=== PATIENT | female | born 1950 | race Caucasian/White ===

== ENCOUNTER 2020-09-09 15:41 | Inpatient (IN) | payer OTHER ==
[2020-09-09] VITALS (21 sets, daily range): BP systolic 79–130; BP diastolic 39–78
[~2020-09-09] VITALS: Ht 160 cm; Wt 49.9 kg
[2020-09-09 16:14] LABS: APPEARANCE,URINE TURBID; BILIRUBIN, URINE 2+ (NEGATIVE); COLOR,URINE BROWN; GLUCOSE, URINE (UA) NEGATIVE (NEGATIVE); KETONES,URINE 2+ (NEGATIVE); LEUKOCYTE ESTERASE ,URINE 3+ (NEGATIVE); NITRITE,URINE NEGATIVE (NEGATIVE); PH,URINE 7 (4.5-8.0); PROTEIN,URINE 4+ (NEGATIVE); UROBILINOGEN,URINE NORMAL MG/DL (0.0-1.0)
[2020-09-09 16:26] LABS: HEMATOCRIT 26.6 % (37.0-47.0); HEMOGLOBIN 8.4 G/DL (12.0-16.0); MEAN CORPUSCULAR VOLUME 85 FL (80-99); PLATELET COUNT 453 K/UL (150-450); RED BLOOD COUNT 3.12 M/UL (4.20-5.40); RED CELL DISTRIBUTION WIDTH 19.8 % (11.6-14.8)
[2020-09-09] MEDS ORDERED: Vancomycin 1 GM in NS 275 ML IVPB ONE (16:30)
[2020-09-09] MEDS ORDERED: Omnipaque-300 100ml vial INJ PRN (16:30)
[2020-09-09] MEDS ORDERED: Cefepime HCl 1 GM in D5W 55 ML IVPB ONE (16:30)
[2020-09-09 16:31] LABS: WHITE BLOOD COUNT 24.1 K/UL (4.8-10.8)
[2020-09-09 16:35] LABS: ANION GAP 19 mmol/L (5-15); BLOOD UREA NITROGEN 31 mg/dL (7-18); CALCIUM 8.1 MG/DL (8.5-10.1); CARBON DIOXIDE 11 MMOL/L (21-32); CHLORIDE 101 MMOL/L (98-107); INR 1.3 (0.9-1.1); POTASSIUM 4.9 MMOL/L (3.5-5.1); SODIUM 131 MMOL/L (136-145)
--- NOTE | 2020-09-09 16:36 | Emergency Room Report ---
History of Present Illness General Chief Complaint: Generalized Weakness Source: Patient, Medical Record, EMS Present Illness HPI Paramedics were called for patient with gluteal pain. In addition she was found to be hypotensive. Paramedics have very little other history. Patient c omplains of abdominal pain. He rates the pain 6/10 and constant. Aching and pressure. She denies dysuria. She has been moving her bowels without difficulty and denies diarrhea. She complains of generalized weakness. He denies nausea and vomiting. There is no productive cough. He has swelling in extremities but denies any calf pain. 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 She has obstructive jaundice in the past and stent has been placed twice. She has a Port-A-Cath and also PICC line. She been receiving chemotherapy. Apparently at the onset of the admission last time she had a temperature of 102. No fevers, chills, sore throat, chest pain, palpitations, shortness of breath, rashes, depression, anxiety, visual changes, dizziness, headache. Allergies: Coded Allergies: No Known Allergies (Unverified , 09/09/20) COVID-19 Screening Contact w/high risk pt: No Experienced COVID-19 symptoms?: No Patient History Past Medical History: see triage record Past Surgical History: other - liver stents, IVC filter, ureteral stents Social History: Denies: smoking, alcohol use Social History Narrative born [facility] Reviewed Nursing Documentation: PMH: Agreed; PSxH: Agreed Review of Systems All Other Systems: negative except mentioned in HPI Physical Exam Vital Signs Date Time Temp Pulse Resp B/P (MAP) Pulse Ox O2 Delivery O2 Flow Rate FiO2 09/09/20 15:35 99.0 105 18 80/40 (53) 97 Room Air Sp02 EP Interpretation: reviewed, normal General Appearance: GCS 15, mild distress, thin, Chronically Ill Head: normocephalic, atraumatic Eyes: bilateral eye PERRL, bilateral eye scleral icterus ENT: dry mucus membranes Neck: full range of motion, supple Respiratory: lungs clear, normal breath sounds, other - Port-A-Cath right chest Cardiovascular #1: tachycardia, other - PICC line right upper arm, edema - Anasarca and 3+ pitting bilateral legs Cardiovascular #2: 2+ radial (R) Gastrointestinal: no rebound, distended, guarding, tenderness Rectal: hemorrhoids Genitourinary: no CVA tenderness Musculoskeletal: back normal - Upper, moves extm spontaneously, tender - Sacral and gluteal area Neurologic: DTRs symmetric, oriented x3, sensory intact, cerebellar normal, motor weakness - Generalized, speech normal, other - No asterixis Psychiatric: mood/affect normal Skin: Decubitus/Ulcer - Stage II sacral, warm/dry, jaundice, pallor Procedures Critical Care Time Critical Care Time Total Critical Care Time: 115 min bedside evaluation and treatment excludes procedures (EKG). Reason for critical care: Septic shock, liver failure, hematuria and UTI, sepsis resuscitation, treatment of coagulopathy, consultation with admitting physician and surgeon, repeat evaluations, review of prior records, renal failure Possible complications: hypotension, hypertension, SC, shock, arrhythmias, metabolic acidosis, end organ damage, respiratory failure. Interventions: Sepsis resuscitation, repeat evaluations, antibiotics, vitamin K, consultations with surgeon and admitting physician, review of prior records Course: Patient presented with lower back pain and hypotension. Obvious liver failure. Sepsis resuscitation begun. Initially responsive to fluids. Persistent hypotension. Replete fluid boluses. Unresponsive to fluid boluses and pressors begun. Blood pressure improved with this. Abdominal pain led to CT of the abdomen revealing spigelian hernia. Surgical consultation. Patient examined by private physician in the emergency department and discussion of level of care. Coagulopathy treated with vitamin K. Urinary tract infection treated with triple antibiotics. Consultations: nursing staff, EMS, consulting surgeon, admitting physician Performed by: Dr. Mackay Tolerated well condition = critical Medical Decision Making Diagnostic Impression: Primary Impression: Severe sepsis Additional Impressions: Liver failure Qualified Codes: K72.90 - Hepatic failure, unspecified without coma Hematuria Qualified Codes: R31.0 - Gross hematuria UTI (urinary tract infection) Qualified Codes: N39.0 - Urinary tract infection, site not specified; R31.9 - Hematuria, unspecified Renal failure Qualified Codes: N19 - Unspecified kidney failure Spigelian hernia Elevated lipase Coagulopathy Septic shock Metastasis from rectal cancer ER Course Patient presents with lower back pain and hypotension. This evidence of liver failure. Differential includes sepsis, biliary obstruction, metastatic disease, acute bleeding, acute myocardial infarction, electrolyte imbalance amongst others. Evaluation with EKG, chest x-ray, CT of the abdomen and labs. Sepsis resuscitation begun. Patient placed on a playground monitor. Review of records from prior hospitalization. Extremely complex patient with comorbidities and in critical condition. EKG no injury. Chest x-ray metastatic disease. Vitamin K ordered in face of hematuria. Still hypotensive after 500 NS. Re-bolus ordered. Triple antibiotics ordered. 1620 If hypotensive after bolus, will start pressors. Sepsis reevaluation. Called with critical WBC. Dr. Abarca here and discussed in detail. 1635 CT abdomen ordered. Renal failure - non-contrast discussed with security installation sales technician. Dr. Abarca spoke with patient regarding code status. No compressions or intubation. Still aggressive care (ICU). 165 CT abdomen with spigelian hernia possible causing obstruction. Contact Dr. Haas. BP still low. Starting Levophed. 175 BP stable on Levophed 1830 Condition is improved but patient is critical. Laboratory Tests Test 09/09/20 15:50 White Blood Count 24.1 K/UL (4.8-10.8) *H Red Blood Count 3.12 M/UL (4.20-5.40) L Hemoglobin 8.4 G/DL (12.0-16.0) L Hematocrit 26.6 % (37.0-47.0) L Mean Corpuscular Volume 85 FL (80-99) Mean Corpuscular Hemoglobin 26.9 PG (27.0-31.0) L Mean Corpuscular Hemoglobin Concent 31.5 G/DL (32.0-36.0) L Red Cell Distribution Width 19.8 % (11.6-14.8) H Platelet Count 453 K/UL (150-450) H Mean Platelet Volume 7.2 FL (6.5-10.1) Neutrophils (%) (Auto) % (45.0-75.0) Lymphocytes (%) (Auto) % (20.0-45.0) Monocytes (%) (Auto) % (1.0-10.0) Eosinophils (%) (Auto) % (0.0-3.0) Basophils (%) (Auto) % (0.0-2.0) Differential Total Cells Counted 100 Neutrophils % (Manual) 92 % (45-75) H Lymphocytes % (Manual) 3 % (20-45) L Monocytes % (Manual) 5 % (1-10) Eosinophils % (Manual) 0 % (0-3) Basophils % (Manual) 0 % (0-2) Band Neutrophils 0 % (0-8) Platelet Estimate Increased H Platelet Morphology Normal Hypochromasia 1+ Anisocytosis 1+ Target Cells Occasional Stomatocytes Occasional Prothrombin Time 14.5 SEC (9.30-11.50) H Prothrombin Time INR 1.3 (0.9-1.1) H Activated Partial Thromboplast Time 44 SEC (23-33) H D-Dimer 3.14 mg/L FEU (0.00-0.49) H Urine Color Brown Urine Appearance Turbid Urine pH 7 (4.5-8.0) Urine Specific [place] 1.010 (1.005-1.035) Urine Protein 4+ (NEGATIVE) H Urine Glucose (UA) Negative (NEGATIVE) Urine Ketones 2+ (NEGATIVE) H Urine Blood 5+ (NEGATIVE) H Urine Nitrite Negative (NEGATIVE) Urine Bilirubin 2+ (NEGATIVE) H Urine Ictotest Positive (NEGATIVE) Urine Urobilinogen Normal MG/DL (0.0-1.0) Urine Leukocyte Esterase 3+ (NEGATIVE) H Urine RBC Tntc /HPF (0 - 2) H Urine WBC Tntc /HPF (0 - 2) H Urine Squamous Epithelial Cells Occasional /LPF Urine Bacteria Many /HPF (NONE) H Urine Yeast Moderate /HPF (NONE) H Sodium Level 131 MMOL/L (136-145) L Potassium Level 4.9 MMOL/L (3.5-5.1) Chloride Level 101 MMOL/L (98-107) Carbon Dioxide Level 11 MMOL/L (21-32) L Anion Gap 19 mmol/L (5-15) H Blood Urea Nitrogen 31 mg/dL (7-18) H Creatinine 3.0 MG/DL (0.55-1.30) H Estimated Glomerular Filtration Rate 15.5 mL/min (>60) Glucose Level 77 MG/DL (74-106) Lactic Acid Level 0.40 mmol/L (0.4-2.0) Calcium Level 8.1 MG/DL (8.5-10.1) L Magnesium Level 1.8 MG/DL (1.8-2.4) Ferritin 666 NG/ML (8-388) H Total Bilirubin 16.3 MG/DL (0.2-1.0) H Direct Bilirubin 13.6 MG/DL (0.0-0.3) H Aspartate Amino Transferase (AST) 88 U/L (15-37) H Alanine Aminotransferase (ALT) 14 U/L (12-78) Alkaline Phosphatase > 2000 U/L (46-116) H Ammonia 74 umol/L (11-32) H Lactate Dehydrogenase 258 U/L (81-234) H Total Creatine Kinase 72 U/L (26-308) Troponin I 0.000 ng/mL (0.000-0.056) C-Reactive Protein, Quantitative 11.1 mg/dL (0.00-0.90) H Pro-B-Type Natriuretic Peptide 692 pg/mL (0-125) H Total Protein 6.1 G/DL (6.4-8.2) L Albumin 1.5 G/DL (3.4-5.0) L Globulin 4.6 g/dL Albumin/Globulin Ratio 0.3 (1.0-2.7) L Lipase 1453 U/L (73-393) H EKG Diagnostic Results Rhythm: NSR ST Segments: no acute changes Rhythm Strip Diag. Results EP Interpretation: yes Rhythm: NSR, no PVC's, no ectopy Chest X-Ray Diagnostic Results Chest X-Ray Diagnostic Results : Chest X-Ray Ordered: Yes # of Views/Limited/Complete: 1 View Indication: Other EP Interpretation: Yes Interpretation: no pneumothorax, other - metastatic disease vs infiltrates, bilateral effusions Last Vital Signs Date Time Temp Pulse Resp B/P (MAP) Pulse Ox O2 Delivery O2 Flow Rate FiO2 09/09/20 23:00 104/52 09/09/20 22:40 98.9 09/09/20 21:12 91 09/09/20 20:20 16 100 Room Air Status: improved Disposition: ADMITTED INPATIENT Condition: Critical Surya Mackay MD Sep 09, 2020 16:36
[2020-09-09 16:38] LABS: AMMONIA 74 umol/L (11-32)
[2020-09-09 16:51] LABS: ALANINE AMINOTRANSFERASE 14 U/L (12-78); ALBUMIN 1.5 G/DL (3.4-5.0); ALBUMIN/GLOBULIN RATIO 0.3 (1.0-2.7); ALKALINE PHOSPHATASE > 2000 U/L (46-116); ASPARTATE AMINO TRANSFERASE 88 U/L (15-37); BILIRUBIN,TOTAL 16.3 MG/DL (0.2-1.0); CREATINE KINASE 72 U/L (26-308); FERRITIN 666 NG/ML (8-388); LACTATE DEHYDROGENASE 258 U/L (81-234)
[2020-09-09] MEDS ORDERED: BISACODYL5 MG ORAL (16:58)
[2020-09-09] MEDS ORDERED: DOCUSATE SODIU100 MG ORAL (16:58)
[2020-09-09] MEDS ORDERED: REGLAN5 MG ORAL (17:00)
[2020-09-09] MEDS ORDERED: ZOFRAN ODT8 MG ORAL (17:00)
[2020-09-09] MEDS ORDERED: MORPHINE IR15 MG ORAL (17:00)
[2020-09-09] MEDS ORDERED: OMEPRAZOLE20 M3 ORAL (17:00)
[2020-09-09] MEDS ORDERED: OXYCODONE HCL5 M2 ORAL (17:00)
[2020-09-09] MEDS ORDERED: LOSARTAN POTASS50 MG ORAL (17:00)
[2020-09-09 17:02] LABS: BILIRUBIN,DIRECT 13.6 MG/DL (0.0-0.3)
--- NOTE | 2020-09-09 17:23 | Diagnostic Imaging Report ---
EXAM: CT Abdomen and Pelvis Without Intravenous Contrast CLINICAL HISTORY: ABD PAIN TECHNIQUE: Axial computed tomography images of the abdomen and pelvis without intravenous contrast. CTDI is 4.5 mGy and DLP is 233.8 mGy-cm. One or more of the following dose reduction techniques were used: automated exposure control, adjustment of the mA and/or kV according to patient size, use of iterative reconstruction technique. COMPARISON: No relevant prior studies available. FINDINGS: Lung bases: Multiple nodules in the lungs suspicious for metastatic disease. Pleural space: Small bilateral pleural effusions and subjacent atelectasis. ABDOMEN: Liver: Unremarkable. Gallbladder and bile ducts: Metal stent within the common bile duct with severe intrahepatic biliary dilatation. The gallbladder is distended. Pancreas: Poorly visualized pancreatic parenchyma given the lack of contrast. Spleen: Unremarkable. Adrenals: Unremarkable. Kidneys and ureters: Bilateral nephroureteral stents in place. Moderate bilateral hydronephrosis. Hyperdense 1.9 cm structure in the left renal upper pole is contrast density potentially representing retained contrast in a calyceal cyst. Stomach and bowel: Right-sided spigelian hernia containing a loop of small bowel. The small bowel is dilated both within the hernia sac and upstream with fluid levels likely representing obstruction. Postsurgical changes within the rectum and right lower quadrant small bowel. No small bowel pneumatosis. PELVIS: Appendix: No findings to suggest acute appendicitis. Bladder: Tovar catheter within the bladder. No stones. Reproductive: Unremarkable as visualized. ABDOMEN and PELVIS: Intraperitoneal space: Unremarkable. No free air. No significant fluid collection. Bones/joints: No acute fracture. Soft tissues: Marked anasarca. Vasculature: IVC filter in place. Lymph nodes: Bulky calcified retroperitoneal and epigastric lymph nodes suspicious for metastatic disease. IMPRESSION: 1. Right-sided spigelian hernia containing a loop of small bowel. The small bowel is dilated both within the hernia sac and upstream with fluid levels likely representing obstruction. 2. Metal stent within the common bile duct with severe intrahepatic biliary dilatation. 3. Bilateral nephroureteral stents in place. Moderate bilateral hydronephrosis. 4. Multiple pulmonary nodules and intra-abdominal adenopathy suspicious for metastatic disease. 5. Fluid overload as evidenced by marked anasarca and small bilateral pleural effusions.
--- NOTE | 2020-09-09 17:31 | Diagnostic Imaging Report ---
Indication: Shortness of breath Technique: One view of the chest Comparison: none Findings: There are bilateral streaky and patchy opacities. There are also bilateral masslike opacities. There are bilateral pleural effusions. The heart size is normal. There is a right arm PICC as well as a right chest port. There is a metal biliary stent noted in the upper abdomen. Impression: Bilateral masslike opacities. Suspected neoplastic etiology given presence of a chest port catheter. Bilateral streaky opacities, may reflect pneumonia versus pulmonary edema. Atypical pneumonia also possibility. Bilateral pleural effusions
--- NOTE | 2020-09-09 18:54 | Consultation ---
History of Present Illness General Reason for Hospitalization: Generalized Weakness Present Illness HPI this is a very unfortunate 70 year old female with multiple medical comorb idities and history of metastatic rectal / hepatopancreaticobiliary mets cancer with liver failure and extensive disease who presented with worsening declining condition from care facility noted to have CT with spigelian hernia causing sbo. surgery called to evaluate and assist with care. patient seen in ICU, chart reviewed, patient examined. she is awake but not responsive and cannot participate in exam. she looks very ill and jaundice. hx of biliary stent for biliary obstruction metallic. chart reviewed, case discussed with pcp. Allergies: Coded Allergies: No Known Allergies (Unverified , 09/09/20) COVID-19 Screening Contact w/high risk pt: No Experienced COVID-19 symptoms?: No Medication History Scheduled Bisacodyl* (Dulcolax*), 5 MG ORAL DAILY, (Reported) Docusate Sodium* (Docusate Sodium*), 200 MG ORAL TWICE A DAY, (Reported) Losartan Potassium* (Losartan Potassium*), 50 MG ORAL DAILY, (Reported) Metoclopramide Hcl* (Reglan*), 5 MG ORAL EVERY 6 HOURS, (Reported) Omeprazole (Omeprazole), 20 MG ORAL DAILY, (Reported) Scheduled PRN Morphine HCl (Morphine Sulfate ER), 15 MG ORAL BID PRN for For Pain, (Reported) Ondansetron Odt* (Zofran Odt*), 8 MG ORAL Q6H PRN for Nausea & Vomiting, (Reported) Oxycodone Hcl* (Oxycodone Hcl*), 5 MG ORAL Q4H PRN for For Pain, (Reported) Patient History Limited by: medical condition History Provided By: Medical Record, PMD Healthcare decision maker Resuscitation status Advanced Directive on File Past Medical/Surgical History Past Medical/Surgical History: (1) Liver failure (2) Hematuria (3) Renal failure (4) Severe sepsis (5) Spigelian hernia (6) UTI (urinary tract infection) Physical Exam Last 24 Hour Vital Signs Date Time Temp Pulse Resp B/P (MAP) Pulse Ox O2 Delivery O2 Flow Rate FiO2 09/09/20 18:46 98.9 84 11 105/51 100 Room Air 09/09/20 18:33 71/44 09/09/20 18:19 98.9 84 11 100/56 100 Room Air 09/09/20 18:05 63/42 09/09/20 18:05 63/42 09/09/20 17:46 99.0 96 18 96/63 100 Room Air 09/09/20 15:55 99 18 Room Air 09/09/20 15:55 99.0 99 18 80/40 97 Room Air 09/09/20 15:35 99.0 105 18 80/40 (53) 97 Room Air Laboratory Tests Test 09/09/20 15:50 White Blood Count 24.1 K/UL (4.8-10.8) *H Red Blood Count 3.12 M/UL (4.20-5.40) L Hemoglobin 8.4 G/DL (12.0-16.0) L Hematocrit 26.6 % (37.0-47.0) L Mean Corpuscular Volume 85 FL (80-99) Mean Corpuscular Hemoglobin 26.9 PG (27.0-31.0) L Mean Corpuscular Hemoglobin Concent 31.5 G/DL (32.0-36.0) L Red Cell Distribution Width 19.8 % (11.6-14.8) H Platelet Count 453 K/UL (150-450) H Mean Platelet Volume 7.2 FL (6.5-10.1) Neutrophils (%) (Auto) % (45.0-75.0) Lymphocytes (%) (Auto) % (20.0-45.0) Monocytes (%) (Auto) % (1.0-10.0) Eosinophils (%) (Auto) % (0.0-3.0) Basophils (%) (Auto) % (0.0-2.0) Differential Total Cells Counted 100 Neutrophils % (Manual) 92 % (45-75) H Lymphocytes % (Manual) 3 % (20-45) L Monocytes % (Manual) 5 % (1-10) Eosinophils % (Manual) 0 % (0-3) Basophils % (Manual) 0 % (0-2) Band Neutrophils 0 % (0-8) Platelet Estimate Increased H Platelet Morphology Normal Hypochromasia 1+ Anisocytosis 1+ Target Cells Occasional Stomatocytes Occasional Prothrombin Time 14.5 SEC (9.30-11.50) H Prothromb Time International Ratio 1.3 (0.9-1.1) H Activated Partial Thromboplast Time 44 SEC (23-33) H D-Dimer 3.14 mg/L FEU (0.00-0.49) H Urine Color Brown Urine Appearance Turbid Urine pH 7 (4.5-8.0) Urine Specific [employer] 1.010 (1.005-1.035) Urine Protein 4+ (NEGATIVE) H Urine Glucose (UA) Negative (NEGATIVE) Urine Ketones 2+ (NEGATIVE) H Urine Blood 5+ (NEGATIVE) H Urine Nitrite Negative (NEGATIVE) Urine Bilirubin 2+ (NEGATIVE) H Urine Ictotest Positive (NEGATIVE) Urine Urobilinogen Normal MG/DL (0.0-1.0) Urine Leukocyte Esterase 3+ (NEGATIVE) H Urine RBC Tntc /HPF (0 - 2) H Urine WBC Tntc /HPF (0 - 2) H Urine Squamous Epithelial Cells Occasional /LPF Urine Bacteria Many /HPF (NONE) H Urine Yeast Moderate /HPF (NONE) H Sodium Level 131 MMOL/L (136-145) L Potassium Level 4.9 MMOL/L (3.5-5.1) Chloride Level 101 MMOL/L (98-107) Carbon Dioxide Level 11 MMOL/L (21-32) L Anion Gap 19 mmol/L (5-15) H Blood Urea Nitrogen 31 mg/dL (7-18) H Creatinine 3.0 MG/DL (0.55-1.30) H Estimat Glomerular Filtration Rate 15.5 mL/min (>60) Glucose Level 77 MG/DL (74-106) Lactic Acid Level 0.40 mmol/L (0.4-2.0) Calcium Level 8.1 MG/DL (8.5-10.1) L Magnesium Level 1.8 MG/DL (1.8-2.4) Ferritin 666 NG/ML (8-388) H Total Bilirubin 16.3 MG/DL (0.2-1.0) H Direct Bilirubin 13.6 MG/DL (0.0-0.3) H Aspartate Amino Transf (AST/SGOT) 88 U/L (15-37) H Alanine Aminotransferase (ALT/SGPT) 14 U/L (12-78) Alkaline Phosphatase > 2000 U/L (46-116) H Ammonia 74 umol/L (11-32) H Lactate Dehydrogenase 258 U/L (81-234) H Total Creatine Kinase 72 U/L (26-308) Troponin I 0.000 ng/mL (0.000-0.056) C-Reactive Protein, Quantitative 11.1 mg/dL (0.00-0.90) H Pro-B-Type Natriuretic Peptide 692 pg/mL (0-125) H Total Protein 6.1 G/DL (6.4-8.2) L Albumin 1.5 G/DL (3.4-5.0) L Globulin 4.6 g/dL Albumin/Globulin Ratio 0.3 (1.0-2.7) L Lipase 1453 U/L (73-393) H Microbiology Date/Time Source Procedure Growth Status 09/09/20 00:00 Rectum Ordered Height (Feet): 5 Height (Inches): 3.00 Weight (Pounds): 90 Medications Current Medications Medications (Trade) Dose Ordered Sig/Laisha Route PRN Reason Start Time Stop Time Status Last Admin Dose Admin Iohexol (OMNIPAQUE-300 100ml) 100 ml NOW PRN INJ Radiology Procedure 09/09/20 16:30 09/11/20 16:29 Norepinephrine Bitartrate 4 mg/ Dextrose 250 ml @ 0 mls/hr Q24H IV 09/09/20 18:00 09/12/20 17:59 09/09/20 18:05 Assessment/Plan Problem List: (1) Hematuria ICD Codes: R31.9 - Hematuria, unspecified SNOMED: 34626472 Qualifiers: Qualified Codes: R31.0 - Gross hematuria (2) Renal failure ICD Codes: N19 - Unspecified kidney failure SNOMED: 07612407 Qualifiers: Qualified Codes: N19 - Unspecified kidney failure (3) Severe sepsis Assessment & Plan: causing sbo seemingly reduced at bedside unfortunately patient is not a surgical candidate prognosis is poor and survival is low aggressive intervention would be medically futile and surgery would strongly not be recommended in her condition recommend hospice and end of life comfort care thank you will follow with exam and recs ICD Codes: A41.9 - Sepsis, unspecified organism; R65.20 - Severe sepsis without septic shock SNOMED: 16623379 (4) Spigelian hernia Assessment & Plan: ABDOMEN: Liver: Unremarkable. Gallbladder and bile ducts: Metal stent within the common bile duct with severe intrahepatic biliary dilatation. The gallbladder is distended. Pancreas: Poorly visualized pancreatic parenchyma given the lack of contrast. Spleen: Unremarkable. Adrenals: Unremarkable. Kidneys and ureters: Bilateral nephroureteral stents in place. Moderate bilateral hydronephrosis. Hyperdense 1.9 cm structure in the left renal upper pole is contrast density potentially representing retained contrast in a calyceal cyst. Stomach and bowel: Right-sided spigelian hernia containing a loop of small bowel. The small bowel is dilated both within the hernia sac and upstream with fluid levels likely representing obstruction. Postsurgical changes within the rectum and right lower quadrant small bowel. No small bowel pneumatosis. PELVIS: Appendix: No findings to suggest acute appendicitis. Bladder: Tovar catheter within the bladder. No stones. Reproductive: Unremarkable as visualized. ABDOMEN and PELVIS: Intraperitoneal space: Unremarkable. No free air. No significant fluid collection. Bones/joints: No acute fracture. Soft tissues: Marked anasarca. Vasculature: IVC filter in place. Lymph nodes: Bulky calcified retroperitoneal and epigastric lymph nodes suspicious for metastatic disease. IMPRESSION: 1. Right-sided spigelian hernia containing a loop of small bowel. The small bowel is dilated both within the hernia sac and upstream with fluid levels likely representing obstruction. 2. Metal stent within the common bile duct with severe intrahepatic biliary dilatation. 3. Bilateral nephroureteral stents in place. Moderate bilateral hydronephrosis. 4. Multiple pulmonary nodules and intra-abdominal adenopathy suspicious for metastatic disease. 5. Fluid overload as evidenced by marked anasarca and small bilateral pleural effusions. ICD Codes: K43.9 - Ventral hernia without obstruction or gangrene SNOMED: 491793458 (5) UTI (urinary tract infection) ICD Codes: N39.0 - Urinary tract infection, site not specified SNOMED: 26811657 Qualifiers: Qualified Codes: N39.0 - Urinary tract infection, site not specified; R31.9 - Hematuria, unspecified (6) Liver failure ICD Codes: K72.90 - Hepatic failure, unspecified without coma SNOMED: 81202233 Qualifiers: Qualified Codes: K72.90 - Hepatic failure, unspecified without coma Nicholas Haas Sep 09, 2020 18:54
[2020-09-09] MEDS ORDERED: D5 1/2NS 1,000 ML IV SCH (19:15)
--- NOTE | 2020-09-09 19:50 | History and Physical ---
History of Present Illness General Date patient seen: Sep 09, 2020 Time patient seen: 17:00 Reason for Hospitalization: Generalized Weakness Present Illness HPI 70 y/o F with h/o rectal cancer dx in 2014, s/p resection, colostomy and takedown colostomy in 2017. Completed Chemo and radiation therapy and had recurrent disease in 06/04 and 07/05 when she was admitted to [facility] for possible cholangiocarcinoma vs metastatic disease near pancreatic duct confluence, marked intra hepatic dilatation, multiple RP lymph nodes, several pulmonary nodules, IVC thrombosis and thormbus extending in to the common iliac veins bilaterally, as well as R anterios abdominal wall ventral hernia containing loops of bowl. She underwent EUS/ERCP with moderate proximal CBD stricture and biopsy noted moderately differentiated adenocarcinoma likely from colon. She had IVCF placement. Last admission to [place] [facility] 07/20/20 for abdominal pain and obstructive jaundice, Exchange of biliary stent to 10 mm x 10 cm metal ending in L intra hepatic system by Dr. Marty Scott. She had palliative consult and pain management with oxycodone and MS Contin was in place and GOC with GOFAR score of 5 noted a probability of survival of 9% if she had CPR for in hospital cardiac arrest. TODAY, she was referred to the ER with hypotension from [facility]. She was found to have jaundice, renal failure, abdominal pain, hematuria, CT abdomen with spigilian hernia and admission to the ICU is requested. I discussed in detail GOC with the patient at the bedside and she desires to be DNR DNI after multiple questions were responded to my best capacity. Allergies: Coded Allergies: No Known Allergies (Unverified , 09/09/20) COVID-19 Screening Contact w/high risk pt: No Experienced COVID-19 symptoms?: No Medication History Scheduled Bisacodyl* (Dulcolax*), 5 MG ORAL DAILY, (Reported) Docusate Sodium* (Docusate Sodium*), 200 MG ORAL TWICE A DAY, (Reported) Losartan Potassium* (Losartan Potassium*), 50 MG ORAL DAILY, (Reported) Metoclopramide Hcl* (Reglan*), 5 MG ORAL EVERY 6 HOURS, (Reported) Omeprazole (Omeprazole), 20 MG ORAL DAILY, (Reported) Scheduled PRN Morphine HCl (Morphine Sulfate ER), 15 MG ORAL BID PRN for For Pain, (Reported) Ondansetron Odt* (Zofran Odt*), 8 MG ORAL Q6H PRN for Nausea & Vomiting, (Reported) Oxycodone Hcl* (Oxycodone Hcl*), 5 MG ORAL Q4H PRN for For Pain, (Reported) Patient History Healthcare decision maker Resuscitation status Advanced Directive on File Review of Systems All Other Systems: negative except mentioned in HPI Physical Exam General Appearance: moderate distress Lines, tubes and drains: peripheral, PICC, other - R chest port HEENT: normocephalic, atraumatic Cardiovascular/Chest: normal rate Genitourinary/Rectal: yates, other - hematuria Extremities: non-tender Skin Exam: jaundice 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 grossly normal Last 24 Hour Vital Signs Date Time Temp Pulse Resp B/P (MAP) Pulse Ox O2 Delivery O2 Flow Rate FiO2 09/09/20 18:46 98.9 84 11 105/51 100 Room Air 09/09/20 18:33 71/44 09/09/20 18:19 98.9 84 11 100/56 100 Room Air 09/09/20 18:05 63/42 09/09/20 18:05 63/42 09/09/20 17:46 99.0 96 18 96/63 100 Room Air 09/09/20 15:55 99 18 Room Air 09/09/20 15:55 99.0 99 18 80/40 97 Room Air 09/09/20 15:35 99.0 105 18 80/40 (53) 97 Room Air Laboratory Tests Test 09/09/20 15:50 White Blood Count 24.1 K/UL (4.8-10.8) *H Red Blood Count 3.12 M/UL (4.20-5.40) L Hemoglobin 8.4 G/DL (12.0-16.0) L Hematocrit 26.6 % (37.0-47.0) L Mean Corpuscular Volume 85 FL (80-99) Mean Corpuscular Hemoglobin 26.9 PG (27.0-31.0) L Mean Corpuscular Hemoglobin Concent 31.5 G/DL (32.0-36.0) L Red Cell Distribution Width 19.8 % (11.6-14.8) H Platelet Count 453 K/UL (150-450) H Mean Platelet Volume 7.2 FL (6.5-10.1) Neutrophils (%) (Auto) % (45.0-75.0) Lymphocytes (%) (Auto) % (20.0-45.0) Monocytes (%) (Auto) % (1.0-10.0) Eosinophils (%) (Auto) % (0.0-3.0) Basophils (%) (Auto) % (0.0-2.0) Differential Total Cells Counted 100 Neutrophils % (Manual) 92 % (45-75) H Lymphocytes % (Manual) 3 % (20-45) L Monocytes % (Manual) 5 % (1-10) Eosinophils % (Manual) 0 % (0-3) Basophils % (Manual) 0 % (0-2) Band Neutrophils 0 % (0-8) Platelet Estimate Increased H Platelet Morphology Normal Hypochromasia 1+ Anisocytosis 1+ Target Cells Occasional Stomatocytes Occasional Prothrombin Time 14.5 SEC (9.30-11.50) H Prothromb Time International Ratio 1.3 (0.9-1.1) H Activated Partial Thromboplast Time 44 SEC (23-33) H D-Dimer 3.14 mg/L FEU (0.00-0.49) H Urine Color Brown Urine Appearance Turbid Urine pH 7 (4.5-8.0) Urine Specific Balsam 1.010 (1.005-1.035) Urine Protein 4+ (NEGATIVE) H Urine Glucose (UA) Negative (NEGATIVE) Urine Ketones 2+ (NEGATIVE) H Urine Blood 5+ (NEGATIVE) H Urine Nitrite Negative (NEGATIVE) Urine Bilirubin 2+ (NEGATIVE) H Urine Ictotest Positive (NEGATIVE) Urine Urobilinogen Normal MG/DL (0.0-1.0) Urine Leukocyte Esterase 3+ (NEGATIVE) H Urine RBC Tntc /HPF (0 - 2) H Urine WBC Tntc /HPF (0 - 2) H Urine Squamous Epithelial Cells Occasional /LPF Urine Bacteria Many /HPF (NONE) H Urine Yeast Moderate /HPF (NONE) H Sodium Level 131 MMOL/L (136-145) L Potassium Level 4.9 MMOL/L (3.5-5.1) Chloride Level 101 MMOL/L (98-107) Carbon Dioxide Level 11 MMOL/L (21-32) L Anion Gap 19 mmol/L (5-15) H Blood Urea Nitrogen 31 mg/dL (7-18) H Creatinine 3.0 MG/DL (0.55-1.30) H Estimat Glomerular Filtration Rate 15.5 mL/min (>60) Glucose Level 77 MG/DL (74-106) Lactic Acid Level 0.40 mmol/L (0.4-2.0) Calcium Level 8.1 MG/DL (8.5-10.1) L Magnesium Level 1.8 MG/DL (1.8-2.4) Ferritin 666 NG/ML (8-388) H Total Bilirubin 16.3 MG/DL (0.2-1.0) H Direct Bilirubin 13.6 MG/DL (0.0-0.3) H Aspartate Amino Transf (AST/SGOT) 88 U/L (15-37) H Alanine Aminotransferase (ALT/SGPT) 14 U/L (12-78) Alkaline Phosphatase > 2000 U/L (46-116) H Ammonia 74 umol/L (11-32) H Lactate Dehydrogenase 258 U/L (81-234) H Total Creatine Kinase 72 U/L (26-308) Troponin I 0.000 ng/mL (0.000-0.056) C-Reactive Protein, Quantitative 11.1 mg/dL (0.00-0.90) H Pro-B-Type Natriuretic Peptide 692 pg/mL (0-125) H Total Protein 6.1 G/DL (6.4-8.2) L Albumin 1.5 G/DL (3.4-5.0) L Globulin 4.6 g/dL Albumin/Globulin Ratio 0.3 (1.0-2.7) L Lipase 1453 U/L (73-393) H Microbiology Date/Time Source Procedure Growth Status 09/09/20 00:00 Rectum Ordered Height (Feet): 5 Height (Inches): 3.00 Weight (Pounds): 90 Medications Current Medications Medications (Trade) Dose Ordered Sig/Laisha Route PRN Reason Start Time Stop Time Status Last Admin Dose Admin Iohexol (OMNIPAQUE-300 100ml) 100 ml NOW PRN INJ Radiology Procedure 09/09/20 16:30 09/11/20 16:29 Norepinephrine Bitartrate 4 mg/ Dextrose 250 ml @ 0 mls/hr Q24H IV 09/09/20 18:00 09/12/20 17:59 09/09/20 18:05 Objective Narrative Procedure: CT Abdomen Pelvis WO Contrast EXAM: CT Abdomen and Pelvis Without Intravenous Contrast CLINICAL HISTORY: ABD PAIN TECHNIQUE: Axial computed tomography images of the abdomen and pelvis without intravenous contrast. CTDI is 4.5 mGy and DLP is 233.8 mGy-cm. One or more of the following dose reduction techniques were used: automated exposure control, adjustment of the mA and/or kV according to patient size, use of iterative reconstruction technique. COMPARISON: No relevant prior studies available. FINDINGS: Lung bases: Multiple nodules in the lungs suspicious for metastatic disease. Pleural space: Small bilateral pleural effusions and subjacent atelectasis. ABDOMEN: Liver: Unremarkable. Gallbladder and bile ducts: Metal stent within the common bile duct with severe intrahepatic biliary dilatation. The gallbladder is distended. Pancreas: Poorly visualized pancreatic parenchyma given the lack of contrast. Spleen: Unremarkable. Adrenals: Unremarkable. Kidneys and ureters: Bilateral nephroureteral stents in place. Moderate bilateral hydronephrosis. Hyperdense 1.9 cm structure in the left renal upper pole is contrast density potentially representing retained contrast in a calyceal cyst. Stomach and bowel: Right-sided spigelian hernia containing a loop of small bowel. The small bowel is dilated both within the hernia sac and upstream with fluid levels likely representing obstruction. Postsurgical changes within the rectum and right lower quadrant small bowel. No small bowel pneumatosis. PELVIS: Appendix: No findings to suggest acute appendicitis. Bladder: Yates catheter within the bladder. No stones. Reproductive: Unremarkable as visualized. ABDOMEN and PELVIS: Intraperitoneal space: Unremarkable. No free air. No significant fluid collection. Bones/joints: No acute fracture. Soft tissues: Marked anasarca. Vasculature: IVC filter in place. Lymph nodes: Bulky calcified retroperitoneal and epigastric lymph nodes suspicious for metastatic disease. IMPRESSION: 1. Right-sided spigelian hernia containing a loop of small bowel. The small bowel is dilated both within the hernia sac and upstream with fluid levels likely representing obstruction. 2. Metal stent within the common bile duct with severe intrahepatic biliary dilatation. 3. Bilateral nephroureteral stents in place. Moderate bilateral hydronephrosis. 4. Multiple pulmonary nodules and intra-abdominal adenopathy suspicious for metastatic disease. 5. Fluid overload as evidenced by marked anasarca and small bilateral pleural effusions. Assessment/Plan Status: unchanged Assessment/Plan: 70 y/o F with metastatic rectal cancer, recent history of obstructive jaundice - IR CBD exchange now admitted with: # Hypotension Underlying etiology include bacteremia, PICC related infection, PORT related, UTI Broad sp antibiotic started and will be continued. ICU for IVF and possible need of vasopressors. Central line in place PICC # Acute renal failure with metabolic acidosis Cr: 3 and CO2 11 Renal consultation requested with Dr. Tolentino - defer IVF management # Metastatic rectal cancer Primary oncologist Dr. Dana Herrera in [place]. Will try to obtain contact information and further discuss GOC Per prior dc summary, there is no more plan for medical treatment and GOC will need to be addressed. Patient is a candidate for hospice and will discuss with her and her brother Elfego [phone] # Abnormal CT abdomen and Pelvis 1. Right-sided spigelian hernia containing a loop of small bowel. The small bowel is dilated both within the hernia sac and upstream with fluid levels likely representing obstruction. 2. Metal stent within the common bile duct with severe intrahepatic biliary dilatation. Dr. Nuñez from GI will be consulted for input. 3. Bilateral nephroureteral stents in place. Moderate bilateral hydronephrosis. 4. Multiple pulmonary nodules and intra-abdominal adenopathy suspicious for metastatic disease. Surgery consultation requested. Patient is not a surgical candidate due to comorbidities. # Hematuria Dr. Dewitt from urology consulted. Monitor CBC, and Yates output # Chronic pain syndrome Opiate therapy # Diet NPO due to SBO # IV D5 1/2 ordered. Await nephrology input - consider bicarbonate. # DNR DNI discussed with the patient. # DVT ppx with SCD only # GI ppx wit PPI Jon Abarca MD Sep 09, 2020 19:50
[2020-09-09] MEDS ORDERED: LORazepam Inj 2mg/ml 1ml IV PRN (20:00)
[2020-09-09] MEDS ORDERED: Pantoprazole Inj IV SCH (21:30)
[2020-09-09] MEDS: Docusate 100mg cap ORAL SCH (21:43)
[2020-09-09] MEDS: Sodium Bicarbonate 50 ML in D5 1/2NS 1,000 ML IV SCH (22:08)
[2020-09-09] MEDS: HYDROmorphone 1mg/ml Carpuject IVP PRN (22:10)
[2020-09-09] MEDS ORDERED: Dyna-Hex 2% Top Sol 2oz TOPIC SCH (23:00)
[2020-09-10] VITALS (67 sets, daily range): BP systolic 85–163; BP diastolic 38–104
[2020-09-10 04:59] LABS: HEMATOCRIT 22.2 % (37.0-47.0); MEAN CORPUSCULAR VOLUME 90 FL (80-99); PLATELET COUNT 415 K/UL (150-450); RED BLOOD COUNT 2.47 M/UL (4.20-5.40)
[2020-09-10 05:09] LABS: INR 1.1 (0.9-1.1)
[2020-09-10 05:17] LABS: AMMONIA 53 umol/L (11-32)
[2020-09-10 05:20] LABS: WHITE BLOOD COUNT 23.6 K/UL (4.8-10.8)
[2020-09-10 05:21] LABS: HEMOGLOBIN 6.8 G/DL (12.0-16.0)
[2020-09-10 05:41] LABS: ALANINE AMINOTRANSFERASE < 6 U/L (12-78); ALBUMIN/GLOBULIN RATIO 0.6 (1.0-2.7); ALKALINE PHOSPHATASE 1825 U/L (46-116); AMYLASE 443 U/L (25-115); ANION GAP 13 mmol/L (5-15); ASPARTATE AMINO TRANSFERASE 68 U/L (15-37); BLOOD UREA NITROGEN 32 mg/dL (7-18); CALCIUM 7.3 MG/DL (8.5-10.1); CARBON DIOXIDE 15 MMOL/L (21-32); CHLORIDE 102 MMOL/L (98-107); CHOLESTEROL 176 MG/DL (< 200); FERRITIN 532 NG/ML (8-388); HDL CHOLESTEROL 7 MG/DL (40-60); POTASSIUM 4.3 MMOL/L (3.5-5.1); SODIUM 130 MMOL/L (136-145); TRIGLYCERIDES 72 MG/DL (30-150)
[2020-09-10 05:46] LABS: % IRON SATURATION 32 % (15-50); IRON 30 ug/dL (50-175); TOTAL IRON BINDING CAPACITY 93 ug/dL (250-450)
[2020-09-10 05:50] LABS: ALANINE AMINOTRANSFERASE < 6 U/L (12-78); ALKALINE PHOSPHATASE 1800 U/L (46-116); ASPARTATE AMINO TRANSFERASE 69 U/L (15-37); BILIRUBIN,DIRECT 12.7 MG/DL (0.0-0.3)
[2020-09-10 05:53] LABS: GAMMA GLUTAMYL TRANSPEPTIDASE 993 U/L (5-85); PHOSPHORUS 4.5 MG/DL (2.5-4.9)
--- NOTE | 2020-09-10 07:27 | Consultation ---
History of Present Illness General Chief Complaint: Generalized Weakness Present Illness Allergies: Coded Allergies: No Known Allergies (Unverified , 09/09/20) Medication History Scheduled Bisacodyl* (Dulcolax*), 5 MG ORAL DAILY, (Reported) Docusate Sodium* (Docusate Sodium*), 200 MG ORAL TWICE A DAY, (Reported) Losartan Potassium* (Losartan Potassium*), 50 MG ORAL DAILY, (Reported) Metoclopramide Hcl* (Reglan*), 5 MG ORAL EVERY 6 HOURS, (Reported) Omeprazole (Omeprazole), 20 MG ORAL DAILY, (Reported) Scheduled PRN Morphine HCl (Morphine Sulfate ER), 15 MG ORAL BID PRN for For Pain, (Reported) Ondansetron Odt* (Zofran Odt*), 8 MG ORAL Q6H PRN for Nausea & Vomiting, (Rep orted) Oxycodone Hcl* (Oxycodone Hcl*), 5 MG ORAL Q4H PRN for For Pain, (Reported) Patient History Healthcare decision maker Resuscitation status Advanced Directive on File Physical Exam Last 24 Hour Vital Signs Date Time Temp Pulse Resp B/P (MAP) Pulse Ox O2 Delivery O2 Flow Rate FiO2 09/10/20 05:01 100/50 09/10/20 03:00 110/50 09/10/20 02:00 115/65 09/10/20 01:00 120/54 09/10/20 00:45 91 12 107/47 (67) 100 09/10/20 00:30 91 10 115/50 (71) 100 09/10/20 00:15 100 12 104/58 (73) 100 09/10/20 00:00 97.0 101 13 130/53 (78) 100 09/10/20 00:00 104/54 09/09/20 23:45 94 12 113/47 (69) 95 09/09/20 23:30 95 11 113/50 (71) 95 09/09/20 23:15 99 13 104/52 (69) 95 09/09/20 23:00 96 13 115/66 (82) 95 09/09/20 23:00 104/52 09/09/20 22:45 94 12 117/64 (81) 95 09/09/20 22:40 98.9 09/09/20 22:30 97 14 104/66 (79) 95 09/09/20 22:15 100 17 86/55 (65) 95 09/09/20 22:09 101/64 09/09/20 22:00 98 18 101/64 (76) 85 09/09/20 21:45 93 15 97/39 (58) 95 09/09/20 21:30 89 12 82/47 (59) 95 09/09/20 21:15 91 16 102/67 (79) 95 09/09/20 21:12 91 09/09/20 21:00 88 13 79/45 (56) 90 09/09/20 20:51 97 20 90/47 (61) 45 09/09/20 20:48 97.5 101 24 85/45 (58) 09/09/20 20:46 Room Air 2.0 09/09/20 20:45 105 30 09/09/20 20:20 98.7 84 16 116/78 100 Room Air 09/09/20 20:15 98.7 82 16 116/78 100 Room Air 09/09/20 19:45 98.9 77 16 128/70 100 Room Air 09/09/20 19:04 98.9 80 16 130/72 100 Room Air 09/09/20 18:46 98.9 84 11 105/51 100 Room Air 09/09/20 18:33 71/44 09/09/20 18:19 98.9 84 11 100/56 100 Room Air 09/09/20 18:05 63/42 09/09/20 18:05 63/42 09/09/20 17:46 99.0 96 18 96/63 100 Room Air 09/09/20 15:55 99 18 Room Air 09/09/20 15:55 99.0 99 18 80/40 97 Room Air 09/09/20 15:35 99.0 105 18 80/40 (53) 97 Room Air Intake and Output 09/09/20 09/10/20 19:00 07:00 Intake Total 2042.5 ml 856.0 ml Output Total 25 ml 250 ml Balance 2017.5 ml 606.0 ml Intake IV Total 2042.5 ml 856.0 ml Output Urine Total 25 ml 250 ml Laboratory Tests Test 09/09/20 15:50 09/10/20 04:10 White Blood Count 24.1 K/UL (4.8-10.8) *H 23.6 K/UL (4.8-10.8) *H Red Blood Count 3.12 M/UL (4.20-5.40) L 2.47 M/UL (4.20-5.40) L Hemoglobin 8.4 G/DL (12.0-16.0) L 6.8 G/DL (12.0-16.0) *L Hematocrit 26.6 % (37.0-47.0) L 22.2 % (37.0-47.0) L Mean Corpuscular Volume 85 FL (80-99) 90 FL (80-99) Mean Corpuscular Hemoglobin 26.9 PG (27.0-31.0) L 27.4 PG (27.0-31.0) Mean Corpuscular Hemoglobin Concent 31.5 G/DL (32.0-36.0) L 30.6 G/DL (32.0-36.0) L Red Cell Distribution Width 19.8 % (11.6-14.8) H 20.0 % (11.6-14.8) H Platelet Count 453 K/UL (150-450) H 415 K/UL (150-450) Mean Platelet Volume 7.2 FL (6.5-10.1) 7.0 FL (6.5-10.1) Neutrophils (%) (Auto) % (45.0-75.0) % (45.0-75.0) Lymphocytes (%) (Auto) % (20.0-45.0) % (20.0-45.0) Monocytes (%) (Auto) % (1.0-10.0) % (1.0-10.0) Eosinophils (%) (Auto) % (0.0-3.0) % (0.0-3.0) Basophils (%) (Auto) % (0.0-2.0) % (0.0-2.0) Differential Total Cells Counted 100 Neutrophils % (Manual) 92 % (45-75) H Pending Lymphocytes % (Manual) 3 % (20-45) L Pending Monocytes % (Manual) 5 % (1-10) Eosinophils % (Manual) 0 % (0-3) Basophils % (Manual) 0 % (0-2) Band Neutrophils 0 % (0-8) Platelet Estimate Increased H Pending Platelet Morphology Normal Pending Hypochromasia 1+ Anisocytosis 1+ Target Cells Occasional Stomatocytes Occasional Prothrombin Time 14.5 SEC (9.30-11.50) H 11.6 SEC (9.30-11.50) H Prothromb Time International Ratio 1.3 (0.9-1.1) H 1.1 (0.9-1.1) Activated Partial Thromboplast Time 44 SEC (23-33) H 47 SEC (23-33) H D-Dimer 3.14 mg/L FEU (0.00-0.49) H Urine Color Brown Urine Appearance Turbid Urine pH 7 (4.5-8.0) Urine Specific [place] 1.010 (1.005-1.035) Urine Protein 4+ (NEGATIVE) H Urine Glucose (UA) Negative (NEGATIVE) Urine Ketones 2+ (NEGATIVE) H Urine Blood 5+ (NEGATIVE) H Urine Nitrite Negative (NEGATIVE) Urine Bilirubin 2+ (NEGATIVE) H Urine Ictotest Positive (NEGATIVE) Urine Urobilinogen Normal MG/DL (0.0-1.0) Urine Leukocyte Esterase 3+ (NEGATIVE) H Urine RBC Tntc /HPF (0 - 2) H Urine WBC Tntc /HPF (0 - 2) H Urine Squamous Epithelial Cells Occasional /LPF Urine Bacteria Many /HPF (NONE) H Urine Yeast Moderate /HPF (NONE) H Sodium Level 131 MMOL/L (136-145) L 130 MMOL/L (136-145) L Potassium Level 4.9 MMOL/L (3.5-5.1) 4.3 MMOL/L (3.5-5.1) Chloride Level 101 MMOL/L (98-107) 102 MMOL/L (98-107) Carbon Dioxide Level 11 MMOL/L (21-32) L 15 MMOL/L (21-32) L Anion Gap 19 mmol/L (5-15) H 13 mmol/L (5-15) Blood Urea Nitrogen 31 mg/dL (7-18) H 32 mg/dL (7-18) H Creatinine 3.0 MG/DL (0.55-1.30) H 3.0 MG/DL (0.55-1.30) H Estimat Glomerular Filtration Rate 15.5 mL/min (>60) 15.5 mL/min (>60) Glucose Level 77 MG/DL (74-106) 175 MG/DL (74-106) H Lactic Acid Level 0.40 mmol/L (0.4-2.0) 0.30 mmol/L (0.4-2.0) L Calcium Level 8.1 MG/DL (8.5-10.1) L 7.3 MG/DL (8.5-10.1) L Magnesium Level 1.8 MG/DL (1.8-2.4) 1.9 MG/DL (1.8-2.4) Ferritin 666 NG/ML (8-388) H 532 NG/ML (8-388) H Total Bilirubin 16.3 MG/DL (0.2-1.0) H 15.0 MG/DL (0.2-1.0) H Direct Bilirubin 13.6 MG/DL (0.0-0.3) H 12.7 MG/DL (0.0-0.3) H Aspartate Amino Transf (AST/SGOT) 88 U/L (15-37) H 69 U/L (15-37) H Alanine Aminotransferase (ALT/SGPT) 14 U/L (12-78) < 6 U/L (12-78) L Alkaline Phosphatase > 2000 U/L (46-116) H 1800 U/L (46-116) H Ammonia 74 umol/L (11-32) H 53 umol/L (11-32) H Lactate Dehydrogenase 258 U/L (81-234) H Total Creatine Kinase 72 U/L (26-308) Troponin I 0.000 ng/mL (0.000-0.056) C-Reactive Protein, Quantitative 11.1 mg/dL (0.00-0.90) H 8.8 mg/dL (0.00-0.90) H Pro-B-Type Natriuretic Peptide 692 pg/mL (0-125) H 593 pg/mL (0-125) H Total Protein 6.1 G/DL (6.4-8.2) L 5.3 G/DL (6.4-8.2) L Albumin 1.5 G/DL (3.4-5.0) L 2.0 G/DL (3.4-5.0) L Globulin 4.6 g/dL 3.3 g/dL Albumin/Globulin Ratio 0.3 (1.0-2.7) L 0.6 (1.0-2.7) L Lipase 1453 U/L (73-393) H > 2000 U/L (73-393) H Erythrocyte Sedimentation Rate 112 MM/HR (0-30) H Hemoglobin A1c Pending Uric Acid 4.8 MG/DL (2.6-7.2) Phosphorus Level 4.5 MG/DL (2.5-4.9) Iron Level 30 ug/dL (50-175) L Total Iron Binding Capacity 93 ug/dL (250-450) L Percent Iron Saturation 32 % (15-50) Unsaturated Iron Binding 63 ug/dL (112-346) L Gamma Glutamyl Transpeptidase 993 U/L (5-85) H Triglycerides Level 72 MG/DL (30-150) Cholesterol Level 176 MG/DL (< 200) LDL Cholesterol 157 mg/dL (<100) H HDL Cholesterol 7 MG/DL (40-60) L Cholesterol/HDL Ratio 25.1 (3.3-4.4) H Amylase Level 443 U/L (25-115) H Vitamin B12 Level > 2000 PG/ML (193-986) H Folate 5.5 NG/ML (8.6-58.9) L Thyroid Stimulating Hormone (TSH) 0.567 uiU/mL (0.358-3.740) Random Vancomycin Level 4.3 ug/mL Microbiology Date/Time Source Procedure Growth Status 09/09/20 15:50 Urine,Clean Catch Urine Culture - Preliminary NO GROWTH Resulted Height (Feet): 5 Height (Inches): 3.00 Weight (Pounds): 110 Medications Current Medications Medications (Trade) Dose Ordered Sig/Laisha Route PRN Reason Start Time Stop Time Status Last Admin Dose Admin Acetaminophen (Tylenol) 650 mg Q4H PRN ORAL Fever 09/09/20 19:58 10/09/20 19:57 Albumin Human 100 ml @ 100 mls/hr Q6H IV 09/10/20 04:00 09/10/20 22:59 09/10/20 04:57 Bisacodyl (Dulcolax) 10 mg DAILYPRN PRN RECTAL Constipation 09/09/20 19:15 12/08/20 19:14 Cefepime HCl 1 gm/ Dextrose 55 ml @ 110 mls/hr Q24H IVPB 09/10/20 18:00 09/17/20 17:59 Chlorhexidine Gluconate (Samia-Hex 2%) 1 applic DAILY@2000 TOPIC 09/10/20 20:00 12/09/20 19:59 Dextrose (Dextrose 50%) 25 ml Q30M PRN IV Hypoglycemia 09/09/20 19:59 12/08/20 19:58 Dextrose (Dextrose 50%) 50 ml Q30M PRN IV Hypoglycemia 09/09/20 19:59 12/08/20 19:58 Docusate Sodium (Colace) 100 mg EVERY 12 HOURS ORAL 09/09/20 21:00 10/09/20 20:59 09/09/20 21:43 Hydromorphone HCl (Dilaudid) 0.5 mg Q2H PRN IVP Mild Pain (1-3) 09/09/20 19:15 09/16/20 19:14 Hydromorphone HCl (Dilaudid) 1 mg Q2H PRN IVP Moderate Pain (Pain Scale 4-6) 09/09/20 20:07 09/16/20 20:06 09/09/20 22:10 Hydromorphone HCl (Dilaudid) 2 mg Q4H PRN IVP Severe Pain (Pain Scale 7-10) 09/09/20 19:15 09/16/20 19:14 Iohexol (OMNIPAQUE-300 100ml) 100 ml NOW PRN INJ Radiology Procedure 09/09/20 16:30 09/11/20 16:29 Lorazepam (Ativan 2mg/ml 1ml) 0.5 mg Q4H PRN IV For Anxiety 09/09/20 20:00 09/16/20 19:59 Metronidazole 100 ml @ 100 mls/hr Q8H IVPB 09/10/20 00:00 09/17/20 00:00 09/09/20 23:33 Norepinephrine Bitartrate 8 mg/ Dextrose 508 ml @ 0 mls/hr Q24H IV 09/09/20 21:15 09/12/20 21:14 09/10/20 05:01 Ondansetron HCl (Zofran ODT) 4 mg Q6H PRN ORAL Nausea & Vomiting 09/09/20 19:59 10/09/20 19:58 Ondansetron HCl (Zofran) 4 mg Q6H PRN IVP Nausea & Vomiting 09/09/20 20:00 10/09/20 19:59 Pantoprazole (Protonix) 40 mg DAILY IV 09/10/20 09:00 10/10/20 08:59 Sodium Bicarbonate 50 ml/ Dextrose/Sodium Chloride 1,050 ml @ 75 mls/hr Q14H IV 09/09/20 21:30 10/09/20 21:29 09/09/20 22:08 Vancomycin HCl (Vanco pharmacy to dose) 1 ea DAILY PRN MISC Per rx protocol 09/09/20 19:15 10/09/20 19:14 Vancomycin HCl 1 gm/Dextrose 275 ml @ 183.708 mls/hr ONCE ONCE IVPB 09/10/20 09:00 09/10/20 10:29 Assessment/Plan Assessment/Plan: Oncology Consultation RELyndsay MD: Danielle Abarca RFC: Rectal ca and anemia, liver failure, coagulopathy DOS 09/10/2020 HPI 70 y/o F with h/o rectal cancer dx in 2014, s/p resection, colostomy and takedown colostomy in 2016. Completed Chemo and radiation therapy and had recurrent disease in 06/04 and 07/05 when she was admitted to [facility] for possible cholangiocarcinoma vs metastatic disease near pancreatic duct confluence, marked intra hepatic dilatation, multiple RP lymph nodes, several pulmonary nodules, IVC thrombosis and thormbus extending in to the common iliac veins bilaterally, as well as R anterios abdominal wall ventral hernia containing loops of bowl. She underwent EUS/ERCP with moderate proximal CBD stricture and biopsy noted moderately differentiated adenocarcinoma likely from colon. She had IVCF placement. Last admission to [place] [facility] 07/20/20 for abdominal pain and obstructive jaundice, Exchange of biliary stent to 10 mm x 10 cm metal ending in L intrahepatic system by Dr. Marty Scott. She had palliative consult and pain management with oxycodone and MS Contin was in place and GO with GOFAR score of 5 noted a probability of survival of 9% if she had CPR for in hospital cardiac arrest. TODAY, she was referred to the ER with hypotension from [facility]. She was found to have jaundice, renal failure, abdominal pain, hematuria, CT abdomen with spigilian hernia and admission to the ICU is requested. DNR/DNI now per fam discussion, is on nc Allergies: No Known Allergies (Unverified , 09/09/20) COVID-19 Screening Contact w/high risk pt: No Experienced COVID-19 symptoms?: No Medication History Scheduled Bisacodyl* (Dulcolax*), 5 MG ORAL DAILY, (Reported) Docusate Sodium* (Docusate Sodium*), 200 MG ORAL TWICE A DAY, (Reported) Losartan Potassium* (Losartan Potassium*), 50 MG ORAL DAILY, (Reported) Metoclopramide Hcl* (Reglan*), 5 MG ORAL EVERY 6 HOURS, (Reported) Omeprazole (Omeprazole), 20 MG ORAL DAILY, (Reported) Scheduled PRN Morphine HCl (Morphine Sulfate ER), 15 MG ORAL BID PRN for For Pain, (Reported) Ondansetron Odt* (Zofran Odt*), 8 MG ORAL Q6H PRN for Nausea & Vomiting, (Reported) Oxycodone Hcl* (Oxycodone Hcl*), 5 MG ORAL Q4H PRN for For Pain, (Reported) Patient History Healthcare decision maker Resuscitation status Advanced Directive on File Review of Systems All Other Systems: negative except mentioned in HPI Physical Exam General Appearance: moderate distress Lines, tubes and drains: peripheral, PICC, other - R chest port HEENT: normocephalic, atraumatic Cardiovascular/Chest: normal rate Genitourinary/Rectal: yates, other - hematuria Extremities: non-tender Skin Exam: jaundice 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 CTDI is 4.5 mGy and DLP is 233.8 mGy-cm. One or more of the following dose reduction techniques were used: automated exposure control, adjustment of the mA and/or kV according to patient size, use of iterative reconstruction technique. COMPARISON: No relevant prior studies available. FINDINGS: Lung bases: Multiple nodules in the lungs suspicious for metastatic disease. Pleural space: Small bilateral pleural effusions and subjacent atelectasis. ABDOMEN: Liver: Unremarkable. Gallbladder and bile ducts: Metal stent within the common bile duct with severe intrahepatic biliary dilatation. The gallbladder is distended. Pancreas: Poorly visualized pancreatic parenchyma given the lack of contrast. Spleen: Unremarkable. Adrenals: Unremarkable. Kidneys and ureters: Bilateral nephroureteral stents in place. Moderate bilateral hydronephrosis. Hyperdense 1.9 cm structure in the left renal upper pole is contrast density potentially representing retained contrast in a calyceal cyst. Stomach and bowel: Right-sided spigelian hernia containing a loop of small bowel. The small bowel is dilated both within the hernia sac and upstream with fluid levels likely representing obstruction. Postsurgical changes within the rectum and right lower quadrant small bowel. No small bowel pneumatosis. PELVIS: Appendix: No findings to suggest acute appendicitis. Bladder: Yates catheter within the bladder. No stones. Reproductive: Unremarkable as visualized. ABDOMEN and PELVIS: Intraperitoneal space: Unremarkable. No free air. No significant fluid collection. Bones/joints: No acute fracture. Soft tissues: Marked anasarca. Vasculature: IVC filter in place. Lymph nodes: Bulky calcified retroperitoneal and epigastric lymph nodes suspicious for metastatic disease. IMPRESSION: 1. Right-sided spigelian hernia containing a loop of small bowel. The small bowel is dilated both within the hernia sac and upstream with fluid levels likely representing obstruction. 2. Metal stent within the common bile duct with severe intrahepatic biliary dilatation. 3. Bilateral nephroureteral stents in place. Moderate bilateral hydronephrosis. 4. Multiple pulmonary nodules and intra-abdominal adenopathy suspicious for metastatic disease. 5. Fluid overload as evidenced by marked anasarca and small bilateral pleural effusions. Assessment/Recs # Metastatic rectal cancer, Primary oncologist Dr. Dana Herrera in [place]. Will try to obtain contact information and further discuss GOC --> Per prior dc summary, there is no more plan for medical treatment and GOC will need to be addressed. --> Patient is a candidate for hospice and will discuss with her and her brother Elfego --> CT with Multiple pulmonary nodules and intra-abdominal adenopathy suspicious for metastatic disease. 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 --> with central line, abx as per id as needed # Acute renal failure with metabolic acidosis --> ivfs, as per renal # Right-sided spigelian hernia containing a loop of small bowel. The small bowel is dilated both within the hernia sac and upstream with fluid levels likely representing obstruction Metal stent within the common bile duct --> as per gi # Hematuria --> yates, per uro # DVT ppx with SCD only Appreciate consultation and dw RN Yury Cutler MD Sep 10, 2020 07:27
[2020-09-10] MEDS ORDERED: Phytonadione 10 mg/mL 1ml amp SUBQ SCH (07:30)
--- NOTE | 2020-09-10 08:02 | Diagnostic Imaging Report ---
EXAM: XR Abdomen, 2 Views CLINICAL HISTORY: F/U TECHNIQUE: Frontal view of the abdomen/pelvis with upright view of the abdomen. COMPARISON: CT abdomen pelvis from one day prior. FINDINGS: Intraperitoneal space: No free air. Gastrointestinal tract: See below. Bones/joints: Unremarkable. Soft tissues: There is a right anterior abdominal wall hernia containing a moderately dilated loop of small bowel. There is unchanged moderate gaseous distention of proximal loops of small bowel consistent with small bowel obstruction. Tubes, lines and devices: There are bilateral nephroureteral stents as well as a biliary stent in place. There is an IVC filter in place. IMPRESSION: There is a right anterior abdominal wall hernia containing a moderately dilated loop of small bowel. There is unchanged moderate gaseous distention of proximal loops of small bowel consistent with small bowel obstruction.
--- NOTE | 2020-09-10 08:14 | Consultation ---
DATE OF CONSULTATION: 09/10/2020 GASTROENTEROLOGY CONSULTATION CONSULTING PHYSICIAN: Naseem Nuñez MD. REFERRING PHYSICIAN: Jon Abarca MD. CHIEF COMPLAINT: Jaundice, sepsis. HISTORY OF PRESENT ILLNESS: This 70-year-old [place] female with past medical history of rectal cancer in 2014, status post resection. Then, she had later a colostomy takedown in 2016. She had completed chemo and radiation therapy. Unfortunately, she had recurrent disease. She was admitted to [facility] with sepsis and cholangitis. At that point, the patient had an EUS and ERCP. The patient had a metallic stent placement in the distal common bile duct. This was back in June 2020, but now she is admitted again with another cholangitis. PAST MEDICAL HISTORY: History of rectal cancer with mets. ALLERGIES: No known drug allergies. MEDICATIONS: Please see medication reconciliation list. SOCIAL HISTORY: There is no history of tobacco, alcohol, or drug abuse. FAMILY HISTORY: Noncontributory. PAST SURGICAL HISTORY: Partial colectomy, colostomy and colostomy takedown. PHYSICAL EXAMINATION: VITAL SIGNS: The patient on low pressors and low dose of Levophed. Temperature is 97, pulse 91, respirations 12, blood pressure 100/50. HEENT: Normocephalic. Sclerae are icterus. NECK: Supple. No evidence of obvious lymphadenopathy. CARDIOVASCULAR: Tachy, regular rate. Plus S1 and S2. There is a Port-A-Cath placement for chemotherapy on the right chest wall. LUNGS: Decreased breath sounds bilaterally and diffusely on supine exam. ABDOMEN: Mildly distended and tympanic to percussion. Bowel sounds are hypoactive. There is diffuse tenderness to palpation. EXTREMITIES: Bilateral +3 lower extremity edema. LABORATORY DATA: Sodium 130, potassium 4.3, BUN 32, creatinine 3. Glucose is 175. Total bilirubin is 15, direct 2.7, AST of 69, ALT of , alkaline phosphatase of 1800. Lipase more than 2000, amylase 443. CT of the abdomen and pelvis was done, showed evidence of dilated CBD, stent in the common bile duct, and possible small bowel obstruction. ASSESSMENT AND PLAN: This is a 70-year-old female with main diagnosis of metastatic rectal cancer with biliary obstruction, status metallic stent placement recently, now with recurrent symptoms, now is also complicated with acute renal failure. The patient has evidence of pancreatitis, evidence of possible small bowel obstruction, hypotensive on Levophed. Overall, the patient will have a very poor prognosis even if we do another ERCP and doing a stent exchange and have her to take over this acute situation. She still has a metastatic rectal cancer post treatment. So, discussion with the family needs to be done to see what do they want for this patient. If they want everything done, then the plan will be to do a repeat ERCP when the patient is a little bit more stable in terms of small bowel obstruction, pancreatitis and to go and do another ERCP and do the stent exchange. Meanwhile, continue on IV antibiotics and keep the patient NPO. Repeat labs for tomorrow. I tried to call the family, there is no phone number on the chart. Try to see if the nurses can find the family number so we can talk to the family about her. I want to thank Dr. Abarca for this kind referral. Naseem Nuñez M.D. DR: BRYON JOB#: [id number] CC:
[2020-09-10] MEDS: Pantoprazole Inj IV SCH (08:17)
[2020-09-10] MEDS ORDERED: Vancomycin 1gm/D5W 275ml IVPB ONE ×2 (09:00)
[2020-09-10] MEDS: Docusate 100mg cap ORAL SCH ×2 (09:00→21:21)
--- NOTE | 2020-09-10 09:51 | Diagnostic Imaging Report ---
EXAM: US Abdomen Complete CLINICAL HISTORY: ABD PAIN TECHNIQUE: Real-time ultrasound of the abdomen with image documentation. COMPARISON: No relevant prior studies available. FINDINGS: The liver measures 12.9 cm. Coarse hepatic echotexture with surface nodularity, suspicious for cirrhosis. Mild intrahepatic biliary ductal dilation within the left hepatic lobe. Mild abdominal ascites. Small bilateral pleural effusions. Gallbladder sludge with cholelithiasis. No gallbladder wall thickening, which measures 3 mm. Stent in the common bile duct. Bilateral hydronephrosis with bilateral renal stents. The right renal pelvis demonstrate degrees. The right kidney measures 11.1 cm and left kidney measures 10.8 cm. Normal spleen, that measures 8.8 cm. Poor visualization of the aorta due to overlying bowel gas. IMPRESSION: Coarse hepatic echotexture with surface nodularity, suspicious for cirrhosis. Mild intrahepatic biliary ductal dilation within the left hepatic lobe. Mild abdominal ascites and bilateral pleural effusions. Bilateral hydronephrosis with nephroureteral stents. Debris within the right renal pelvis. Correlate for urinary tract infection versus pyelonephritis. Cholelithiasis with gallbladder sludge. No gallbladder wall thickening. Stent in the common bile duct, which is dilated measuring 1.7 cm.
--- NOTE | 2020-09-10 10:31 | Consultation ---
Consult Note Consult Note I am asked to evaluate the patient at her request of Dr. Abarca for renal failure and abnormal electrolytes Patient seen in ICU. Discussed with RN. Chief Complaint: Generalized Weakness Paramedics were called for patient with gluteal pain. In addition she was found to be hypotensive. Paramedics have very little other history. Patient complains of abdominal pain. He rates the pain 6/10 and constant. Aching and pressure. She denies dysuria. She has been moving her bowels without difficulty and denies diarrhea. She complains of generalized weakness. He denies nausea and vomiting. There is no productive cough. He has swelling in extremities but denies any calf pain. 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 She has obstructive jaundice in the past and stent has been placed twice. She has a Port-A-Cath and also PICC line. She been receiving chemotherapy. Apparently at the onset of the admission last time she had a temperature of 102. No fevers, chills, sore throat, chest pain, palpitations, shortness of breath, rashes, depression, anxiety, visual changes, dizziness, headache. Allergies: No Known Allergies (Unverified , 09/09/20) Past Medical History: see triage record Past Surgical History: other - liver stents, IVC filter, ureteral stents Social History: Denies: smoking, alcohol use Social History Narrative born [facility] Reviewed Nursing Documentation: PMH: Agreed; PSxH: Agreed Vital Signs Date Time Temp Pulse Resp B/P (MAP) Pulse Ox O2 Delivery O2 Flow Rate FiO2 09/09/20 15:35 99.0 105 18 80/40 (53) 97 Room Air PHYSICAL EXAMINATION: VITAL SIGNS: Temperature 97.6 blood pressure 120/57, respiratory rate 18. HEENT: No icterus scleral. Head normocephalic. NECK: No JVD. CHEST: Bilateral expansion. ABDOMEN: Soft. EXTREMITIES: No cyanosis. NEUROLOGIC: The patient lethargic obtunded. LABORATORY AND DIAGNOSTIC DATA: White blood cells 23, hemoglobin 9.7 and platelets 285. UA shows many yeast too numerous to count white blood cells. BUN 30, creatinine 3, AST 47, ALT 6, alkaline phos 1308, total bilirubin 16.6. Urine culture is growing Sydnee albicans. Blood culture is pending. Abdominal ultrasound shows cirrhosis, mild abdominal ascites, bilateral hydronephrosis, nephroureteral stents. X-ray of abdomen showed abdominal wall hernia. CT of the abdomen, right-sided hernia, metal stent within common bile duct and severe intrahepatic biliary dictation, bilateral nephroureteral stent and moderate bilateral hydronephrosis. Multiple pulmonary nodules suggestive of metastasis. Chest x-ray, bilateral masslike opacities. . Assessment/Plan Acute renal failure Possible underlying renal failure Shock status on Levophed Jaundice Small bowel obstruction Bilateral hydronephrosis metastatic rectal cancer with biliary obstruction Metastatic disease, multiple pulmonary nodules Severe hypoalbuminemia and anasarca DNR/DNI Plan: Hydrate Transfuse Poor prognosis Per consultants Support hospice and comfort care Discussed with Luis Tran MD Sep 10, 2020 10:31
--- NOTE | 2020-09-10 10:55 | General Progress Note ---
Subjective Date patient seen: Sep 10, 2020 Time patient seen: 09:00 Allergies: Coded Allergies: No Known Allergies (Unverified , 09/09/20) All Systems: reviewed and negative except above Subjective Patient is lethargic and wakes up to voice command. Denies pain. Objective Last 24 Hour Vital Signs Date Time Temp Pulse Resp B/P (MAP) Pulse Ox O2 Delivery O2 Flow Rate FiO2 09/10/20 09:00 112/58 09/10/20 08:30 93 11 117/56 (76) 100 09/10/20 08:00 116/57 09/10/20 08:00 Nasal Cannula 2.0 09/10/20 08:00 97.7 92 12 116/57 (76) 100 09/10/20 07:54 91 09/10/20 07:30 102 15 118/61 (80) 100 09/10/20 07:00 89 13 105/53 (70) 100 09/10/20 07:00 114/60 09/10/20 06:30 89 12 107/50 (69) 100 09/10/20 06:00 103/54 09/10/20 06:00 91 12 123/54 (77) 100 09/10/20 05:45 88 10 113/57 (75) 100 09/10/20 05:30 89 11 117/51 (73) 100 09/10/20 05:09 95 14 142/69 (93) 100 09/10/20 05:01 100/50 09/10/20 05:00 142/69 09/10/20 04:00 87 09/10/20 04:00 Nasal Cannula 2.0 09/10/20 04:00 94/53 09/10/20 04:00 97.5 82 14 94/53 (67) 100 09/10/20 03:58 81 13 107/50 (69) 100 09/10/20 03:45 85 11 85/46 (59) 100 09/10/20 03:30 89 8 113/50 (71) 100 09/10/20 03:15 87 12 110/50 (70) 100 09/10/20 03:00 110/50 09/10/20 03:00 86 10 116/42 (66) 100 09/10/20 02:45 94 13 113/54 (73) 100 09/10/20 02:30 105 22 125/78 (94) 100 09/10/20 02:15 95 14 115/65 (82) 100 09/10/20 02:00 115/65 09/10/20 02:00 90 12 108/51 (70) 100 09/10/20 01:45 91 12 109/38 (61) 09/10/20 01:30 103 17 131/58 (82) 100 09/10/20 01:15 92 11 120/54 (76) 100 09/10/20 01:00 91 11 112/59 (76) 100 09/10/20 01:00 120/54 09/10/20 00:45 91 12 107/47 (67) 100 09/10/20 00:30 91 10 115/50 (71) 100 09/10/20 00:15 100 12 104/58 (73) 100 09/10/20 00:00 97.0 101 13 130/53 (78) 100 09/10/20 00:00 Nasal Cannula 2.0 09/10/20 00:00 104/54 09/10/20 00:00 105 09/09/20 23:45 94 12 113/47 (69) 95 09/09/20 23:30 95 11 113/50 (71) 95 09/09/20 23:15 99 13 104/52 (69) 95 09/09/20 23:00 96 13 115/66 (82) 95 09/09/20 23:00 104/52 09/09/20 22:45 94 12 117/64 (81) 95 09/09/20 22:40 98.9 09/09/20 22:30 97 14 104/66 (79) 95 09/09/20 22:15 100 17 86/55 (65) 95 09/09/20 22:09 101/64 09/09/20 22:00 98 18 101/64 (76) 85 09/09/20 21:45 93 15 97/39 (58) 95 09/09/20 21:30 89 12 82/47 (59) 95 09/09/20 21:15 91 16 102/67 (79) 95 09/09/20 21:12 91 09/09/20 21:00 88 13 79/45 (56) 90 09/09/20 20:51 97 20 90/47 (61) 45 09/09/20 20:48 97.5 101 24 85/45 (58) 09/09/20 20:46 Room Air 2.0 09/09/20 20:45 105 30 09/09/20 20:20 98.7 84 16 116/78 100 Room Air 09/09/20 20:15 98.7 82 16 116/78 100 Room Air 09/09/20 19:45 98.9 77 16 128/70 100 Room Air 09/09/20 19:04 98.9 80 16 130/72 100 Room Air 09/09/20 18:46 98.9 84 11 105/51 100 Room Air 09/09/20 18:33 71/44 09/09/20 18:19 98.9 84 11 100/56 100 Room Air 09/09/20 18:05 63/42 09/09/20 18:05 63/42 09/09/20 17:46 99.0 96 18 96/63 100 Room Air 09/09/20 15:55 99 18 Room Air 09/09/20 15:55 99.0 99 18 80/40 97 Room Air 09/09/20 15:35 99.0 105 18 80/40 (53) 97 Room Air Intake and Output 09/09/20 09/10/20 19:00 07:00 Intake Total 2042.5 ml 1560.8 ml Output Total 25 ml 285 ml Balance 2017.5 ml 1275.8 ml Intake IV Total 2042.5 ml 1560.8 ml Output Urine Total 25 ml 285 ml Laboratory Tests 09/09/20 15:50: White Blood Count 24.1*H, Red Blood Count 3.12L, Hemoglobin 8.4L, Hematocrit 26.6L, Mean Corpuscular Volume 85, Mean Corpuscular Hemoglobin 26.9L, Mean Corpuscular Hemoglobin Concent 31.5L, Red Cell Distribution Width 19.8H, Platelet Count 453H, Mean Platelet Volume 7.2, Neutrophils (%) (Auto) , Lymphocytes (%) (Auto) , Monocytes (%) (Auto) , Eosinophils (%) (Auto) , Basophils (%) (Auto) , Differential Total Cells Counted 100, Neutrophils % (Manual) 92H, Lymphocytes % (Manual) 3L, Monocytes % (Manual) 5, Eosinophils % (Manual) 0, Basophils % (Manual) 0, Band Neutrophils 0, Platelet Estimate IncreasedH, Platelet Morphology Normal, Hypochromasia 1+, Anisocytosis 1+, Target Cells Occasional, Stomatocytes Occasional, Prothrombin Time 14.5H, Prothromb Time International Ratio 1.3H, Activated Partial Thromboplast Time 44H , D-Dimer 3.14H, Urine Color Brown, Urine Appearance Turbid, Urine pH 7, Urine Specific [place] 1.010, Urine Protein 4+H, Urine Glucose (UA) Negative, Urine Ketones 2+H, Urine Blood 5+H, Urine Nitrite Negative, Urine Bilirubin 2+H, Urine Ictotest Positive, Urine Urobilinogen Normal, Urine Leukocyte Esterase 3+H, Urine RBC TntcH, Urine WBC TntcH, Urine Squamous Epithelial Cells Occasional, Urine Bacteria ManyH, Urine Yeast ModerateH, Sodium Level 131L, Potassium Level 4.9, Chloride Level 101, Carbon Dioxide Level 11L, Anion Gap 19H, Blood Urea Nitrogen 31H, Creatinine 3.0H, Estimat Glomerular Filtration Rate 15.5, Glucose Level 77, Lactic Acid Level 0.40, Calcium Level 8.1L, Magnesium Level 1.8, Ferritin 666H, Total Bilirubin 16.3H, Direct Bilirubin 13.6H, Aspartate Amino Transf (AST/SGOT) 88H, Alanine Aminotransferase (ALT/SGPT) 14, Alkaline Phosphatase > 2000H, Ammonia 74H, Lactate Dehydrogenase 258H, Total Creatine Kinase 72, Troponin I 0.000, C-Reactive Protein, Quantitative 11.1H, Pro-B-Type Natriuretic Peptide 692H, Total Protein 6.1L, Albumin 1.5L, Globulin 4.6, Albumin/Globulin Ratio 0.3L, Lipase 1453H 09/10/20 04:10: White Blood Count 23.6*H, Red Blood Count 2.47L, Hemoglobin 6.8*L, Hematocrit 22.2L, Mean Corpuscular Volume 90, Mean Corpuscular Hemoglobin 27.4, Mean Corpuscular Hemoglobin Concent 30.6L, Red Cell Distribution Width 20.0H, Platelet Count 415, Mean Platelet Volume 7.0, Neutrophils (%) (Auto) , Lymphocytes (%) (Auto) , Monocytes (%) (Auto) , Eosinophils (%) (Auto) , Basophils (%) (Auto) , Differential Total Cells Counted 100, Neutrophils % (Manual) 91H, Lymphocytes % (Manual) 4L, Monocytes % (Manual) 5, Eosinophils % (Manual) 0, Basophils % (Manual) 0, Band Neutrophils 0, Platelet Estimate Adequate, Platelet Morphology Normal, Hypochromasia 2+, Anisocytosis 2+, Prothrombin Time 11.6H, Prothromb Time International Ratio 1.1, Activated Partial Thromboplast Time 47H, Sodium Level 130L, Potassium Level 4.3, Chloride Level 102, Carbon Dioxide Level 15L, Anion Gap 13, Blood Urea Nitrogen 32H, Creatinine 3.0H, Estimat Glomerular Filtration Rate 15.5, Glucose Level 175H, Lactic Acid Level 0.30L, Calcium Level 7.3L, Magnesium Level 1.9, Ferritin 532H, Total Bilirubin 15.0H, Direct Bilirubin 12.7H, Aspartate Amino Transf (AST/SGOT) 69H, Alanine Aminotransferase (ALT/SGPT) < 6L, Alkaline Phosphatase 1800H, Ammonia 53H, C-Reactive Protein, Quantitative 8.8H, Pro-B-Type Natriuretic Peptide 593H, Total Protein 5.3L, Albumin 2.0L, Globulin 3.3, Albumin/Globulin Ratio 0.6L, Lipase > 2000H, Erythrocyte Sedimentation Rate 112H, Hemoglobin A1c 4.1L, Uric Acid 4.8, Phosphorus Level 4.5, Iron Level 30L, Total Iron Binding Capacity 93L, Percent Iron Saturation 32, Unsaturated Iron Binding 63L, Gamma Glutamyl Transpeptidase 993H, Triglycerides Level 72, Cholesterol Level 176, LDL Cholesterol 157H, HDL Cholesterol 7L, Cholesterol/HDL Ratio 25.1H, Amylase Level 443H, Carcinoembryonic Antigen [Pending], Vitamin B12 Level > 2000H, Folate 5.5L , Thyroid Stimulating Hormone (TSH) 0.567, Random Vancomycin Level 4.3 09/10/20 08:01: Arterial Blood pH 7.325L, Arterial Blood Partial Pressure CO2 28.7L, Arterial Blood Partial Pressure O2 100.5H, Arterial Blood HCO3 14.6*L, Arterial Blood Oxygen Saturation 97.9, Arterial Blood Base Excess -10.4*L, Alvaro Test Positive Height (Feet): 5 Height (Inches): 3.00 Weight (Pounds): 110 General Appearance: moderate distress EENT: scleral icterus Neck: normal alignment Cardiovascular: normal rate Respiratory/Chest: decreased breath sounds Abdomen: decreased bowel sounds, hernia Extremities: swelling Edema: mild edema 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 ID market research consultant [employer] ( previously saw the patient at [place] [facility] this month ) updated and will be rounding on the case tomorrow. ICU for IVF and vasopressors ( levophed in place ) will use vasopressin as next agent if needed due to tachycardia. Central line in place PICC # Acute renal failure with metabolic acidosis Renal consultation requested with Dr. Tolentino - defer IVF management and appreciate support. # Metastatic rectal cancer Primary oncologist Dr. Dana Herrera in [place]. Will try to obtain contact information and further discuss GOC Dr. Cutler consulted today and appreciate input. Per prior dc summary, there is no more plan for medical treatment and GOC will need to be addressed. Patient is a candidate for hospice and will discuss with her and her brother Elfego [phone] # Abnormal CT abdomen and Pelvis 1. Right-sided spigelian hernia containing a loop of small bowel. The small bowel is dilated both within the hernia sac and upstream with fluid levels likely representing obstruction. 2. Metal stent within the common bile duct with severe intrahepatic biliary dilatation. Dr. Nuñez from GI consulted. Dr. Haas from Surgery consulted and non surgical approach recommended. 3. Bilateral nephroureteral stents in place. Moderate bilateral hydronephrosis. 4. Multiple pulmonary nodules and intra-abdominal adenopathy suspicious for metastatic disease. # Hematuria Dr. Dewitt from urology consulted. Monitor CBC, and Tovar output # Chronic pain syndrome Opiate therapy # Diet NPO due to SBO # IVF per nephrology # DNR DNI discussed with the patient. # DVT ppx with SCD only # GI ppx wit PPI Guarded prognosis and high mortality risk this admission. Jon Abarca MD Sep 10, 2020 10:55
[2020-09-10] MEDS: Sodium Bicarbonate 50 ML in D5 1/2NS 1,000 ML IV SCH (12:15)
[2020-09-10] MEDS: Cefepime HCl 1 GM in D5W 55 ML IVPB SCH (17:21)
[2020-09-10] MEDS: Dyna-Hex 2% Top Sol 2oz TOPIC SCH (19:52)
[2020-09-10] MEDS: Hydromorphone 0.5mg/0.5ml inj IVP PRN (19:53)
--- NOTE | 2020-09-10 22:16 | Surgery Progress Note ---
Surgery Progress Note Subjective Symptoms: worse Additional Comments labs noted exam stable ill appearing dnr dni Objective Last 24 Hour Vital Signs Date Time Temp Pulse Resp B/P (MAP) Pulse Ox O2 Delivery O2 Flow Rate FiO2 09/10/20 20:23 97.5 09/10/20 19:30 127 25 141/77 (98) 99 09/10/20 19:15 121 27 130/76 (94) 98 09/10/20 19:00 145/76 09/10/20 19:00 126 27 145/76 (99) 98 09/10/20 18:45 128 31 141/73 (95) 98 09/10/20 18:33 132/104 09/10/20 18:30 125 28 132/104 (113) 99 09/10/20 18:30 132/84 09/10/20 18:15 125 28 137/67 (90) 98 09/10/20 18:00 130/77 09/10/20 18:00 109 22 130/77 (94) 100 09/10/20 17:45 105 19 139/68 (91) 98 09/10/20 17:30 102 17 131/69 (89) 100 09/10/20 17:15 102 17 142/69 (93) 100 09/10/20 17:00 102 18 133/74 (93) 100 09/10/20 17:00 133/74 09/10/20 16:45 100 16 139/72 (94) 100 09/10/20 16:30 100 16 128/72 (90) 100 09/10/20 16:15 102 18 127/73 (91) 100 09/10/20 16:00 97.5 99 16 137/71 (93) 100 09/10/20 16:00 137/71 09/10/20 16:00 Nasal Cannula 2.0 09/10/20 15:28 107 09/10/20 15:00 128/70 09/10/20 15:00 95 13 128/70 (89) 100 09/10/20 14:00 95 12 115/64 (81) 100 09/10/20 14:00 115/64 09/10/20 13:00 117 27 133/61 (85) 99 09/10/20 13:00 133/61 09/10/20 12:00 93 11 112/62 (79) 100 09/10/20 12:00 112/62 09/10/20 12:00 Nasal Cannula 2.0 09/10/20 11:56 91 09/10/20 11:29 109/60 09/10/20 11:00 112/60 09/10/20 11:00 96 12 112/60 (77) 100 09/10/20 10:30 97 12 114/56 (75) 100 09/10/20 10:00 120/67 09/10/20 10:00 99 19 120/67 (84) 100 09/10/20 09:30 97 11 113/58 (76) 100 09/10/20 09:00 95 11 120/59 (79) 100 09/10/20 09:00 112/58 09/10/20 08:30 93 11 117/56 (76) 100 09/10/20 08:00 116/57 09/10/20 08:00 Nasal Cannula 2.0 09/10/20 08:00 97.7 92 12 116/57 (76) 100 09/10/20 07:54 91 09/10/20 07:30 102 15 118/61 (80) 100 09/10/20 07:00 89 13 105/53 (70) 100 09/10/20 07:00 114/60 09/10/20 06:30 89 12 107/50 (69) 100 09/10/20 06:00 103/54 09/10/20 06:00 91 12 123/54 (77) 100 09/10/20 05:45 88 10 113/57 (75) 100 09/10/20 05:30 89 11 117/51 (73) 100 09/10/20 05:09 95 14 142/69 (93) 100 09/10/20 05:01 100/50 09/10/20 05:00 142/69 09/10/20 04:00 87 09/10/20 04:00 Nasal Cannula 2.0 09/10/20 04:00 94/53 09/10/20 04:00 97.5 82 14 94/53 (67) 100 09/10/20 03:58 81 13 107/50 (69) 100 09/10/20 03:45 85 11 85/46 (59) 100 09/10/20 03:30 89 8 113/50 (71) 100 09/10/20 03:15 87 12 110/50 (70) 100 09/10/20 03:00 110/50 09/10/20 03:00 86 10 116/42 (66) 100 09/10/20 02:45 94 13 113/54 (73) 100 09/10/20 02:30 105 22 125/78 (94) 100 09/10/20 02:15 95 14 115/65 (82) 100 09/10/20 02:00 115/65 09/10/20 02:00 90 12 108/51 (70) 100 09/10/20 01:45 91 12 109/38 (61) 09/10/20 01:30 103 17 131/58 (82) 100 09/10/20 01:15 92 11 120/54 (76) 100 09/10/20 01:00 91 11 112/59 (76) 100 09/10/20 01:00 120/54 09/10/20 00:45 91 12 107/47 (67) 100 09/10/20 00:30 91 10 115/50 (71) 100 09/10/20 00:15 100 12 104/58 (73) 100 09/10/20 00:00 97.0 101 13 130/53 (78) 100 09/10/20 00:00 Nasal Cannula 2.0 09/10/20 00:00 104/54 09/10/20 00:00 105 09/09/20 23:45 94 12 113/47 (69) 95 09/09/20 23:30 95 11 113/50 (71) 95 09/09/20 23:15 99 13 104/52 (69) 95 09/09/20 23:00 96 13 115/66 (82) 95 09/09/20 23:00 104/52 09/09/20 22:45 94 12 117/64 (81) 95 09/09/20 22:40 98.9 09/09/20 22:30 97 14 104/66 (79) 95 I&O Intake and Output 09/09/20 09/10/20 19:00 07:00 Intake Total 2042.5 ml 1560.8 ml Output Total 25 ml 285 ml Balance 2017.5 ml 1275.8 ml Intake IV Total 2042.5 ml 1560.8 ml Output Urine Total 25 ml 285 ml Cardiovascular: RSR Respiratory: decreased breath sounds Abdomen: distended - edema , non-tender, other, decreased bowel sounds Extremities: no cyanosis, other Laboratory Tests Test 09/10/20 04:10 09/10/20 08:01 White Blood Count 23.6 K/UL (4.8-10.8) *H Red Blood Count 2.47 M/UL (4.20-5.40) L Hemoglobin 6.8 G/DL (12.0-16.0) *L Hematocrit 22.2 % (37.0-47.0) L Mean Corpuscular Volume 90 FL (80-99) Mean Corpuscular Hemoglobin 27.4 PG (27.0-31.0) Mean Corpuscular Hemoglobin Concent 30.6 G/DL (32.0-36.0) L Red Cell Distribution Width 20.0 % (11.6-14.8) H Platelet Count 415 K/UL (150-450) Mean Platelet Volume 7.0 FL (6.5-10.1) Neutrophils (%) (Auto) % (45.0-75.0) Lymphocytes (%) (Auto) % (20.0-45.0) Monocytes (%) (Auto) % (1.0-10.0) Eosinophils (%) (Auto) % (0.0-3.0) Basophils (%) (Auto) % (0.0-2.0) Differential Total Cells Counted 100 Neutrophils % (Manual) 91 % (45-75) H Lymphocytes % (Manual) 4 % (20-45) L Monocytes % (Manual) 5 % (1-10) Eosinophils % (Manual) 0 % (0-3) Basophils % (Manual) 0 % (0-2) Band Neutrophils 0 % (0-8) Platelet Estimate Adequate Platelet Morphology Normal Hypochromasia 2+ Anisocytosis 2+ Erythrocyte Sedimentation Rate 112 MM/HR (0-30) H Prothrombin Time 11.6 SEC (9.30-11.50) H Prothromb Time International Ratio 1.1 (0.9-1.1) Activated Partial Thromboplast Time 47 SEC (23-33) H Sodium Level 130 MMOL/L (136-145) L Potassium Level 4.3 MMOL/L (3.5-5.1) Chloride Level 102 MMOL/L (98-107) Carbon Dioxide Level 15 MMOL/L (21-32) L Anion Gap 13 mmol/L (5-15) Blood Urea Nitrogen 32 mg/dL (7-18) H Creatinine 3.0 MG/DL (0.55-1.30) H Estimat Glomerular Filtration Rate 15.5 mL/min (>60) Glucose Level 175 MG/DL (74-106) H Hemoglobin A1c 4.1 % (4.3-6.0) L Lactic Acid Level 0.30 mmol/L (0.4-2.0) L Uric Acid 4.8 MG/DL (2.6-7.2) Calcium Level 7.3 MG/DL (8.5-10.1) L Phosphorus Level 4.5 MG/DL (2.5-4.9) Magnesium Level 1.9 MG/DL (1.8-2.4) Iron Level 30 ug/dL (50-175) L Total Iron Binding Capacity 93 ug/dL (250-450) L Percent Iron Saturation 32 % (15-50) Unsaturated Iron Binding 63 ug/dL (112-346) L Ferritin 532 NG/ML (8-388) H Total Bilirubin 15.0 MG/DL (0.2-1.0) H Direct Bilirubin 12.7 MG/DL (0.0-0.3) H Gamma Glutamyl Transpeptidase 993 U/L (5-85) H Aspartate Amino Transf (AST/SGOT) 69 U/L (15-37) H Alanine Aminotransferase (ALT/SGPT) < 6 U/L (12-78) L Alkaline Phosphatase 1800 U/L (46-116) H Ammonia 53 umol/L (11-32) H C-Reactive Protein, Quantitative 8.8 mg/dL (0.00-0.90) H Pro-B-Type Natriuretic Peptide 593 pg/mL (0-125) H Total Protein 5.3 G/DL (6.4-8.2) L Albumin 2.0 G/DL (3.4-5.0) L Globulin 3.3 g/dL Albumin/Globulin Ratio 0.6 (1.0-2.7) L Triglycerides Level 72 MG/DL (30-150) Cholesterol Level 176 MG/DL (< 200) LDL Cholesterol 157 mg/dL (<100) H HDL Cholesterol 7 MG/DL (40-60) L Cholesterol/HDL Ratio 25.1 (3.3-4.4) H Amylase Level 443 U/L (25-115) H Lipase > 2000 U/L (73-393) H Carcinoembryonic Antigen Pending Vitamin B12 Level > 2000 PG/ML (193-986) H Folate 5.5 NG/ML (8.6-58.9) L Thyroid Stimulating Hormone (TSH) 0.567 uiU/mL (0.358-3.740) Random Vancomycin Level 4.3 ug/mL Arterial Blood pH 7.325 (7.350-7.450) Arterial Blood Partial Pressure CO2 28.7 mmHg (35.0-45.0) L Arterial Blood Partial Pressure O2 100.5 mmHg (75.0-100.0) H Arterial Blood HCO3 14.6 mmol/L (22.0-26.0) *L Arterial Blood Oxygen Saturation 97.9 % (95-100) Arterial Blood Base Excess -10.4 (-2-2) *L Alvaro Test Positive Plan Problems: (1) Hematuria (2) Renal failure (3) Severe sepsis Assessment & Plan: causing sbo seemingly reduced at bedside unfortunately patient is not a surgical candidate prognosis is poor and survival is low aggressive intervention would be medically futile and surgery would strongly not be recommended in her condition recommend hospice and end of life comfort care thank you will follow with exam and recs (4) Spigelian hernia Assessment & Plan: ABDOMEN: Liver: Unremarkable. Gallbladder and bile ducts: Metal stent within the common bile duct with severe intrahepatic biliary dilatation. The gallbladder is distended. Pancreas: Poorly visualized pancreatic parenchyma given the lack of contrast. Spleen: Unremarkable. Adrenals: Unremarkable. Kidneys and ureters: Bilateral nephroureteral stents in place. Moderate bilateral hydronephrosis. Hyperdense 1.9 cm structure in the left renal upper pole is contrast density potentially representing retained contrast in a calyceal cyst. Stomach and bowel: Right-sided spigelian hernia containing a loop of small bowel. The small bowel is dilated both within the hernia sac and upstream with fluid levels likely representing obstruction. Postsurgical changes within the rectum and right lower quadrant small bowel. No small bowel pneumatosis. PELVIS: Appendix: No findings to suggest acute appendicitis. Bladder: Tovar catheter within the bladder. No stones. Reproductive: Unremarkable as visualized. ABDOMEN and PELVIS: Intraperitoneal space: Unremarkable. No free air. No significant fluid collection. Bones/joints: No acute fracture. Soft tissues: Marked anasarca. Vasculature: IVC filter in place. Lymph nodes: Bulky calcified retroperitoneal and epigastric lymph nodes suspicious for metastatic disease. IMPRESSION: 1. Right-sided spigelian hernia containing a loop of small bowel. The small bowel is dilated both within the hernia sac and upstream with fluid levels likely representing obstruction. 2. Metal stent within the common bile duct with severe intrahepatic biliary dilatation. 3. Bilateral nephroureteral stents in place. Moderate bilateral hydronephrosis. 4. Multiple pulmonary nodules and intra-abdominal adenopathy suspicious for metastatic disease. 5. Fluid overload as evidenced by marked anasarca and small bilateral pleural effusions. (5) UTI (urinary tract infection) (6) Liver failure Nicholas Haas Sep 10, 2020 22:15
[2020-09-11] VITALS (50 sets, daily range): BP systolic 93–160; BP diastolic 51–94
[2020-09-11] MEDS: Sodium Bicarbonate 50 ML in D5 1/2NS 1,000 ML IV SCH (01:02)
[2020-09-11 05:11] LABS: HEMATOCRIT 27.7 % (37.0-47.0); HEMOGLOBIN 9.7 G/DL (12.0-16.0); MEAN CORPUSCULAR VOLUME 81 FL (80-99); PLATELET COUNT 285 K/UL (150-450); RED BLOOD COUNT 3.42 M/UL (4.20-5.40); RED CELL DISTRIBUTION WIDTH 18.7 % (11.6-14.8)
[2020-09-11 05:15] LABS: INR 1.2 (0.9-1.1)
[2020-09-11 05:32] LABS: AMYLASE 175 U/L (25-115)
[2020-09-11 05:36] LABS: WHITE BLOOD COUNT 23.7 K/UL (4.8-10.8)
[2020-09-11 05:37] LABS: PHOSPHORUS 4.1 MG/DL (2.5-4.9)
[2020-09-11 05:45] LABS: ALANINE AMINOTRANSFERASE < 6 U/L (12-78); ALBUMIN 3.3 G/DL (3.4-5.0); ALBUMIN/GLOBULIN RATIO 1.2 (1.0-2.7); ALKALINE PHOSPHATASE 1308 U/L (46-116); ANION GAP 15 mmol/L (5-15); ASPARTATE AMINO TRANSFERASE 47 U/L (15-37); BILIRUBIN,TOTAL 16.6 MG/DL (0.2-1.0); BLOOD UREA NITROGEN 30 mg/dL (7-18); CALCIUM 7.2 MG/DL (8.5-10.1); CARBON DIOXIDE 15 MMOL/L (21-32); CHLORIDE 98 MMOL/L (98-107); POTASSIUM 3.7 MMOL/L (3.5-5.1); SODIUM 128 MMOL/L (136-145)
[2020-09-11 05:51] LABS: BILIRUBIN,DIRECT 13.2 MG/DL (0.0-0.3)
--- NOTE | 2020-09-11 07:35 | Hematology/Onc Progress Note ---
Assessment/Plan Assessment/Plan Assessment/Recs # Metastatic rectal cancer, Primary oncologist Dr. Dana Herrera in [place]. Will try to obtain contact information and further discuss GOC --> Per prior dc summary, there is no more plan for medical treatment and GOC will need to be addressed. --> Patient is a candidate for hospice and will discuss with her and her brother Elfego --> CT with Multiple pulmonary nodules and intra-abdominal adenopathy suspicious for metastatic disease. 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 The small bowel is dilated both within the hernia sac and upstream with fluid levels likely representing obstruction Metal stent within the common bile duct --> as per gi # Hematuria --> yates, per uro # DVT ppx with SCD only Appreciate consultation and maría RN Subjective Constitutional: Denies: no symptoms, chills, fever, malaise, weakness, other HEENT: Denies: no symptoms, eye pain, blurred vision, tearing, double vision, ear pain, ear discharge, nose pain, nose congestion, throat pain, throat swelling, mouth pain, mouth swelling, other Cardiovascular: Denies: no symptoms, chest pain, edema, irregular heart rate, lightheadedness, palpitations, syncope, other Gastrointestinal/Abdominal: Denies: no symptoms, abdomen distended, abdominal pain, black stools, tarry stools, blood in stool, constipated, diarrhea, difficulty swallowing, nausea, poor appetite, poor fluid intake, rectal bleeding, vomiting, other Genitourinary: Denies: no symptoms, burning, discharge, frequency, flank pain, hematuria, incontinence, pain, urgency, other Neurologic/Psychiatric: Denies: no symptoms, anxiety, depressed, emotional problems, headache, numbness, paresthesia, pre-existing deficit, seizure, ting ling, tremors, weakness, other Endocrine: Denies: no symptoms, excessive sweating, flushing, intolerance to cold, intolerance to heat, increased hunger, increased thirst, increased urine, unexplained weight gain, unexplained weight loss, other Hematologic/Lymphatic: Denies: no symptoms, anemia, easy bleeding, easy bruising, adenopathy, other Allergies: Coded Allergies: No Known Allergies (Unverified , 09/09/20) Subjective 09/11 labs reviewed, meds noted, no bleeding, dw rn, no major changes, wbc 24 Objective Objective Current Medications Medications (Trade) Dose Ordered Sig/Laisha Route PRN Reason Start Time Stop Time Status Last Admin Dose Admin Acetaminophen (Tylenol) 650 mg Q4H PRN ORAL Fever 09/09/20 19:58 10/09/20 19:57 Bisacodyl (Dulcolax) 10 mg DAILYPRN PRN RECTAL Constipation 09/09/20 19:15 12/08/20 19:14 Cefepime HCl 1 gm/ Dextrose 55 ml @ 110 mls/hr Q24H IVPB 09/10/20 18:00 09/17/20 17:59 09/10/20 17:21 Chlorhexidine Gluconate (Samia-Hex 2%) 1 applic DAILY@2000 TOPIC 09/10/20 20:00 12/09/20 19:59 09/10/20 19:52 Dextrose (Dextrose 50%) 25 ml Q30M PRN IV Hypoglycemia 09/09/20 19:59 12/08/20 19:58 Dextrose (Dextrose 50%) 50 ml Q30M PRN IV Hypoglycemia 09/09/20 19:59 12/08/20 19:58 Docusate Sodium (Colace) 100 mg EVERY 12 HOURS ORAL 09/09/20 21:00 10/09/20 20:59 09/10/20 21:21 Hydromorphone HCl (Dilaudid) 0.5 mg Q2H PRN IVP Mild Pain (1-3) 09/09/20 19:15 09/16/20 19:14 09/10/20 19:53 Hydromorphone HCl (Dilaudid) 1 mg Q2H PRN IVP Moderate Pain (Pain Scale 4-6) 09/09/20 20:07 09/16/20 20:06 09/09/20 22:10 Hydromorphone HCl (Dilaudid) 2 mg Q4H PRN IVP Severe Pain (Pain Scale 7-10) 09/09/20 19:15 09/16/20 19:14 09/10/20 22:40 Iohexol (OMNIPAQUE-300 100ml) 100 ml NOW PRN INJ Radiology Procedure 09/09/20 16:30 09/11/20 16:29 Lorazepam (Ativan 2mg/ml 1ml) 0.5 mg Q4H PRN IV For Anxiety 09/09/20 20:00 09/16/20 19:59 09/11/20 01:46 Metronidazole 100 ml @ 100 mls/hr Q8H IVPB 09/10/20 00:00 09/17/20 00:00 09/11/20 00:58 Norepinephrine Bitartrate 8 mg/ Dextrose 508 ml @ 0 mls/hr Q24H IV 09/09/20 21:15 09/12/20 21:14 09/10/20 18:33 Ondansetron HCl (Zofran ODT) 4 mg Q6H PRN ORAL Nausea & Vomiting 09/09/20 19:59 10/09/20 19:58 Ondansetron HCl (Zofran) 4 mg Q6H PRN IVP Nausea & Vomiting 09/09/20 20:00 10/09/20 19:59 Pantoprazole (Protonix) 40 mg DAILY IV 09/10/20 09:00 10/10/20 08:59 09/10/20 08:17 Sodium Bicarbonate 50 ml/ Dextrose/Sodium Chloride 1,050 ml @ 75 mls/hr Q14H IV 09/09/20 21:30 10/09/20 21:29 09/11/20 01:02 Vancomycin HCl (Vanco pharmacy to dose) 1 ea DAILY PRN MISC Per rx protocol 09/09/20 19:15 10/09/20 19:14 Vancomycin HCl 500 mg/Dextrose 110 ml @ 110 mls/hr ONCE ONCE IVPB 09/11/20 08:00 09/11/20 08:59 Last 24 Hour Vital Signs Date Time Temp Pulse Resp B/P (MAP) Pulse Ox O2 Delivery O2 Flow Rate FiO2 09/11/20 06:00 86 10 118/73 (88) 100 09/11/20 06:00 118/73 09/11/20 05:00 85 9 113/66 (82) 100 09/11/20 05:00 113/66 09/11/20 04:45 87 9 115/68 (84) 100 09/11/20 04:30 88 9 113/64 (80) 100 09/11/20 04:15 88 9 114/69 (84) 100 09/11/20 04:00 Nasal Cannula 2.0 09/11/20 04:00 87 09/11/20 04:00 97.7 90 9 113/69 (84) 100 09/11/20 04:00 113/69 09/11/20 03:45 92 9 108/62 (77) 100 09/11/20 03:30 91 9 105/67 (80) 100 09/11/20 03:15 92 9 102/71 (81) 100 09/11/20 03:00 103/64 09/11/20 03:00 94 9 103/64 (77) 100 09/11/20 02:45 96 9 101/64 (76) 100 09/11/20 02:30 99 9 100/71 (81) 100 09/11/20 02:30 84/55 09/11/20 02:18 105 9 93/71 (78) 100 09/11/20 02:16 112 10 99/58 100 09/11/20 02:15 77/54 09/11/20 02:00 99/58 09/11/20 02:00 112 10 99/56 (70) 09/11/20 01:46 114 10 108/67 100 09/11/20 01:45 124 16 147/86 (106) 99 09/11/20 01:30 118 13 131/63 (85) 99 09/11/20 01:15 122 14 124/86 (99) 99 09/11/20 01:00 108/67 09/11/20 01:00 114 10 108/67 (81) 100 09/11/20 00:45 115 10 113/69 (84) 100 09/11/20 00:30 116 11 126/75 (92) 100 09/11/20 00:15 121 14 160/94 (116) 100 09/11/20 00:00 Nasal Cannula 2.0 09/11/20 00:00 117 09/11/20 00:00 133/56 09/11/20 00:00 97.6 117 11 133/56 (81) 100 09/10/20 23:45 118 12 128/87 (101) 100 09/10/20 23:30 121 17 143/75 (97) 100 09/10/20 23:15 118 13 132/62 (85) 100 09/10/20 23:10 97.5 09/10/20 23:00 120 20 158/90 (112) 98 09/10/20 23:00 132/62 09/10/20 22:45 128 24 120/72 (88) 99 09/10/20 22:30 129 25 148/89 (108) 97 09/10/20 22:15 126 24 158/90 (112) 99 09/10/20 22:00 152/82 09/10/20 22:00 117 18 152/82 (105) 99 09/10/20 21:45 120 22 132/75 (94) 98 09/10/20 21:30 128 27 145/104 (118) 99 09/10/20 21:15 118 22 153/75 (101) 100 09/10/20 21:00 124 24 159/77 (104) 100 09/10/20 21:00 159/77 09/10/20 20:45 124 22 132/94 (107) 100 09/10/20 20:30 112 16 132/76 (94) 09/10/20 20:23 97.5 09/10/20 20:15 114 19 150/83 (105) 100 09/10/20 20:00 112 09/10/20 20:00 Nasal Cannula 2.0 09/10/20 20:00 163/88 09/10/20 20:00 97.7 123 27 163/88 (113) 100 09/10/20 19:30 127 25 141/77 (98) 99 09/10/20 19:15 121 27 130/76 (94) 98 09/10/20 19:00 145/76 09/10/20 19:00 126 27 145/76 (99) 98 09/10/20 18:45 128 31 141/73 (95) 98 09/10/20 18:33 132/104 09/10/20 18:30 125 28 132/104 (113) 99 09/10/20 18:30 132/84 09/10/20 18:15 125 28 137/67 (90) 98 09/10/20 18:00 130/77 09/10/20 18:00 109 22 130/77 (94) 100 09/10/20 17:45 105 19 139/68 (91) 98 09/10/20 17:30 102 17 131/69 (89) 100 09/10/20 17:15 102 17 142/69 (93) 100 09/10/20 17:00 102 18 133/74 (93) 100 09/10/20 17:00 133/74 09/10/20 16:45 100 16 139/72 (94) 100 09/10/20 16:30 100 16 128/72 (90) 100 09/10/20 16:15 102 18 127/73 (91) 100 09/10/20 16:00 97.5 99 16 137/71 (93) 100 09/10/20 16:00 137/71 09/10/20 16:00 Nasal Cannula 2.0 09/10/20 15:28 107 09/10/20 15:00 128/70 09/10/20 15:00 95 13 128/70 (89) 100 09/10/20 14:00 95 12 115/64 (81) 100 09/10/20 14:00 115/64 09/10/20 13:00 117 27 133/61 (85) 99 09/10/20 13:00 133/61 09/10/20 12:00 93 11 112/62 (79) 100 09/10/20 12:00 112/62 09/10/20 12:00 Nasal Cannula 2.0 09/10/20 11:56 91 09/10/20 11:29 109/60 09/10/20 11:00 112/60 09/10/20 11:00 96 12 112/60 (77) 100 09/10/20 10:30 97 12 114/56 (75) 100 09/10/20 10:00 120/67 11/26/20 10:00 99 19 120/67 (84) 100 09/10/20 09:30 97 11 113/58 (76) 100 09/10/20 09:00 95 11 120/59 (79) 100 09/10/20 09:00 112/58 09/10/20 08:30 93 11 117/56 (76) 100 09/10/20 08:00 116/57 09/10/20 08:00 Nasal Cannula 2.0 09/10/20 08:00 97.7 92 12 116/57 (76) 100 09/10/20 07:54 91 09/10/20 07:30 102 15 118/61 (80) 100 09/10/20 07:00 89 13 105/53 (70) 100 09/10/20 07:00 114/60 09/10/20 06:30 89 12 107/50 (69) 100 09/10/20 06:00 103/54 09/10/20 06:00 91 12 123/54 (77) 100 09/10/20 05:45 88 10 113/57 (75) 100 09/10/20 05:30 89 11 117/51 (73) 100 09/10/20 05:09 95 14 142/69 (93) 100 09/10/20 05:01 100/50 09/10/20 05:00 142/69 09/10/20 04:00 87 09/10/20 04:00 Nasal Cannula 2.0 09/10/20 04:00 94/53 09/10/20 04:00 97.5 82 14 94/53 (67) 100 09/10/20 03:58 81 13 107/50 (69) 100 09/10/20 03:45 85 11 85/46 (59) 100 09/10/20 03:30 89 8 113/50 (71) 100 09/10/20 03:15 87 12 110/50 (70) 100 09/10/20 03:00 110/50 09/10/20 03:00 86 10 116/42 (66) 100 09/10/20 02:45 94 13 113/54 (73) 100 09/10/20 02:30 105 22 125/78 (94) 100 09/10/20 02:15 95 14 115/65 (82) 100 09/10/20 02:00 115/65 09/10/20 02:00 90 12 108/51 (70) 100 09/10/20 01:45 91 12 109/38 (61) 09/10/20 01:30 103 17 131/58 (82) 100 09/10/20 01:15 92 11 120/54 (76) 100 09/10/20 01:00 91 11 112/59 (76) 100 09/10/20 01:00 120/54 09/10/20 00:45 91 12 107/47 (67) 100 09/10/20 00:30 91 10 115/50 (71) 100 09/10/20 00:15 100 12 104/58 (73) 100 09/10/20 00:00 97.0 101 13 130/53 (78) 100 09/10/20 00:00 Nasal Cannula 2.0 09/10/20 00:00 104/54 09/10/20 00:00 105 09/09/20 23:45 94 12 113/47 (69) 95 09/09/20 23:30 95 11 113/50 (71) 95 09/09/20 23:15 99 13 104/52 (69) 95 09/09/20 23:00 96 13 115/66 (82) 95 09/09/20 23:00 104/52 09/09/20 22:45 94 12 117/64 (81) 95 09/09/20 22:40 98.9 09/09/20 22:30 97 14 104/66 (79) 95 09/09/20 22:15 100 17 86/55 (65) 95 09/09/20 22:09 101/64 09/09/20 22:00 98 18 101/64 (76) 85 09/09/20 21:45 93 15 97/39 (58) 95 09/09/20 21:30 89 12 82/47 (59) 95 09/09/20 21:15 91 16 102/67 (79) 95 09/09/20 21:12 91 09/09/20 21:00 88 13 79/45 (56) 90 09/09/20 20:51 97 20 90/47 (61) 45 09/09/20 20:48 97.5 101 24 85/45 (58) 09/09/20 20:46 Room Air 2.0 11/25/20 20:45 105 30 09/09/20 20:20 98.7 84 16 116/78 100 Room Air 09/09/20 20:15 98.7 82 16 116/78 100 Room Air 09/09/20 19:45 98.9 77 16 128/70 100 Room Air 09/09/20 19:04 98.9 80 16 130/72 100 Room Air 09/09/20 18:46 98.9 84 11 105/51 100 Room Air 09/09/20 18:33 71/44 09/09/20 18:19 98.9 84 11 100/56 100 Room Air 09/09/20 18:05 63/42 09/09/20 18:05 63/42 09/09/20 17:46 99.0 96 18 96/63 100 Room Air 09/09/20 15:55 99 18 Room Air 09/09/20 15:55 99.0 99 18 80/40 97 Room Air 09/09/20 15:35 99.0 105 18 80/40 (53) 97 Room Air Intake and Output 09/10/20 09/11/20 19:00 07:00 Intake Total 2594.243 ml 1754.32 ml Output Total 215 ml 330 ml Balance 2379.243 ml 1424.32 ml Intake IV Total 1994.243 ml 1254.32 ml Blood Product 600 ml 500 ml Output Urine Total 215 ml 330 ml Labs Test 09/09/20 15:50 09/10/20 04:10 09/10/20 08:01 09/11/20 03:15 White Blood Count 24.1 K/UL (4.8-10.8) 23.6 K/UL (4.8-10.8) 23.7 K/UL (4.8-10.8) Red Blood Count 3.12 M/UL (4.20-5.40) 2.47 M/UL (4.20-5.40) 3.42 M/UL (4.20-5.40) Hemoglobin 8.4 G/DL (12.0-16.0) 6.8 G/DL (12.0-16.0) 9.7 G/DL (12.0-16.0) Hematocrit 26.6 % (37.0-47.0) 22.2 % (37.0-47.0) 27.7 % (37.0-47.0) Mean Corpuscular Volume 85 FL (80-99) 90 FL (80-99) 81 FL (80-99) Mean Corpuscular Hemoglobin 26.9 PG (27.0-31.0) 27.4 PG (27.0-31.0) 28.5 PG (27.0-31.0) Mean Corpuscular Hemoglobin Concent 31.5 G/DL (32.0-36.0) 30.6 G/DL (32.0-36.0) 35.2 G/DL (32.0-36.0) Red Cell Distribution Width 19.8 % (11.6-14.8) 20.0 % (11.6-14.8) 18.7 % (11.6-14.8) Platelet Count 453 K/UL (150-450) 415 K/UL (150-450) 285 K/UL (150-450) Mean Platelet Volume 7.2 FL (6.5-10.1) 7.0 FL (6.5-10.1) 8.1 FL (6.5-10.1) Neutrophils (%) (Auto) % (45.0-75.0) % (45.0-75.0) % (45.0-75.0) Lymphocytes (%) (Auto) % (20.0-45.0) % (20.0-45.0) % (20.0-45.0) Monocytes (%) (Auto) % (1.0-10.0) % (1.0-10.0) % (1.0-10.0) Eosinophils (%) (Auto) % (0.0-3.0) % (0.0-3.0) % (0.0-3.0) Basophils (%) (Auto) % (0.0-2.0) % (0.0-2.0) % (0.0-2.0) Differential Total Cells Counted 100 100 Neutrophils % (Manual) 92 % (45-75) 91 % (45-75) Lymphocytes % (Manual) 3 % (20-45) 4 % (20-45) Monocytes % (Manual) 5 % (1-10) 5 % (1-10) Eosinophils % (Manual) 0 % (0-3) 0 % (0-3) Basophils % (Manual) 0 % (0-2) 0 % (0-2) Band Neutrophils 0 % (0-8) 0 % (0-8) Platelet Estimate Increased Adequate Platelet Morphology Normal Normal Hypochromasia 1+ 2+ Anisocytosis 1+ 2+ Target Cells Occasional Stomatocytes Occasional Prothrombin Time 14.5 SEC (9.30-11.50) 11.6 SEC (9.30-11.50) 12.6 SEC (9.30-11.50) Prothromb Time International Ratio 1.3 (0.9-1.1) 1.1 (0.9-1.1) 1.2 (0.9-1.1) Activated Partial Thromboplast Time 44 SEC (23-33) 47 SEC (23-33) D-Dimer 3.14 mg/L FEU (0.00-0.49) Urine Color Brown Urine Appearance Turbid Urine pH 7 (4.5-8.0) Urine Specific [place] 1.010 (1.005-1.035) Urine Protein 4+ (NEGATIVE) Urine Glucose (UA) Negative (NEGATIVE) Urine Ketones 2+ (NEGATIVE) Urine Blood 5+ (NEGATIVE) Urine Nitrite Negative (NEGATIVE) Urine Bilirubin 2+ (NEGATIVE) Urine Ictotest Positive (NEGATIVE) Urine Urobilinogen Normal MG/DL (0.0-1.0) Urine Leukocyte Esterase 3+ (NEGATIVE) Urine RBC Tntc /HPF (0 - 2) Urine WBC Tntc /HPF (0 - 2) Urine Squamous Epithelial Cells Occasional /LPF Urine Bacteria Many /HPF (NONE) Urine Yeast Moderate /HPF (NONE) Sodium Level 131 MMOL/L (136-145) 130 MMOL/L (136-145) 128 MMOL/L (136-145) Potassium Level 4.9 MMOL/L (3.5-5.1) 4.3 MMOL/L (3.5-5.1) 3.7 MMOL/L (3.5-5.1) Chloride Level 101 MMOL/L (98-107) 102 MMOL/L (98-107) 98 MMOL/L (98-107) Carbon Dioxide Level 11 MMOL/L (21-32) 15 MMOL/L (21-32) 15 MMOL/L (21-32) Anion Gap 19 mmol/L (5-15) 13 mmol/L (5-15) 15 mmol/L (5-15) Blood Urea Nitrogen 31 mg/dL (7-18) 32 mg/dL (7-18) 30 mg/dL (7-18) Creatinine 3.0 MG/DL (0.55-1.30) 3.0 MG/DL (0.55-1.30) 3.0 MG/DL (0.55-1.30) Estimat Glomerular Filtration Rate 15.5 mL/min (>60) 15.5 mL/min (>60) 15.5 mL/min (>60) Glucose Level 77 MG/DL (74-106) 175 MG/DL (74-106) 132 MG/DL (74-106) Lactic Acid Level 0.40 mmol/L (0.4-2.0) 0.30 mmol/L (0.4-2.0) Calcium Level 8.1 MG/DL (8.5-10.1) 7.3 MG/DL (8.5-10.1) 7.2 MG/DL (8.5-10.1) Magnesium Level 1.8 MG/DL (1.8-2.4) 1.9 MG/DL (1.8-2.4) 1.7 MG/DL (1.8-2.4) Ferritin 666 NG/ML (8-388) 532 NG/ML (8-388) Total Bilirubin 16.3 MG/DL (0.2-1.0) 15.0 MG/DL (0.2-1.0) 16.6 MG/DL (0.2-1.0) Direct Bilirubin 13.6 MG/DL (0.0-0.3) 12.7 MG/DL (0.0-0.3) 13.2 MG/DL (0.0-0.3) Aspartate Amino Transf (AST/SGOT) 88 U/L (15-37) 69 U/L (15-37) 47 U/L (15-37) Alanine Aminotransferase (ALT/SGPT) 14 U/L (12-78) < 6 U/L (12-78) < 6 U/L (12-78) Alkaline Phosphatase > 2000 U/L (46-116) 1800 U/L (46-116) 1308 U/L (46-116) Ammonia 74 umol/L (11-32) 53 umol/L (11-32) Lactate Dehydrogenase 258 U/L (81-234) Total Creatine Kinase 72 U/L (26-308) Troponin I 0.000 ng/mL (0.000-0.056) C-Reactive Protein, Quantitative 11.1 mg/dL (0.00-0.90) 8.8 mg/dL (0.00-0.90) Pro-B-Type Natriuretic Peptide 692 pg/mL (0-125) 593 pg/mL (0-125) Total Protein 6.1 G/DL (6.4-8.2) 5.3 G/DL (6.4-8.2) 6.1 G/DL (6.4-8.2) Albumin 1.5 G/DL (3.4-5.0) 2.0 G/DL (3.4-5.0) 3.3 G/DL (3.4-5.0) Globulin 4.6 g/dL 3.3 g/dL 2.8 g/dL Albumin/Globulin Ratio 0.3 (1.0-2.7) 0.6 (1.0-2.7) 1.2 (1.0-2.7) Lipase 1453 U/L (73-393) > 2000 U/L (73-393) 920 U/L (73-393) Erythrocyte Sedimentation Rate 112 MM/HR (0-30) Hemoglobin A1c 4.1 % (4.3-6.0) Uric Acid 4.8 MG/DL (2.6-7.2) 4.8 MG/DL (2.6-7.2) Phosphorus Level 4.5 MG/DL (2.5-4.9) 4.1 MG/DL (2.5-4.9) Iron Level 30 ug/dL (50-175) Total Iron Binding Capacity 93 ug/dL (250-450) Percent Iron Saturation 32 % (15-50) Unsaturated Iron Binding 63 ug/dL (112-346) Gamma Glutamyl Transpeptidase 993 U/L (5-85) Triglycerides Level 72 MG/DL (30-150) Cholesterol Level 176 MG/DL (< 200) LDL Cholesterol 157 mg/dL (<100) HDL Cholesterol 7 MG/DL (40-60) Cholesterol/HDL Ratio 25.1 (3.3-4.4) Amylase Level 443 U/L (25-115) 175 U/L (25-115) Vitamin B12 Level > 2000 PG/ML (193-986) Folate 5.5 NG/ML (8.6-58.9) Thyroid Stimulating Hormone (TSH) 0.567 uiU/mL (0.358-3.740) Random Vancomycin Level 4.3 ug/mL 16.1 ug/mL Arterial Blood pH 7.325 (7.350-7.450) Arterial Blood Partial Pressure CO2 28.7 mmHg (35.0-45.0) Arterial Blood Partial Pressure O2 100.5 mmHg (75.0-100.0) Arterial Blood HCO3 14.6 mmol/L (22.0-26.0) Arterial Blood Oxygen Saturation 97.9 % (95-100) Arterial Blood Base Excess -10.4 (-2-2) Alvaro Test Positive Height (Feet): 5 Height (Inches): 3.00 Weight (Pounds): 110 Objective General Appearance: moderate distress Lines, tubes and drains: peripheral, PICC, other - R chest port HEENT: normocephalic, atraumatic Cardiovascular/Chest: normal rate Genitourinary/Rectal: yates, other - hematuria Extremities: non-tender Skin Exam: jaundice Neurologic: sack sewer machine II-XII grossly normal Yury Cutler MD Sep 11, 2020 07:35
[2020-09-11] MEDS ORDERED: Vancomycin 500mg/D5W 110ml IVPB ONE ×2 (08:00)
[2020-09-11] MEDS: Docusate 100mg cap ORAL SCH ×2 (08:25→21:00)
[2020-09-11] MEDS: Pantoprazole Inj IV SCH (08:25)
--- NOTE | 2020-09-11 09:47 | General Progress Note ---
Subjective ROS Limited/Unobtainable: No Allergies: Coded Allergies: No Known Allergies (Unverified , 09/09/20) Objective Last 24 Hour Vital Signs Date Time Temp Pulse Resp B/P (MAP) Pulse Ox O2 Delivery O2 Flow Rate FiO2 09/11/20 09:00 122/62 09/11/20 08:30 78 11 123/71 (88) 100 09/11/20 08:00 Nasal Cannula 2.0 09/11/20 08:00 97.6 78 11 121/60 (80) 100 09/11/20 08:00 178/93 09/11/20 07:00 117/63 09/11/20 07:00 86 13 117/63 (81) 100 09/11/20 06:00 86 10 118/73 (88) 100 09/11/20 06:00 118/73 09/11/20 05:00 85 9 113/66 (82) 100 09/11/20 05:00 113/66 09/11/20 04:45 87 9 115/68 (84) 100 09/11/20 04:30 88 9 113/64 (80) 100 09/11/20 04:15 88 9 114/69 (84) 100 09/11/20 04:00 Nasal Cannula 2.0 09/11/20 04:00 87 09/11/20 04:00 97.7 90 9 113/69 (84) 100 09/11/20 04:00 113/69 09/11/20 03:45 92 9 108/62 (77) 100 09/11/20 03:30 91 9 105/67 (80) 100 09/11/20 03:15 92 9 102/71 (81) 100 09/11/20 03:00 103/64 09/11/20 03:00 94 9 103/64 (77) 100 09/11/20 02:45 96 9 101/64 (76) 100 09/11/20 02:30 99 9 100/71 (81) 100 09/11/20 02:30 84/55 09/11/20 02:18 105 9 93/71 (78) 100 09/11/20 02:16 112 10 99/58 100 09/11/20 02:15 77/54 09/11/20 02:00 99/58 09/11/20 02:00 112 10 99/56 (70) 09/11/20 01:46 114 10 108/67 100 09/11/20 01:45 124 16 147/86 (106) 99 09/11/20 01:30 118 13 131/63 (85) 99 09/11/20 01:15 122 14 124/86 (99) 99 09/11/20 01:00 108/67 09/11/20 01:00 114 10 108/67 (81) 100 09/11/20 00:45 115 10 113/69 (84) 100 09/11/20 00:30 116 11 126/75 (92) 100 09/11/20 00:15 121 14 160/94 (116) 100 09/11/20 00:00 Nasal Cannula 2.0 09/11/20 00:00 117 09/11/20 00:00 133/56 09/11/20 00:00 97.6 117 11 133/56 (81) 100 09/10/20 23:45 118 12 128/87 (101) 100 09/10/20 23:30 121 17 143/75 (97) 100 09/10/20 23:15 118 13 132/62 (85) 100 09/10/20 23:10 97.5 09/10/20 23:00 120 20 158/90 (112) 98 09/10/20 23:00 132/62 09/10/20 22:45 128 24 120/72 (88) 99 09/10/20 22:30 129 25 148/89 (108) 97 09/10/20 22:15 126 24 158/90 (112) 99 09/10/20 22:00 152/82 09/10/20 22:00 117 18 152/82 (105) 99 09/10/20 21:45 120 22 132/75 (94) 98 09/10/20 21:30 128 27 145/104 (118) 99 09/10/20 21:15 118 22 153/75 (101) 100 09/10/20 21:00 124 24 159/77 (104) 100 09/10/20 21:00 159/77 09/10/20 20:45 124 22 132/94 (107) 100 09/10/20 20:30 112 16 132/76 (94) 09/10/20 20:23 97.5 09/10/20 20:15 114 19 150/83 (105) 100 09/10/20 20:00 112 09/10/20 20:00 Nasal Cannula 2.0 09/10/20 20:00 163/88 09/10/20 20:00 97.7 123 27 163/88 (113) 100 09/10/20 19:30 127 25 141/77 (98) 99 09/10/20 19:15 121 27 130/76 (94) 98 09/10/20 19:00 145/76 09/10/20 19:00 126 27 145/76 (99) 98 09/10/20 18:45 128 31 141/73 (95) 98 09/10/20 18:33 132/104 09/10/20 18:30 125 28 132/104 (113) 99 09/10/20 18:30 132/84 09/10/20 18:15 125 28 137/67 (90) 98 09/10/20 18:00 130/77 09/10/20 18:00 109 22 130/77 (94) 100 09/10/20 17:45 105 19 139/68 (91) 98 09/10/20 17:30 102 17 131/69 (89) 100 09/10/20 17:15 102 17 142/69 (93) 100 09/10/20 17:00 102 18 133/74 (93) 100 09/10/20 17:00 133/74 09/10/20 16:45 100 16 139/72 (94) 100 09/10/20 16:30 100 16 128/72 (90) 100 09/10/20 16:15 102 18 127/73 (91) 100 09/10/20 16:00 97.5 99 16 137/71 (93) 100 09/10/20 16:00 137/71 09/10/20 16:00 Nasal Cannula 2.0 09/10/20 15:28 107 09/10/20 15:00 128/70 09/10/20 15:00 95 13 128/70 (89) 100 09/10/20 14:00 95 12 115/64 (81) 100 09/10/20 14:00 115/64 09/10/20 13:00 117 27 133/61 (85) 99 09/10/20 13:00 133/61 09/10/20 12:00 93 11 112/62 (79) 100 09/10/20 12:00 112/62 09/10/20 12:00 Nasal Cannula 2.0 09/10/20 11:56 91 09/10/20 11:29 109/60 09/10/20 11:00 112/60 09/10/20 11:00 96 12 112/60 (77) 100 09/10/20 10:30 97 12 114/56 (75) 100 09/10/20 10:00 120/67 09/10/20 10:00 99 19 120/67 (84) 100 Intake and Output 09/10/20 09/11/20 19:00 07:00 Intake Total 2594.243 ml 1859.80 ml Output Total 215 ml 380 ml Balance 2379.243 ml 1479.80 ml Intake IV Total 1994.243 ml 1359.80 ml Blood Product 600 ml 500 ml Output Urine Total 215 ml 380 ml Laboratory Tests 09/11/20 03:15: White Blood Count 23.7*H, Red Blood Count 3.42L, Hemoglobin 9.7#L, Hematocrit 27.7L, Mean Corpuscular Volume 81#, Mean Corpuscular Hemoglobin 28.5, Mean Corpuscular Hemoglobin Concent 35.2, Red Cell Distribution Width 18.7H, Platelet Count 285, Mean Platelet Volume 8.1, Neutrophils (%) (Auto) , Lymphocytes (%) (Auto) , Monocytes (%) (Auto) , Eosinophils (%) (Auto) , Basophils (%) (Auto) , Neutrophils % (Manual) [Pending], Lymphocytes % (Manual) [Pending], Platelet Estimate [Pending], Platelet Morphology [Pending], Prothrombin Time 12.6H, Prothromb Time International Ratio 1.2H, Sodium Level 128L, Potassium Level 3.7, Chloride Level 98, Carbon Dioxide Level 15L, Anion Gap 15, Blood Urea Nitrogen 30H, Creatinine 3.0H, Estimat Glomerular Filtration Rate 15.5, Glucose Level 132H, Uric Acid 4.8, Calcium Level 7.2L, Phosphorus Level 4.1, Magnesium Level 1.7L, Total Bilirubin 16.6H, Direct Bilirubin 13.2H, Aspartate Amino Transf (AST/SGOT) 47H, Alanine Aminotransferase (ALT/SGPT) < 6L, Alkaline Phosphatase 1308H, Total Protein 6.1L, Albumin 3.3L, Globulin 2.8, Albumin/Globulin Ratio 1.2, Amylase Level 175H, Lipase 920H, Random Vancomycin Level 16.1 Height (Feet): 5 Height (Inches): 3.00 Weight (Pounds): 110 General Appearance: no apparent distress EENT: normal ENT inspection Neck: supple Cardiovascular: normal rate Respiratory/Chest: decreased breath sounds Abdomen: hypoactive bowel sounds Extremities: non-tender Assessment/Plan Status: unchanged Assessment/Plan: metastatic rectal CA juandice biliary obstruction with metalic stent sepsis anemia s/p blood transfusion ? cirrhosis DNR/DNI npo ivf on pressor hepatitis panel repeat labs abx per ID may need ERCP on Monday if stable Naseem Nuñez MD Sep 11, 2020 09:47
--- NOTE | 2020-09-11 10:54 | General Progress Note ---
Subjective Date patient seen: Sep 11, 2020 Time patient seen: 10:00 ROS Limited/Unobtainable: No Allergies: Coded Allergies: No Known Allergies (Unverified , 09/09/20) Subjective Patient is lethargic and just received pain medication. jaundiced and frail. Objective Last 24 Hour Vital Signs Date Time Temp Pulse Resp B/P (MAP) Pulse Ox O2 Delivery O2 Flow Rate FiO2 09/11/20 09:00 122/62 09/11/20 08:30 78 11 123/71 (88) 100 09/11/20 08:00 Nasal Cannula 2.0 09/11/20 08:00 97.6 78 11 121/60 (80) 100 09/11/20 08:00 178/93 09/11/20 07:00 117/63 09/11/20 07:00 86 13 117/63 (81) 100 09/11/20 06:00 86 10 118/73 (88) 100 09/11/20 06:00 118/73 09/11/20 05:00 85 9 113/66 (82) 100 09/11/20 05:00 113/66 09/11/20 04:45 87 9 115/68 (84) 100 09/11/20 04:30 88 9 113/64 (80) 100 09/11/20 04:15 88 9 114/69 (84) 100 09/11/20 04:00 Nasal Cannula 2.0 09/11/20 04:00 87 09/11/20 04:00 97.7 90 9 113/69 (84) 100 09/11/20 04:00 113/69 09/11/20 03:45 92 9 108/62 (77) 100 09/11/20 03:30 91 9 105/67 (80) 100 09/11/20 03:15 92 9 102/71 (81) 100 09/11/20 03:00 103/64 09/11/20 03:00 94 9 103/64 (77) 100 09/11/20 02:45 96 9 101/64 (76) 100 09/11/20 02:30 99 9 100/71 (81) 100 09/11/20 02:30 84/55 09/11/20 02:18 105 9 93/71 (78) 100 09/11/20 02:16 112 10 99/58 100 09/11/20 02:15 77/54 09/11/20 02:00 99/58 09/11/20 02:00 112 10 99/56 (70) 09/11/20 01:46 114 10 108/67 100 09/11/20 01:45 124 16 147/86 (106) 99 09/11/20 01:30 118 13 131/63 (85) 99 09/11/20 01:15 122 14 124/86 (99) 99 09/11/20 01:00 108/67 09/11/20 01:00 114 10 108/67 (81) 100 09/11/20 00:45 115 10 113/69 (84) 100 09/11/20 00:30 116 11 126/75 (92) 100 09/11/20 00:15 121 14 160/94 (116) 100 09/11/20 00:00 Nasal Cannula 2.0 09/11/20 00:00 117 09/11/20 00:00 133/56 09/11/20 00:00 97.6 117 11 133/56 (81) 100 09/10/20 23:45 118 12 128/87 (101) 100 09/10/20 23:30 121 17 143/75 (97) 100 09/10/20 23:15 118 13 132/62 (85) 100 09/10/20 23:10 97.5 09/10/20 23:00 120 20 158/90 (112) 98 09/10/20 23:00 132/62 09/10/20 22:45 128 24 120/72 (88) 99 09/10/20 22:30 129 25 148/89 (108) 97 09/10/20 22:15 126 24 158/90 (112) 99 09/10/20 22:00 152/82 09/10/20 22:00 117 18 152/82 (105) 99 09/10/20 21:45 120 22 132/75 (94) 98 09/10/20 21:30 128 27 145/104 (118) 99 09/10/20 21:15 118 22 153/75 (101) 100 09/10/20 21:00 124 24 159/77 (104) 100 09/10/20 21:00 159/77 09/10/20 20:45 124 22 132/94 (107) 100 09/10/20 20:30 112 16 132/76 (94) 09/10/20 20:23 97.5 09/10/20 20:15 114 19 150/83 (105) 100 09/10/20 20:00 112 09/10/20 20:00 Nasal Cannula 2.0 09/10/20 20:00 163/88 09/10/20 20:00 97.7 123 27 163/88 (113) 100 09/10/20 19:30 127 25 141/77 (98) 99 09/10/20 19:15 121 27 130/76 (94) 98 09/10/20 19:00 145/76 09/10/20 19:00 126 27 145/76 (99) 98 09/10/20 18:45 128 31 141/73 (95) 98 09/10/20 18:33 132/104 09/10/20 18:30 125 28 132/104 (113) 99 09/10/20 18:30 132/84 09/10/20 18:15 125 28 137/67 (90) 98 09/10/20 18:00 130/77 09/10/20 18:00 109 22 130/77 (94) 100 09/10/20 17:45 105 19 139/68 (91) 98 09/10/20 17:30 102 17 131/69 (89) 100 09/10/20 17:15 102 17 142/69 (93) 100 09/10/20 17:00 102 18 133/74 (93) 100 09/10/20 17:00 133/74 09/10/20 16:45 100 16 139/72 (94) 100 09/10/20 16:30 100 16 128/72 (90) 100 09/10/20 16:15 102 18 127/73 (91) 100 09/10/20 16:00 97.5 99 16 137/71 (93) 100 09/10/20 16:00 137/71 09/10/20 16:00 Nasal Cannula 2.0 09/10/20 15:28 107 09/10/20 15:00 128/70 09/10/20 15:00 95 13 128/70 (89) 100 09/10/20 14:00 95 12 115/64 (81) 100 09/10/20 14:00 115/64 09/10/20 13:00 117 27 133/61 (85) 99 09/10/20 13:00 133/61 09/10/20 12:00 93 11 112/62 (79) 100 09/10/20 12:00 112/62 09/10/20 12:00 Nasal Cannula 2.0 09/10/20 11:56 91 09/10/20 11:29 109/60 09/10/20 11:00 112/60 09/10/20 11:00 96 12 11260 (77) 100 Intake and Output 09/10/20 09/11/20 19:00 07:00 Intake Total 2594.243 ml 1859.80 ml Output Total 215 ml 380 ml Balance 2379.243 ml 1479.80 ml Intake IV Total 1994.243 ml 1359.80 ml Blood Product 600 ml 500 ml Output Urine Total 215 ml 380 ml Laboratory Tests 09/11/20 03:15: White Blood Count 23.7*H, Red Blood Count 3.42L, Hemoglobin 9.7#L, Hematocrit 27.7L, Mean Corpuscular Volume 81#, Mean Corpuscular Hemoglobin 28.5, Mean Corpuscular Hemoglobin Concent 35.2, Red Cell Distribution Width 18.7H, Platelet Count 285, Mean Platelet Volume 8.1, Neutrophils (%) (Auto) , Lymphocytes (%) (Auto) , Monocytes (%) (Auto) , Eosinophils (%) (Auto) , Basophils (%) (Auto) , Differential Total Cells Counted 100, Neutrophils % (Manual) 91H, Lymphocytes % (Manual) 4L, Monocytes % (Manual) 4, Eosinophils % (Manual) 0, Basophils % (Manual) 0, Band Neutrophils 1, Platelet Estimate Adequate, Platelet Morphology Normal, Hypochromasia 1+, Anisocytosis 1+, Prothrombin Time 12.6H, Prothromb Time International Ratio 1.2H, Sodium Level 128L, Potassium Level 3.7, Chloride Level 98, Carbon Dioxide Level 15L, Anion Gap 15, Blood Urea Nitrogen 30H, Creatinine 3.0H, Estimat Glomerular Filtration Rate 15.5, Glucose Level 132H, Uric Acid 4.8, Calcium Level 7.2L, Phosphorus Level 4.1, Magnesium Level 1.7L, Total Bilirubin 16.6H, Direct Bilirubin 13.2H, Aspartate Amino Transf (AST/SGOT) 47H, Alanine Aminotransferase (ALT/SGPT) < 6L, Alkaline Phosphatase 1308H, Total Protein 6.1L, Albumin 3.3L, Globulin 2.8, Albumin/Globulin Ratio 1.2, Amylase Level 175H, Lipase 920H, Random Vancomycin Level 16.1 Height (Feet): 5 Height (Inches): 3.00 Weight (Pounds): 110 General Appearance: WD/WN EENT: PERRL/EOMI Neck: non-tender Cardiovascular: normal rate Respiratory/Chest: lungs clear Abdomen: non tender Pelvis: normal external exam 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 colonized vs acute. Broad sp antibiotic started and will be continued. Monitor WBC - 23.7 K today ID medical consultant [employer] ( previously saw the patient at [facility] this month ) updated and will be rounding today. Discussed with Dr. Huizar. ICU for IVF and vasopressors ( levophed in place ) will use vasopressin as next agent if needed due to tachycardia. Central line in place PICC # Anemia of chronic disease vs acute blood loss anemia s/p 2 PRBC and 2 FFP 09/10 Hb from 6.8 to 9.7 # Acute renal failure with metabolic acidosis Renal consultation requested with Dr. Tolentino - defer IVF management and appreciate support. Creatinine 3 # Metastatic rectal cancer Primary oncologist Dr. Dana Herrera in [place]. Will try to obtain contact information and further discuss GOC Dr. Cutler consulted and appreciate input. High mortality and poor prognosis noted. Per prior dc summary, there is no more plan for medical treatment and GOC will need to be addressed. Patient is a candidate for hospice and will discuss with her and her brother Elfego [phone] # Abnormal CT abdomen and Pelvis 1. Right-sided spigelian hernia containing a loop of small bowel. The small bowel is dilated both within the hernia sac and upstream with fluid levels likely representing obstruction. 2. Metal stent within the common bile duct with severe intrahepatic biliary dilatation. Dr. Nuñez from GI consulted and case discussed today. Patient is not stable for possible MRCP - ? biliary stent migration since prior procedure. Dr. Haas from Surgery consulted and non surgical approach recommended. 3. Bilateral nephroureteral stents in place. Moderate bilateral hydronephrosis. 4. Multiple pulmonary nodules and intra-abdominal adenopathy suspicious for metastatic disease. # Hematuria Dr. Dewitt from urology consulted and case discussed over the phone. no acute intervention planned Monitor CBC, and Tovar output # Chronic pain syndrome Opiate therapy # Diet NPO due to SBO # IVF per nephrology # DNR DNI discussed with the patient and family updated in agreement as well. # DVT ppx with SCD only # GI ppx wit PPI Guarded prognosis and high mortality risk this admission Called Family [phone] with no answer or voicemail response at 11 am Jon Abarca MD Sep 11, 2020 10:54
--- NOTE | 2020-09-11 11:20 | Nephrology Progress Note ---
Assessment/Plan Problem List: (1) ERIC (acute kidney injury) (2) Metastasis from rectal cancer (3) Elevated lipase (4) Severe sepsis (5) UTI (urinary tract infection) (6) Septic shock Assessment Acute renal failure Possible underlying renal failure Shock status on Levophed Jaundice Small bowel obstruction Bilateral hydronephrosis metastatic rectal cancer with biliary obstruction Metastatic disease, multiple pulmonary nodules Severe hypoalbuminemia and anasarca DNR/DNI Plan September 11: Labs reviewed. Abnormal electrolytes addressed. Discussed with EVITA Finley. Overall condition poor. Favor comfort care. Per orders. Hemoglobin higher posttransfusion. Plan: Hydrate Transfuse Poor prognosis Per consultants Support hospice and comfort care Discussed with Dr. Abarca Subjective ROS Limited/Unobtainable: Yes Objective Objective Last 24 Hour Vital Signs Date Time Temp Pulse Resp B/P (MAP) Pulse Ox O2 Delivery O2 Flow Rate FiO2 09/11/20 09:00 122/62 09/11/20 08:30 78 11 123/71 (88) 100 09/11/20 08:00 Nasal Cannula 2.0 09/11/20 08:00 97.6 78 11 121/60 (80) 100 09/11/20 08:00 178/93 09/11/20 07:00 117/63 09/11/20 07:00 86 13 117/63 (81) 100 09/11/20 06:00 86 10 118/73 (88) 100 09/11/20 06:00 118/73 09/11/20 05:00 85 9 113/66 (82) 100 09/11/20 05:00 113/66 09/11/20 04:45 87 9 115/68 (84) 100 09/11/20 04:30 88 9 113/64 (80) 100 09/11/20 04:15 88 9 114/69 (84) 100 09/11/20 04:00 Nasal Cannula 2.0 09/11/20 04:00 87 09/11/20 04:00 97.7 90 9 113/69 (84) 100 09/11/20 04:00 113/69 09/11/20 03:45 92 9 108/62 (77) 100 09/11/20 03:30 91 9 105/67 (80) 100 09/11/20 03:15 92 9 102/71 (81) 100 11/27/20 03:00 103/64 09/11/20 03:00 94 9 103/64 (77) 100 09/11/20 02:45 96 9 101/64 (76) 100 09/11/20 02:30 99 9 100/71 (81) 100 09/11/20 02:30 84/55 09/11/20 02:18 105 9 93/71 (78) 100 09/11/20 02:16 112 10 99/58 100 09/11/20 02:15 77/54 09/11/20 02:00 99/58 09/11/20 02:00 112 10 99/56 (70) 09/11/20 01:46 114 10 108/67 100 09/11/20 01:45 124 16 147/86 (106) 99 09/11/20 01:30 118 13 131/63 (85) 99 09/11/20 01:15 122 14 124/86 (99) 99 09/11/20 01:00 108/67 09/11/20 01:00 114 10 108/67 (81) 100 09/11/20 00:45 115 10 113/69 (84) 100 09/11/20 00:30 116 11 126/75 (92) 100 09/11/20 00:15 121 14 160/94 (116) 100 09/11/20 00:00 Nasal Cannula 2.0 09/11/20 00:00 117 09/11/20 00:00 133/56 09/11/20 00:00 97.6 117 11 133/56 (81) 100 09/10/20 23:45 118 12 128/87 (101) 100 09/10/20 23:30 121 17 143/75 (97) 100 09/10/20 23:15 118 13 132/62 (85) 100 09/10/20 23:10 97.5 09/10/20 23:00 120 20 158/90 (112) 98 09/10/20 23:00 132/62 09/10/20 22:45 128 24 120/72 (88) 99 09/10/20 22:30 129 25 148/89 (108) 97 09/10/20 22:15 126 24 158/90 (112) 99 09/10/20 22:00 152/82 09/10/20 22:00 117 18 152/82 (105) 99 09/10/20 21:45 120 22 132/75 (94) 98 09/10/20 21:30 128 27 145/104 (118) 99 09/10/20 21:15 118 22 153/75 (101) 100 09/10/20 21:00 124 24 159/77 (104) 100 09/10/20 21:00 159/77 09/10/20 20:45 124 22 132/94 (107) 100 09/10/20 20:30 112 16 132/76 (94) 09/10/20 20:23 97.5 09/10/20 20:15 114 19 150/83 (105) 100 09/10/20 20:00 112 09/10/20 20:00 Nasal Cannula 2.0 09/10/20 20:00 163/88 09/10/20 20:00 97.7 123 27 163/88 (113) 100 09/10/20 19:30 127 25 141/77 (98) 99 09/10/20 19:15 121 27 130/76 (94) 98 09/10/20 19:00 145/76 09/10/20 19:00 126 27 145/76 (99) 98 09/10/20 18:45 128 31 141/73 (95) 98 09/10/20 18:33 132/104 09/10/20 18:30 125 28 132/104 (113) 99 09/10/20 18:30 132/84 09/10/20 18:15 125 28 137/67 (90) 98 09/10/20 18:00 130/77 09/10/20 18:00 109 22 130/77 (94) 100 09/10/20 17:45 105 19 139/68 (91) 98 09/10/20 17:30 102 17 131/69 (89) 100 09/10/20 17:15 102 17 142/69 (93) 100 09/10/20 17:00 102 18 133/74 (93) 100 09/10/20 17:00 133/74 09/10/20 16:45 100 16 139/72 (94) 100 09/10/20 16:30 100 16 128/72 (90) 100 09/10/20 16:15 102 18 127/73 (91) 100 09/10/20 16:00 97.5 99 16 137/71 (93) 100 09/10/20 16:00 137/71 09/10/20 16:00 Nasal Cannula 2.0 09/10/20 15:28 107 09/10/20 15:00 128/70 09/10/20 15:00 95 13 128/70 (89) 100 09/10/20 14:00 95 12 115/64 (81) 100 09/10/20 14:00 115/64 09/10/20 13:00 117 27 133/61 (85) 99 09/10/20 13:00 133/61 09/10/20 12:00 93 11 112/62 (79) 100 09/10/20 12:00 112/62 09/10/20 12:00 Nasal Cannula 2.0 09/10/20 11:56 91 09/10/20 11:29 109/60 Intake and Output 09/10/20 09/11/20 19:00 07:00 Intake Total 2594.243 ml 1859.80 ml Output Total 215 ml 380 ml Balance 2379.243 ml 1479.80 ml Intake IV Total 1994.243 ml 1359.80 ml Blood Product 600 ml 500 ml Output Urine Total 215 ml 380 ml Laboratory Tests 09/11/20 03:15: White Blood Count 23.7*H, Red Blood Count 3.42L, Hemoglobin 9.7#L, Hematocrit 27.7L, Mean Corpuscular Volume 81#, Mean Corpuscular Hemoglobin 28.5, Mean Corpuscular Hemoglobin Concent 35.2, Red Cell Distribution Width 18.7H, Platelet Count 285, Mean Platelet Volume 8.1, Neutrophils (%) (Auto) , Lymphocytes (%) (Auto) , Monocytes (%) (Auto) , Eosinophils (%) (Auto) , Basophils (%) (Auto) , Differential Total Cells Counted 100, Neutrophils % (Manual) 91H, Lymphocytes % (Manual) 4L, Monocytes % (Manual) 4, Eosinophils % (Manual) 0, Basophils % (Manual) 0, Band Neutrophils 1, Platelet Estimate Adequate, Platelet Morphology Normal, Hypochromasia 1+, Anisocytosis 1+, Prothrombin Time 12.6H, Prothromb Time International Ratio 1.2H, Sodium Level 128L, Potassium Level 3.7, Chloride Level 98, Carbon Dioxide Level 15L, Anion Gap 15, Blood Urea Nitrogen 30H, Creatinine 3.0H, Estimat Glomerular Filtration Rate 15.5, Glucose Level 132H, Uric Acid 4.8, Calcium Level 7.2L, Phosphorus Level 4.1, Magnesium Level 1.7L, Total Bilirubin 16.6H, Direct Bilirubin 13.2H, Aspartate Amino Transf (AST/SGOT) 47H, Alanine Aminotransferase (ALT/SGPT) < 6L, Alkaline Phosphatase 1308H, Total Protein 6.1L, Albumin 3.3L, Globulin 2.8, Albumin/Globulin Ratio 1.2, Amylase Level 175H, Lipase 920H, Random Vancomycin Level 16.1 Height (Feet): 5 Height (Inches): 3.00 Weight (Pounds): 110 General Appearance: no apparent distress, lethargic EENT: other - On cannula Cardiovascular: normal rate Respiratory/Chest: decreased breath sounds Abdomen: distended Luis Turner MD Sep 11, 2020 11:20
[2020-09-11] MEDS: D5NS 1,000 ML IV SCH (11:30)
[2020-09-11] MEDS: Sodium Citrate 30ml ORAL SCH ×2 (12:00→17:37)
--- NOTE | 2020-09-11 13:10 | Surgery Progress Note ---
Surgery Progress Note Subjective Symptoms: worse, other Objective Last 24 Hour Vital Signs Date Time Temp Pulse Resp B/P (MAP) Pulse Ox O2 Delivery O2 Flow Rate FiO2 09/11/20 12:00 83 09/11/20 12:00 Nasal Cannula 2.0 09/11/20 12:00 97.6 82 12 116/63 (80) 100 09/11/20 12:00 133/58 09/11/20 11:30 84 12 122/76 (91) 100 09/11/20 11:00 140/68 09/11/20 11:00 77 10 140/68 (92) 100 09/11/20 10:30 79 11 134/69 (90) 100 09/11/20 10:00 116/67 09/11/20 10:00 77 12 116/67 (83) 100 09/11/20 09:30 78 11 126/62 (83) 100 09/11/20 09:00 79 13 115/65 (82) 100 09/11/20 09:00 122/62 09/11/20 08:30 78 11 123/71 (88) 100 09/11/20 08:00 Nasal Cannula 2.0 09/11/20 08:00 82 09/11/20 08:00 97.6 78 11 121/60 (80) 100 09/11/20 08:00 178/93 09/11/20 07:00 117/63 09/11/20 07:00 86 13 117/63 (81) 100 09/11/20 06:00 86 10 118/73 (88) 100 09/11/20 06:00 118/73 09/11/20 05:00 85 9 113/66 (82) 100 09/11/20 05:00 113/66 09/11/20 04:45 87 9 115/68 (84) 100 09/11/20 04:30 88 9 113/64 (80) 100 09/11/20 04:15 88 9 114/69 (84) 100 09/11/20 04:00 Nasal Cannula 2.0 09/11/20 04:00 87 09/11/20 04:00 97.7 90 9 113/69 (84) 100 09/11/20 04:00 113/69 09/11/20 03:45 92 9 108/62 (77) 100 09/11/20 03:30 91 9 105/67 (80) 100 09/11/20 03:15 92 9 102/71 (81) 100 09/11/20 03:00 103/64 09/11/20 03:00 94 9 103/64 (77) 100 09/11/20 02:45 96 9 101/64 (76) 100 09/11/20 02:30 99 9 100/71 (81) 100 09/11/20 02:30 84/55 09/11/20 02:18 105 9 93/71 (78) 100 09/11/20 02:16 112 10 99/58 100 09/11/20 02:15 77/54 09/11/20 02:00 99/58 09/11/20 02:00 112 10 99/56 (70) 09/11/20 01:46 114 10 108/67 100 09/11/20 01:45 124 16 147/86 (106) 99 09/11/20 01:30 118 13 131/63 (85) 99 09/11/20 01:15 122 14 124/86 (99) 99 09/11/20 01:00 108/67 09/11/20 01:00 114 10 108/67 (81) 100 09/11/20 00:45 115 10 113/69 (84) 100 09/11/20 00:30 116 11 126/75 (92) 100 09/11/20 00:15 121 14 160/94 (116) 100 09/11/20 00:00 Nasal Cannula 2.0 09/11/20 00:00 117 09/11/20 00:00 133/56 09/11/20 00:00 97.6 117 11 133/56 (81) 100 09/10/20 23:45 118 12 128/87 (101) 100 09/10/20 23:30 121 17 143/75 (97) 100 09/10/20 23:15 118 13 132/62 (85) 100 09/10/20 23:10 97.5 09/10/20 23:00 120 20 158/90 (112) 98 09/10/20 23:00 132/62 09/10/20 22:45 128 24 120/72 (88) 99 09/10/20 22:30 129 25 148/89 (108) 97 09/10/20 22:15 126 24 158/90 (112) 99 09/10/20 22:00 152/82 09/10/20 22:00 117 18 152/82 (105) 99 09/10/20 21:45 120 22 132/75 (94) 98 09/10/20 21:30 128 27 145/104 (118) 99 09/10/20 21:15 118 22 153/75 (101) 100 09/10/20 21:00 124 24 159/77 (104) 100 09/10/20 21:00 159/77 09/10/20 20:45 124 22 132/94 (107) 100 09/10/20 20:30 112 16 132/76 (94) 09/10/20 20:23 97.5 09/10/20 20:15 114 19 150/83 (105) 100 09/10/20 20:00 112 09/10/20 20:00 Nasal Cannula 2.0 09/10/20 20:00 163/88 09/10/20 20:00 97.7 123 27 163/88 (113) 100 09/10/20 19:30 127 25 141/77 (98) 99 09/10/20 19:15 121 27 130/76 (94) 98 09/10/20 19:00 145/76 09/10/20 19:00 126 27 145/76 (99) 98 09/10/20 18:45 128 31 141/73 (95) 98 09/10/20 18:33 132/104 09/10/20 18:30 125 28 132/104 (113) 99 09/10/20 18:30 132/84 09/10/20 18:15 125 28 137/67 (90) 98 09/10/20 18:00 130/77 09/10/20 18:00 109 22 130/77 (94) 100 09/10/20 17:45 105 19 139/68 (91) 98 09/10/20 17:30 102 17 131/69 (89) 100 09/10/20 17:15 102 17 142/69 (93) 100 09/10/20 17:00 102 18 133/74 (93) 100 09/10/20 17:00 133/74 09/10/20 16:45 100 16 139/72 (94) 100 09/10/20 16:30 100 16 128/72 (90) 100 11/26/20 16:15 102 18 127/73 (91) 100 09/10/20 16:00 97.5 99 16 137/71 (93) 100 09/10/20 16:00 137/71 09/10/20 16:00 Nasal Cannula 2.0 09/10/20 15:28 107 09/10/20 15:00 128/70 09/10/20 15:00 95 13 128/70 (89) 100 09/10/20 14:00 95 12 115/64 (81) 100 09/10/20 14:00 115/64 I&O Intake and Output 09/10/20 09/11/20 19:00 07:00 Intake Total 2594.243 ml 1859.80 ml Output Total 215 ml 380 ml Balance 2379.243 ml 1479.80 ml Intake IV Total 1994.243 ml 1359.80 ml Blood Product 600 ml 500 ml Output Urine Total 215 ml 380 ml Cardiovascular: RSR Respiratory: decreased breath sounds Abdomen: soft, distended, other, decreased bowel sounds Extremities: edema, no tenderness, no cyanosis Laboratory Tests Test 09/11/20 03:15 White Blood Count 23.7 K/UL (4.8-10.8) *H Red Blood Count 3.42 M/UL (4.20-5.40) L Hemoglobin 9.7 G/DL (12.0-16.0) #L Hematocrit 27.7 % (37.0-47.0) L Mean Corpuscular Volume 81 FL (80-99) # Mean Corpuscular Hemoglobin 28.5 PG (27.0-31.0) Mean Corpuscular Hemoglobin Concent 35.2 G/DL (32.0-36.0) Red Cell Distribution Width 18.7 % (11.6-14.8) H Platelet Count 285 K/UL (150-450) Mean Platelet Volume 8.1 FL (6.5-10.1) Neutrophils (%) (Auto) % (45.0-75.0) Lymphocytes (%) (Auto) % (20.0-45.0) Monocytes (%) (Auto) % (1.0-10.0) Eosinophils (%) (Auto) % (0.0-3.0) Basophils (%) (Auto) % (0.0-2.0) Differential Total Cells Counted 100 Neutrophils % (Manual) 91 % (45-75) H Lymphocytes % (Manual) 4 % (20-45) L Monocytes % (Manual) 4 % (1-10) Eosinophils % (Manual) 0 % (0-3) Basophils % (Manual) 0 % (0-2) Band Neutrophils 1 % (0-8) Platelet Estimate Adequate Platelet Morphology Normal Hypochromasia 1+ Anisocytosis 1+ Prothrombin Time 12.6 SEC (9.30-11.50) H Prothromb Time International Ratio 1.2 (0.9-1.1) H Sodium Level 128 MMOL/L (136-145) L Potassium Level 3.7 MMOL/L (3.5-5.1) Chloride Level 98 MMOL/L (98-107) Carbon Dioxide Level 15 MMOL/L (21-32) L Anion Gap 15 mmol/L (5-15) Blood Urea Nitrogen 30 mg/dL (7-18) H Creatinine 3.0 MG/DL (0.55-1.30) H Estimat Glomerular Filtration Rate 15.5 mL/min (>60) Glucose Level 132 MG/DL (74-106) H Uric Acid 4.8 MG/DL (2.6-7.2) Calcium Level 7.2 MG/DL (8.5-10.1) L Phosphorus Level 4.1 MG/DL (2.5-4.9) Magnesium Level 1.7 MG/DL (1.8-2.4) L Total Bilirubin 16.6 MG/DL (0.2-1.0) H Direct Bilirubin 13.2 MG/DL (0.0-0.3) H Aspartate Amino Transf (AST/SGOT) 47 U/L (15-37) H Alanine Aminotransferase (ALT/SGPT) < 6 U/L (12-78) L Alkaline Phosphatase 1308 U/L (46-116) H Total Protein 6.1 G/DL (6.4-8.2) L Albumin 3.3 G/DL (3.4-5.0) L Globulin 2.8 g/dL Albumin/Globulin Ratio 1.2 (1.0-2.7) Amylase Level 175 U/L (25-115) H Lipase 920 U/L (73-393) H Random Vancomycin Level 16.1 ug/mL Plan Problems: (1) Hematuria (2) Renal failure (3) Severe sepsis Assessment & Plan: causing sbo seemingly reduced at bedside unfortunately patient is not a surgical candidate prognosis is poor and survival is low aggressive intervention would be medically futile and surgery would strongly not be recommended in her condition recommend hospice and end of life comfort care thank you will follow with exam and recs (4) Spigelian hernia Assessment & Plan: ABDOMEN: Liver: Unremarkable. Gallbladder and bile ducts: Metal stent within the common bile duct with severe intrahepatic biliary dilatation. The gallbladder is distended. Pancreas: Poorly visualized pancreatic parenchyma given the lack of contrast. Spleen: Unremarkable. Adrenals: Unremarkable. Kidneys and ureters: Bilateral nephroureteral stents in place. Moderate bilateral hydronephrosis. Hyperdense 1.9 cm structure in the left renal upper pole is contrast density potentially representing retained contrast in a calyceal cyst. Stomach and bowel: Right-sided spigelian hernia containing a loop of small bowel. The small bowel is dilated both within the hernia sac and upstream with fluid levels likely representing obstruction. Postsurgical changes within the rectum and right lower quadrant small bowel. No small bowel pneumatosis. PELVIS: Appendix: No findings to suggest acute appendicitis. Bladder: Tovar catheter within the bladder. No stones. Reproductive: Unremarkable as visualized. ABDOMEN and PELVIS: Intraperitoneal space: Unremarkable. No free air. No significant fluid collection. Bones/joints: No acute fracture. Soft tissues: Marked anasarca. Vasculature: IVC filter in place. Lymph nodes: Bulky calcified retroperitoneal and epigastric lymph nodes suspicious for metastatic disease. IMPRESSION: 1. Right-sided spigelian hernia containing a loop of small bowel. The small bowel is dilated both within the hernia sac and upstream with fluid levels likely representing obstruction. 2. Metal stent within the common bile duct with severe intrahepatic biliary dilatation. 3. Bilateral nephroureteral stents in place. Moderate bilateral hydronephrosis. 4. Multiple pulmonary nodules and intra-abdominal adenopathy suspicious for metastatic disease. 5. Fluid overload as evidenced by marked anasarca and small bilateral pleural effusions. (5) UTI (urinary tract infection) (6) Liver failure Nicholas Haas Sep 11, 2020 13:10
--- NOTE | 2020-09-11 13:52 | Infectious Diseases Prog Note ---
Subjective Allergies: Coded Allergies: No Known Allergies (Unverified , 09/09/20) # [id number] Objective Last 24 Hour Vital Signs Date Time Temp Pulse Resp B/P (MAP) Pulse Ox O2 Delivery O2 Flow Rate FiO2 09/11/20 13:00 84 10 120/57 (78) 100 09/11/20 13:00 120/57 09/11/20 12:30 80 13 135/85 (102) 100 09/11/20 12:00 83 09/11/20 12:00 Nasal Cannula 2.0 09/11/20 12:00 97.6 82 12 116/63 (80) 100 09/11/20 12:00 133/58 09/11/20 11:30 84 12 122/76 (91) 100 09/11/20 11:00 140/68 09/11/20 11:00 77 10 140/68 (92) 100 09/11/20 10:30 79 11 134/69 (90) 100 09/11/20 10:00 116/67 09/11/20 10:00 77 12 116/67 (83) 100 09/11/20 09:30 78 11 126/62 (83) 100 09/11/20 09:00 79 13 115/65 (82) 100 09/11/20 09:00 122/62 09/11/20 08:30 78 11 123/71 (88) 100 09/11/20 08:00 Nasal Cannula 2.0 09/11/20 08:00 82 09/11/20 08:00 97.6 78 11 121/60 (80) 100 09/11/20 08:00 178/93 09/11/20 07:00 117/63 09/11/20 07:00 86 13 117/63 (81) 100 09/11/20 06:00 86 10 118/73 (88) 100 09/11/20 06:00 118/73 09/11/20 05:00 85 9 113/66 (82) 100 09/11/20 05:00 113/66 09/11/20 04:45 87 9 115/68 (84) 100 09/11/20 04:30 88 9 113/64 (80) 100 09/11/20 04:15 88 9 114/69 (84) 100 09/11/20 04:00 Nasal Cannula 2.0 09/11/20 04:00 87 09/11/20 04:00 97.7 90 9 113/69 (84) 100 09/11/20 04:00 113/69 09/11/20 03:45 92 9 108/62 (77) 100 09/11/20 03:30 91 9 105/67 (80) 100 09/11/20 03:15 92 9 102/71 (81) 100 09/11/20 03:00 103/64 09/11/20 03:00 94 9 103/64 (77) 100 09/11/20 02:45 96 9 101/64 (76) 100 09/11/20 02:30 99 9 100/71 (81) 100 09/11/20 02:30 84/55 09/11/20 02:18 105 9 93/71 (78) 100 09/11/20 02:16 112 10 99/58 100 09/11/20 02:15 77/54 09/11/20 02:00 99/58 09/11/20 02:00 112 10 99/56 (70) 09/11/20 01:46 114 10 108/67 100 09/11/20 01:45 124 16 147/86 (106) 99 09/11/20 01:30 118 13 131/63 (85) 99 09/11/20 01:15 122 14 124/86 (99) 99 09/11/20 01:00 108/67 09/11/20 01:00 114 10 108/67 (81) 100 09/11/20 00:45 115 10 113/69 (84) 100 09/11/20 00:30 116 11 126/75 (92) 100 09/11/20 00:15 121 14 160/94 (116) 100 09/11/20 00:00 Nasal Cannula 2.0 09/11/20 00:00 117 09/11/20 00:00 133/56 09/11/20 00:00 97.6 117 11 133/56 (81) 100 09/10/20 23:45 118 12 128/87 (101) 100 09/10/20 23:30 121 17 143/75 (97) 100 09/10/20 23:15 118 13 132/62 (85) 100 09/10/20 23:10 97.5 09/10/20 23:00 120 20 158/90 (112) 98 09/10/20 23:00 132/62 09/10/20 22:45 128 24 120/72 (88) 99 09/10/20 22:30 129 25 148/89 (108) 97 09/10/20 22:15 126 24 158/90 (112) 99 09/10/20 22:00 152/82 09/10/20 22:00 117 18 152/82 (105) 99 09/10/20 21:45 120 22 132/75 (94) 98 09/10/20 21:30 128 27 145/104 (118) 99 09/10/20 21:15 118 22 153/75 (101) 100 09/10/20 21:00 124 24 159/77 (104) 100 09/10/20 21:00 159/77 09/10/20 20:45 124 22 132/94 (107) 100 09/10/20 20:30 112 16 132/76 (94) 09/10/20 20:23 97.5 09/10/20 20:15 114 19 150/83 (105) 100 09/10/20 20:00 112 09/10/20 20:00 Nasal Cannula 2.0 09/10/20 20:00 163/88 09/10/20 20:00 97.7 123 27 163/88 (113) 100 09/10/20 19:30 127 25 141/77 (98) 99 09/10/20 19:15 121 27 130/76 (94) 98 09/10/20 19:00 145/76 09/10/20 19:00 126 27 145/76 (99) 98 09/10/20 18:45 128 31 141/73 (95) 98 09/10/20 18:33 132/104 09/10/20 18:30 125 28 132/104 (113) 99 09/10/20 18:30 132/84 09/10/20 18:15 125 28 137/67 (90) 98 09/10/20 18:00 130/77 09/10/20 18:00 109 22 130/77 (94) 100 09/10/20 17:45 105 19 139/68 (91) 98 09/10/20 17:30 102 17 131/69 (89) 100 09/10/20 17:15 102 17 142/69 (93) 100 09/10/20 17:00 102 18 133/74 (93) 100 09/10/20 17:00 133/74 09/10/20 16:45 100 16 139/72 (94) 100 09/10/20 16:30 100 16 128/72 (90) 100 09/10/20 16:15 102 18 127/73 (91) 100 09/10/20 16:00 97.5 99 16 137/71 (93) 100 09/10/20 16:00 137/71 09/10/20 16:00 Nasal Cannula 2.0 09/10/20 15:28 107 09/10/20 15:00 128/70 09/10/20 15:00 95 13 128/70 (89) 100 09/10/20 14:00 95 12 115/64 (81) 100 09/10/20 14:00 115/64 Height (Feet): 5 Height (Inches): 3.00 Weight (Pounds): 110 Microbiology Date/Time Source Procedure Growth Status 09/09/20 15:50 Rectum - Final NO CARBAPENEM-RESISTANT ENTEROBACTERI... Complete 09/09/20 15:50 Urine,Clean Catch Urine Culture - Final Sydnee Albicans Complete 09/09/20 15:50 Nasal Nares MRSA Culture - Final NO METHICILLIN RESISTANT STAPH AUREUS... Complete 09/09/20 15:50 Blood Blood Culture - Preliminary NO GROWTH AFTER 24 HOURS Resulted 09/09/20 15:35 Blood Blood Culture - Preliminary NO GROWTH AFTER 24 HOURS Resulted 09/09/20 00:00 Rectum VRE Culture - Final Enterococcus Faecium - Vre Complete Laboratory Tests Test 09/11/20 03:15 White Blood Count 23.7 K/UL (4.8-10.8) *H Red Blood Count 3.42 M/UL (4.20-5.40) L Hemoglobin 9.7 G/DL (12.0-16.0) #L Hematocrit 27.7 % (37.0-47.0) L Mean Corpuscular Volume 81 FL (80-99) # Mean Corpuscular Hemoglobin 28.5 PG (27.0-31.0) Mean Corpuscular Hemoglobin Concent 35.2 G/DL (32.0-36.0) Red Cell Distribution Width 18.7 % (11.6-14.8) H Platelet Count 285 K/UL (150-450) Mean Platelet Volume 8.1 FL (6.5-10.1) Neutrophils (%) (Auto) % (45.0-75.0) Lymphocytes (%) (Auto) % (20.0-45.0) Monocytes (%) (Auto) % (1.0-10.0) Eosinophils (%) (Auto) % (0.0-3.0) Basophils (%) (Auto) % (0.0-2.0) Differential Total Cells Counted 100 Neutrophils % (Manual) 91 % (45-75) H Lymphocytes % (Manual) 4 % (20-45) L Monocytes % (Manual) 4 % (1-10) Eosinophils % (Manual) 0 % (0-3) Basophils % (Manual) 0 % (0-2) Band Neutrophils 1 % (0-8) Platelet Estimate Adequate Platelet Morphology Normal Hypochromasia 1+ Anisocytosis 1+ Prothrombin Time 12.6 SEC (9.30-11.50) H Prothromb Time International Ratio 1.2 (0.9-1.1) H Sodium Level 128 MMOL/L (136-145) L Potassium Level 3.7 MMOL/L (3.5-5.1) Chloride Level 98 MMOL/L (98-107) Carbon Dioxide Level 15 MMOL/L (21-32) L Anion Gap 15 mmol/L (5-15) Blood Urea Nitrogen 30 mg/dL (7-18) H Creatinine 3.0 MG/DL (0.55-1.30) H Estimat Glomerular Filtration Rate 15.5 mL/min (>60) Glucose Level 132 MG/DL (74-106) H Uric Acid 4.8 MG/DL (2.6-7.2) Calcium Level 7.2 MG/DL (8.5-10.1) L Phosphorus Level 4.1 MG/DL (2.5-4.9) Magnesium Level 1.7 MG/DL (1.8-2.4) L Total Bilirubin 16.6 MG/DL (0.2-1.0) H Direct Bilirubin 13.2 MG/DL (0.0-0.3) H Aspartate Amino Transf (AST/SGOT) 47 U/L (15-37) H Alanine Aminotransferase (ALT/SGPT) < 6 U/L (12-78) L Alkaline Phosphatase 1308 U/L (46-116) H Total Protein 6.1 G/DL (6.4-8.2) L Albumin 3.3 G/DL (3.4-5.0) L Globulin 2.8 g/dL Albumin/Globulin Ratio 1.2 (1.0-2.7) Amylase Level 175 U/L (25-115) H Lipase 920 U/L (73-393) H Random Vancomycin Level 16.1 ug/mL Current Medications Medications (Trade) Dose Ordered Sig/Laisha Route PRN Reason Start Time Stop Time Status Last Admin Dose Admin Acetaminophen (Tylenol) 650 mg Q4H PRN ORAL Fever 09/09/20 19:58 10/09/20 19:57 Bisacodyl (Dulcolax) 10 mg DAILYPRN PRN RECTAL Constipation 09/09/20 19:15 12/08/20 19:14 Cefepime HCl 1 gm/ Dextrose 55 ml @ 110 mls/hr Q24H IVPB 09/10/20 18:00 09/17/20 17:59 09/10/20 17:21 Chlorhexidine Gluconate (Samia-Hex 2%) 1 applic DAILY@2000 TOPIC 09/10/20 20:00 12/09/20 19:59 09/10/20 19:52 Dextrose (Dextrose 50%) 25 ml Q30M PRN IV Hypoglycemia 09/09/20 19:59 12/08/20 19:58 Dextrose (Dextrose 50%) 50 ml Q30M PRN IV Hypoglycemia 09/09/20 19:59 12/08/20 19:58 Dextrose/Sodium Chloride 1,000 ml @ 50 mls/hr Q20H IV 09/11/20 11:15 10/11/20 11:14 09/11/20 11:30 Docusate Sodium (Colace) 100 mg EVERY 12 HOURS ORAL 09/09/20 21:00 10/09/20 20:59 09/10/20 21:21 Hydromorphone HCl (Dilaudid) 0.5 mg Q2H PRN IVP Mild Pain (1-3) 09/09/20 19:15 09/16/20 19:14 09/10/20 19:53 Hydromorphone HCl (Dilaudid) 1 mg Q2H PRN IVP Moderate Pain (Pain Scale 4-6) 09/09/20 20:07 09/16/20 20:06 09/09/20 22:10 Hydromorphone HCl (Dilaudid) 2 mg Q4H PRN IVP Severe Pain (Pain Scale 7-10) 09/09/20 19:15 09/16/20 19:14 09/10/20 22:40 Iohexol (OMNIPAQUE-300 100ml) 100 ml NOW PRN INJ Radiology Procedure 09/09/20 16:30 09/11/20 16:29 Lorazepam (Ativan 2mg/ml 1ml) 0.5 mg Q4H PRN IV For Anxiety 09/09/20 20:00 09/16/20 19:59 09/11/20 01:46 Metronidazole 100 ml @ 100 mls/hr Q8H IVPB 09/10/20 00:00 09/17/20 00:00 09/11/20 08:25 Norepinephrine Bitartrate 8 mg/ Dextrose 508 ml @ 0 mls/hr Q24H IV 09/09/20 21:15 09/12/20 21:14 09/11/20 09:00 Ondansetron HCl (Zofran ODT) 4 mg Q6H PRN ORAL Nausea & Vomiting 09/09/20 19:59 10/09/20 19:58 Ondansetron HCl (Zofran) 4 mg Q6H PRN IVP Nausea & Vomiting 09/09/20 20:00 10/09/20 19:59 Pantoprazole (Protonix) 40 mg DAILY IV 09/10/20 09:00 10/10/20 08:59 09/11/20 08:25 Sodium Citrate (Bicitra) 30 ml EVERY 6 HOURS ORAL 09/11/20 12:00 10/11/20 11:59 Vancomycin HCl ([facility] pharmacy to dose) 1 ea DAILY PRN MISC Per rx protocol 09/09/20 19:15 10/09/20 19:14 Robby Huizar MD Sep 11, 2020 13:51
[2020-09-11] MEDS: Cefepime HCl 1 GM in D5W 55 ML IVPB SCH (17:37)
--- NOTE | 2020-09-11 17:54 | Cardiology Report ---
APPROVED REPORT EKG Measurement Heart [id number] FL [id number] <Conclusion> Sinus tachycardia Otherwise normal ECG
--- NOTE | 2020-09-11 19:44 | Consultation ---
DATE OF CONSULTATION: 09/11/2020 REFERRING PHYSICIAN: Jon Abarca M.D. REASON FOR CONSULTATION: Evaluation of the patient for sepsis, possible cholangitis, and DVTs management. HISTORY OF PRESENT ILLNESS: The patient is an unfortunate 70-year-old female with multiple medical problems as listed below including history of colon cancer with METS to the liver, history of cholangitis and sepsis recently. The patient was admitted through the emergency room due to hypotension and was found to have leukocytosis, jaundice and the patient was admitted to the ICU. The patient has a on broad-spectrum antibiotics. Infectious Disease consultation has been requested for further evaluation patient and antibiotic management. PAST MEDICAL HISTORY: Significant for 1. Colon cancer, status post colostomy in 2014 and takedown of colostomy in 2016. 2. History of chemo and radiation. 3. History of recurrent colon cancer in May 2020. 4. 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 5. History of IVC filter placement. 6. History of right anterior abdominal wall hernia sepsis post ERCP and middle stent placement. 7. History of obstructive jaundice to the above. 8. History of cardiac arrest. ALLERGIES: No known drug allergies. SOCIAL HISTORY: Lives in the group home. FAMILY HISTORY: Noncontributory. REVIEW OF SYSTEMS: Unobtainable. The patient is very lethargic. Information gathered through the chart. ALLERGIES: Vancomycin, cefepime and Flagyl. PHYSICAL EXAMINATION: VITAL SIGNS: Temperature 97.6 blood pressure 120/57, respiratory rate 18. HEENT: No icterus scleral. Head normocephalic. NECK: No JVD. CHEST: Bilateral expansion. ABDOMEN: Soft. EXTREMITIES: No cyanosis. NEUROLOGIC: The patient lethargic obtunded. LABORATORY AND DIAGNOSTIC DATA: White blood cells 23, hemoglobin 9.7 and platelets 285. UA shows many yeast too numerous to count white blood cells. BUN 30, creatinine 3, AST 47, ALT 6, alkaline phos 1308, total bilirubin 16.6. Urine culture is growing Sydnee albicans. Blood culture is pending. Abdominal ultrasound shows cirrhosis, mild abdominal ascites, bilateral hydronephrosis, nephroureteral stents. X-ray of abdomen showed abdominal wall hernia. CT of the abdomen, right-sided hernia, metal stent within common bile duct and severe intrahepatic biliary dictation, bilateral nephroureteral stent and moderate bilateral hydronephrosis. Multiple pulmonary nodules suggestive of metastasis. Chest x-ray, bilateral masslike opacities. ASSESSMENT: The patient is a 70-year-old female with: 1. Sepsis/septic shock. 2. Leukocytosis (due to the sepsis, medications also contributing). 3. Probable aspiration pneumonia. 4. Probable cholangitis. 5. Probable fungal UTI in the setting of obstruction and positive urine culture for Sydnee. PLAN: 1. We will continue the patient on cefepime, Flagyl and vancomycin, and add Diflucan. 2. We will monitor CBC. 3. Monitor BMP. 4. Monitor cultures, blood and urine. 5. The patient may benefit from comfort care. 6. Monitor chest x-ray. 7. Continue ICU care. 8. Based on the patient's clinical course and laboratories, we will do further recommendations. Thank you, Dr. Abarca, for allowing me to participate in the care of this patient. I will follow the patient with you during this hospitalization. Robby Huizar M.D. DR: Shyla JOB#: [id number] CC:
[2020-09-11] MEDS: Dyna-Hex 2% Top Sol 2oz TOPIC SCH (19:55)
[2020-09-12] VITALS (18 sets, daily range): BP systolic 90–165; BP diastolic 49–107
[2020-09-12] MEDS: Sodium Citrate 30ml ORAL SCH ×3 (05:36→08:26)
[2020-09-12 07:52] LABS: HEMOGLOBIN 10.6 G/DL (12.0-16.0); MEAN CORPUSCULAR VOLUME 78 FL (80-99); PLATELET COUNT 261 K/UL (150-450); RED BLOOD COUNT 3.86 M/UL (4.20-5.40); RED CELL DISTRIBUTION WIDTH 19.2 % (11.6-14.8)
[2020-09-12 07:55] LABS: WHITE BLOOD COUNT 24.8 K/UL (4.8-10.8)
[2020-09-12 08:09] LABS: PHOSPHORUS 3.1 MG/DL (2.5-4.9)
[2020-09-12] MEDS: Docusate 100mg cap ORAL SCH ×2 (08:11→21:48)
[2020-09-12 08:15] LABS: ALBUMIN 2.3 G/DL (3.4-5.0); ALBUMIN/GLOBULIN RATIO 0.7 (1.0-2.7); BILIRUBIN,TOTAL 18.5 MG/DL (0.2-1.0); CALCIUM 7.4 MG/DL (8.5-10.1); POTASSIUM 3.7 MMOL/L (3.5-5.1)
[2020-09-12 08:21] LABS: BILIRUBIN,DIRECT 14.7 MG/DL (0.0-0.3)
[2020-09-12] MEDS: Pantoprazole Inj IV SCH (08:25)
[2020-09-12] MEDS: D5NS 1,000 ML IV SCH (08:32)
--- NOTE | 2020-09-12 09:27 | Infectious Diseases Prog Note ---
Assessment/Plan LABORATORY AND DIAGNOSTIC DATA: CT of the abdomen, right-sided hernia, metal stent within common bile duct and severe intrahepatic biliary dictation, bilateral nephroureteral stent and moderate bilateral hydronephrosis. Multiple pulmonary nodules suggestive of metastasis. Chest x-ray, bilateral masslike opacities. ASSESSMENT: The patient is a 70-year-old female with: 1. Sepsis/septic shock. 2. Leukocytosis (due to the sepsis, medications also contributing). 3. Probable aspiration pneumonia. 4. Probable cholangitis. 5. Probable fungal UTI in the setting of obstruction and positive urine culture for Sydnee. PLAN: 1. Continue the patient on cefepime #3, Flagyl #3 and vancomycin #3 and Diflucan #2 2. We will monitor CBC. 3. Monitor BMP. 4. Monitor cultures, blood and urine. 5. The patient may benefit from comfort care. 6. Monitor chest x-ray. 7. Continue ICU care. Thank you, Dr. Abarca, for allowing me to participate in the care of this patient. I will follow the patient with you during this hospitalization. Subjective Allergies: Coded Allergies: No Known Allergies (Unverified , 09/09/20) Afebrile Persistent leukocytosis Stable on 2L NC Objective Last 24 Hour Vital Signs Date Time Temp Pulse Resp B/P (MAP) Pulse Ox O2 Delivery O2 Flow Rate FiO2 09/12/20 09:03 99 Nasal Cannula 2.0 28 09/12/20 07:00 105/62 09/12/20 07:00 111 15 105/62 (76) 100 09/12/20 06:00 111 18 119/70 (86) 100 09/12/20 06:00 119/70 09/12/20 05:00 123/87 09/12/20 05:00 117 23 123/87 (99) 100 09/12/20 04:00 Nasal Cannula 2.0 09/12/20 04:00 97.7 108 12 90/55 (67) 99 09/12/20 04:00 109 09/12/20 03:00 112 13 93/49 (64) 100 09/12/20 03:00 93/49 09/12/20 02:00 100/54 09/12/20 02:00 109 12 100/54 (69) 100 09/12/20 01:00 113 13 103/68 (80) 99 09/12/20 01:00 103/68 09/12/20 00:00 98.4 120 17 103/70 (81) 100 09/12/20 00:00 Nasal Cannula 2.0 09/12/20 00:00 116 09/12/20 00:00 103/70 09/11/20 23:00 114 13 98/57 (71) 100 09/11/20 23:00 98/57 09/11/20 22:00 119 13 99/51 (67) 100 09/11/20 22:00 99/51 09/11/20 21:00 104/77 09/11/20 21:00 120 13 104/77 (86) 100 09/11/20 20:00 120 09/11/20 20:00 Nasal Cannula 2.0 09/11/20 20:00 111/64 09/11/20 20:00 98.1 122 14 111/64 (80) 100 09/11/20 19:46 100 Nasal Cannula 2.0 28 09/11/20 19:00 123 15 110/63 (79) 100 09/11/20 19:00 99/70 09/11/20 18:30 122 14 107/55 (72) 99 09/11/20 18:00 136/77 09/11/20 18:00 119 14 98/55 (69) 99 09/11/20 17:30 120 15 98/74 (82) 99 09/11/20 17:00 121 14 117/71 (86) 99 09/11/20 17:00 117/71 09/11/20 16:00 98.4 124 18 147/76 (99) 99 09/11/20 16:00 147/76 09/11/20 16:00 Nasal Cannula 2.0 09/11/20 16:00 124 09/11/20 15:45 108 15 120/66 (84) 100 09/11/20 15:45 120/66 09/11/20 15:30 157/72 09/11/20 15:30 109 20 157/72 (100) 100 09/11/20 15:00 114/58 09/11/20 15:00 93 12 104/59 (74) 100 09/11/20 14:30 90 12 115/66 (82) 100 09/11/20 14:00 86 12 103/61 (75) 100 09/11/20 14:00 113/66 09/11/20 13:30 82 12 113/67 (82) 100 09/11/20 13:00 84 10 120/57 (78) 100 09/11/20 13:00 120/57 09/11/20 12:30 80 13 135/85 (102) 100 09/11/20 12:00 83 09/11/20 12:00 Nasal Cannula 2.0 09/11/20 12:00 97.6 82 12 116/63 (80) 100 09/11/20 12:00 133/58 09/11/20 11:30 84 12 122/76 (91) 100 09/11/20 11:00 140/68 09/11/20 11:00 77 10 140/68 (92) 100 09/11/20 10:30 79 11 134/69 (90) 100 09/11/20 10:00 116/67 09/11/20 10:00 77 12 116/67 (83) 100 09/11/20 09:30 78 11 126/62 (83) 100 Height (Feet): 5 Height (Inches): 3.00 Weight (Pounds): 110 GEN: Lethargic HEENT: NCAT, MMM, Anicteric CHEST: Bilateral expansion. RRR ABDOMEN: Soft. ND Microbiology Date/Time Source Procedure Growth Status 09/09/20 15:50 Rectum - Final NO CARBAPENEM-RESISTANT ENTEROBACTERI... Complete 09/09/20 15:50 Urine,Clean Catch Urine Culture - Final Sydnee Albicans Complete 09/09/20 15:50 Nasal Nares MRSA Culture - Final NO METHICILLIN RESISTANT STAPH AUREUS... Complete 09/09/20 15:50 Blood Blood Culture - Preliminary NO GROWTH AFTER 24 HOURS Resulted 09/09/20 15:35 Blood Blood Culture - Preliminary NO GROWTH AFTER 24 HOURS Resulted Laboratory Tests Test 09/12/20 06:20 White Blood Count 24.8 K/UL (4.8-10.8) *H Red Blood Count 3.86 M/UL (4.20-5.40) L Hemoglobin 10.6 G/DL (12.0-16.0) L Hematocrit 30.0 % (37.0-47.0) L Mean Corpuscular Volume 78 FL (80-99) L Mean Corpuscular Hemoglobin 27.3 PG (27.0-31.0) Mean Corpuscular Hemoglobin Concent 35.2 G/DL (32.0-36.0) Red Cell Distribution Width 19.2 % (11.6-14.8) H Platelet Count 261 K/UL (150-450) Mean Platelet Volume 8.4 FL (6.5-10.1) Neutrophils (%) (Auto) % (45.0-75.0) Lymphocytes (%) (Auto) % (20.0-45.0) Monocytes (%) (Auto) % (1.0-10.0) Eosinophils (%) (Auto) % (0.0-3.0) Basophils (%) (Auto) % (0.0-2.0) Neutrophils % (Manual) Pending Lymphocytes % (Manual) Pending Platelet Estimate Pending Platelet Morphology Pending Sodium Level 129 MMOL/L (136-145) L Potassium Level 3.7 MMOL/L (3.5-5.1) Chloride Level 101 MMOL/L (98-107) Carbon Dioxide Level 14 MMOL/L (21-32) L Anion Gap 14 mmol/L (5-15) Blood Urea Nitrogen 33 mg/dL (7-18) H Creatinine 3.0 MG/DL (0.55-1.30) H Estimat Glomerular Filtration Rate 15.5 mL/min (>60) Glucose Level 114 MG/DL (74-106) H Uric Acid 5.0 MG/DL (2.6-7.2) Calcium Level 7.4 MG/DL (8.5-10.1) L Phosphorus Level 3.1 MG/DL (2.5-4.9) Magnesium Level 1.6 MG/DL (1.8-2.4) L Total Bilirubin 18.5 MG/DL (0.2-1.0) H Direct Bilirubin 14.7 MG/DL (0.0-0.3) H Aspartate Amino Transf (AST/SGOT) 33 U/L (15-37) Alanine Aminotransferase (ALT/SGPT) 6 U/L (12-78) L Alkaline Phosphatase 1365 U/L (46-116) H Ammonia 92 umol/L (11-32) H Total Protein 5.4 G/DL (6.4-8.2) L Albumin 2.3 G/DL (3.4-5.0) L Globulin 3.1 g/dL Albumin/Globulin Ratio 0.7 (1.0-2.7) L Amylase Level 53 U/L (25-115) Lipase 178 U/L (73-393) Hepatitis A IgM Antibody Pending Hepatitis B Surface Antigen Pending Hepatitis B Core IgM Antibody Pending Hepatitis C Antibody Pending Current Medications Medications (Trade) Dose Ordered Sig/Laisha Route PRN Reason Start Time Stop Time Status Last Admin Dose Admin Acetaminophen (Tylenol) 650 mg Q4H PRN ORAL Fever 09/09/20 19:58 10/09/20 19:57 Bisacodyl (Dulcolax) 10 mg DAILYPRN PRN RECTAL Constipation 09/09/20 19:15 12/08/20 19:14 Cefepime HCl 1 gm/ Dextrose 55 ml @ 110 mls/hr Q24H IVPB 09/10/20 18:00 09/17/20 17:59 09/11/20 17:37 Chlorhexidine Gluconate (Samia-Hex 2%) 1 applic DAILY@2000 TOPIC 09/10/20 20:00 12/09/20 19:59 09/11/20 19:55 Dextrose (Dextrose 50%) 25 ml Q30M PRN IV Hypoglycemia 09/09/20 19:59 12/08/20 19:58 Dextrose (Dextrose 50%) 50 ml Q30M PRN IV Hypoglycemia 09/09/20 19:59 12/08/20 19:58 Dextrose/Sodium Chloride 1,000 ml @ 50 mls/hr Q20H IV 09/11/20 11:15 10/11/20 11:14 09/12/20 08:32 Docusate Sodium (Colace) 100 mg EVERY 12 HOURS ORAL 09/09/20 21:00 10/09/20 20:59 09/10/20 21:21 Fluconazole/ Sodium Chloride 100 ml @ 100 mls/hr Q24H IV 09/11/20 15:00 09/18/20 14:59 09/11/20 15:01 Hydromorphone HCl (Dilaudid) 0.5 mg Q2H PRN IVP Mild Pain (1-3) 09/09/20 19:15 09/16/20 19:14 09/10/20 19:53 Hydromorphone HCl (Dilaudid) 1 mg Q2H PRN IVP Moderate Pain (Pain Scale 4-6) 09/09/20 20:07 09/16/20 20:06 09/09/20 22:10 Hydromorphone HCl (Dilaudid) 2 mg Q4H PRN IVP Severe Pain (Pain Scale 7-10) 09/09/20 19:15 09/16/20 19:14 09/10/20 22:40 Lorazepam (Ativan 2mg/ml 1ml) 0.5 mg Q4H PRN IV For Anxiety 09/09/20 20:00 09/16/20 19:59 09/11/20 01:46 Magnesium Sulfate 100 ml @ 100 mls/hr Q1H IVPB 09/12/20 08:45 09/12/20 10:44 09/12/20 09:08 Metronidazole 100 ml @ 100 mls/hr Q8H IVPB 09/10/20 00:00 09/17/20 00:00 09/12/20 08:32 Norepinephrine Bitartrate 8 mg/ Dextrose 508 ml @ 0 mls/hr Q24H IV 09/09/20 21:15 09/12/20 21:14 09/11/20 09:00 Pantoprazole (Protonix) 40 mg DAILY IV 09/10/20 09:00 10/10/20 08:59 09/12/20 08:25 Sodium Citrate (Bicitra) 30 ml EVERY 6 HOURS ORAL 09/11/20 12:00 10/11/20 11:59 09/12/20 05:36 Vancomycin HCl ([facility] pharmacy to dose) 1 ea DAILY PRN MISC Per rx protocol 09/09/20 19:15 10/09/20 19:14 Surya Garrison MD Sep 12, 2020 09:27
[2020-09-12] MEDS: Lactulose 20gm/30ml UDC NG SCH ×3 (10:45→19:01)
--- NOTE | 2020-09-12 10:55 | General Progress Note ---
Subjective Date patient seen: Sep 12, 2020 Time patient seen: 10:00 ROS Limited/Unobtainable: Yes Allergies: Coded Allergies: No Known Allergies (Unverified , 09/09/20) All Systems: reviewed and negative except above Subjective Patient is lethargic and not able to speak back to me today. Jaundiced and frail. On vasopressors Objective Last 24 Hour Vital Signs Date Time Temp Pulse Resp B/P (MAP) Pulse Ox O2 Delivery O2 Flow Rate FiO2 09/12/20 09:03 99 Nasal Cannula 2.0 28 09/12/20 09:00 120 25 135/84 (101) 100 09/12/20 08:13 107 09/12/20 08:00 97.8 108 16 127/72 (90) 09/12/20 08:00 Nasal Cannula 2.0 09/12/20 07:00 105/62 09/12/20 07:00 111 15 105/62 (76) 100 09/12/20 06:00 111 18 119/70 (86) 100 09/12/20 06:00 119/70 09/12/20 05:00 123/87 09/12/20 05:00 117 23 123/87 (99) 100 09/12/20 04:00 Nasal Cannula 2.0 09/12/20 04:00 97.7 108 12 90/55 (67) 99 09/12/20 04:00 109 09/12/20 03:00 112 13 93/49 (64) 100 09/12/20 03:00 93/49 09/12/20 02:00 100/54 09/12/20 02:00 109 12 100/54 (69) 100 09/12/20 01:00 113 13 103/68 (80) 99 09/12/20 01:00 103/68 09/12/20 00:00 98.4 120 17 103/70 (81) 100 09/12/20 00:00 Nasal Cannula 2.0 09/12/20 00:00 116 09/12/20 00:00 103/70 09/11/20 23:00 114 13 98/57 (71) 100 09/11/20 23:00 98/57 09/11/20 22:00 119 13 99/51 (67) 100 09/11/20 22:00 99/51 09/11/20 21:00 104/77 09/11/20 21:00 120 13 104/77 (86) 100 09/11/20 20:00 120 09/11/20 20:00 Nasal Cannula 2.0 09/11/20 20:00 111/64 09/11/20 20:00 98.1 122 14 111/64 (80) 100 09/11/20 19:46 100 Nasal Cannula 2.0 28 09/11/20 19:00 123 15 110/63 (79) 100 09/11/20 19:00 99/70 09/11/20 18:30 122 14 107/55 (72) 99 09/11/20 18:00 136/77 09/11/20 18:00 119 14 98/55 (69) 99 09/11/20 17:30 120 15 98/74 (82) 99 09/11/20 17:00 121 14 117/71 (86) 99 09/11/20 17:00 117/71 09/11/20 16:00 98.4 124 18 147/76 (99) 99 09/11/20 16:00 147/76 09/11/20 16:00 Nasal Cannula 2.0 09/11/20 16:00 124 09/11/20 15:45 108 15 120/66 (84) 100 09/11/20 15:45 120/66 09/11/20 15:30 157/72 09/11/20 15:30 109 20 157/72 (100) 100 09/11/20 15:00 114/58 09/11/20 15:00 93 12 104/59 (74) 100 09/11/20 14:30 90 12 115/66 (82) 100 09/11/20 14:00 86 12 103/61 (75) 100 09/11/20 14:00 113/66 09/11/20 13:30 82 12 113/67 (82) 100 09/11/20 13:00 84 10 120/57 (78) 100 09/11/20 13:00 120/57 09/11/20 12:30 80 13 135/85 (102) 100 09/11/20 12:00 83 09/11/20 12:00 Nasal Cannula 2.0 09/11/20 12:00 97.6 82 12 116/63 (80) 100 09/11/20 12:00 133/58 09/11/20 11:30 84 12 122/76 (91) 100 09/11/20 11:00 140/68 09/11/20 11:00 77 10 140/68 (92) 100 Intake and Output 09/11/20 09/12/20 19:00 07:00 Intake Total 1423.845 ml 817.64 ml Output Total 195 ml 165 ml Balance 1228.845 ml 652.64 ml Intake IV Total 1423.845 ml 817.64 ml Output Urine Total 195 ml 165 ml # Bowel Movements 1 Laboratory Tests 09/12/20 06:20: White Blood Count 24.8*H, Red Blood Count 3.86L, Hemoglobin 10.6L, Hematocrit 30.0L, Mean Corpuscular Volume 78L, Mean Corpuscular Hemoglobin 27.3, Mean Corpuscular Hemoglobin Concent 35.2, Red Cell Distribution Width 19.2H, Platelet Count 261, Mean Platelet Volume 8.4, Neutrophils (%) (Auto) , Lymphocytes (%) (Auto) , Monocytes (%) (Auto) , Eosinophils (%) (Auto) , Basophils (%) (Auto) , Differential Total Cells Counted 100, Neutrophils % (Manual) 95H, Lymphocytes % (Manual) 1L, Monocytes % (Manual) 2, Eosinophils % (Manual) 1, Basophils % (Manual) 0, Band Neutrophils 1, Platelet Estimate Adequate, Platelet Morphology Normal, Hypochromasia 1+, Anisocytosis 2+, Microcytosis 2+, Sodium Level 129L, Potassium Level 3.7, Chloride Level 101, Carbon Dioxide Level 14L, Anion Gap 14, Blood Urea Nitrogen 33H, Creatinine 3.0H, Estimat Glomerular Filtration Rate 15.5, Glucose Level 114H, Uric Acid 5.0, Calcium Level 7.4L, Phosphorus Level 3.1, Magnesium Level 1.6L, Total Bilirubin 18.5H, Direct Bilirubin 14.7H, Aspartate Amino Transf (AST/SGOT) 33, Alanine Aminotransferase (ALT/SGPT) 6L, Alkaline Phosphatase 1365H, Ammonia 92H, Total Protein 5.4L, Albumin 2.3L, Globulin 3.1, Albumin/Globulin Ratio 0.7L, Amylase Level 53, Lipase 178, Hepatitis A IgM Antibody [Pending], Hepatitis B Surface Antigen [Pending], Hepatitis B Core IgM Antibody [Pending], Hepatitis C Antibody [Pending] Height (Feet): 5 Height (Inches): 3.00 Weight (Pounds): 110 General Appearance: WD/WN EENT: PERRL/EOMI Neck: non-tender Cardiovascular: normal rate Respiratory/Chest: lungs clear Abdomen: hernia Extremities: normal range of motion Edema: trace edema Neurologic: cloth spreader screen printing II-XII grossly normal Assessment/Plan Status: unchanged Assessment/Plan: 70 y/o F with metastatic rectal cancer, recent history of obstructive jaundice - IR CBD exchange now admitted with: # Hypotension - septic shock Underlying etiology include bacteremia, PICC related infection, PORT related, UTI due to Sydnee - ? colonized vs acute. Broad sp antibiotic started and will be continued. 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 Garrison ICU for IVF and vasopressors ( levophed in place ) will use vasopressin as next agent if needed due to tachycardia. Central line in place PICC # Probable cholangitis and liver failure with hepati encephalopathy NH3 92 Trial of Lactulose and NGT is needed due to patient not being able to be awake enough to take PO diet # Anemia of chronic disease vs acute blood loss anemia s/p 2 PRBC and 2 FFP 09/10 Hb from 6.8 to 9.7 Stable and needs monitoring. # Acute renal failure with metabolic acidosis Renal consultation requested with Dr. Tolentino - defer IVF management and appreciate support. Bicitra started and unable to take PO, will change to NGT. Creatinine 3 CO2 14 # Metastatic rectal cancer Primary oncologist Dr. Dana Herrera in [place]. Will try to obtain contact information and further discuss GOC Dr. Cutler consulted and appreciate input. High mortality and poor prognosis noted. Per prior dc summary, there is no more plan for medical treatment and GOC will need to be addressed. Patient is a candidate for hospice and will follow up discussion with her and her brother Elfego [phone] in the next 24-48 hrs if the patient does not improve. # Abnormal CT abdomen and Pelvis 1. Right-sided spigelian hernia containing a loop of small bowel. The small bowel is dilated both within the hernia sac and upstream with fluid levels likely representing obstruction. 2. Metal stent within the common bile duct with severe intrahepatic biliary dilatation. Dr. Nuñez from GI consulted. Patient is not stable for possible MRCP - ? biliary stent migration since prior procedure. Dr. Haas from Surgery consulted and non surgical approach recommended. 3. Bilateral nephroureteral stents in place. Moderate bilateral hydronephrosis. 4. Multiple pulmonary nodules and intra-abdominal adenopathy suspicious for metastatic disease. # Hematuria Dr. Dewitt from urology consulted and case discussed over the phone. no acute intervention planned Monitor CBC, and Tovar output # Chronic pain syndrome Opiate therapy # Diet meds approved to use ( discussed with surgery today ) Prior NPO due to SBO which was clinically improved as Dr. Haas reduced the hernia and her abdomen became much smaller and softer afterwards. Per prior admission at [facility], this is a chronic hernia. # IVF per nephrology # DNR DNI discussed with the patient and family updated in agreement as well. # DVT ppx with SCD only # GI ppx wit PPI Guarded prognosis and high mortality risk this admission Family [phone] Jon Abarca MD Sep 12, 2020 10:55
[2020-09-12] MEDS: Sodium Citrate 30ml NG SCH ×3 (11:00→19:01)
--- NOTE | 2020-09-12 12:38 | Diagnostic Imaging Report ---
FILM CXR 1 VIEW HISTORY: NG tube placement TECHNIQUE: Single view chest COMPARISON: None FINDINGS: Single view chest demonstrates normal heart size with multilobar infiltrates. Right-sided central line and right-sided chest port with tips in the superior vena cava versus atrial caval junction. There is a nasogastric tube with the tip in the stomach. Air-filled loops of bowel demonstrated. Small pleural effusions are present. IMPRESSION: Nasogastric tube with tip in the region of the stomach. Multilobar infiltrates are present.
--- NOTE | 2020-09-12 12:40 | Diagnostic Imaging Report ---
FILM ABDOMEN HISTORY: NG tube TECHNIQUE: Single view abdomen COMPARISON: 10 September 2020 FINDINGS: Single view of the abdomen demonstrates prominent loops of small bowel with bilateral ureteral stents in place and IVC filter in place. Biliary stent demonstrated. Nasogastric tube with tip in the stomach. IMPRESSION: Nasogastric tube with tip in the stomach. Persistent prominent air-filled loops of bowel.
--- NOTE | 2020-09-12 15:04 | Surgery Progress Note ---
Surgery Progress Note Subjective Additional Comments ill appearing kub noted ammonia noted needs lactulose on exam able to reduce hernia so un likely obstructed and not incarcerated plan for ng and start lactulose. will monitor prognosis guarded Objective Last 24 Hour Vital Signs Date Time Temp Pulse Resp B/P (MAP) Pulse Ox O2 Delivery O2 Flow Rate FiO2 09/12/20 14:00 122 28 116/68 (84) 98 09/12/20 13:00 115 20 139/65 (89) 99 09/12/20 12:00 Nasal Cannula 2.0 09/12/20 12:00 116 19 90/63 (72) 100 09/12/20 12:00 114 09/12/20 11:00 119 23 165/87 (113) 100 09/12/20 10:00 118 25 92/51 (65) 100 09/12/20 09:03 99 Nasal Cannula 2.0 28 09/12/20 09:00 120 25 135/84 (101) 100 09/12/20 08:13 107 09/12/20 08:00 97.8 108 16 127/72 (90) 09/12/20 08:00 Nasal Cannula 2.0 09/12/20 07:00 105/62 09/12/20 07:00 111 15 105/62 (76) 100 09/12/20 06:00 111 18 119/70 (86) 100 09/12/20 06:00 119/70 09/12/20 05:00 123/87 09/12/20 05:00 117 23 123/87 (99) 100 09/12/20 04:00 Nasal Cannula 2.0 09/12/20 04:00 97.7 108 12 90/55 (67) 99 09/12/20 04:00 109 09/12/20 03:00 112 13 93/49 (64) 100 09/12/20 03:00 93/49 09/12/20 02:00 100/54 09/12/20 02:00 109 12 100/54 (69) 100 09/12/20 01:00 113 13 103/68 (80) 99 09/12/20 01:00 103/68 09/12/20 00:00 98.4 120 17 103/70 (81) 100 09/12/20 00:00 Nasal Cannula 2.0 09/12/20 00:00 116 09/12/20 00:00 103/70 09/11/20 23:00 114 13 98/57 (71) 100 09/11/20 23:00 98/57 09/11/20 22:00 119 13 99/51 (67) 100 09/11/20 22:00 99/51 09/11/20 21:00 104/77 09/11/20 21:00 120 13 104/77 (86) 100 09/11/20 20:00 120 09/11/20 20:00 Nasal Cannula 2.0 09/11/20 20:00 111/64 09/11/20 20:00 98.1 122 14 111/64 (80) 100 09/11/20 19:46 100 Nasal Cannula 2.0 28 09/11/20 19:00 123 15 110/63 (79) 100 09/11/20 19:00 99/70 09/11/20 18:30 122 14 107/55 (72) 99 09/11/20 18:00 136/77 09/11/20 18:00 119 14 98/55 (69) 99 09/11/20 17:30 120 15 98/74 (82) 99 09/11/20 17:00 121 14 117/71 (86) 99 09/11/20 17:00 117/71 09/11/20 16:00 98.4 124 18 147/76 (99) 99 09/11/20 16:00 147/76 09/11/20 16:00 Nasal Cannula 2.0 09/11/20 16:00 124 09/11/20 15:45 108 15 120/66 (84) 100 09/11/20 15:45 120/66 09/11/20 15:30 157/72 09/11/20 15:30 109 20 157/72 (100) 100 09/11/20 15:00 114/58 09/11/20 15:00 93 12 104/59 (74) 100 I&O Intake and Output 09/11/20 09/12/20 19:00 07:00 Intake Total 1423.845 ml 817.64 ml Output Total 195 ml 165 ml Balance 1228.845 ml 652.64 ml Intake IV Total 1423.845 ml 817.64 ml Output Urine Total 195 ml 165 ml # Bowel Movements 1 Cardiovascular: RSR Respiratory: decreased breath sounds Abdomen: soft, distended, non-tender, other Extremities: no tenderness, no cyanosis Laboratory Tests Test 09/12/20 06:20 09/12/20 13:27 White Blood Count 24.8 K/UL (4.8-10.8) *H Red Blood Count 3.86 M/UL (4.20-5.40) L Hemoglobin 10.6 G/DL (12.0-16.0) L Hematocrit 30.0 % (37.0-47.0) L Mean Corpuscular Volume 78 FL (80-99) L Mean Corpuscular Hemoglobin 27.3 PG (27.0-31.0) Mean Corpuscular Hemoglobin Concent 35.2 G/DL (32.0-36.0) Red Cell Distribution Width 19.2 % (11.6-14.8) H Platelet Count 261 K/UL (150-450) Mean Platelet Volume 8.4 FL (6.5-10.1) Neutrophils (%) (Auto) % (45.0-75.0) Lymphocytes (%) (Auto) % (20.0-45.0) Monocytes (%) (Auto) % (1.0-10.0) Eosinophils (%) (Auto) % (0.0-3.0) Basophils (%) (Auto) % (0.0-2.0) Differential Total Cells Counted 100 Neutrophils % (Manual) 95 % (45-75) H Lymphocytes % (Manual) 1 % (20-45) L Monocytes % (Manual) 2 % (1-10) Eosinophils % (Manual) 1 % (0-3) Basophils % (Manual) 0 % (0-2) Band Neutrophils 1 % (0-8) Platelet Estimate Adequate Platelet Morphology Normal Hypochromasia 1+ Anisocytosis 2+ Microcytosis 2+ Sodium Level 129 MMOL/L (136-145) L Potassium Level 3.7 MMOL/L (3.5-5.1) Chloride Level 101 MMOL/L (98-107) Carbon Dioxide Level 14 MMOL/L (21-32) L Anion Gap 14 mmol/L (5-15) Blood Urea Nitrogen 33 mg/dL (7-18) H Creatinine 3.0 MG/DL (0.55-1.30) H Estimat Glomerular Filtration Rate 15.5 mL/min (>60) Glucose Level 114 MG/DL (74-106) H Uric Acid 5.0 MG/DL (2.6-7.2) Calcium Level 7.4 MG/DL (8.5-10.1) L Phosphorus Level 3.1 MG/DL (2.5-4.9) Magnesium Level 1.6 MG/DL (1.8-2.4) L Total Bilirubin 18.5 MG/DL (0.2-1.0) H Direct Bilirubin 14.7 MG/DL (0.0-0.3) H Aspartate Amino Transf (AST/SGOT) 33 U/L (15-37) Alanine Aminotransferase (ALT/SGPT) 6 U/L (12-78) L Alkaline Phosphatase 1365 U/L (46-116) H Ammonia 92 umol/L (11-32) H Total Protein 5.4 G/DL (6.4-8.2) L Albumin 2.3 G/DL (3.4-5.0) L Globulin 3.1 g/dL Albumin/Globulin Ratio 0.7 (1.0-2.7) L Amylase Level 53 U/L (25-115) Lipase 178 U/L (73-393) Hepatitis A IgM Antibody Pending Hepatitis B Surface Antigen Pending Hepatitis B Core IgM Antibody Pending Hepatitis C Antibody Pending Arterial Blood pH 7.338 (7.350-7.450) Arterial Blood Partial Pressure CO2 27.8 mmHg (35.0-45.0) L Arterial Blood Partial Pressure O2 106.6 mmHg (75.0-100.0) H Arterial Blood HCO3 14.6 mmol/L (22.0-26.0) *L Arterial Blood Oxygen Saturation 98.1 % (95-100) Arterial Blood Base Excess -9.9 (-2-2) *L Alvaro Test Positive Plan Problems: (1) Hematuria (2) Renal failure (3) Severe sepsis Assessment & Plan: causing sbo seemingly reduced at bedside unfortunately patient is not a surgical candidate prognosis is poor and survival is low aggressive intervention would be medically futile and surgery would strongly not be recommended in her condition recommend hospice and end of life comfort care thank you will follow with exam and recs (4) Spigelian hernia Assessment & Plan: ABDOMEN: Liver: Unremarkable. Gallbladder and bile ducts: Metal stent within the common bile duct with severe intrahepatic biliary dilatation. The gallbladder is distended. Pancreas: Poorly visualized pancreatic parenchyma given the lack of contrast. Spleen: Unremarkable. Adrenals: Unremarkable. Kidneys and ureters: Bilateral nephroureteral stents in place. Moderate bilateral hydronephrosis. Hyperdense 1.9 cm structure in the left renal upper pole is contrast density potentially representing retained contrast in a calyceal cyst. Stomach and bowel: Right-sided spigelian hernia containing a loop of small bowel. The small bowel is dilated both within the hernia sac and upstream with fluid levels likely representing obstruction. Postsurgical changes within the rectum and right lower quadrant small bowel. No small bowel pneumatosis. PELVIS: Appendix: No findings to suggest acute appendicitis. Bladder: Tovar catheter within the bladder. No stones. Reproductive: Unremarkable as visualized. ABDOMEN and PELVIS: Intraperitoneal space: Unremarkable. No free air. No significant fluid collection. Bones/joints: No acute fracture. Soft tissues: Marked anasarca. Vasculature: IVC filter in place. Lymph nodes: Bulky calcified retroperitoneal and epigastric lymph nodes suspicious for metastatic disease. IMPRESSION: 1. Right-sided spigelian hernia containing a loop of small bowel. The small bowel is dilated both within the hernia sac and upstream with fluid levels likely representing obstruction. 2. Metal stent within the common bile duct with severe intrahepatic biliary dilatation. 3. Bilateral nephroureteral stents in place. Moderate bilateral hydronephrosis. 4. Multiple pulmonary nodules and intra-abdominal adenopathy suspicious for metastatic disease. 5. Fluid overload as evidenced by marked anasarca and small bilateral pleural effusions. (5) UTI (urinary tract infection) (6) Liver failure Nicholas Haas Sep 12, 2020 15:04
--- NOTE | 2020-09-12 16:14 | Nephrology Progress Note ---
Assessment/Plan Problem List: (1) ERIC (acute kidney injury) (2) Metastasis from rectal cancer (3) Elevated lipase (4) Severe sepsis (5) UTI (urinary tract infection) (6) Septic shock Assessment Acute renal failure Possible underlying renal failure Shock status on Levophed Jaundice Small bowel obstruction Bilateral hydronephrosis metastatic rectal cancer with biliary obstruction Metastatic disease, multiple pulmonary nodules Severe hypoalbuminemia and anasarca DNR/DNI Plan September 12: Status quo. Deteriorating. Labs reviewed. Discussed with EVITA Ruiz. Not much to add from renal standpoint of view. Futile treatment. Favor comfort care. September 11: Labs reviewed. Abnormal electrolytes addressed. Discussed with EVITA Finley. Overall condition poor. Favor comfort care. Per orders. Hemoglobin higher posttransfusion. Plan: Hydrate Transfuse Poor prognosis Per consultants Support hospice and comfort care Discussed with Dr. Abarca Subjective ROS Limited/Unobtainable: Yes Objective Objective Last 24 Hour Vital Signs Date Time Temp Pulse Resp B/P (MAP) Pulse Ox O2 Delivery O2 Flow Rate FiO2 09/12/20 15:00 121 30 120/79 (93) 96 09/12/20 14:00 122 28 116/68 (84) 98 09/12/20 13:00 115 20 139/65 (89) 99 09/12/20 12:00 Nasal Cannula 2.0 09/12/20 12:00 116 19 90/63 (72) 100 09/12/20 12:00 114 09/12/20 11:00 119 23 165/87 (113) 100 09/12/20 10:00 118 25 92/51 (65) 100 09/12/20 09:03 99 Nasal Cannula 2.0 28 09/12/20 09:00 120 25 135/84 (101) 100 09/12/20 08:13 107 09/12/20 08:00 97.8 108 16 127/72 (90) 09/12/20 08:00 Nasal Cannula 2.0 09/12/20 07:00 105/62 09/12/20 07:00 111 15 105/62 (76) 100 09/12/20 06:00 111 18 119/70 (86) 100 09/12/20 06:00 119/70 09/12/20 05:00 123/87 09/12/20 05:00 117 23 123/87 (99) 100 09/12/20 04:00 Nasal Cannula 2.0 09/12/20 04:00 97.7 108 12 90/55 (67) 99 09/12/20 04:00 109 09/12/20 03:00 112 13 93/49 (64) 100 09/12/20 03:00 93/49 09/12/20 02:00 100/54 09/12/20 02:00 109 12 100/54 (69) 100 09/12/20 01:00 113 13 103/68 (80) 99 09/12/20 01:00 103/68 09/12/20 00:00 98.4 120 17 103/70 (81) 100 09/12/20 00:00 Nasal Cannula 2.0 09/12/20 00:00 116 09/12/20 00:00 103/70 09/11/20 23:00 114 13 98/57 (71) 100 09/11/20 23:00 98/57 09/11/20 22:00 119 13 99/51 (67) 100 09/11/20 22:00 99/51 09/11/20 21:00 104/77 09/11/20 21:00 120 13 104/77 (86) 100 09/11/20 20:00 120 09/11/20 20:00 Nasal Cannula 2.0 09/11/20 20:00 111/64 09/11/20 20:00 98.1 122 14 111/64 (80) 100 09/11/20 19:46 100 Nasal Cannula 2.0 28 09/11/20 19:00 123 15 110/63 (79) 100 09/11/20 19:00 99/70 09/11/20 18:30 122 14 107/55 (72) 99 09/11/20 18:00 136/77 09/11/20 18:00 119 14 98/55 (69) 99 09/11/20 17:30 120 15 98/74 (82) 99 09/11/20 17:00 121 14 117/71 (86) 99 09/11/20 17:00 117/71 Intake and Output 09/11/20 09/12/20 19:00 07:00 Intake Total 1423.845 ml 817.64 ml Output Total 195 ml 165 ml Balance 1228.845 ml 652.64 ml Intake IV Total 1423.845 ml 817.64 ml Output Urine Total 195 ml 165 ml # Bowel Movements 1 Current Medications Medications (Trade) Dose Ordered Sig/Laisha Route PRN Reason Start Time Stop Time Status Last Admin Dose Admin Acetaminophen (Tylenol) 650 mg Q4H PRN ORAL Fever 09/09/20 19:58 10/09/20 19:57 Bisacodyl (Dulcolax) 10 mg DAILYPRN PRN RECTAL Constipation 09/09/20 19:15 12/08/20 19:14 Cefepime HCl 1 gm/ Dextrose 55 ml @ 110 mls/hr Q24H IVPB 09/10/20 18:00 09/17/20 17:59 09/11/20 17:37 Chlorhexidine Gluconate (Samia-Hex 2%) 1 applic DAILY@2000 TOPIC 09/10/20 20:00 12/09/20 19:59 09/11/20 19:55 Dextrose (Dextrose 50%) 25 ml Q30M PRN IV Hypoglycemia 09/09/20 19:59 12/08/20 19:58 Dextrose (Dextrose 50%) 50 ml Q30M PRN IV Hypoglycemia 09/09/20 19:59 12/08/20 19:58 Dextrose/Sodium Chloride 1,000 ml @ 50 mls/hr Q20H IV 09/11/20 11:15 10/11/20 11:14 09/12/20 08:32 Docusate Sodium (Colace) 100 mg EVERY 12 HOURS ORAL 09/09/20 21:00 10/09/20 20:59 09/10/20 21:21 Fluconazole/ Sodium Chloride 100 ml @ 100 mls/hr Q24H IV 09/11/20 15:00 09/18/20 14:59 09/12/20 15:11 Hydromorphone HCl (Dilaudid) 0.5 mg Q2H PRN IVP Mild Pain (1-3) 09/09/20 19:15 09/16/20 19:14 09/10/20 19:53 Hydromorphone HCl (Dilaudid) 1 mg Q2H PRN IVP Moderate Pain (Pain Scale 4-6) 09/09/20 20:07 09/16/20 20:06 09/09/20 22:10 Hydromorphone HCl (Dilaudid) 2 mg Q4H PRN IVP Severe Pain (Pain Scale 7-10) 09/09/20 19:15 09/16/20 19:14 09/10/20 22:40 Lactulose (Cephulac) 30 gm THREE TIMES A DAY NG 09/12/20 10:45 10/12/20 10:44 09/12/20 13:47 Lorazepam (Ativan 2mg/ml 1ml) 0.5 mg Q4H PRN IV For Anxiety 09/09/20 20:00 09/16/20 19:59 09/11/20 01:46 Metronidazole 100 ml @ 100 mls/hr Q8H IVPB 09/10/20 00:00 09/17/20 00:00 09/12/20 15:37 Norepinephrine Bitartrate 8 mg/ Dextrose 508 ml @ 0 mls/hr Q24H IV 09/09/20 21:15 09/12/20 21:14 09/11/20 09:00 Pantoprazole (Protonix) 40 mg DAILY IV 09/10/20 09:00 10/10/20 08:59 09/12/20 08:25 Sodium Citrate (Bicitra) 30 ml EVERY 6 HOURS NG 09/12/20 11:00 10/11/20 11:59 09/12/20 13:46 Vancomycin HCl ([facility] pharmacy to dose) 1 ea DAILY PRN MISC Per rx protocol 09/09/20 19:15 10/09/20 19:14 Laboratory Tests 09/12/20 06:20: White Blood Count 24.8*H, Red Blood Count 3.86L, Hemoglobin 10.6L, Hematocrit 30.0L, Mean Corpuscular Volume 78L, Mean Corpuscular Hemoglobin 27.3, Mean Corpuscular Hemoglobin Concent 35.2, Red Cell Distribution Width 19.2H, Platelet Count 261, Mean Platelet Volume 8.4, Neutrophils (%) (Auto) , Lymphocytes (%) (Auto) , Monocytes (%) (Auto) , Eosinophils (%) (Auto) , Basophils (%) (Auto) , Differential Total Cells Counted 100, Neutrophils % (Manual) 95H, Lymphocytes % (Manual) 1L, Monocytes % (Manual) 2, Eosinophils % (Manual) 1, Basophils % (Manual) 0, Band Neutrophils 1, Platelet Estimate Adequate, Platelet Morphology Normal, Hypochromasia 1+, Anisocytosis 2+, Microcytosis 2+, Sodium Level 129L, Potassium Level 3.7, Chloride Level 101, Carbon Dioxide Level 14L, Anion Gap 14, Blood Urea Nitrogen 33H, Creatinine 3.0H, Estimat Glomerular Filtration Rate 15.5, Glucose Level 114H, Uric Acid 5.0, Calcium Level 7.4L, Phosphorus Level 3.1, Magnesium Level 1.6L, Total Bilirubin 18.5H, Direct Bilirubin 14.7H, Aspartate Amino Transf (AST/SGOT) 33, Alanine Aminotransferase (ALT/SGPT) 6L, Alkaline Phosphatase 1365H, Ammonia 92H, Total Protein 5.4L, Albumin 2.3L, Globulin 3.1, Albumin/Globulin Ratio 0.7L, Amylase Level 53, Lipase 178, Hepatitis A IgM Antibody [Pending], Hepatitis B Surface Antigen [Pending], Hepatitis B Core IgM Antibody [Pending], Hepatitis C Antibody [Pending] 09/12/20 13:27: Arterial Blood pH 7.338L, Arterial Blood Partial Pressure CO2 27.8L, Arterial Blood Partial Pressure O2 106.6H, Arterial Blood HCO3 14.6*L, Arterial Blood Oxygen Saturation 98.1, Arterial Blood Base Excess -9.9*L, Alvaro Test Positive Height (Feet): 5 Height (Inches): 3.00 Weight (Pounds): 110 General Appearance: no apparent distress, lethargic Cardiovascular: tachycardia Respiratory/Chest: decreased breath sounds Abdomen: distended Luis Turner MD Sep 12, 2020 16:14
[2020-09-12] MEDS: Cefepime HCl 1 GM in D5W 55 ML IVPB SCH (19:04)
[2020-09-12 19:53] LABS: HEMATOCRIT 28.1 % (37.0-47.0); HEMOGLOBIN 9.9 G/DL (12.0-16.0); MEAN CORPUSCULAR VOLUME 81 FL (80-99); PLATELET COUNT 236 K/UL (150-450); RED BLOOD COUNT 3.48 M/UL (4.20-5.40); RED CELL DISTRIBUTION WIDTH 19.2 % (11.6-14.8)
[2020-09-12 20:08] LABS: WHITE BLOOD COUNT 25.2 K/UL (4.8-10.8)
[2020-09-12] MEDS: Dyna-Hex 2% Top Sol 2oz TOPIC SCH (21:48)
[2020-09-12] MEDS: Hydromorphone 0.5mg/0.5ml inj IVP PRN (21:50)
--- NOTE | 2020-09-12 22:46 | General Progress Note ---
Subjective Allergies: Coded Allergies: No Known Allergies (Unverified , 09/09/20) Subjective Above noted seen this am in ICU subsequently transferred out confused (+) gross hematuria Tolerating Feeds Objective Last 24 Hour Vital Signs Date Time Temp Pulse Resp B/P (MAP) Pulse Ox O2 Delivery O2 Flow Rate FiO2 09/12/20 21:00 Nasal Cannula 2.0 09/12/20 20:41 97.5 124 19 150/107 (121) 94 09/12/20 19:53 96 Nasal Cannula 2.0 28 09/12/20 16:43 Nasal Cannula 2.0 09/12/20 16:00 127 25 164/98 (120) 94 09/12/20 16:00 Nasal Cannula 2.0 09/12/20 15:00 121 30 120/79 (93) 96 09/12/20 14:00 122 28 116/68 (84) 98 09/12/20 13:00 115 20 139/65 (89) 99 09/12/20 12:00 Nasal Cannula 2.0 09/12/20 12:00 116 19 90/63 (72) 100 09/12/20 12:00 114 09/12/20 11:00 119 23 165/87 (113) 100 09/12/20 10:10 165/87 09/12/20 10:00 92/51 09/12/20 10:00 118 25 92/51 (65) 100 09/12/20 09:03 99 Nasal Cannula 2.0 28 09/12/20 09:00 135/84 09/12/20 09:00 120 25 135/84 (101) 100 09/12/20 08:13 107 09/12/20 08:00 97.8 108 16 127/72 (90) 09/12/20 08:00 127/72 09/12/20 08:00 Nasal Cannula 2.0 09/12/20 07:00 105/62 09/12/20 07:00 111 15 105/62 (76) 100 09/12/20 06:00 111 18 119/70 (86) 100 09/12/20 06:00 119/70 09/12/20 05:00 123/87 09/12/20 05:00 117 23 123/87 (99) 100 09/12/20 04:00 Nasal Cannula 2.0 09/12/20 04:00 97.7 108 12 90/55 (67) 99 09/12/20 04:00 109 09/12/20 03:00 112 13 93/49 (64) 100 09/12/20 03:00 93/49 09/12/20 02:00 100/54 09/12/20 02:00 109 12 100/54 (69) 100 09/12/20 01:00 113 13 103/68 (80) 99 09/12/20 01:00 103/68 09/12/20 00:00 98.4 120 17 103/70 (81) 100 09/12/20 00:00 Nasal Cannula 2.0 09/12/20 00:00 116 09/12/20 00:00 103/70 09/11/20 23:00 114 13 98/57 (71) 100 09/11/20 23:00 98/57 Intake and Output 09/11/20 09/12/20 19:00 07:00 Intake Total 1423.845 ml 817.64 ml Output Total 195 ml 165 ml Balance 1228.845 ml 652.64 ml Intake IV Total 1423.845 ml 817.64 ml Output Urine Total 195 ml 165 ml # Bowel Movements 1 Laboratory Tests 09/12/20 06:20: White Blood Count 24.8*H, Red Blood Count 3.86L, Hemoglobin 10.6L, Hematocrit 30.0L, Mean Corpuscular Volume 78L, Mean Corpuscular Hemoglobin 27.3, Mean Corpuscular Hemoglobin Concent 35.2, Red Cell Distribution Width 19.2H, Platelet Count 261, Mean Platelet Volume 8.4, Neutrophils (%) (Auto) , Lymphocytes (%) (Auto) , Monocytes (%) (Auto) , Eosinophils (%) (Auto) , Basophils (%) (Auto) , Differential Total Cells Counted 100, Neutrophils % (Manual) 95H, Lymphocytes % (Manual) 1L, Monocytes % (Manual) 2, Eosinophils % (Manual) 1, Basophils % (Manual) 0, Band Neutrophils 1, Platelet Estimate Adequate, Platelet Morphology Normal, Hypochromasia 1+, Anisocytosis 2+, Microcytosis 2+, Sodium Level 129L, Potassium Level 3.7, Chloride Level 101, Carbon Dioxide Level 14L, Anion Gap 14, Blood Urea Nitrogen 33H, Creatinine 3.0H, Estimat Glomerular Filtration Rate 15.5, Glucose Level 114H, Uric Acid 5.0, Calcium Level 7.4L, Phosphorus Level 3.1, Magnesium Level 1.6L, Total Bilirubin 18.5H, Direct Bilirubin 14.7H, Aspartate Amino Transf (AST/SGOT) 33, Alanine Aminotransferase (ALT/SGPT) 6L, Alkaline Phosphatase 1365H, Ammonia 92H, Total Protein 5.4L, Albumin 2.3L, Globulin 3.1, Albumin/Globulin Ratio 0.7L, Amylase Level 53, Lipase 178, Hepatitis A IgM Antibody [Pending], Hepatitis B Surface Antigen [Pending], Hepatitis B Core IgM Antibody [Pending], Hepatitis C Antibody [Pending] 09/12/20 13:27: Arterial Blood pH 7.338L, Arterial Blood Partial Pressure CO2 27.8L, Arterial Blood Partial Pressure O2 106.6H, Arterial Blood HCO3 14.6*L, Arterial Blood Oxygen Saturation 98.1, Arterial Blood Base Excess -9.9*L, Alvaro Test Positive 09/12/20 19:43: White Blood Count 25.2*H, Red Blood Count 3.48L, Hemoglobin 9.9L, Hematocrit 28.1L, Mean Corpuscular Volume 81, Mean Corpuscular Hemoglobin 28.4, Mean Corpuscular Hemoglobin Concent 35.2, Red Cell Distribution Width 19.2H, Platelet Count 236, Mean Platelet Volume 9.3, Neutrophils (%) (Auto) , Lymphocytes (%) (Auto) , Monocytes (%) (Auto) , Eosinophils (%) (Auto) , Basophils (%) (Auto) , Differential Total Cells Counted 100, Neutrophils % (Manual) 85H, Lymphocytes % (Manual) 2L, Monocytes % (Manual) 2, Eosinophils % (Manual) 2, Basophils % (Manual) 0, Band Neutrophils 9H, Platelet Estimate Adequate, Platelet Morphology Normal Height (Feet): 5 Height (Inches): 3.00 Weight (Pounds): 110 Objective Elderly woman Initially seen in ICU this am now out to the floor NCAT supple CTA RR Abd soft (++) edema Assessment/Plan Status: unchanged Assessment/Plan: Assessment/Plan metastatic rectal CA juandice biliary obstruction with metalic stent sepsis anemia s/p blood transfusion ? cirrhosis DNR/DNI npo ivf on pressor hepatitis panel repeat labs abx per ID may need ERCP on Monday if stable Merlene Reeves MD Sep 12, 2020 22:46
[2020-09-13] MEDS: Sodium Citrate 30ml NG SCH ×5 (00:09→23:14)
[2020-09-13] MEDS: HYDROmorphone 1mg/ml Carpuject IVP PRN ×4 (00:13→16:41)
[2020-09-13 00:49] VITALS: BP 125/81
[2020-09-13] MEDS: D5NS 1,000 ML IV SCH ×2 (03:31→23:14)
[2020-09-13 04:00] VITALS: BP 103/66
[2020-09-13 07:32] LABS: ALANINE AMINOTRANSFERASE < 6 U/L (12-78); ALBUMIN 2.2 G/DL (3.4-5.0); ALBUMIN/GLOBULIN RATIO 0.7 (1.0-2.7); ALKALINE PHOSPHATASE 1200 U/L (46-116); ASPARTATE AMINO TRANSFERASE 21 U/L (15-37); BILIRUBIN,TOTAL 19.9 MG/DL (0.2-1.0); BLOOD UREA NITROGEN 35 mg/dL (7-18); CALCIUM 7.6 MG/DL (8.5-10.1); CREATININE 3.2 MG/DL (0.55-1.30)
[2020-09-13 07:34] LABS: BILIRUBIN,DIRECT 15.9 MG/DL (0.0-0.3)
[2020-09-13 07:46] LABS: ANION GAP 14 mmol/L (5-15); CARBON DIOXIDE 16 MMOL/L (21-32); CHLORIDE 103 MMOL/L (98-107); POTASSIUM 3.4 MMOL/L (3.5-5.1); SODIUM 133 MMOL/L (136-145)
[2020-09-13] MEDS: Docusate 100mg cap ORAL SCH ×2 (08:19→21:30)
[2020-09-13] MEDS: Lactulose 20gm/30ml UDC NG SCH ×3 (08:20→18:00)
[2020-09-13] MEDS: Pantoprazole Inj IV SCH (08:21)
[2020-09-13] MEDS ORDERED: Vancomycin 500mg/D5W 110ml IVPB SCH ×2 (09:00)
--- NOTE | 2020-09-13 10:13 | Hematology/Onc Progress Note ---
Assessment/Plan Assessment/Plan Assessment/Recs # Metastatic rectal cancer, Primary oncologist Dr. Dana Herrera in [place]. Will try to obtain contact information and further discuss GOC --> Per prior dc summary, there is no more plan for medical treatment and GOC will need to be addressed. --> Patient is a candidate for hospice and will discuss with her and her brother Elfego --> CT with Multiple pulmonary nodules and intra-abdominal adenopathy suspicious for metastatic disease. --> cea is 520, markedly elev, usually marker for colon ca --> agree very poor prognosis --> labs reviewed # Coagulopathy likely due to sepsis/lvier disease --> FFP and vit K ordered --> monitor for bleed --> transfuse to keep hgb >7 --> vit k and ffp ordered 09/10 # Anemia r/o gi bleed --> anemia panel ordered --> hgb goal >7 --> as per gi recs --> hgb 9.7 # Leuckocytosis with Sepsis with initally Hypotension --> Underlying etiology include bacteremia, PICC related infection, PORT related, UTI --> Broad sp antibiotic started and will be continued. 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 The small b owel is dilated both within the hernia sac and upstream with fluid levels likely representing obstruction Metal stent within the common bile duct --> as per gi # Hematuria --> yates, per uro # DVT ppx with SCD only Appreciate consultation and dw RN Subjective Constitutional: Denies: no symptoms, chills, fever, malaise, weakness, other HEENT: Denies: no symptoms, eye pain, blurred vision, tearing, double vision, ear pain, ear discharge, nose pain, nose congestion, throat pain, throat swelling, mouth pain, mouth swelling, other Cardiovascular: Denies: no symptoms, chest pain, edema, irregular heart rate, lightheadedness, palpitations, syncope, other Gastrointestinal/Abdominal: Denies: no symptoms, abdomen distended, abdominal pain, black stools, tarry stools, blood in stool, constipated, diarrhea, difficulty swallowing, nausea, poor appetite, poor fluid intake, rectal bleeding, vomiting, other Genitourinary: Denies: no symptoms, burning, discharge, frequency, flank pain, hematuria, incontinence, pain, urgency, other Neurologic/Psychiatric: Denies: no symptoms, anxiety, depressed, emotional problems, headache, numbness, paresthesia, pre-existing deficit, seizure, tingling, tremors, weakness, other Endocrine: Denies: no symptoms, excessive sweating, flushing, intolerance to cold, intolerance to heat, increased hunger, increased thirst, increased urine, unexplained weight gain, unexplained weight loss, other Allergies: Coded Allergies: No Known Allergies (Unverified , 09/09/20) Subjective 09/11 labs reviewed, meds noted, no bleeding, dw rn, no major changes, wbc 24 09/13 wbc again elev, remains confused, on 2l, yates catheter and ngt Objective Objective Current Medications Medications (Trade) Dose Ordered Sig/Laisha Route PRN Reason Start Time Stop Time Status Last Admin Dose Admin Acetaminophen (Tylenol) 650 mg Q4H PRN ORAL Fever 09/09/20 19:58 10/09/20 19:57 Bisacodyl (Dulcolax) 10 mg DAILYPRN PRN RECTAL Constipation 09/09/20 19:15 12/08/20 19:14 Cefepime HCl 1 gm/ Dextrose 55 ml @ 110 mls/hr Q24H IVPB 09/10/20 18:00 09/17/20 17:59 09/12/20 19:04 Chlorhexidine Gluconate (Samia-Hex 2%) 1 applic DAILY@2000 TOPIC 09/10/20 20:00 12/09/20 19:59 09/12/20 21:48 Dextrose (Dextrose 50%) 25 ml Q30M PRN IV Hypoglycemia 09/09/20 19:59 12/08/20 19:58 Dextrose (Dextrose 50%) 50 ml Q30M PRN IV Hypoglycemia 09/09/20 19:59 12/08/20 19:58 Dextrose/Sodium Chloride 1,000 ml @ 50 mls/hr Q20H IV 09/11/20 11:15 10/11/20 11:14 09/13/20 03:31 Docusate Sodium (Colace) 100 mg EVERY 12 HOURS ORAL 09/09/20 21:00 10/09/20 20:59 09/13/20 08:19 Fluconazole/ Sodium Chloride 100 ml @ 100 mls/hr Q24H IV 09/11/20 15:00 09/18/20 14:59 09/12/20 15:11 Hydromorphone HCl (Dilaudid) 0.5 mg Q2H PRN IVP Mild Pain (1-3) 09/09/20 19:15 09/16/20 19:14 09/12/20 21:50 Hydromorphone HCl (Dilaudid) 1 mg Q2H PRN IVP Moderate Pain (Pain Scale 4-6) 09/09/20 20:07 09/16/20 20:06 09/13/20 03:26 Hydromorphone HCl (Dilaudid) 2 mg Q4H PRN IVP Severe Pain (Pain Scale 7-10) 09/09/20 19:15 09/16/20 19:14 09/10/20 22:40 Lactulose (Cephulac) 30 gm THREE TIMES A DAY NG 09/12/20 10:45 10/12/20 10:44 09/13/20 08:20 Lorazepam (Ativan 2mg/ml 1ml) 0.5 mg Q4H PRN IV For Anxiety 09/09/20 20:00 09/16/20 19:59 09/11/20 01:46 Metronidazole 100 ml @ 100 mls/hr Q8H IVPB 09/10/20 00:00 09/17/20 00:00 09/13/20 08:19 Pantoprazole (Protonix) 40 mg DAILY IV 09/10/20 09:00 10/10/20 08:59 09/13/20 08:21 Sodium Citrate (Bicitra) 30 ml EVERY 6 HOURS NG 09/12/20 11:00 10/11/20 11:59 09/13/20 05:09 Vancomycin HCl (Vanco pharmacy to dose) 1 ea DAILY PRN MISC Per rx protocol 09/09/20 19:15 10/09/20 19:14 Vancomycin HCl 500 mg/Dextrose 110 ml @ 110 mls/hr ONCE IVPB 09/13/20 09:00 09/13/20 11:00 Last 24 Hour Vital Signs Date Time Temp Pulse Resp B/P (MAP) Pulse Ox O2 Delivery O2 Flow Rate FiO2 09/13/20 04:00 97.0 103 23 103/66 (78) 98 09/13/20 00:49 97.0 115 22 125/81 (96) 97 09/12/20 21:00 Nasal Cannula 2.0 09/12/20 20:41 97.5 124 19 150/107 (121) 94 09/12/20 19:53 96 Nasal Cannula 2.0 28 09/12/20 16:43 Nasal Cannula 2.0 09/12/20 16:00 127 25 164/98 (120) 94 09/12/20 16:00 Nasal Cannula 2.0 09/12/20 15:00 121 30 120/79 (93) 96 09/12/20 14:00 122 28 116/68 (84) 98 09/12/20 13:00 115 20 139/65 (89) 99 09/12/20 12:00 Nasal Cannula 2.0 09/12/20 12:00 116 19 90/63 (72) 100 09/12/20 12:00 114 09/12/20 11:00 119 23 165/87 (113) 100 09/12/20 10:10 165/87 09/12/20 10:00 92/51 09/12/20 10:00 118 25 92/51 (65) 100 09/12/20 09:03 99 Nasal Cannula 2.0 28 09/12/20 09:00 135/84 09/12/20 09:00 120 25 135/84 (101) 100 09/12/20 08:13 107 09/12/20 08:00 97.8 108 16 127/72 (90) 09/12/20 08:00 127/72 09/12/20 08:00 Nasal Cannula 2.0 09/12/20 07:00 105/62 09/12/20 07:00 111 15 105/62 (76) 100 09/12/20 06:00 111 18 119/70 (86) 100 09/12/20 06:00 119/70 09/12/20 05:00 123/87 09/12/20 05:00 117 23 123/87 (99) 100 09/12/20 04:00 Nasal Cannula 2.0 09/12/20 04:00 97.7 108 12 90/55 (67) 99 09/12/20 04:00 109 09/12/20 03:00 112 13 93/49 (64) 100 09/12/20 03:00 93/49 09/12/20 02:00 100/54 09/12/20 02:00 109 12 100/54 (69) 100 09/12/20 01:00 113 13 103/68 (80) 99 09/12/20 01:00 103/68 09/12/20 00:00 98.4 120 17 103/70 (81) 100 09/12/20 00:00 Nasal Cannula 2.0 09/12/20 00:00 116 09/12/20 00:00 103/70 09/11/20 23:00 114 13 98/57 (71) 100 09/11/20 23:00 98/57 09/11/20 22:00 119 13 99/51 (67) 100 09/11/20 22:00 99/51 09/11/20 21:00 104/77 09/11/20 21:00 120 13 104/77 (86) 100 09/11/20 20:00 120 09/11/20 20:00 Nasal Cannula 2.0 09/11/20 20:00 111/64 09/11/20 20:00 98.1 122 14 111/64 (80) 100 09/11/20 19:46 100 Nasal Cannula 2.0 28 09/11/20 19:00 123 15 110/63 (79) 100 09/11/20 19:00 99/70 09/11/20 18:30 122 14 107/55 (72) 99 09/11/20 18:00 136/77 09/11/20 18:00 119 14 98/55 (69) 99 09/11/20 17:30 120 15 98/74 (82) 99 09/11/20 17:00 121 14 117/71 (86) 99 09/11/20 17:00 117/71 09/11/20 16:00 98.4 124 18 147/76 (99) 99 09/11/20 16:00 147/76 09/11/20 16:00 Nasal Cannula 2.0 09/11/20 16:00 124 09/11/20 15:45 108 15 120/66 (84) 100 09/11/20 15:45 120/66 09/11/20 15:30 157/72 09/11/20 15:30 109 20 157/72 (100) 100 09/11/20 15:00 114/58 09/11/20 15:00 93 12 104/59 (74) 100 09/11/20 14:30 90 12 115/66 (82) 100 09/11/20 14:00 86 12 103/61 (75) 100 09/11/20 14:00 113/66 09/11/20 13:30 82 12 113/67 (82) 100 09/11/20 13:00 84 10 120/57 (78) 100 09/11/20 13:00 120/57 09/11/20 12:30 80 13 135/85 (102) 100 09/11/20 12:00 83 09/11/20 12:00 Nasal Cannula 2.0 09/11/20 12:00 97.6 82 12 116/63 (80) 100 09/11/20 12:00 133/58 09/11/20 11:30 84 12 122/76 (91) 100 09/11/20 11:00 140/68 09/11/20 11:00 77 10 140/68 (92) 100 09/11/20 10:30 79 11 134/69 (90) 100 Intake and Output 09/12/20 09/13/20 19:00 07:00 Intake Total 845.72 ml 555 ml Output Total 170 ml Balance 675.72 ml 555 ml Intake IV Total 845.72 ml 555 ml Output Urine Total 170 ml Labs Test 09/11/20 03:15 09/11/20 05:32 09/12/20 06:20 09/12/20 13:27 White Blood Count 23.7 K/UL (4.8-10.8) 24.8 K/UL (4.8-10.8) Red Blood Count 3.42 M/UL (4.20-5.40) 3.86 M/UL (4.20-5.40) Hemoglobin 9.7 G/DL (12.0-16.0) 10.6 G/DL (12.0-16.0) Hematocrit 27.7 % (37.0-47.0) 30.0 % (37.0-47.0) Mean Corpuscular Volume 81 FL (80-99) 78 FL (80-99) Mean Corpuscular Hemoglobin 28.5 PG (27.0-31.0) 27.3 PG (27.0-31.0) Mean Corpuscular Hemoglobin Concent 35.2 G/DL (32.0-36.0) 35.2 G/DL (32.0-36.0) Red Cell Distribution Width 18.7 % (11.6-14.8) 19.2 % (11.6-14.8) Platelet Count 285 K/UL (150-450) 261 K/UL (150-450) Mean Platelet Volume 8.1 FL (6.5-10.1) 8.4 FL (6.5-10.1) Neutrophils (%) (Auto) % (45.0-75.0) % (45.0-75.0) Lymphocytes (%) (Auto) % (20.0-45.0) % (20.0-45.0) Monocytes (%) (Auto) % (1.0-10.0) % (1.0-10.0) Eosinophils (%) (Auto) % (0.0-3.0) % (0.0-3.0) Basophils (%) (Auto) % (0.0-2.0) % (0.0-2.0) Differential Total Cells Counted 100 100 Neutrophils % (Manual) 91 % (45-75) 95 % (45-75) Lymphocytes % (Manual) 4 % (20-45) 1 % (20-45) Monocytes % (Manual) 4 % (1-10) 2 % (1-10) Eosinophils % (Manual) 0 % (0-3) 1 % (0-3) Basophils % (Manual) 0 % (0-2) 0 % (0-2) Band Neutrophils 1 % (0-8) 1 % (0-8) Platelet Estimate Adequate Adequate Platelet Morphology Normal Normal Hypochromasia 1+ 1+ Anisocytosis 1+ 2+ Prothrombin Time 12.6 SEC (9.30-11.50) Prothromb Time International Ratio 1.2 (0.9-1.1) Sodium Level 128 MMOL/L (136-145) 129 MMOL/L (136-145) Potassium Level 3.7 MMOL/L (3.5-5.1) 3.7 MMOL/L (3.5-5.1) Chloride Level 98 MMOL/L (98-107) 101 MMOL/L (98-107) Carbon Dioxide Level 15 MMOL/L (21-32) 14 MMOL/L (21-32) Anion Gap 15 mmol/L (5-15) 14 mmol/L (5-15) Blood Urea Nitrogen 30 mg/dL (7-18) 33 mg/dL (7-18) Creatinine 3.0 MG/DL (0.55-1.30) 3.0 MG/DL (0.55-1.30) Estimat Glomerular Filtration Rate 15.5 mL/min (>60) 15.5 mL/min (>60) Glucose Level 132 MG/DL (74-106) 114 MG/DL (74-106) Uric Acid 4.8 MG/DL (2.6-7.2) 5.0 MG/DL (2.6-7.2) Calcium Level 7.2 MG/DL (8.5-10.1) 7.4 MG/DL (8.5-10.1) Phosphorus Level 4.1 MG/DL (2.5-4.9) 3.1 MG/DL (2.5-4.9) Magnesium Level 1.7 MG/DL (1.8-2.4) 1.6 MG/DL (1.8-2.4) Total Bilirubin 16.6 MG/DL (0.2-1.0) 18.5 MG/DL (0.2-1.0) Direct Bilirubin 13.2 MG/DL (0.0-0.3) 14.7 MG/DL (0.0-0.3) Aspartate Amino Transf (AST/SGOT) 47 U/L (15-37) 33 U/L (15-37) Alanine Aminotransferase (ALT/SGPT) < 6 U/L (12-78) 6 U/L (12-78) Alkaline Phosphatase 1308 U/L (46-116) 1365 U/L (46-116) Total Protein 6.1 G/DL (6.4-8.2) 5.4 G/DL (6.4-8.2) Albumin 3.3 G/DL (3.4-5.0) 2.3 G/DL (3.4-5.0) Globulin 2.8 g/dL 3.1 g/dL Albumin/Globulin Ratio 1.2 (1.0-2.7) 0.7 (1.0-2.7) Amylase Level 175 U/L (25-115) 53 U/L (25-115) Lipase 920 U/L (73-393) 178 U/L (73-393) Random Vancomycin Level 16.1 ug/mL POC Whole Blood Glucose 129 MG/DL (74-106) Microcytosis 2+ Ammonia 92 umol/L (11-32) Arterial Blood pH 7.338 (7.350-7.450) Arterial Blood Partial Pressure CO2 27.8 mmHg (35.0-45.0) Arterial Blood Partial Pressure O2 106.6 mmHg (75.0-100.0) Arterial Blood HCO3 14.6 mmol/L (22.0-26.0) Arterial Blood Oxygen Saturation 98.1 % (95-100) Arterial Blood Base Excess -9.9 (-2-2) Alvaro Test Positive Test 09/12/20 19:43 09/13/20 05:46 White Blood Count 25.2 K/UL (4.8-10.8) Red Blood Count 3.48 M/UL (4.20-5.40) Hemoglobin 9.9 G/DL (12.0-16.0) Hematocrit 28.1 % (37.0-47.0) Mean Corpuscular Volume 81 FL (80-99) Mean Corpuscular Hemoglobin 28.4 PG (27.0-31.0) Mean Corpuscular Hemoglobin Concent 35.2 G/DL (32.0-36.0) Red Cell Distribution Width 19.2 % (11.6-14.8) Platelet Count 236 K/UL (150-450) Mean Platelet Volume 9.3 FL (6.5-10.1) Neutrophils (%) (Auto) % (45.0-75.0) Lymphocytes (%) (Auto) % (20.0-45.0) Monocytes (%) (Auto) % (1.0-10.0) Eosinophils (%) (Auto) % (0.0-3.0) Basophils (%) (Auto) % (0.0-2.0) Differential Total Cells Counted 100 Neutrophils % (Manual) 85 % (45-75) Lymphocytes % (Manual) 2 % (20-45) Monocytes % (Manual) 2 % (1-10) Eosinophils % (Manual) 2 % (0-3) Basophils % (Manual) 0 % (0-2) Band Neutrophils 9 % (0-8) Platelet Estimate Adequate Platelet Morphology Normal Sodium Level 133 MMOL/L (136-145) Potassium Level 3.4 MMOL/L (3.5-5.1) Chloride Level 103 MMOL/L (98-107) Carbon Dioxide Level 16 MMOL/L (21-32) Anion Gap 14 mmol/L (5-15) Blood Urea Nitrogen 35 mg/dL (7-18) Creatinine 3.2 MG/DL (0.55-1.30) Estimat Glomerular Filtration Rate 14.4 mL/min (>60) Glucose Level 116 MG/DL (74-106) Calcium Level 7.6 MG/DL (8.5-10.1) Total Bilirubin 19.9 MG/DL (0.2-1.0) Direct Bilirubin 15.9 MG/DL (0.0-0.3) Aspartate Amino Transf (AST/SGOT) 21 U/L (15-37) Alanine Aminotransferase (ALT/SGPT) < 6 U/L (12-78) Alkaline Phosphatase 1200 U/L (46-116) Total Protein 5.5 G/DL (6.4-8.2) Albumin 2.2 G/DL (3.4-5.0) Globulin 3.3 g/dL Albumin/Globulin Ratio 0.7 (1.0-2.7) Random Vancomycin Level 14.8 ug/mL Height (Feet): 5 Height (Inches): 3.00 Weight (Pounds): 110 Objective General Appearance: moderate distress Lines, tubes and drains: peripheral, PICC, other - R chest port HEENT: normocephalic, atraumatic Cardiovascular/Chest: normal rate Genitourinary/Rectal: yates, other - hematuria Extremities: non-tender Skin Exam: jaundice 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
--- NOTE | 2020-09-13 11:32 | General Progress Note ---
Subjective Date patient seen: Sep 13, 2020 Time patient seen: 09:30 ROS Limited/Unobtainable: Yes Allergies: Coded Allergies: No Known Allergies (Unverified , 09/09/20) Subjective Patient is awake today, NGT in place with brown color, she is not able to talk back to me in a comprehensive way. Jaundiced and frail, She is not improving. OFF pressors and transferred to [facility] last night. Objective Last 24 Hour Vital Signs Date Time Temp Pulse Resp B/P (MAP) Pulse Ox O2 Delivery O2 Flow Rate FiO2 09/13/20 07:36 98 Nasal Cannula 2.0 28 09/13/20 04:00 97.0 103 23 103/66 (78) 98 09/13/20 00:49 97.0 115 22 125/81 (96) 97 09/12/20 21:00 Nasal Cannula 2.0 09/12/20 20:41 97.5 124 19 150/107 (121) 94 09/12/20 19:53 96 Nasal Cannula 2.0 28 09/12/20 16:43 Nasal Cannula 2.0 09/12/20 16:00 127 25 164/98 (120) 94 09/12/20 16:00 Nasal Cannula 2.0 09/12/20 15:00 121 30 120/79 (93) 96 09/12/20 14:00 122 28 116/68 (84) 98 09/12/20 13:00 115 20 139/65 (89) 99 09/12/20 12:00 Nasal Cannula 2.0 09/12/20 12:00 116 19 90/63 (72) 100 09/12/20 12:00 114 Intake and Output 09/12/20 09/13/20 19:00 07:00 Intake Total 845.72 ml 555 ml Output Total 170 ml Balance 675.72 ml 555 ml Intake IV Total 845.72 ml 555 ml Output Urine Total 170 ml Laboratory Tests 09/12/20 13:27: Arterial Blood pH 7.338L, Arterial Blood Partial Pressure CO2 27.8L, Arterial Blood Partial Pressure O2 106.6H, Arterial Blood HCO3 14.6*L, Arterial Blood Oxygen Saturation 98.1, Arterial Blood Base Excess -9.9*L, Alvaro Test Positive 09/12/20 19:43: White Blood Count 25.2*H, Red Blood Count 3.48L, Hemoglobin 9.9L, Hematocrit 28.1L, Mean Corpuscular Volume 81, Mean Corpuscular Hemoglobin 28.4, Mean Corpuscular Hemoglobin Concent 35.2, Red Cell Distribution Width 19.2H, Platelet Count 236, Mean Platelet Volume 9.3, Neutrophils (%) (Auto) , Lymphocytes (%) (Auto) , Monocytes (%) (Auto) , Eosinophils (%) (Auto) , Basophils (%) (Auto) , Differential Total Cells Counted 100, Neutrophils % (Manual) 85H, Lymphocytes % (Manual) 2L, Monocytes % (Manual) 2, Eosinophils % (Manual) 2, Basophils % (Manual) 0, Band Neutrophils 9H, Platelet Estimate Adequate, Platelet Morphology Normal 09/13/20 05:46: Sodium Level 133L, Potassium Level 3.4L, Chloride Level 103, Carbon Dioxide Level 16L, Anion Gap 14, Blood Urea Nitrogen 35H, Creatinine 3.2H, Estimat Glomerular Filtration Rate 14.4, Glucose Level 116H, Calcium Level 7.6L, Total Bilirubin 19.9H, Direct Bilirubin 15.9H, Aspartate Amino Transf (AST/SGOT) 21, Alanine Aminotransferase (ALT/SGPT) < 6L, Alkaline Phosphatase 1200H, Total Protein 5.5L, Albumin 2.2L, Globulin 3.3, Albumin/Globulin Ratio 0.7L, Random Vancomycin Level 14.8 Height (Feet): 5 Height (Inches): 3.00 Weight (Pounds): 110 General Appearance: WD/WN EENT: PERRL/EOMI Neck: non-tender Cardiovascular: normal rate Respiratory/Chest: lungs clear Abdomen: normal bowel sounds Genitourinary/Rectal: other - hematuria Extremities: swelling Edema: mild edema Skin: jaundice Assessment/Plan Status: unchanged Assessment/Plan: 70 y/o F with metastatic rectal cancer, recent history of obstructive jaundice - IR CBD exchange now admitted with: # Hypotension - septic shock Underlying etiology include bacteremia, PICC related infection, PORT related, UTI due to Sydnee - ? colonized vs acute. Broad sp antibiotic started and will be continued. Monitor WBC - Persistently > 20K, at 25 K today ID business info consultant [employer] ( previously saw the patient at [facility] this month ) updated and antibiotic management per ID transferred out of ICU ( 09/12 ) for IVF and vasopressors OFF now Central line in place PICC hemodynamically stable now and due to high mortality, do not recommend ICU re admission and this was discussed with family today. # Probable cholangitis and liver failure with hepatic encephalopathy NH3 92 Trial of Lactulose and NGT started 09/12 with mild improvement in mental status. Now with NGT showing brown color fluid, can not rule out UGIB in the setting of liver failure and coagulopathy. Defer to GI team. # Anemia of chronic disease vs acute blood loss anemia s/p 2 PRBC and 2 FFP 09/10 Hb from 6.8 to 9.7 and NOW 9.9 ( stable ) Stable and needs monitoring. # Acute renal failure with metabolic acidosis Renal consultation requested with Dr. Tolentino - defer IVF management and appreciate support. Bicitra started and unable to take PO, changed to NGT. Creatinine 3.2 CO2 14 upt to 16 today # Metastatic rectal cancer Primary oncologist Dr. Dana Herrera in [place]. Will try to obtain contact information and further discuss GOC Dr. Cutler consulted and appreciate input. High mortality and poor prognosis noted. Per prior dc summary, there is no more plan for medical treatment and GOC will need to be addressed. Patient is a candidate for hospice and will follow up discussion with her and her NIECE TODAY [phone] AND COMFORT CARE WAS DISCUSSED. I WILL FOLLOW UP WITH HOSPICE REFERRAL. RN UPDATED. # Abnormal CT abdomen and Pelvis 1. Right-sided spigelian hernia containing a loop of small bowel. The small bowel is dilated both within the hernia sac and upstream with fluid levels likely representing obstruction. 2. Metal stent within the common bile duct with severe intrahepatic biliary dilatation. Dr. Nuñez from GI consulted. Patient is not stable for possible MRCP - ? biliary stent migration since prior procedure. Dr. Haas from Surgery consulted and non surgical approach recommended. 3. Bilateral nephroureteral stents in place. Moderate bilateral hydronephrosis. 4. Multiple pulmonary nodules and intra-abdominal adenopathy suspicious for metastatic disease. # Hematuria Dr. Dewitt from urology consulted and case discussed over the phone. no acute intervention planned Monitor CBC, and Tovar output # Chronic pain syndrome Opiate therapy # Diet meds approved to use ( discussed with surgery today ) Prior NPO due to SBO which was clinically improved as Dr. Haas reduced the hernia and her abdomen became much smaller and softer afterwards. Per prior admission at [facility], this is a chronic hernia. # IVF per nephrology # DNR DNI discussed with the patient and family updated in agreement as well. # DVT ppx with SCD only # GI ppx wit PPI Guarded prognosis and high mortality risk this admission Family [phone] Jon Abarca MD Sep 13, 2020 11:32
--- NOTE | 2020-09-13 12:52 | Nephrology Progress Note ---
Assessment/Plan Problem List: (1) ERIC (acute kidney injury) (2) Metastasis from rectal cancer (3) Elevated lipase (4) Severe sepsis (5) UTI (urinary tract infection) (6) Septic shock Assessment Acute renal failure Possible underlying renal failure Shock status on Levophed Jaundice Small bowel obstruction Bilateral hydronephrosis metastatic rectal cancer with biliary obstruction Metastatic disease, multiple pulmonary nodules Severe hypoalbuminemia and anasarca DNR/DNI Plan September 13: Patient in [facility] now. Remains lethargic. Deteriorating. Renal parameters worsened. Patient DNR and DNI with metastatic rectal CA. Continue to favor comfort care only as no major intervention will be lifesaving for this patient under current medical conditions. September 12: Status quo. Deteriorating. Labs reviewed. Discussed with EVITA Ruiz. Not much to add from renal standpoint of view. Futile treatment. Favor comfort care. September 11: Labs reviewed. Abnormal electrolytes addressed. Discussed with EVITA Finley. Overall condition poor. Favor comfort care. Per orders. Hemoglobin higher posttransfusion. Plan: Hydrate Transfuse Poor prognosis Per consultants Support hospice and comfort care Discussed with Dr. Abarca Subjective ROS Limited/Unobtainable: Yes Objective Objective Last 24 Hour Vital Signs Date Time Temp Pulse Resp B/P (MAP) Pulse Ox O2 Delivery O2 Flow Rate FiO2 09/13/20 09:00 Nasal Cannula 2.0 09/13/20 07:36 98 Nasal Cannula 2.0 09/13/20 04:00 97.0 103 23 103/66 (78) 98 09/13/20 00:49 97.0 115 22 125/81 (96) 97 09/12/20 21:00 Nasal Cannula 2.0 09/12/20 20:41 97.5 124 19 150/107 (121) 94 09/12/20 19:53 96 Nasal Cannula 2.0 28 09/12/20 16:43 Nasal Cannula 2.0 09/12/20 16:00 127 25 164/98 (120) 94 09/12/20 16:00 Nasal Cannula 2.0 09/12/20 15:00 121 30 120/79 (93) 96 09/12/20 14:00 122 28 116/68 (84) 98 09/12/20 13:00 115 20 139/65 (89) 99 Intake and Output 09/12/20 09/13/20 19:00 07:00 Intake Total 845.72 ml 555 ml Output Total 170 ml Balance 675.72 ml 555 ml Intake IV Total 845.72 ml 555 ml Output Urine Total 170 ml Current Medications Medications (Trade) Dose Ordered Sig/Laisha Route PRN Reason Start Time Stop Time Status Last Admin Dose Admin Acetaminophen (Tylenol) 650 mg Q4H PRN ORAL Fever 09/09/20 19:58 10/09/20 19:57 Bisacodyl (Dulcolax) 10 mg DAILYPRN PRN RECTAL Constipation 09/09/20 19:15 12/08/20 19:14 Cefepime HCl 1 gm/ Dextrose 55 ml @ 110 mls/hr Q24H IVPB 09/10/20 18:00 09/17/20 17:59 09/12/20 19:04 Chlorhexidine Gluconate (Samia-Hex 2%) 1 applic DAILY@2000 TOPIC 09/10/20 20:00 12/09/20 19:59 09/12/20 21:48 Dextrose (Dextrose 50%) 25 ml Q30M PRN IV Hypoglycemia 09/09/20 19:59 12/08/20 19:58 Dextrose (Dextrose 50%) 50 ml Q30M PRN IV Hypoglycemia 09/09/20 19:59 12/08/20 19:58 Dextrose/Sodium Chloride 1,000 ml @ 50 mls/hr Q20H IV 09/11/20 11:15 10/11/20 11:14 09/13/20 03:31 Docusate Sodium (Colace) 100 mg EVERY 12 HOURS ORAL 09/09/20 21:00 10/09/20 20:59 09/13/20 08:19 Fluconazole/ Sodium Chloride 100 ml @ 100 mls/hr Q24H IV 09/11/20 15:00 09/18/20 14:59 09/12/20 15:11 Hydromorphone HCl (Dilaudid) 0.5 mg Q2H PRN IVP Mild Pain (1-3) 09/09/20 19:15 09/16/20 19:14 09/12/20 21:50 Hydromorphone HCl (Dilaudid) 1 mg Q2H PRN IVP Moderate Pain (Pain Scale 4-6) 09/09/20 20:07 09/16/20 20:06 09/13/20 11:26 Hydromorphone HCl (Dilaudid) 2 mg Q4H PRN IVP Severe Pain (Pain Scale 7-10) 09/09/20 19:15 09/16/20 19:14 09/10/20 22:40 Lactulose (Cephulac) 30 gm THREE TIMES A DAY NG 09/12/20 10:45 10/12/20 10:44 09/13/20 08:20 Lorazepam (Ativan 2mg/ml 1ml) 0.5 mg Q4H PRN IV For Anxiety 09/09/20 20:00 09/16/20 19:59 09/11/20 01:46 Metronidazole 100 ml @ 100 mls/hr Q8H IVPB 09/10/20 00:00 09/17/20 00:00 09/13/20 08:19 Pantoprazole (Protonix) 40 mg DAILY IV 09/10/20 09:00 10/10/20 08:59 09/13/20 08:21 Sodium Citrate (Bicitra) 30 ml EVERY 6 HOURS NG 09/12/20 11:00 10/11/20 11:59 09/13/20 05:09 Vancomycin HCl ([facility] pharmacy to dose) 1 ea DAILY PRN MISC Per rx protocol 09/09/20 19:15 10/09/20 19:14 Laboratory Tests 09/12/20 13:27: Arterial Blood pH 7.338L, Arterial Blood Partial Pressure CO2 27.8L, Arterial Blood Partial Pressure O2 106.6H, Arterial Blood HCO3 14.6*L, Arterial Blood Ox ygen Saturation 98.1, Arterial Blood Base Excess -9.9*L, Alvaro Test Positive 09/12/20 19:43: White Blood Count 25.2*H, Red Blood Count 3.48L, Hemoglobin 9.9L, Hematocrit 28.1L, Mean Corpuscular Volume 81, Mean Corpuscular Hemoglobin 28.4, Mean Corpuscular Hemoglobin Concent 35.2, Red Cell Distribution Width 19.2H, Platelet Count 236, Mean Platelet Volume 9.3, Neutrophils (%) (Auto) , Lymphocytes (%) (Auto) , Monocytes (%) (Auto) , Eosinophils (%) (Auto) , Basophils (%) (Auto) , Differential Total Cells Counted 100, Neutrophils % (Manual) 85H, Lymphocytes % (Manual) 2L, Monocytes % (Manual) 2, Eosinophils % (Manual) 2, Basophils % (Manual) 0, Band Neutrophils 9H, Platelet Estimate Adequate, Platelet Morphology Normal 09/13/20 05:46: Sodium Level 133L, Potassium Level 3.4L, Chloride Level 103, Carbon Dioxide Level 16L, Anion Gap 14, Blood Urea Nitrogen 35H, Creatinine 3.2H, Estimat Glomerular Filtration Rate 14.4, Glucose Level 116H, Calcium Level 7.6L, Total Bilirubin 19.9H, Direct Bilirubin 15.9H, Aspartate Amino Transf (AST/SGOT) 21, Alanine Aminotransferase (ALT/SGPT) < 6L, Alkaline Phosphatase 1200H, Total Protein 5.5L, Albumin 2.2L, Globulin 3.3, Albumin/Globulin Ratio 0.7L, Random Vancomycin Level 14.8 09/13/20 11:55: Sodium Level [Pending], Potassium Level [Pending], Chloride Level [Pending], Carbon Dioxide Level [Pending], Blood Urea Nitrogen [Pending], Creatinine [Pending], Estimat Glomerular Filtration Rate [Pending], Glucose Level [Pending], Calcium Level [Pending], Total Bilirubin [Pending], Aspartate Amino Transf (AST/SGOT) [Pending], Alanine Aminotransferase (ALT/SGPT) [Pending], Alkaline Phosphatase [Pending], Total Protein [Pending], Albumin [Pending], Globulin [Pending] Height (Feet): 5 Height (Inches): 3.00 Weight (Pounds): 110 General Appearance: no apparent distress, lethargic Cardiovascular: tachycardia Respiratory/Chest: decreased breath sounds Abdomen: distended Luis Turner MD Sep 13, 2020 12:52
--- NOTE | 2020-09-13 14:17 | General Progress Note ---
Subjective Allergies: Coded Allergies: No Known Allergies (Unverified , 09/09/20) Subjective Out of ICU doing poorly dark blood via NGT and yates Deep jaundice weak discussed with sister over phone as pt appears to be at moribund stage sister understands gravity of illness, agrees with conservative/comfort measures sister will come visit patient today Objective Last 24 Hour Vital Signs Date Time Temp Pulse Resp B/P (MAP) Pulse Ox O2 Delivery O2 Flow Rate FiO2 09/13/20 09:00 Nasal Cannula 2.0 09/13/20 07:36 98 Nasal Cannula 2.0 28 09/13/20 04:00 97.0 103 23 103/66 (78) 98 09/13/20 00:49 97.0 115 22 125/81 (96) 97 09/12/20 21:00 Nasal Cannula 2.0 09/12/20 20:41 97.5 124 19 150/107 (121) 94 09/12/20 19:53 96 Nasal Cannula 2.0 28 09/12/20 16:43 Nasal Cannula 2.0 09/12/20 16:00 127 25 164/98 (120) 94 09/12/20 16:00 Nasal Cannula 2.0 09/12/20 15:00 121 30 120/79 (93) 96 Intake and Output 09/12/20 09/13/20 19:00 07:00 Intake Total 845.72 ml 555 ml Output Total 170 ml Balance 675.72 ml 555 ml Intake IV Total 845.72 ml 555 ml Output Urine Total 170 ml Laboratory Tests 09/12/20 19:43: White Blood Count 25.2*H, Red Blood Count 3.48L, Hemoglobin 9.9L, Hematocrit 28.1L, Mean Corpuscular Volume 81, Mean Corpuscular Hemoglobin 28.4, Mean Corpuscular Hemoglobin Concent 35.2, Red Cell Distribution Width 19.2H, Platelet Count 236, Mean Platelet Volume 9.3, Neutrophils (%) (Auto) , Lymphocytes (%) (Auto) , Monocytes (%) (Auto) , Eosinophils (%) (Auto) , Basophils (%) (Auto) , Differential Total Cells Counted 100, Neutrophils % (Manual) 85H, Lymphocytes % (Manual) 2L, Monocytes % (Manual) 2, Eosinophils % (Manual) 2, Basophils % (Manual) 0, Band Neutrophils 9H, Platelet Estimate Adequate, Platelet Morphology Normal 11/29/20 05:46: Sodium Level 133L, Potassium Level 3.4L, Chloride Level 103, Carbon Dioxide Level 16L, Anion Gap 14, Blood Urea Nitrogen 35H, Creatinine 3.2H, Estimat Glomerular Filtration Rate 14.4, Glucose Level 116H, Calcium Level 7.6L, Total Bilirubin 19.9H, Direct Bilirubin 15.9H, Aspartate Amino Transf (AST/SGOT) 21, Alanine Aminotransferase (ALT/SGPT) < 6L, Alkaline Phosphatase 1200H, Total Protein 5.5L, Albumin 2.2L, Globulin 3.3, Albumin/Globulin Ratio 0.7L, Random Vancomycin Level 14.8 09/13/20 11:55: Sodium Level [Pending], Potassium Level [Pending], Chloride Level [Pending], Carbon Dioxide Level [Pending], Blood Urea Nitrogen [Pending], Creatinine [Pending], Estimat Glomerular Filtration Rate [Pending], Glucose Level [Pendin g], Calcium Level [Pending], Total Bilirubin [Pending], Aspartate Amino Transf (AST/SGOT) [Pending], Alanine Aminotransferase (ALT/SGPT) [Pending], Alkaline Phosphatase [Pending], Total Protein [Pending], Albumin [Pending], Globulin [Pending] Height (Feet): 5 Height (Inches): 3.00 Weight (Pounds): 110 Objective Elderly woman jaundice bloody NGT and Yates drainage supple CTA RR Abd soft (++) edema Assessment/Plan Status: unchanged Assessment/Plan: Assessment/Plan metastatic rectal CA - poor prognosis jaundice biliary obstruction with metallic stent sepsis - possible cholangitis anemia s/p blood transfusion ? cirrhosis DNR/DNI Moribund / terminal Recommendations NPO IVF hepatitis panel pending repeat labs abx per ID family to see patient tonight for final planning possible ERCP if patient stabilized Merlene Revees MD Sep 13, 2020 14:17
--- NOTE | 2020-09-13 14:54 | Surgery Progress Note ---
Surgery Progress Note Subjective Additional Comments Ill-appearing Objective Last 24 Hour Vital Signs Date Time Temp Pulse Resp B/P (MAP) Pulse Ox O2 Delivery O2 Flow Rate FiO2 09/13/20 11:56 97.0 09/13/20 09:00 Nasal Cannula 2.0 09/13/20 07:36 98 Nasal Cannula 2.0 28 09/13/20 04:00 97.0 103 23 103/66 (78) 98 09/13/20 00:49 97.0 115 22 125/81 (96) 97 09/12/20 21:00 Nasal Cannula 2.0 09/12/20 20:41 97.5 124 19 150/107 (121) 94 09/12/20 19:53 96 Nasal Cannula 2.0 28 09/12/20 16:43 Nasal Cannula 2.0 09/12/20 16:00 127 25 164/98 (120) 94 09/12/20 16:00 Nasal Cannula 2.0 09/12/20 15:00 121 30 120/79 (93) 96 I&O Intake and Output 09/12/20 09/13/20 19:00 07:00 Intake Total 845.72 ml 555 ml Output Total 170 ml Balance 675.72 ml 555 ml Intake IV Total 845.72 ml 555 ml Output Urine Total 170 ml Cardiovascular: RSR Respiratory: decreased breath sounds Abdomen: distended - Fluid, non-tender, other, decreased bowel sounds Extremities: no edema, no tenderness, no cyanosis Laboratory Tests Test 09/12/20 19:43 09/13/20 05:46 09/13/20 11:55 White Blood Count 25.2 K/UL (4.8-10.8) *H Red Blood Count 3.48 M/UL (4.20-5.40) L Hemoglobin 9.9 G/DL (12.0-16.0) L Hematocrit 28.1 % (37.0-47.0) L Mean Corpuscular Volume 81 FL (80-99) Mean Corpuscular Hemoglobin 28.4 PG (27.0-31.0) Mean Corpuscular Hemoglobin Concent 35.2 G/DL (32.0-36.0) Red Cell Distribution Width 19.2 % (11.6-14.8) H Platelet Count 236 K/UL (150-450) Mean Platelet Volume 9.3 FL (6.5-10.1) Neutrophils (%) (Auto) % (45.0-75.0) Lymphocytes (%) (Auto) % (20.0-45.0) Monocytes (%) (Auto) % (1.0-10.0) Eosinophils (%) (Auto) % (0.0-3.0) Basophils (%) (Auto) % (0.0-2.0) Differential Total Cells Counted 100 Neutrophils % (Manual) 85 % (45-75) H Lymphocytes % (Manual) 2 % (20-45) L Monocytes % (Manual) 2 % (1-10) Eosinophils % (Manual) 2 % (0-3) Basophils % (Manual) 0 % (0-2) Band Neutrophils 9 % (0-8) H Platelet Estimate Adequate Platelet Morphology Normal Sodium Level 133 MMOL/L (136-145) L Pending Potassium Level 3.4 MMOL/L (3.5-5.1) L Pending Chloride Level 103 MMOL/L (98-107) Pending Carbon Dioxide Level 16 MMOL/L (21-32) L Pending Anion Gap 14 mmol/L (5-15) Blood Urea Nitrogen 35 mg/dL (7-18) H Pending Creatinine 3.2 MG/DL (0.55-1.30) H Pending Estimat Glomerular Filtration Rate 14.4 mL/min (>60) Pending Glucose Level 116 MG/DL (74-106) H Pending Calcium Level 7.6 MG/DL (8.5-10.1) L Pending Total Bilirubin 19.9 MG/DL (0.2-1.0) H Pending Direct Bilirubin 15.9 MG/DL (0.0-0.3) H Aspartate Amino Transf (AST/SGOT) 21 U/L (15-37) Pending Alanine Aminotransferase (ALT/SGPT) < 6 U/L (12-78) L Pending Alkaline Phosphatase 1200 U/L (46-116) H Pending Total Protein 5.5 G/DL (6.4-8.2) L Pending Albumin 2.2 G/DL (3.4-5.0) L Pending Globulin 3.3 g/dL Pending Albumin/Globulin Ratio 0.7 (1.0-2.7) L Random Vancomycin Level 14.8 ug/mL Plan Problems: (1) Hematuria (2) Renal failure (3) Severe sepsis Assessment & Plan: causing sbo seemingly reduced at bedside unfortunately patient is not a surgical candidate prognosis is poor and survival is low aggressive intervention would be medically futile and surgery would strongly not be recommended in her condition recommend hospice and end of life comfort care thank you will follow with exam and recs (4) Spigelian hernia Assessment & Plan: ABDOMEN: Liver: Unremarkable. Gallbladder and bile ducts: Metal stent within the common bile duct with severe intrahepatic biliary dilatation. The gallbladder is distended. Pancreas: Poorly visualized pancreatic parenchyma given the lack of contrast. Spleen: Unremarkable. Adrenals: Unremarkable. Kidneys and ureters: Bilateral nephroureteral stents in place. Moderate bilateral hydronephrosis. Hyperdense 1.9 cm structure in the left renal upper pole is contrast density potentially representing retained contrast in a calyceal cyst. Stomach and bowel: Right-sided spigelian hernia containing a loop of small bowel. The small bowel is dilated both within the hernia sac and upstream with fluid levels likely representing obstruction. Postsurgical changes within the rectum and right lower quadrant small bowel. No small bowel pneumatosis. PELVIS: Appendix: No findings to suggest acute appendicitis. Bladder: Tovar catheter within the bladder. No stones. Reproductive: Unremarkable as visualized. ABDOMEN and PELVIS: Intraperitoneal space: Unremarkable. No free air. No significant fluid collection. Bones/joints: No acute fracture. Soft tissues: Marked anasarca. Vasculature: IVC filter in place. Lymph nodes: Bulky calcified retroperitoneal and epigastric lymph nodes suspicious for metastatic disease. IMPRESSION: 1. Right-sided spigelian hernia containing a loop of small bowel. The small bowel is dilated both within the hernia sac and upstream with fluid levels likely representing obstruction. 2. Metal stent within the common bile duct with severe intrahepatic biliary dilatation. 3. Bilateral nephroureteral stents in place. Moderate bilateral hydronephrosis. 4. Multiple pulmonary nodules and intra-abdominal adenopathy suspicious for metastatic disease. 5. Fluid overload as evidenced by marked anasarca and small bilateral pleural effusions. (5) UTI (urinary tract infection) (6) Liver failure Nicholas Haas Sep 13, 2020 14:54
[2020-09-13 15:58] LABS: HEMATOCRIT 28.6 % (37.0-47.0); HEMOGLOBIN 9.5 G/DL (12.0-16.0); MEAN CORPUSCULAR VOLUME 83 FL (80-99); PLATELET COUNT 201 K/UL (150-450); RED BLOOD COUNT 3.43 M/UL (4.20-5.40); RED CELL DISTRIBUTION WIDTH 18.9 % (11.6-14.8)
[2020-09-13 16:03] LABS: WHITE BLOOD COUNT 23.5 K/UL (4.8-10.8)
[2020-09-13 16:10] LABS: INR 1.4 (0.9-1.1)
[2020-09-13 16:30] LABS: ALANINE AMINOTRANSFERASE < 6 U/L (12-78); ALBUMIN 2.2 G/DL (3.4-5.0); ALBUMIN/GLOBULIN RATIO 0.8 (1.0-2.7); ALKALINE PHOSPHATASE 1195 U/L (46-116); ANION GAP 14 mmol/L (5-15); ASPARTATE AMINO TRANSFERASE 19 U/L (15-37); BILIRUBIN,TOTAL 19.2 MG/DL (0.2-1.0); BLOOD UREA NITROGEN 42 mg/dL (7-18); CALCIUM 7.8 MG/DL (8.5-10.1); CARBON DIOXIDE 17 MMOL/L (21-32); CHLORIDE 105 MMOL/L (98-107); CREATININE 3.3 MG/DL (0.55-1.30); POTASSIUM 3.3 MMOL/L (3.5-5.1); SODIUM 136 MMOL/L (136-145)
[2020-09-13 16:31] LABS: BILIRUBIN,DIRECT 17.1 MG/DL (0.0-0.3)
[2020-09-13] MEDS: Cefepime HCl 1 GM in D5W 55 ML IVPB SCH (18:32)
[2020-09-13 20:00] VITALS: BP 132/66
[2020-09-13] MEDS: Dyna-Hex 2% Top Sol 2oz TOPIC SCH (21:31)
[2020-09-14] VITALS: BP 96/64
[2020-09-14 04:56] LABS: HEMATOCRIT 25.6 % (37.0-47.0); HEMOGLOBIN 8.8 G/DL (12.0-16.0); MEAN CORPUSCULAR VOLUME 81 FL (80-99); PLATELET COUNT 181 K/UL (150-450); RED BLOOD COUNT 3.15 M/UL (4.20-5.40); RED CELL DISTRIBUTION WIDTH 19.6 % (11.6-14.8); WHITE BLOOD COUNT 18.1 K/UL (4.8-10.8)
[2020-09-14 05:07] LABS: INR 1.4 (0.9-1.1)
[2020-09-14] MEDS: Sodium Citrate 30ml NG SCH ×4 (05:43→18:39)
--- NOTE | 2020-09-14 07:01 | Hematology/Onc Progress Note ---
Assessment/Plan Assessment/Plan Assessment/Recs # Metastatic rectal cancer, Primary oncologist Dr. Dana Herrera in [place]. Will try to obtain contact information and further discuss GOC --> Per prior dc summary, there is no more plan for medical treatment and GOC will need to be addressed. --> Patient is a candidate for hospice and will discuss with her and her brother Elfego --> CT with Multiple pulmonary nodules and intra-abdominal adenopathy suspicious for metastatic disease. --> cea is 520, markedly elev, usually marker for colon ca --> agree very poor prognosis --> labs reviewed # Coagulopathy likely due to sepsis/lvier disease --> FFP and vit K ordered --> monitor for bleed --> transfuse to keep hgb >7 --> vit k and ffp ordered 09/10 # Anemia r/o gi bleed --> anemia panel ordered --> hgb goal >7 --> as per gi recs --> hgb 9.7 # Leuckocytosis with Sepsis with initally Hypotension --> Underlying etiology include bacteremia, PICC related infection, PORT related, UTI --> Broad sp antibiotic started and will be continued. 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 The small b owel is dilated both within the hernia sac and upstream with fluid levels likely representing obstruction Metal stent within the common bile duct --> as per gi # Hematuria --> yates, per uro # DVT ppx with SCD only Appreciate consultation and dw RN Subjective Constitutional: Denies: no symptoms, chills, fever, malaise, weakness, other HEENT: Denies: no symptoms, eye pain, blurred vision, tearing, double vision, ear pain, ear discharge, nose pain, nose congestion, throat pain, throat swelling, mouth pain, mouth swelling, other Cardiovascular: Denies: no symptoms, chest pain, edema, irregular heart rate, lightheadedness, palpitations, syncope, other Gastrointestinal/Abdominal: Denies: no symptoms, abdomen distended, abdominal pain, black stools, tarry stools, blood in stool, constipated, diarrhea, difficulty swallowing, nausea, poor appetite, poor fluid intake, rectal bleeding, vomiting, other Genitourinary: Denies: no symptoms, burning, discharge, frequency, flank pain, hematuria, incontinence, pain, urgency, other Neurologic/Psychiatric: Denies: no symptoms, anxiety, depressed, emotional problems, headache, numbness, paresthesia, pre-existing deficit, seizure, tingling, tremors, weakness, other Endocrine: Denies: no symptoms, excessive sweating, flushing, intolerance to cold, intolerance to heat, increased hunger, increased thirst, increased urine, unexplained weight gain, unexplained weight loss, other Hematologic/Lymphatic: Denies: no symptoms, anemia, easy bleeding, easy bruising, adenopathy, other Allergies: Coded Allergies: No Known Allergies (Unverified , 09/09/20) Subjective 09/11 labs reviewed, meds noted, no bleeding, dw rn, no major changes, wbc 24 09/13 wbc again elev, remains confused, on 2l, yates catheter and ngt 09/14 nc, ng with yates, no events, urine remains reddish in yates Objective Objective Current Medications Medications (Trade) Dose Ordered Sig/Laisha Route PRN Reason Start Time Stop Time Status Last Admin Dose Admin Acetaminophen (Tylenol) 650 mg Q4H PRN ORAL Fever 09/09/20 19:58 10/09/20 19:57 Bisacodyl (Dulcolax) 10 mg DAILYPRN PRN RECTAL Constipation 09/09/20 19:15 12/08/20 19:14 Cefepime HCl 1 gm/ Dextrose 55 ml @ 110 mls/hr Q24H IVPB 09/10/20 18:00 09/17/20 17:59 09/13/20 18:32 Chlorhexidine Gluconate (Samia-Hex 2%) 1 applic DAILY@2000 TOPIC 09/10/20 20:00 12/09/20 19:59 09/13/20 21:31 Dextrose (Dextrose 50%) 25 ml Q30M PRN IV Hypoglycemia 09/09/20 19:59 12/08/20 19:58 Dextrose (Dextrose 50%) 50 ml Q30M PRN IV Hypoglycemia 09/09/20 19:59 12/08/20 19:58 Dextrose/Sodium Chloride 1,000 ml @ 50 mls/hr Q20H IV 09/11/20 11:15 10/11/20 11:14 09/13/20 23:14 Docusate Sodium (Colace) 100 mg EVERY 12 HOURS ORAL 09/09/20 21:00 10/09/20 20:59 09/13/20 21:30 Fluconazole/ Sodium Chloride 100 ml @ 100 mls/hr Q24H IV 09/11/20 15:00 09/18/20 14:59 09/13/20 14:52 Hydromorphone HCl (Dilaudid) 0.5 mg Q2H PRN IVP Mild Pain (1-3) 09/09/20 19:15 09/16/20 19:14 09/12/20 21:50 Hydromorphone HCl (Dilaudid) 1 mg Q2H PRN IVP Moderate Pain (Pain Scale 4-6) 09/09/20 20:07 09/16/20 20:06 09/13/20 16:41 Hydromorphone HCl (Dilaudid) 2 mg Q4H PRN IVP Severe Pain (Pain Scale 7-10) 09/09/20 19:15 09/16/20 19:14 09/13/20 21:30 Lactulose (Cephulac) 30 gm THREE TIMES A DAY NG 09/12/20 10:45 10/12/20 10:44 09/13/20 08:20 Lorazepam (Ativan 2mg/ml 1ml) 0.5 mg Q4H PRN IV For Anxiety 09/09/20 20:00 09/16/20 19:59 09/11/20 01:46 Metronidazole 100 ml @ 100 mls/hr Q8H IVPB 09/10/20 00:00 09/17/20 00:00 09/13/20 23:13 Pantoprazole (Protonix) 40 mg DAILY IV 09/10/20 09:00 10/10/20 08:59 09/13/20 08:21 Sodium Citrate (Bicitra) 30 ml EVERY 6 HOURS NG 09/12/20 11:00 10/11/20 11:59 09/13/20 05:09 Vancomycin HCl ([facility] pharmacy to dose) 1 ea DAILY PRN MISC Per rx protocol 09/09/20 19:15 10/09/20 19:14 Last 24 Hour Vital Signs Date Time Temp Pulse Resp B/P (MAP) Pulse Ox O2 Delivery O2 Flow Rate FiO2 09/14/20 04:38 Nasal Cannula 2.0 09/14/20 00:00 96.5 96 14 96/64 (75) 95 09/13/20 22:00 97.0 09/13/20 21:01 Nasal Cannula 2.0 09/13/20 21:00 Nasal Cannula 2.0 09/13/20 20:00 97.0 76 15 132/66 (88) 95 09/13/20 11:56 97.0 09/13/20 09:00 Nasal Cannula 2.0 09/13/20 07:36 98 Nasal Cannula 2.0 28 09/13/20 04:00 97.0 103 23 103/66 (78) 98 09/13/20 00:49 97.0 115 22 125/81 (96) 97 09/12/20 21:00 Nasal Cannula 2.0 09/12/20 20:41 97.5 124 19 150/107 (121) 94 09/12/20 19:53 96 Nasal Cannula 2.0 09/12/20 16:43 Nasal Cannula 2.0 09/12/20 16:00 127 25 164/98 (120) 94 09/12/20 16:00 Nasal Cannula 2.0 09/12/20 15:00 121 30 120/79 (93) 96 09/12/20 14:00 122 28 116/68 (84) 98 09/12/20 13:00 115 20 139/65 (89) 99 09/12/20 12:00 Nasal Cannula 2.0 09/12/20 12:00 116 19 90/63 (72) 100 09/12/20 12:00 114 09/12/20 11:00 119 23 165/87 (113) 100 09/12/20 10:10 165/87 09/12/20 10:00 92/51 09/12/20 10:00 118 25 92/51 (65) 100 09/12/20 09:03 99 Nasal Cannula 2.0 28 09/12/20 09:00 135/84 09/12/20 09:00 120 25 135/84 (101) 100 09/12/20 08:13 107 09/12/20 08:00 97.8 108 16 127/72 (90) 09/12/20 08:00 127/72 09/12/20 08:00 Nasal Cannula 2.0 Intake and Output 09/13/20 09/14/20 19:00 07:00 Intake Total 550 ml Output Total 100 ml Balance 450 ml Intake IV Total 550 ml Output Urine Total 100 ml Labs Test 09/12/20 06:20 09/12/20 13:27 09/12/20 19:43 09/13/20 05:46 White Blood Count 24.8 K/UL (4.8-10.8) 25.2 K/UL (4.8-10.8) Red Blood Count 3.86 M/UL (4.20-5.40) 3.48 M/UL (4.20-5.40) Hemoglobin 10.6 G/DL (12.0-16.0) 9.9 G/DL (12.0-16.0) Hematocrit 30.0 % (37.0-47.0) 28.1 % (37.0-47.0) Mean Corpuscular Volume 78 FL (80-99) 81 FL (80-99) Mean Corpuscular Hemoglobin 27.3 PG (27.0-31.0) 28.4 PG (27.0-31.0) Mean Corpuscular Hemoglobin Concent 35.2 G/DL (32.0-36.0) 35.2 G/DL (32.0-36.0) Red Cell Distribution Width 19.2 % (11.6-14.8) 19.2 % (11.6-14.8) Platelet Count 261 K/UL (150-450) 236 K/UL (150-450) Mean Platelet Volume 8.4 FL (6.5-10.1) 9.3 FL (6.5-10.1) Neutrophils (%) (Auto) % (45.0-75.0) % (45.0-75.0) Lymphocytes (%) (Auto) % (20.0-45.0) % (20.0-45.0) Monocytes (%) (Auto) % (1.0-10.0) % (1.0-10.0) Eosinophils (%) (Auto) % (0.0-3.0) % (0.0-3.0) Basophils (%) (Auto) % (0.0-2.0) % (0.0-2.0) Differential Total Cells Counted 100 100 Neutrophils % (Manual) 95 % (45-75) 85 % (45-75) Lymphocytes % (Manual) 1 % (20-45) 2 % (20-45) Monocytes % (Manual) 2 % (1-10) 2 % (1-10) Eosinophils % (Manual) 1 % (0-3) 2 % (0-3) Basophils % (Manual) 0 % (0-2) 0 % (0-2) Band Neutrophils 1 % (0-8) 9 % (0-8) Platelet Estimate Adequate Adequate Platelet Morphology Normal Normal Hypochromasia 1+ Anisocytosis 2+ Microcytosis 2+ Sodium Level 129 MMOL/L (136-145) 133 MMOL/L (136-145) Potassium Level 3.7 MMOL/L (3.5-5.1) 3.4 MMOL/L (3.5-5.1) Chloride Level 101 MMOL/L (98-107) 103 MMOL/L (98-107) Carbon Dioxide Level 14 MMOL/L (21-32) 16 MMOL/L (21-32) Anion Gap 14 mmol/L (5-15) 14 mmol/L (5-15) Blood Urea Nitrogen 33 mg/dL (7-18) 35 mg/dL (7-18) Creatinine 3.0 MG/DL (0.55-1.30) 3.2 MG/DL (0.55-1.30) Estimat Glomerular Filtration Rate 15.5 mL/min (>60) 14.4 mL/min (>60) Glucose Level 114 MG/DL (74-106) 116 MG/DL (74-106) Uric Acid 5.0 MG/DL (2.6-7.2) Calcium Level 7.4 MG/DL (8.5-10.1) 7.6 MG/DL (8.5-10.1) Phosphorus Level 3.1 MG/DL (2.5-4.9) Magnesium Level 1.6 MG/DL (1.8-2.4) Total Bilirubin 18.5 MG/DL (0.2-1.0) 19.9 MG/DL (0.2-1.0) Direct Bilirubin 14.7 MG/DL (0.0-0.3) 15.9 MG/DL (0.0-0.3) Aspartate Amino Transf (AST/SGOT) 33 U/L (15-37) 21 U/L (15-37) Alanine Aminotransferase (ALT/SGPT) 6 U/L (12-78) < 6 U/L (12-78) Alkaline Phosphatase 1365 U/L (46-116) 1200 U/L (46-116) Ammonia 92 umol/L (11-32) Total Protein 5.4 G/DL (6.4-8.2) 5.5 G/DL (6.4-8.2) Albumin 2.3 G/DL (3.4-5.0) 2.2 G/DL (3.4-5.0) Globulin 3.1 g/dL 3.3 g/dL Albumin/Globulin Ratio 0.7 (1.0-2.7) 0.7 (1.0-2.7) Amylase Level 53 U/L (25-115) Lipase 178 U/L (73-393) Arterial Blood pH 7.338 (7.350-7.450) Arterial Blood Partial Pressure CO2 27.8 mmHg (35.0-45.0) Arterial Blood Partial Pressure O2 106.6 mmHg (75.0-100.0) Arterial Blood HCO3 14.6 mmol/L (22.0-26.0) Arterial Blood Oxygen Saturation 98.1 % (95-100) Arterial Blood Base Excess -9.9 (-2-2) Alvaro Test Positive Random Vancomycin Level 14.8 ug/mL Test 09/13/20 15:38 09/14/20 04:00 White Blood Count 23.5 K/UL (4.8-10.8) 18.1 K/UL (4.8-10.8) Red Blood Count 3.43 M/UL (4.20-5.40) 3.15 M/UL (4.20-5.40) Hemoglobin 9.5 G/DL (12.0-16.0) 8.8 G/DL (12.0-16.0) Hematocrit 28.6 % (37.0-47.0) 25.6 % (37.0-47.0) Mean Corpuscular Volume 83 FL (80-99) 81 FL (80-99) Mean Corpuscular Hemoglobin 27.8 PG (27.0-31.0) 28.1 PG (27.0-31.0) Mean Corpuscular Hemoglobin Concent 33.4 G/DL (32.0-36.0) 34.6 G/DL (32.0-36.0) Red Cell Distribution Width 18.9 % (11.6-14.8) 19.6 % (11.6-14.8) Platelet Count 201 K/UL (150-450) 181 K/UL (150-450) Mean Platelet Volume 8.3 FL (6.5-10.1) 8.8 FL (6.5-10.1) Neutrophils (%) (Auto) % (45.0-75.0) % (45.0-75.0) Lymphocytes (%) (Auto) % (20.0-45.0) % (20.0-45.0) Monocytes (%) (Auto) % (1.0-10.0) % (1.0-10.0) Eosinophils (%) (Auto) % (0.0-3.0) % (0.0-3.0) Basophils (%) (Auto) % (0.0-2.0) % (0.0-2.0) Differential Total Cells Counted 100 Neutrophils % (Manual) 94 % (45-75) Lymphocytes % (Manual) 2 % (20-45) Monocytes % (Manual) 3 % (1-10) Eosinophils % (Manual) 0 % (0-3) Basophils % (Manual) 0 % (0-2) Band Neutrophils 1 % (0-8) Platelet Estimate Adequate Platelet Morphology Giant Platelets Occasional Polychromasia 1+ Hypochromasia 1+ Anisocytosis 1+ Prothrombin Time 14.6 SEC (9.30-11.50) 14.7 SEC (9.30-11.50) Prothromb Time International Ratio 1.4 (0.9-1.1) 1.4 (0.9-1.1) Sodium Level 136 MMOL/L (136-145) Potassium Level 3.3 MMOL/L (3.5-5.1) Chloride Level 105 MMOL/L (98-107) Carbon Dioxide Level 17 MMOL/L (21-32) Anion Gap 14 mmol/L (5-15) Blood Urea Nitrogen 42 mg/dL (7-18) Creatinine 3.3 MG/DL (0.55-1.30) Estimat Glomerular Filtration Rate 13.9 mL/min (>60) Glucose Level 140 MG/DL (74-106) Calcium Level 7.8 MG/DL (8.5-10.1) Total Bilirubin 19.2 MG/DL (0.2-1.0) Direct Bilirubin 17.1 MG/DL (0.0-0.3) Aspartate Amino Transf (AST/SGOT) 19 U/L (15-37) Alanine Aminotransferase (ALT/SGPT) < 6 U/L (12-78) Alkaline Phosphatase 1195 U/L (46-116) Total Protein 5.0 G/DL (6.4-8.2) Albumin 2.2 G/DL (3.4-5.0) Globulin 2.8 g/dL Albumin/Globulin Ratio 0.8 (1.0-2.7) Height (Feet): 5 Height (Inches): 3.00 Weight (Pounds): 110 Objective General Appearance: moderate distress Lines, tubes and drains: peripheral, PICC HEENT: normocephalic, atraumatic Cardiovascular/Chest: normal rate Pulm: nc++ Genitourinary/Rectal: yates, other - hematuria Extremities: non-tender Skin Exam: jaundice Neurologic: time study engineer II-XII grossly normal Yury Cutler MD Sep 14, 2020 07:01
[2020-09-14 08:00] VITALS: BP 84/46
--- NOTE | 2020-09-14 08:32 | Nephrology Progress Note ---
Assessment/Plan Problem List: (1) ERIC (acute kidney injury) (2) Metastasis from rectal cancer (3) Elevated lipase (4) Severe sepsis (5) UTI (urinary tract infection) (6) Septic shock Assessment Acute renal failure Possible underlying renal failure Shock status on Levophed Jaundice Small bowel obstruction Bilateral hydronephrosis metastatic rectal cancer with biliary obstruction Metastatic disease, multiple pulmonary nodules Severe hypoalbuminemia and anasarca DNR/DNI Plan September 14: Yesterday's labs reviewed. Overall status unchanged. Continue current support. Last serum creatinine 3.2. September 13: Patient in [facility] now. Remains lethargic. Deteriorating. Renal parameters worsened. Patient DNR and DNI with metastatic rectal CA. Continue to favor comfort care only as no major intervention will be lifesaving for this patient under current medical conditions. September 12: Status quo. Deteriorating. Labs reviewed. Discussed with EVITA Ruiz. Not much to add from renal standpoint of view. Futile treatment. Favor comfort care. September 11: Labs reviewed. Abnormal electrolytes addressed. Discussed with EVITA Finley. Overall condition poor. Favor comfort care. Per orders. Hemoglobin higher posttransfusion. Plan: Hydrate Transfuse Poor prognosis Per consultants Support hospice and comfort care Discussed with Dr. Abarca Subjective ROS Limited/Unobtainable: Yes Objective Objective Last 24 Hour Vital Signs Date Time Temp Pulse Resp B/P (MAP) Pulse Ox O2 Delivery O2 Flow Rate FiO2 09/14/20 04:38 Nasal Cannula 2.0 09/14/20 00:00 96.5 96 14 96/64 (75) 95 09/13/20 22:00 97.0 09/13/20 21:01 Nasal Cannula 2.0 09/13/20 21:00 Nasal Cannula 2.0 09/13/20 20:00 97.0 76 15 132/66 (88) 95 09/13/20 11:56 97.0 09/13/20 09:00 Nasal Cannula 2.0 Intake and Output 09/13/20 09/14/20 19:00 07:00 Intake Total 550 ml Output Total 100 ml Balance 450 ml Intake IV Total 550 ml Output Urine Total 100 ml Current Medications Medications (Trade) Dose Ordered Sig/Laisha Route PRN Reason Start Time Stop Time Status Last Admin Dose Admin Acetaminophen (Tylenol) 650 mg Q4H PRN ORAL Fever 09/09/20 19:58 10/09/20 19:57 Bisacodyl (Dulcolax) 10 mg DAILYPRN PRN RECTAL Constipation 09/09/20 19:15 12/08/20 19:14 Cefepime HCl 1 gm/ Dextrose 55 ml @ 110 mls/hr Q24H IVPB 09/10/20 18:00 09/17/20 17:59 09/13/20 18:32 Chlorhexidine Gluconate (Samia-Hex 2%) 1 applic DAILY@2000 TOPIC 09/10/20 20:00 12/09/20 19:59 09/13/20 21:31 Dextrose (Dextrose 50%) 25 ml Q30M PRN IV Hypoglycemia 09/09/20 19:59 12/08/20 19:58 Dextrose (Dextrose 50%) 50 ml Q30M PRN IV Hypoglycemia 09/09/20 19:59 12/08/20 19:58 Dextrose/Sodium Chloride 1,000 ml @ 50 mls/hr Q20H IV 09/11/20 11:15 10/11/20 11:14 09/13/20 23:14 Docusate Sodium (Colace) 100 mg EVERY 12 HOURS ORAL 09/09/20 21:00 10/09/20 20:59 09/13/20 21:30 Fluconazole/ Sodium Chloride 100 ml @ 100 mls/hr Q24H IV 09/11/20 15:00 09/18/20 14:59 09/13/20 14:52 Hydromorphone HCl (Dilaudid) 0.5 mg Q2H PRN IVP Mild Pain (1-3) 09/09/20 19:15 09/16/20 19:14 09/12/20 21:50 Hydromorphone HCl (Dilaudid) 1 mg Q2H PRN IVP Moderate Pain (Pain Scale 4-6) 09/09/20 20:07 09/16/20 20:06 09/13/20 16:41 Hydromorphone HCl (Dilaudid) 2 mg Q4H PRN IVP Severe Pain (Pain Scale 7-10) 09/09/20 19:15 09/16/20 19:14 09/13/20 21:30 Lactulose (Cephulac) 30 gm THREE TIMES A DAY NG 09/12/20 10:45 10/12/20 10:44 09/13/20 08:20 Lorazepam (Ativan 2mg/ml 1ml) 0.5 mg Q4H PRN IV For Anxiety 09/09/20 20:00 09/16/20 19:59 09/11/20 01:46 Metronidazole 100 ml @ 100 mls/hr Q8H IVPB 09/10/20 00:00 09/17/20 00:00 09/13/20 23:13 Pantoprazole (Protonix) 40 mg DAILY IV 09/10/20 09:00 10/10/20 08:59 09/13/20 08:21 Sodium Citrate (Bicitra) 30 ml EVERY 6 HOURS NG 09/12/20 11:00 10/11/20 11:59 09/13/20 05:09 Vancomycin HCl ([facility] pharmacy to dose) 1 ea DAILY PRN MISC Per rx protocol 09/09/20 19:15 10/09/20 19:14 Laboratory Tests 09/13/20 15:38: White Blood Count 23.5*H, Red Blood Count 3.43L, Hemoglobin 9.5L, Hematocrit 28.6L, Mean Corpuscular Volume 83, Mean Corpuscular Hemoglobin 27.8, Mean Corpuscular Hemoglobin Concent 33.4, Red Cell Distribution Width 18.9H, Platelet Count 201, Mean Platelet Volume 8.3, Neutrophils (%) (Auto) , Lymphocytes (%) (Auto) , Monocytes (%) (Auto) , Eosinophils (%) (Auto) , Basophils (%) (Auto) , Differential Total Cells Counted 100, Neutrophils % (Manual) 94H, Lymphocytes % (Manual) 2L, Monocytes % (Manual) 3, Eosinophils % (Manual) 0, Basophils % (Manual) 0, Band Neutrophils 1, Platelet Estimate Adequate, Platelet Morphology , Giant Platelets Occasional, Polychromasia 1+, Hypochromasia 1+, Anisocytosis 1+, Prothrombin Time 14.6H, Prothromb Time International Ratio 1.4H, Sodium Level 136, Potassium Level 3.3L, Chloride Level 105, Carbon Dioxide Level 17L, Anion Gap 14, Blood Urea Nitrogen 42H, Creatinine 3.3H, Estimat Glomerular Filtration Rate 13.9, Glucose Level 140H, Calcium Level 7.8L, Total Bilirubin 19.2H, Direct Bilirubin 17.1H, Aspartate Amino Transf (AST/SGOT) 19, Alanine Aminotransferase (ALT/SGPT) < 6L, Alkaline Phosphatase 1195H, Total Protein 5.0L , Albumin 2.2L, Globulin 2.8, Albumin/Globulin Ratio 0.8L 09/14/20 04:00: White Blood Count 18.1H, Red Blood Count 3.15L, Hemoglobin 8.8L, Hematocrit 25.6L, Mean Corpuscular Volume 81, Mean Corpuscular Hemoglobin 28.1, Mean Corpuscular Hemoglobin Concent 34.6, Red Cell Distribution Width 19.6H, Platelet Count 181, Mean Platelet Volume 8.8, Neutrophils (%) (Auto) , Lymphocytes (%) (Auto) , Monocytes (%) (Auto) , Eosinophils (%) (Auto) , Basophils (%) (Auto) , Neutrophils % (Manual) [Pending], Lymphocytes % (Manual) [Pending], Platelet Estimate [Pending], Platelet Morphology [Pending], Prothrombin Time 14.7H, Prothromb Time International Ratio 1.4H Height (Feet): 5 Height (Inches): 3.00 Weight (Pounds): 110 General Appearance: no apparent distress, lethargic, other - Jaundiced Cardiovascular: tachycardia Respiratory/Chest: decreased breath sounds Abdomen: distended Luis Turner MD Sep 14, 2020 08:32
[2020-09-14] MEDS: Pantoprazole Inj IV SCH (08:53)
[2020-09-14] MEDS: Docusate 100mg cap ORAL SCH ×2 (08:56→20:58)
[2020-09-14] MEDS: Lactulose 20gm/30ml UDC NG SCH ×4 (08:56→18:39)
--- NOTE | 2020-09-14 11:22 | General Progress Note ---
Subjective ROS Limited/Unobtainable: No Allergies: Coded Allergies: No Known Allergies (Unverified , 09/09/20) Objective Last 24 Hour Vital Signs Date Time Temp Pulse Resp B/P (MAP) Pulse Ox O2 Delivery O2 Flow Rate FiO2 09/14/20 08:00 98.0 121 21 84/46 (59) 97 09/14/20 04:38 Nasal Cannula 2.0 09/14/20 00:00 96.5 96 14 96/64 (75) 95 09/13/20 22:00 97.0 09/13/20 21:01 Nasal Cannula 2.0 09/13/20 21:00 Nasal Cannula 2.0 09/13/20 20:00 97.0 76 15 132/66 (88) 95 09/13/20 11:56 97.0 Intake and Output 09/13/20 09/14/20 19:00 07:00 Intake Total 550 ml Output Total 100 ml Balance 450 ml Intake IV Total 550 ml Output Urine Total 100 ml Laboratory Tests 09/13/20 15:38: White Blood Count 23.5*H, Red Blood Count 3.43L, Hemoglobin 9.5L, Hematocrit 28.6L, Mean Corpuscular Volume 83, Mean Corpuscular Hemoglobin 27.8, Mean Corpuscular Hemoglobin Concent 33.4, Red Cell Distribution Width 18.9H, Platelet Count 201, Mean Platelet Volume 8.3, Neutrophils (%) (Auto) , Lymphocytes (%) (Auto) , Monocytes (%) (Auto) , Eosinophils (%) (Auto) , Basophils (%) (Auto) , Differential Total Cells Counted 100, Neutrophils % (Manual) 94H, Lymphocytes % (Manual) 2L, Monocytes % (Manual) 3, Eosinophils % (Manual) 0, Basophils % (Manual) 0, Band Neutrophils 1, Platelet Estimate Adequate, Platelet Morphology , Giant Platelets Occasional, Polychromasia 1+, Hypochromasia 1+, Anisocytosis 1+, Prothrombin Time 14.6H, Prothromb Time International Ratio 1.4H, Sodium Level 136, Potassium Level 3.3L, Chloride Level 105, Carbon Dioxide Level 17L, Anion Gap 14, Blood Urea Nitrogen 42H, Creatinine 3.3H, Estimat Glomerular Filtration Rate 13.9, Glucose Level 140H, Calcium Level 7.8L, Total Bilirubin 19.2H, Direct Bilirubin 17.1H, Aspartate Amino Transf (AST/SGOT) 19, Alanine Aminotransferase (ALT/SGPT) < 6L, Alkaline Phosphatase 1195H, Total Protein 5.0L , Albumin 2.2L, Globulin 2.8, Albumin/Globulin Ratio 0.8L 09/14/20 04:00: White Blood Count 18.1H, Red Blood Count 3.15L, Hemoglobin 8.8L, Hematocrit 25.6L, Mean Corpuscular Volume 81, Mean Corpuscular Hemoglobin 28.1, Mean Corpuscular Hemoglobin Concent 34.6, Red Cell Distribution Width 19.6H, Platelet Count 181, Mean Platelet Volume 8.8, Neutrophils (%) (Auto) , Lymphocytes (%) (Auto) , Monocytes (%) (Auto) , Eosinophils (%) (Auto) , Basophils (%) (Auto) , Differential Total Cells Counted 100, Neutrophils % (Manual) 94H, Lymphocytes % (Manual) 2L, Monocytes % (Manual) 2, Eosinophils % (Manual) 0, Basophils % (Manual) 0, Band Neutrophils 2, Platelet Estimate Adequate, Platelet Morphology Normal, Anisocytosis 2+, Prothrombin Time 14.7H, Prothromb Time International Ratio 1.4H Height (Feet): 5 Height (Inches): 3.00 Weight (Pounds): 110 General Appearance: lethargic EENT: scleral icterus Neck: supple Cardiovascular: tachycardia Respiratory/Chest: decreased breath sounds Abdomen: hypoactive bowel sounds Extremities: non-tender Assessment/Plan Status: unchanged Assessment/Plan: Assessment/Plan Status: unchanged Assessment/Plan: Assessment/Plan metastatic rectal CA - poor prognosis jaundice biliary obstruction with metallic stent sepsis - possible cholangitis anemia s/p blood transfusion ? cirrhosis DNR/DNI Moribund / terminal Recommendations NPO IVF hepatitis panel pending repeat labs abx per ID lactulose poor prognosis possible ERCP if patient stabilized Naseem Nuñez MD Sep 14, 2020 11:22
--- NOTE | 2020-09-14 11:33 | General Progress Note ---
Subjective Date patient seen: Sep 14, 2020 Time patient seen: 10:00 ROS Limited/Unobtainable: Yes Allergies: Coded Allergies: No Known Allergies (Unverified , 09/09/20) Subjective Patient is awake today, NGT in place. Jaundiced and frail, her breathing is labored and she denies pain. She drifts in and out of sleep. Objective Last 24 Hour Vital Signs Date Time Temp Pulse Resp B/P (MAP) Pulse Ox O2 Delivery O2 Flow Rate FiO2 09/14/20 08:00 98.0 121 21 84/46 (59) 97 09/14/20 04:38 Nasal Cannula 2.0 09/14/20 00:00 96.5 96 14 96/64 (75) 95 09/13/20 22:00 97.0 09/13/20 21:01 Nasal Cannula 2.0 09/13/20 21:00 Nasal Cannula 2.0 09/13/20 20:00 97.0 76 15 132/66 (88) 95 09/13/20 11:56 97.0 Intake and Output 09/13/20 09/14/20 19:00 07:00 Intake Total 550 ml Output Total 100 ml Balance 450 ml Intake IV Total 550 ml Output Urine Total 100 ml Laboratory Tests 09/13/20 15:38: White Blood Count 23.5*H, Red Blood Count 3.43L, Hemoglobin 9.5L, Hematocrit 28.6L, Mean Corpuscular Volume 83, Mean Corpuscular Hemoglobin 27.8, Mean Co rpuscular Hemoglobin Concent 33.4, Red Cell Distribution Width 18.9H, Platelet Count 201, Mean Platelet Volume 8.3, Neutrophils (%) (Auto) , Lymphocytes (%) (Auto) , Monocytes (%) (Auto) , Eosinophils (%) (Auto) , Basophils (%) (Auto) , Differential Total Cells Counted 100, Neutrophils % (Manual) 94H, Lymphocytes % (Manual) 2L, Monocytes % (Manual) 3, Eosinophils % (Manual) 0, Basophils % (Manual) 0, Band Neutrophils 1, Platelet Estimate Adequate, Platelet Morphology , Giant Platelets Occasional, Polychromasia 1+, Hypochromasia 1+, Anisocytosis 1+, Prothrombin Time 14.6H, Prothromb Time International Ratio 1.4H, Sodium Level 136, Potassium Level 3.3L, Chloride Level 105, Carbon Dioxide Level 17L, Anion Gap 14, Blood Urea Nitrogen 42H, Creatinine 3.3H, Estimat Glomerular Filtration Rate 13.9, Glucose Level 140H, Calcium Level 7.8L, Total Bilirubin 19.2H, Direct Bilirubin 17.1H, Aspartate Amino Transf (AST/SGOT) 19, Alanine Aminotransferase (ALT/SGPT) < 6L, Alkaline Phosphatase 1195H, Total Protein 5.0L , Albumin 2.2L, Globulin 2.8, Albumin/Globulin Ratio 0.8L 09/14/20 04:00: White Blood Count 18.1H, Red Blood Count 3.15L, Hemoglobin 8.8L, Hematocrit 25.6L, Mean Corpuscular Volume 81, Mean Corpuscular Hemoglobin 28.1, Mean Corpuscular Hemoglobin Concent 34.6, Red Cell Distribution Width 19.6H, Platelet Count 181, Mean Platelet Volume 8.8, Neutrophils (%) (Auto) , Lymphocytes (%) (Auto) , Monocytes (%) (Auto) , Eosinophils (%) (Auto) , Basophils (%) (Auto) , Differential Total Cells Counted 100, Neutrophils % (Manual) 94H, Lymphocytes % (Manual) 2L, Monocytes % (Manual) 2, Eosinophils % (Manual) 0, Basophils % (Manual) 0, Band Neutrophils 2, Platelet Estimate Adequate, Platelet Morphology Normal, Anisocytosis 2+, Prothrombin Time 14.7H, Prothromb Time International Ratio 1.4H Height (Feet): 5 Height (Inches): 3.00 Weight (Pounds): 110 General Appearance: WD/WN EENT: PERRL/EOMI Neck: non-tender Cardiovascular: normal rate Respiratory/Chest: decreased breath sounds Edema: trace edema, moderate edema Neurologic: fly setter II-XII grossly normal Skin: jaundice Assessment/Plan Status: unchanged Assessment/Plan: 70 y/o F with metastatic rectal cancer, recent history of obstructive jaundice - IR CBD exchange now admitted with: # Hypotension - septic shock - resolved. Underlying etiology include bacteremia, PICC related infection, PORT related, UTI due to Sydnee - ? colonized vs acute. Broad sp antibiotic started and will be continued. Monitor WBC - Persistently > 20K, at 25 K today ID quantitative consultant [facility] ( previously saw the patient at [facility] this month ) updated and antibiotic management per ID transferred out of ICU ( 09/12 ) for IVF and vasopressors OFF now Central line in place PICC hemodynamically stable now and due to high mortality, do not recommend ICU re admission and this was discussed with the family. Patient is actively dying and hospice is indicated. # Probable cholangitis and liver failure with hepatic encephalopathy and coagulopathy NH3 92 Trial of Lactulose and NGT started 09/12 with mild improvement in mental status. Now with NGT showing brown color fluid, can not rule out UGIB in the setting of liver failure and coagulopathy. Defer to GI team. INR 1.4 # Anemia of chronic disease vs acute blood loss anemia s/p 2 PRBC and 2 FFP 09/10 Hb from 6.8 to 9.7 and NOW 9.9 ( stable ) Stable and needs monitoring. Will provide new PRBC if Hb is less than 7 only. # Acute renal failure with metabolic acidosis Renal consultation requested with Dr. Tolentino - defer IVF management and appreciate support. Bicitra started and unable to take PO, changed to NGT. Creatinine 3.2 CO2 17 # Metastatic rectal cancer Primary oncologist Dr. Dana Herrera in [place]. Will try to obtain contact information and further discuss GOC Dr. Cutler consulted and appreciate input. High mortality and poor prognosis noted. Per prior dc summary, there is no more plan for medical treatment and GOC will need to be addressed. Follow up with [facility] TODAY [phone] AND COMFORT CARE WAS DISCUSSED. HOSPICE REFERRAL. RN UPDATED. # Abnormal CT abdomen and Pelvis 1. Right-sided spigelian hernia containing a loop of small bowel. The small bowel is dilated both within the hernia sac and upstream with fluid levels likely representing obstruction. 2. Metal stent within the common bile duct with severe intrahepatic biliary dilatation. Dr. Nuñez from GI consulted. Patient is not stable for possible MRCP - ? biliary stent migration since prior procedure. Dr. Haas from Surgery consulted and non surgical approach recommended. 3. Bilateral nephroureteral stents in place. Moderate bilateral hydronephrosis. 4. Multiple pulmonary nodules and intra-abdominal adenopathy suspicious for metastatic disease. # Hematuria Dr. Dewitt from urology consulted and case discussed over the phone. no acute intervention planned Monitor CBC, and Tovar output # Chronic pain syndrome Opiate therapy as needed for comfort. # Diet meds approved to use ( discussed with surgery today ) Prior NPO due to SBO which was clinically improved as Dr. Haas reduced the hernia and her abdomen became much smaller and softer afterwards. Per prior admission at [facility], this is a chronic hernia. # IVF per nephrology # DNR DNI discussed with the patient and family updated in agreement as well. # DVT ppx with SCD only # GI ppx wit PPI Guarded prognosis and high mortality risk this admission Family [phone] Jon Abarca MD Sep 14, 2020 11:33
[2020-09-14 12:00] VITALS: BP 88/50
--- NOTE | 2020-09-14 12:41 | Infectious Diseases Prog Note ---
Assessment/Plan 70yo F with: Afebrile Septic shock Leukocytosis Liver failure, Tbili up to 18 Probably cholangitis ERIC, worsening Metastatic renal CA, no further tx options BL urethral stents Probable pneumonia Probable fungal UTI 09/09 BCx NTD UCx + C.albicans MRSA nares neg CT A/P: right-sided hernia, metal stent within common bile duct and severe intrahepatic biliary dictation, bilateral nephroureteral stent and moderate bilateral hydronephrosis. Multiple pulmonary nodules suggestive of metastasis. Chest x-ray, bilateral masslike opacities. Plan: Stop vanco #4 given neg BCx, neg MRSA nares Cont cefepime/flagyl #5 Cont fluconazole #5/7 Monitor CBC/CMP Monitor resp status Monitor temp curve, hemodynamics D/w RN Thank you for this consult. [facility] will continue to follow. Subjective Allergies: Coded Allergies: No Known Allergies (Unverified , 09/09/20) AF 2L NC NAD in bed WBC improving to 18 Tbili up to 19 Objective Last 24 Hour Vital Signs Date Time Temp Pulse Resp B/P (MAP) Pulse Ox O2 Delivery O2 Flow Rate FiO2 09/14/20 12:00 97.9 109 20 88/50 (63) 97 09/14/20 08:00 98.0 121 21 84/46 (59) 97 09/14/20 04:38 Nasal Cannula 2.0 09/14/20 00:00 96.5 96 14 96/64 (75) 95 09/13/20 22:00 97.0 09/13/20 21:01 Nasal Cannula 2.0 09/13/20 21:00 Nasal Cannula 2.0 09/13/20 20:00 97.0 76 15 132/66 (88) 95 Height (Feet): 5 Height (Inches): 3.00 Weight (Pounds): 110 Gen: NAD in bed, jaundiced appearing HEENT: NCAT, icteric sclera CV: RRR Pulm: CTAB Abd: Soft, NTND Ext: No c/c/e Neuro: Awake, not interactive Laboratory Tests Test 09/13/20 15:38 09/14/20 04:00 White Blood Count 23.5 K/UL (4.8-10.8) *H 18.1 K/UL (4.8-10.8) H Red Blood Count 3.43 M/UL (4.20-5.40) L 3.15 M/UL (4.20-5.40) L Hemoglobin 9.5 G/DL (12.0-16.0) L 8.8 G/DL (12.0-16.0) L Hematocrit 28.6 % (37.0-47.0) L 25.6 % (37.0-47.0) L Mean Corpuscular Volume 83 FL (80-99) 81 FL (80-99) Mean Corpuscular Hemoglobin 27.8 PG (27.0-31.0) 28.1 PG (27.0-31.0) Mean Corpuscular Hemoglobin Concent 33.4 G/DL (32.0-36.0) 34.6 G/DL (32.0-36.0) Red Cell Distribution Width 18.9 % (11.6-14.8) H 19.6 % (11.6-14.8) H Platelet Count 201 K/UL (150-450) 181 K/UL (150-450) Mean Platelet Volume 8.3 FL (6.5-10.1) 8.8 FL (6.5-10.1) Neutrophils (%) (Auto) % (45.0-75.0) % (45.0-75.0) Lymphocytes (%) (Auto) % (20.0-45.0) % (20.0-45.0) Monocytes (%) (Auto) % (1.0-10.0) % (1.0-10.0) Eosinophils (%) (Auto) % (0.0-3.0) % (0.0-3.0) Basophils (%) (Auto) % (0.0-2.0) % (0.0-2.0) Differential Total Cells Counted 100 100 Neutrophils % (Manual) 94 % (45-75) H 94 % (45-75) H Lymphocytes % (Manual) 2 % (20-45) L 2 % (20-45) L Monocytes % (Manual) 3 % (1-10) 2 % (1-10) Eosinophils % (Manual) 0 % (0-3) 0 % (0-3) Basophils % (Manual) 0 % (0-2) 0 % (0-2) Band Neutrophils 1 % (0-8) 2 % (0-8) Platelet Estimate Adequate Adequate Platelet Morphology Normal Giant Platelets Occasional Polychromasia 1+ Hypochromasia 1+ Anisocytosis 1+ 2+ Prothrombin Time 14.6 SEC (9.30-11.50) H 14.7 SEC (9.30-11.50) H Prothromb Time International Ratio 1.4 (0.9-1.1) H 1.4 (0.9-1.1) H Sodium Level 136 MMOL/L (136-145) Potassium Level 3.3 MMOL/L (3.5-5.1) L Chloride Level 105 MMOL/L (98-107) Carbon Dioxide Level 17 MMOL/L (21-32) L Anion Gap 14 mmol/L (5-15) Blood Urea Nitrogen 42 mg/dL (7-18) H Creatinine 3.3 MG/DL (0.55-1.30) H Estimat Glomerular Filtration Rate 13.9 mL/min (>60) Glucose Level 140 MG/DL (74-106) H Calcium Level 7.8 MG/DL (8.5-10.1) L Total Bilirubin 19.2 MG/DL (0.2-1.0) H Direct Bilirubin 17.1 MG/DL (0.0-0.3) H Aspartate Amino Transf (AST/SGOT) 19 U/L (15-37) Alanine Aminotransferase (ALT/SGPT) < 6 U/L (12-78) L Alkaline Phosphatase 1195 U/L (46-116) H Total Protein 5.0 G/DL (6.4-8.2) L Albumin 2.2 G/DL (3.4-5.0) L Globulin 2.8 g/dL Albumin/Globulin Ratio 0.8 (1.0-2.7) L Current Medications Medications (Trade) Dose Ordered Sig/Laisha Route PRN Reason Start Time Stop Time Status Last Admin Dose Admin Acetaminophen (Tylenol) 650 mg Q4H PRN ORAL Fever 09/09/20 19:58 10/09/20 19:57 Bisacodyl (Dulcolax) 10 mg DAILYPRN PRN RECTAL Constipation 09/09/20 19:15 12/08/20 19:14 Cefepime HCl 1 gm/ Dextrose 55 ml @ 110 mls/hr Q24H IVPB 09/10/20 18:00 09/17/20 17:59 09/13/20 18:32 Chlorhexidine Gluconate (Samia-Hex 2%) 1 applic DAILY@2000 TOPIC 09/10/20 20:00 12/09/20 19:59 09/13/20 21:31 Dextrose (Dextrose 50%) 25 ml Q30M PRN IV Hypoglycemia 09/09/20 19:59 12/08/20 19:58 Dextrose (Dextrose 50%) 50 ml Q30M PRN IV Hypoglycemia 09/09/20 19:59 12/08/20 19:58 Dextrose/Sodium Chloride 1,000 ml @ 50 mls/hr Q20H IV 09/11/20 11:15 10/11/20 11:14 09/13/20 23:14 Docusate Sodium (Colace) 100 mg EVERY 12 HOURS ORAL 09/09/20 21:00 10/09/20 20:59 09/13/20 21:30 Fluconazole/ Sodium Chloride 100 ml @ 100 mls/hr Q24H IV 09/11/20 15:00 09/18/20 14:59 09/13/20 14:52 Hydromorphone HCl (Dilaudid) 0.5 mg Q2H PRN IVP Mild Pain (1-3) 09/09/20 19:15 09/16/20 19:14 09/12/20 21:50 Hydromorphone HCl (Dilaudid) 1 mg Q2H PRN IVP Moderate Pain (Pain Scale 4-6) 09/09/20 20:07 09/16/20 20:06 09/13/20 16:41 Hydromorphone HCl (Dilaudid) 2 mg Q4H PRN IVP Severe Pain (Pain Scale 7-10) 09/09/20 19:15 09/16/20 19:14 09/13/20 21:30 Lactulose (Cephulac) 30 gm THREE TIMES A DAY NG 09/12/20 10:45 10/12/20 10:44 09/13/20 08:20 Lorazepam (Ativan 2mg/ml 1ml) 0.5 mg Q4H PRN IV For Anxiety 09/09/20 20:00 09/16/20 19:59 09/11/20 01:46 Metronidazole 100 ml @ 100 mls/hr Q8H IVPB 09/10/20 00:00 09/17/20 00:00 09/14/20 08:54 Pantoprazole (Protonix) 40 mg DAILY IV 09/10/20 09:00 10/10/20 08:59 09/14/20 08:53 Sodium Citrate (Bicitra) 30 ml EVERY 6 HOURS NG 09/12/20 11:00 10/11/20 11:59 09/13/20 05:09 Vancomycin HCl ([facility] pharmacy to dose) 1 ea DAILY PRN MISC Per rx protocol 09/09/20 19:15 10/09/20 19:14 Merry Sue M.D. Sep 14, 2020 12:41
--- NOTE | 2020-09-14 13:23 | Surgery Progress Note ---
Surgery Progress Note Subjective Additional Comments worsening labored breathing ill appearing prognosis guarded Objective Last 24 Hour Vital Signs Date Time Temp Pulse Resp B/P (MAP) Pulse Ox O2 Delivery O2 Flow Rate FiO2 09/14/20 12:00 97.9 109 20 88/50 (63) 97 09/14/20 08:00 98.0 121 21 84/46 (59) 97 09/14/20 04:38 Nasal Cannula 2.0 09/14/20 00:00 96.5 96 14 96/64 (75) 95 09/13/20 22:00 97.0 09/13/20 21:01 Nasal Cannula 2.0 09/13/20 21:00 Nasal Cannula 2.0 09/13/20 20:00 97.0 76 15 132/66 (88) 95 I&O Intake and Output 09/13/20 09/14/20 19:00 07:00 Intake Total 550 ml Output Total 100 ml Balance 450 ml Intake IV Total 550 ml Output Urine Total 100 ml Cardiovascular: RSR Respiratory: decreased breath sounds Abdomen: non-tender, non-distended, decreased bowel sounds Extremities: edema, no tenderness, no cyanosis Laboratory Tests Test 09/13/20 15:38 09/14/20 04:00 White Blood Count 23.5 K/UL (4.8-10.8) *H 18.1 K/UL (4.8-10.8) H Red Blood Count 3.43 M/UL (4.20-5.40) L 3.15 M/UL (4.20-5.40) L Hemoglobin 9.5 G/DL (12.0-16.0) L 8.8 G/DL (12.0-16.0) L Hematocrit 28.6 % (37.0-47.0) L 25.6 % (37.0-47.0) L Mean Corpuscular Volume 83 FL (80-99) 81 FL (80-99) Mean Corpuscular Hemoglobin 27.8 PG (27.0-31.0) 28.1 PG (27.0-31.0) Mean Corpuscular Hemoglobin Concent 33.4 G/DL (32.0-36.0) 34.6 G/DL (32.0-36.0) Red Cell Distribution Width 18.9 % (11.6-14.8) H 19.6 % (11.6-14.8) H Platelet Count 201 K/UL (150-450) 181 K/UL (150-450) Mean Platelet Volume 8.3 FL (6.5-10.1) 8.8 FL (6.5-10.1) Neutrophils (%) (Auto) % (45.0-75.0) % (45.0-75.0) Lymphocytes (%) (Auto) % (20.0-45.0) % (20.0-45.0) Monocytes (%) (Auto) % (1.0-10.0) % (1.0-10.0) Eosinophils (%) (Auto) % (0.0-3.0) % (0.0-3.0) Basophils (%) (Auto) % (0.0-2.0) % (0.0-2.0) Differential Total Cells Counted 100 100 Neutrophils % (Manual) 94 % (45-75) H 94 % (45-75) H Lymphocytes % (Manual) 2 % (20-45) L 2 % (20-45) L Monocytes % (Manual) 3 % (1-10) 2 % (1-10) Eosinophils % (Manual) 0 % (0-3) 0 % (0-3) Basophils % (Manual) 0 % (0-2) 0 % (0-2) Band Neutrophils 1 % (0-8) 2 % (0-8) Platelet Estimate Adequate Adequate Platelet Morphology Normal Giant Platelets Occasional Polychromasia 1+ Hypochromasia 1+ Anisocytosis 1+ 2+ Prothrombin Time 14.6 SEC (9.30-11.50) H 14.7 SEC (9.30-11.50) H Prothromb Time International Ratio 1.4 (0.9-1.1) H 1.4 (0.9-1.1) H Sodium Level 136 MMOL/L (136-145) Potassium Level 3.3 MMOL/L (3.5-5.1) L Chloride Level 105 MMOL/L (98-107) Carbon Dioxide Level 17 MMOL/L (21-32) L Anion Gap 14 mmol/L (5-15) Blood Urea Nitrogen 42 mg/dL (7-18) H Creatinine 3.3 MG/DL (0.55-1.30) H Estimat Glomerular Filtration Rate 13.9 mL/min (>60) Glucose Level 140 MG/DL (74-106) H Calcium Level 7.8 MG/DL (8.5-10.1) L Total Bilirubin 19.2 MG/DL (0.2-1.0) H Direct Bilirubin 17.1 MG/DL (0.0-0.3) H Aspartate Amino Transf (AST/SGOT) 19 U/L (15-37) Alanine Aminotransferase (ALT/SGPT) < 6 U/L (12-78) L Alkaline Phosphatase 1195 U/L (46-116) H Total Protein 5.0 G/DL (6.4-8.2) L Albumin 2.2 G/DL (3.4-5.0) L Globulin 2.8 g/dL Albumin/Globulin Ratio 0.8 (1.0-2.7) L Plan Problems: (1) Hematuria (2) Renal failure (3) Severe sepsis Assessment & Plan: causing sbo seemingly reduced at bedside unfortunately patient is not a surgical candidate prognosis is poor and survival is low aggressive intervention would be medically futile and surgery would strongly not be recommended in her condition recommend hospice and end of life comfort care thank you will follow with exam and recs (4) Spigelian hernia Assessment & Plan: ABDOMEN: Liver: Unremarkable. Gallbladder and bile ducts: Metal stent within the common bile duct with severe intrahepatic biliary dilatation. The gallbladder is distended. Pancreas: Poorly visualized pancreatic parenchyma given the lack of contrast. Spleen: Unremarkable. Adrenals: Unremarkable. Kidneys and ureters: Bilateral nephroureteral stents in place. Moderate bilateral hydronephrosis. Hyperdense 1.9 cm structure in the left renal upper pole is contrast density potentially representing retained contrast in a calyceal cyst. Stomach and bowel: Right-sided spigelian hernia containing a loop of small bowel. The small bowel is dilated both within the hernia sac and upstream with fluid levels likely representing obstruction. Postsurgical changes within the rectum and right lower quadrant small bowel. No small bowel pneumatosis. PELVIS: Appendix: No findings to suggest acute appendicitis. Bladder: Tovar catheter within the bladder. No stones. Reproductive: Unremarkable as visualized. ABDOMEN and PELVIS: Intraperitoneal space: Unremarkable. No free air. No significant fluid collection. Bones/joints: No acute fracture. Soft tissues: Marked anasarca. Vasculature: IVC filter in place. Lymph nodes: Bulky calcified retroperitoneal and epigastric lymph nodes suspicious for metastatic disease. IMPRESSION: 1. Right-sided spigelian hernia containing a loop of small bowel. The small bowel is dilated both within the hernia sac and upstream with fluid levels likely representing obstruction. 2. Metal stent within the common bile duct with severe intrahepatic biliary dilatation. 3. Bilateral nephroureteral stents in place. Moderate bilateral hydronephrosis. 4. Multiple pulmonary nodules and intra-abdominal adenopathy suspicious for metastatic disease. 5. Fluid overload as evidenced by marked anasarca and small bilateral pleural effusions. (5) UTI (urinary tract infection) (6) Liver failure Nicholas Haas Sep 14, 2020 13:23
[2020-09-14 16:00] VITALS: BP 93/58
[2020-09-14] MEDS: Cefepime HCl 1 GM in D5W 55 ML IVPB SCH (18:38)
[2020-09-14] MEDS: D5NS 1,000 ML IV SCH (18:43)
[2020-09-14 20:00] VITALS: BP 132/89
[2020-09-14] MEDS: Dyna-Hex 2% Top Sol 2oz TOPIC SCH (20:58)
[2020-09-15] VITALS (7 sets, daily range): BP systolic 74–93; BP diastolic 46–58
[2020-09-15] MEDS: Sodium Citrate 30ml NG SCH ×4 (00:30→18:33)
--- NOTE | 2020-09-15 07:11 | Hematology/Onc Progress Note ---
Assessment/Plan Assessment/Plan Assessment/Recs # Metastatic rectal cancer, Primary oncologist Dr. Dana Herrera in [place]. Will try to obtain contact information and further discuss GOC --> Per prior dc summary, there is no more plan for medical treatment and GOC will need to be addressed. --> Patient is a candidate for hospice and will discuss with her and her brother Elfego --> CT with Multiple pulmonary nodules and intra-abdominal adenopathy suspicious for metastatic disease. 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 --> with central line, abx as per id as needed --> wbc 24-->25->18 # Acute renal failure with metabolic acidosis --> ivfs, as per renal # Right-sided spigelian hernia containing a loop of small bowel. The small bowel is dilated both within the hernia sac and upstream with fluid levels likely representing obstruction Metal stent within the common bile duct --> as per gi # Hematuria --> yates, per uro # DVT ppx with SCD only Appreciate consultation and dw RN Subjective Constitutional: Denies: no symptoms, chills, fever, malaise, weakness, other HEENT: Denies: no symptoms, eye pain, blurred vision, tearing, double vision, ear pain, ear discharge, nose pain, nose congestion, throat pain, throat swelling, mouth pain, mouth swelling, other Cardiovascular: Denies: no symptoms, chest pain, edema, irregular heart rate, lightheadedness, palpitations, syncope, other Gastrointestinal/Abdominal: Denies: no symptoms, abdomen distended, abdominal pain, black stools, tarry stools, blood in stool, constipated, diarrhea, difficulty swallowing, nausea, poor appetite, poor fluid intake, rectal bleeding, vomiting, other Genitourinary: Denies: no symptoms, burning, discharge, frequency, flank pain, hematuria, incontinence, pain, urgency, other Neurologic/Psychiatric: Denies: no symptoms, anxiety, depressed, emotional problems, headache, numbness, paresthesia, pre-existing deficit, seizure, tingling, tremors, weakness, other Endocrine: Denies: no symptoms, excessive sweating, flushing, intolerance to cold, intolerance to heat, increased hunger, increased thirst, increased urine, unexplained weight gain, unexplained weight loss, other Hematologic/Lymphatic: Denies: no symptoms, anemia, easy bleeding, easy bruising, adenopathy, other Allergies: Coded Allergies: No Known Allergies (Unverified , 09/09/20) Subjective 09/11 labs reviewed, meds noted, no bleeding, dw rn, no major changes, wbc 24 09/13 wbc again elev, remains confused, on 2l, yates catheter and ngt 09/14 nc, ng with yates, no events, urine remains reddish in yates 09/15 labs are noted, with ngt, no major events, no bleeding, cbc is noted Objective Objective Current Medications Medications (Trade) Dose Ordered Sig/Laisha Route PRN Reason Start Time Stop Time Status Last Admin Dose Admin Acetaminophen (Tylenol) 650 mg Q4H PRN ORAL Fever 09/09/20 19:58 10/09/20 19:57 Bisacodyl (Dulcolax) 10 mg DAILYPRN PRN RECTAL Constipation 09/09/20 19:15 12/08/20 19:14 Cefepime HCl 1 gm/ Dextrose 55 ml @ 110 mls/hr Q24H IVPB 09/10/20 18:00 09/17/20 17:59 09/14/20 18:38 Chlorhexidine Gluconate (Samia-Hex 2%) 1 applic DAILY@2000 TOPIC 09/10/20 20:00 12/09/20 19:59 09/14/20 20:58 Dextrose (Dextrose 50%) 25 ml Q30M PRN IV Hypoglycemia 09/09/20 19:59 12/08/20 19:58 Dextrose (Dextrose 50%) 50 ml Q30M PRN IV Hypoglycemia 09/09/20 19:59 12/08/20 19:58 Dextrose/Sodium Chloride 1,000 ml @ 50 mls/hr Q20H IV 09/11/20 11:15 10/11/20 11:14 09/14/20 18:43 Docusate Sodium (Colace) 100 mg EVERY 12 HOURS ORAL 09/09/20 21:00 10/09/20 20:59 09/13/20 21:30 Fluconazole/ Sodium Chloride 100 ml @ 100 mls/hr Q24H IV 09/11/20 15:00 09/18/20 14:59 09/14/20 15:24 Hydromorphone HCl (Dilaudid) 0.5 mg Q2H PRN IVP Mild Pain (1-3) 09/09/20 19:15 09/16/20 19:14 09/12/20 21:50 Hydromorphone HCl (Dilaudid) 1 mg Q2H PRN IVP Moderate Pain (Pain Scale 4-6) 09/09/20 20:07 09/16/20 20:06 09/13/20 16:41 Hydromorphone HCl (Dilaudid) 2 mg Q4H PRN IVP Severe Pain (Pain Scale 7-10) 09/09/20 19:15 09/16/20 19:14 09/14/20 16:56 Lactulose (Cephulac) 30 gm THREE TIMES A DAY NG 09/12/20 10:45 10/12/20 10:44 09/13/20 08:20 Lorazepam (Ativan 2mg/ml 1ml) 0.5 mg Q4H PRN IV For Anxiety 09/09/20 20:00 09/16/20 19:59 09/11/20 01:46 Metronidazole 100 ml @ 100 mls/hr Q8H IVPB 09/10/20 00:00 09/17/20 00:00 09/15/20 00:30 Pantoprazole (Protonix) 40 mg DAILY IV 09/10/20 09:00 10/10/20 08:59 09/14/20 08:53 Sodium Citrate (Bicitra) 30 ml EVERY 6 HOURS NG 09/12/20 11:00 10/11/20 11:59 09/15/20 00:30 Last 24 Hour Vital Signs Date Time Temp Pulse Resp B/P (MAP) Pulse Ox O2 Delivery O2 Flow Rate FiO2 09/15/20 04:00 97.5 105 15 87/58 (68) 96 09/15/20 00:00 97.2 98 14 90/50 (63) 93 09/14/20 21:00 Nasal Cannula 2.0 09/14/20 20:00 97.3 103 14 132/89 (103) 96 09/14/20 16:04 99 Nasal Cannula 2.0 28 09/14/20 16:00 97.5 100 20 93/58 (70) 98 09/14/20 12:00 97.9 109 20 88/50 (63) 97 09/14/20 09:00 Nasal Cannula 2.0 09/14/20 08:00 98.0 121 21 84/46 (59) 97 09/14/20 04:38 Nasal Cannula 2.0 09/14/20 00:00 96.5 96 14 96/64 (75) 95 09/13/20 22:00 97.0 09/13/20 21:01 Nasal Cannula 2.0 09/13/20 21:00 Nasal Cannula 2.0 09/13/20 20:00 97.0 76 15 132/66 (88) 95 09/13/20 11:56 97.0 09/13/20 09:00 Nasal Cannula 2.0 09/13/20 07:36 98 Nasal Cannula 2.0 28 Intake and Output 09/14/20 09/15/20 19:00 07:00 Intake Total 50 ml 550 ml Balance 50 ml 550 ml Intake IV Total 50 ml 550 ml # Voids 2 Labs Test 09/12/20 13:27 09/12/20 19:43 09/13/20 05:46 09/13/20 15:38 Arterial Blood pH 7.338 (7.350-7.450) Arterial Blood Partial Pressure CO2 27.8 mmHg (35.0-45.0) Arterial Blood Partial Pressure O2 106.6 mmHg (75.0-100.0) Arterial Blood HCO3 14.6 mmol/L (22.0-26.0) Arterial Blood Oxygen Saturation 98.1 % (95-100) Arterial Blood Base Excess -9.9 (-2-2) Alvaro Test Positive White Blood Count 25.2 K/UL (4.8-10.8) 23.5 K/UL (4.8-10.8) Red Blood Count 3.48 M/UL (4.20-5.40) 3.43 M/UL (4.20-5.40) Hemoglobin 9.9 G/DL (12.0-16.0) 9.5 G/DL (12.0-16.0) Hematocrit 28.1 % (37.0-47.0) 28.6 % (37.0-47.0) Mean Corpuscular Volume 81 FL (80-99) 83 FL (80-99) Mean Corpuscular Hemoglobin 28.4 PG (27.0-31.0) 27.8 PG (27.0-31.0) Mean Corpuscular Hemoglobin Concent 35.2 G/DL (32.0-36.0) 33.4 G/DL (32.0-36.0) Red Cell Distribution Width 19.2 % (11.6-14.8) 18.9 % (11.6-14.8) Platelet Count 236 K/UL (150-450) 201 K/UL (150-450) Mean Platelet Volume 9.3 FL (6.5-10.1) 8.3 FL (6.5-10.1) Neutrophils (%) (Auto) % (45.0-75.0) % (45.0-75.0) Lymphocytes (%) (Auto) % (20.0-45.0) % (20.0-45.0) Monocytes (%) (Auto) % (1.0-10.0) % (1.0-10.0) Eosinophils (%) (Auto) % (0.0-3.0) % (0.0-3.0) Basophils (%) (Auto) % (0.0-2.0) % (0.0-2.0) Differential Total Cells Counted 100 100 Neutrophils % (Manual) 85 % (45-75) 94 % (45-75) Lymphocytes % (Manual) 2 % (20-45) 2 % (20-45) Monocytes % (Manual) 2 % (1-10) 3 % (1-10) Eosinophils % (Manual) 2 % (0-3) 0 % (0-3) Basophils % (Manual) 0 % (0-2) 0 % (0-2) Band Neutrophils 9 % (0-8) 1 % (0-8) Platelet Estimate Adequate Adequate Platelet Morphology Normal Sodium Level 133 MMOL/L (136-145) 136 MMOL/L (136-145) Potassium Level 3.4 MMOL/L (3.5-5.1) 3.3 MMOL/L (3.5-5.1) Chloride Level 103 MMOL/L (98-107) 105 MMOL/L (98-107) Carbon Dioxide Level 16 MMOL/L (21-32) 17 MMOL/L (21-32) Anion Gap 14 mmol/L (5-15) 14 mmol/L (5-15) Blood Urea Nitrogen 35 mg/dL (7-18) 42 mg/dL (7-18) Creatinine 3.2 MG/DL (0.55-1.30) 3.3 MG/DL (0.55-1.30) Estimat Glomerular Filtration Rate 14.4 mL/min (>60) 13.9 mL/min (>60) Glucose Level 116 MG/DL (74-106) 140 MG/DL (74-106) Calcium Level 7.6 MG/DL (8.5-10.1) 7.8 MG/DL (8.5-10.1) Total Bilirubin 19.9 MG/DL (0.2-1.0) 19.2 MG/DL (0.2-1.0) Direct Bilirubin 15.9 MG/DL (0.0-0.3) 17.1 MG/DL (0.0-0.3) Aspartate Amino Transf (AST/SGOT) 21 U/L (15-37) 19 U/L (15-37) Alanine Aminotransferase (ALT/SGPT) < 6 U/L (12-78) < 6 U/L (12-78) Alkaline Phosphatase 1200 U/L (46-116) 1195 U/L (46-116) Total Protein 5.5 G/DL (6.4-8.2) 5.0 G/DL (6.4-8.2) Albumin 2.2 G/DL (3.4-5.0) 2.2 G/DL (3.4-5.0) Globulin 3.3 g/dL 2.8 g/dL Albumin/Globulin Ratio 0.7 (1.0-2.7) 0.8 (1.0-2.7) Random Vancomycin Level 14.8 ug/mL Giant Platelets Occasional Polychromasia 1+ Hypochromasia 1+ Anisocytosis 1+ Prothrombin Time 14.6 SEC (9.30-11.50) Prothromb Time International Ratio 1.4 (0.9-1.1) Test 09/14/20 04:00 White Blood Count 18.1 K/UL (4.8-10.8) Red Blood Count 3.15 M/UL (4.20-5.40) Hemoglobin 8.8 G/DL (12.0-16.0) Hematocrit 25.6 % (37.0-47.0) Mean Corpuscular Volume 81 FL (80-99) Mean Corpuscular Hemoglobin 28.1 PG (27.0-31.0) Mean Corpuscular Hemoglobin Concent 34.6 G/DL (32.0-36.0) Red Cell Distribution Width 19.6 % (11.6-14.8) Platelet Count 181 K/UL (150-450) Mean Platelet Volume 8.8 FL (6.5-10.1) Neutrophils (%) (Auto) % (45.0-75.0) Lymphocytes (%) (Auto) % (20.0-45.0) Monocytes (%) (Auto) % (1.0-10.0) Eosinophils (%) (Auto) % (0.0-3.0) Basophils (%) (Auto) % (0.0-2.0) Differential Total Cells Counted 100 Neutrophils % (Manual) 94 % (45-75) Lymphocytes % (Manual) 2 % (20-45) Monocytes % (Manual) 2 % (1-10) Eosinophils % (Manual) 0 % (0-3) Basophils % (Manual) 0 % (0-2) Band Neutrophils 2 % (0-8) Platelet Estimate Adequate Platelet Morphology Normal Anisocytosis 2+ Prothrombin Time 14.7 SEC (9.30-11.50) Prothromb Time International Ratio 1.4 (0.9-1.1) Height (Feet): 5 Height (Inches): 3.00 Weight (Pounds): 110 Objective General Appearance: moderate distress Lines, tubes and drains: peripheral, PICC HEENT: normocephalic, atraumatic Cardiovascular/Chest: normal rate Pulm: nc++ Genitourinary/Rectal: yates, other - hematuria Extremities: non-tender Skin Exam: jaundice Neurologic: debone supervisor II-XII grossly normal Yury Cutler MD Sep 15, 2020 07:11
--- NOTE | 2020-09-15 08:36 | Infectious Diseases Prog Note ---
Assessment/Plan 70yo F with: Afebrile Septic shock Leukocytosis Liver failure, Tbili up to 18 Probably cholangitis ERIC, worsening Metastatic renal CA, no further tx options BL urethral stents Probable pneumonia Probable fungal UTI 09/09 BCx NTD UCx + C.albicans MRSA nares neg CT A/P: right-sided hernia, metal stent within common bile duct and severe intrahepatic biliary dictation, bilateral nephroureteral stent and moderate bilateral hydronephrosis. Multiple pulmonary nodules suggestive of metastasis. Chest x-ray, bilateral masslike opacities. Plan: Cont cefepime/flagyl #6 given sepsis, possible cholangitis Cont fluconazole #6/7 Trend WBC, LFTs, Tbili 09/14 SP vanco IV #4 empiric Monitor CBC/CMP Monitor resp status Monitor temp curve, hemodynamics D/w RN Thank you for this consult. [facility] will continue to follow. Subjective Allergies: Coded Allergies: No Known Allergies (Unverified , 09/09/20) AF 2L NC NAD in bed Not interactive WBC 21 from 18 Cr worsening to 3.9 Objective Last 24 Hour Vital Signs Date Time Temp Pulse Resp B/P (MAP) Pulse Ox O2 Delivery O2 Flow Rate FiO2 09/15/20 04:00 97.5 105 15 87/58 (68) 96 09/15/20 00:00 97.2 98 14 90/50 (63) 93 09/14/20 21:00 Nasal Cannula 2.0 09/14/20 20:00 97.3 103 14 132/89 (103) 96 09/14/20 16:04 99 Nasal Cannula 2.0 28 09/14/20 16:00 97.5 100 20 93/58 (70) 98 09/14/20 12:00 97.9 109 20 88/50 (63) 97 09/14/20 09:00 Nasal Cannula 2.0 Height (Feet): 5 Height (Inches): 3.00 Weight (Pounds): 110 Gen: NAD in bed, jaundiced appearing HEENT: NCAT, icteric sclera CV: RRR Pulm: CTAB Abd: Soft, NTND Ext: No c/c/e Neuro: Awake, not interactive Current Medications Medications (Trade) Dose Ordered Sig/Laisha Route PRN Reason Start Time Stop Time Status Last Admin Dose Admin Acetaminophen (Tylenol) 650 mg Q4H PRN ORAL Fever 09/09/20 19:58 10/09/20 19:57 Bisacodyl (Dulcolax) 10 mg DAILYPRN PRN RECTAL Constipation 09/09/20 19:15 12/08/20 19:14 Cefepime HCl 1 gm/ Dextrose 55 ml @ 110 mls/hr Q24H IVPB 09/10/20 18:00 09/17/20 17:59 09/14/20 18:38 Chlorhexidine Gluconate (Samia-Hex 2%) 1 applic DAILY@2000 TOPIC 09/10/20 20:00 12/09/20 19:59 09/14/20 20:58 Dextrose (Dextrose 50%) 25 ml Q30M PRN IV Hypoglycemia 09/09/20 19:59 12/08/20 19:58 Dextrose (Dextrose 50%) 50 ml Q30M PRN IV Hypoglycemia 09/09/20 19:59 12/08/20 19:58 Dextrose/Sodium Chloride 1,000 ml @ 50 mls/hr Q20H IV 09/11/20 11:15 10/11/20 11:14 09/14/20 18:43 Docusate Sodium (Colace) 100 mg EVERY 12 HOURS ORAL 09/09/20 21:00 10/09/20 20:59 09/13/20 21:30 Fluconazole/ Sodium Chloride 100 ml @ 100 mls/hr Q24H IV 09/11/20 15:00 09/18/20 14:59 09/14/20 15:24 Hydromorphone HCl (Dilaudid) 0.5 mg Q2H PRN IVP Mild Pain (1-3) 09/09/20 19:15 09/16/20 19:14 09/12/20 21:50 Hydromorphone HCl (Dilaudid) 1 mg Q2H PRN IVP Moderate Pain (Pain Scale 4-6) 09/09/20 20:07 09/16/20 20:06 09/13/20 16:41 Hydromorphone HCl (Dilaudid) 2 mg Q4H PRN IVP Severe Pain (Pain Scale 7-10) 09/09/20 19:15 09/16/20 19:14 09/14/20 16:56 Lactulose (Cephulac) 30 gm THREE TIMES A DAY NG 09/12/20 10:45 10/12/20 10:44 09/13/20 08:20 Lorazepam (Ativan 2mg/ml 1ml) 0.5 mg Q4H PRN IV For Anxiety 09/09/20 20:00 09/16/20 19:59 09/11/20 01:46 Metronidazole 100 ml @ 100 mls/hr Q8H IVPB 09/10/20 00:00 09/17/20 00:00 09/15/20 00:30 Pantoprazole (Protonix) 40 mg DAILY IV 09/10/20 09:00 10/10/20 08:59 09/14/20 08:53 Sodium Citrate (Bicitra) 30 ml EVERY 6 HOURS NG 09/12/20 11:00 10/11/20 11:59 09/15/20 00:30 Merry Sue M.D. Sep 15, 2020 08:36
[2020-09-15] MEDS: Pantoprazole Inj IV SCH (09:00)
[2020-09-15] MEDS: Docusate 100mg cap ORAL SCH ×2 (09:00→21:00)
[2020-09-15] MEDS: Lactulose 20gm/30ml UDC NG SCH (09:00)
[2020-09-15 09:07] LABS: HEMATOCRIT 24.5 % (37.0-47.0); HEMOGLOBIN 8.5 G/DL (12.0-16.0); MEAN CORPUSCULAR VOLUME 81 FL (80-99); PLATELET COUNT 185 K/UL (150-450); RED BLOOD COUNT 3.04 M/UL (4.20-5.40); RED CELL DISTRIBUTION WIDTH 21.5 % (11.6-14.8); WHITE BLOOD COUNT 21.2 K/UL (4.8-10.8)
[2020-09-15 09:33] LABS: ALANINE AMINOTRANSFERASE < 6 U/L (12-78); ALBUMIN 1.9 G/DL (3.4-5.0); ALBUMIN/GLOBULIN RATIO 0.6 (1.0-2.7); ALKALINE PHOSPHATASE 1437 U/L (46-116); ANION GAP 14 mmol/L (5-15); ASPARTATE AMINO TRANSFERASE 27 U/L (15-37); BILIRUBIN,TOTAL 18.3 MG/DL (0.2-1.0); BLOOD UREA NITROGEN 46 mg/dL (7-18); CALCIUM 8.2 MG/DL (8.5-10.1); CARBON DIOXIDE 16 MMOL/L (21-32); CHLORIDE 109 MMOL/L (98-107); CREATININE 3.9 MG/DL (0.55-1.30); POTASSIUM 3.6 MMOL/L (3.5-5.1); SODIUM 139 MMOL/L (136-145)
[2020-09-15 09:57] LABS: BILIRUBIN,DIRECT 14.1 MG/DL (0.0-0.3)
--- NOTE | 2020-09-15 10:05 | Nephrology Progress Note ---
Assessment/Plan Problem List: (1) ERIC (acute kidney injury) (2) Metastasis from rectal cancer (3) Elevated lipase (4) Severe sepsis (5) UTI (urinary tract infection) (6) Septic shock Assessment Acute renal failure Possible underlying renal failure Shock status on Levophed Jaundice Small bowel obstruction Bilateral hydronephrosis metastatic rectal cancer with biliary obstruction Metastatic disease, multiple pulmonary nodules Severe hypoalbuminemia and anasarca DNR/DNI Plan September 15: Labs reviewed. Discussed with Dr. Abarca. Renal failure gradually worsening. Patient continues to deteriorate gradually. Patient DNR and DNI and has metastatic cancer September 14: Yesterday's labs reviewed. Overall status unchanged. Continue current support. Last serum creatinine 3.2. September 13: Patient in [facility] now. Remains lethargic. Deteriorating. Renal parameters worsened. Patient DNR and DNI with metastatic rectal CA. Continue to favor comfort care only as no major intervention will be lifesaving for this patient under current medical conditions. September 12: Status quo. Deteriorating. Labs reviewed. Discussed with EVITA Ruiz. Not much to add from renal standpoint of view. Futile treatment. Favor comfort care. September 11: Labs reviewed. Abnormal electrolytes addressed. Discussed with EVITA Finley. Overall condition poor. Favor comfort care. Per orders. Hemoglobin higher posttransfusion. Plan: Hydrate Transfuse Poor prognosis Per consultants Support hospice and comfort care Discussed with Dr. Abarca Subjective ROS Limited/Unobtainable: Yes Objective Objective Last 24 Hour Vital Signs Date Time Temp Pulse Resp B/P (MAP) Pulse Ox O2 Delivery O2 Flow Rate FiO2 09/15/20 08:00 98.1 103 15 76/46 (56) 95 09/15/20 04:00 97.5 105 15 87/58 (68) 96 09/15/20 00:00 97.2 98 14 90/50 (63) 93 09/14/20 21:00 Nasal Cannula 2.0 09/14/20 20:00 97.3 103 14 132/89 (103) 96 09/14/20 16:04 99 Nasal Cannula 2.0 28 09/14/20 16:00 97.5 100 20 93/58 (70) 98 09/14/20 12:00 97.9 109 20 88/50 (63) 97 Intake and Output 09/14/20 09/15/20 19:00 07:00 Intake Total 50 ml 550 ml Balance 50 ml 550 ml Intake IV Total 50 ml 550 ml # Voids 2 Current Medications Medications (Trade) Dose Ordered Sig/Laisha Route PRN Reason Start Time Stop Time Status Last Admin Dose Admin Acetaminophen (Tylenol) 650 mg Q4H PRN ORAL Fever 09/09/20 19:58 10/09/20 19:57 Bisacodyl (Dulcolax) 10 mg DAILYPRN PRN RECTAL Constipation 09/09/20 19:15 12/08/20 19:14 Cefepime HCl 1 gm/ Dextrose 55 ml @ 110 mls/hr Q24H IVPB 09/10/20 18:00 09/17/20 17:59 09/14/20 18:38 Chlorhexidine Gluconate (Samia-Hex 2%) 1 applic DAILY@2000 TOPIC 09/10/20 20:00 12/09/20 19:59 09/14/20 20:58 Dextrose (Dextrose 50%) 25 ml Q30M PRN IV Hypoglycemia 09/09/20 19:59 12/08/20 19:58 Dextrose (Dextrose 50%) 50 ml Q30M PRN IV Hypoglycemia 09/09/20 19:59 12/08/20 19:58 Dextrose/Sodium Chloride 1,000 ml @ 50 mls/hr Q20H IV 09/11/20 11:15 10/11/20 11:14 09/14/20 18:43 Docusate Sodium (Colace) 100 mg EVERY 12 HOURS ORAL 09/09/20 21:00 10/09/20 20:59 09/15/20 09:00 Fluconazole/ Sodium Chloride 100 ml @ 100 mls/hr Q24H IV 09/11/20 15:00 09/18/20 14:59 09/14/20 15:24 Hydromorphone HCl (Dilaudid) 0.5 mg Q2H PRN IVP Mild Pain (1-3) 09/09/20 19:15 09/16/20 19:14 09/12/20 21:50 Hydromorphone HCl (Dilaudid) 1 mg Q2H PRN IVP Moderate Pain (Pain Scale 4-6) 09/09/20 20:07 09/16/20 20:06 09/13/20 16:41 Hydromorphone HCl (Dilaudid) 2 mg Q4H PRN IVP Severe Pain (Pain Scale 7-10) 09/09/20 19:15 09/16/20 19:14 09/14/20 16:56 Lactulose (Cephulac) 30 gm THREE TIMES A DAY NG 09/12/20 10:45 10/12/20 10:44 09/15/20 09:00 Lorazepam (Ativan 2mg/ml 1ml) 0.5 mg Q4H PRN IV For Anxiety 09/09/20 20:00 09/16/20 19:59 09/11/20 01:46 Metronidazole 100 ml @ 100 mls/hr Q8H IVPB 09/10/20 00:00 09/17/20 00:00 09/15/20 09:00 Pantoprazole (Protonix) 40 mg DAILY IV 09/10/20 09:00 10/10/20 08:59 09/15/20 09:00 Sodium Citrate (Bicitra) 30 ml EVERY 6 HOURS NG 09/12/20 11:00 10/11/20 11:59 09/15/20 00:30 Laboratory Tests 09/15/20 07:15: White Blood Count 21.2H, Red Blood Count 3.04L, Hemoglobin 8.5L, Hematocrit 24.5L, Mean Corpuscular Volume 81, Mean Corpuscular Hemoglobin 27.9, Mean Corpuscular Hemoglobin Concent 34.5, Red Cell Distribution Width 21.5H, Platelet Count 185, Mean Platelet Volume 8.8, Neutrophils (%) (Auto) , Lymphocytes (%) (Auto) , Monocytes (%) (Auto) , Eosinophils (%) (Auto) , Basophils (%) (Auto) , Neutrophils % (Manual) [Pending], Lymphocytes % (Manual) [Pending], Platelet Estimate [Pending], Platelet Morphology [Pending], Sodium Level 139, Potassium Level 3.6, Chloride Level 109H, Carbon Dioxide Level 16L, Anion Gap 14, Blood Urea Nitrogen 46H, Creatinine 3.9H, Estimat Glomerular Filtration Rate 11.5, Glucose Level 98, Calcium Level 8.2L, Total Bilirubin 18.3H, Direct Bilirubin [Pending], Aspartate Amino Transf (AST/SGOT) 27, Alanine Aminotransferase (A LT/SGPT) < 6L, Alkaline Phosphatase 1437H, Total Protein 5.2L, Albumin 1.9L, Globulin 3.3, Albumin/Globulin Ratio 0.6L Height (Feet): 5 Height (Inches): 3.00 Weight (Pounds): 110 General Appearance: no apparent distress, lethargic EENT: other - Jaundiced Cardiovascular: tachycardia Respiratory/Chest: decreased breath sounds Abdomen: distended Luis Turner MD Sep 15, 2020 10:05
--- NOTE | 2020-09-15 10:34 | General Progress Note ---
Subjective ROS Limited/Unobtainable: No Allergies: Coded Allergies: No Known Allergies (Unverified , 09/09/20) Objective Last 24 Hour Vital Signs Date Time Temp Pulse Resp B/P (MAP) Pulse Ox O2 Delivery O2 Flow Rate FiO2 09/15/20 09:00 Nasal Cannula 2.0 09/15/20 08:00 98.1 103 15 76/46 (56) 95 09/15/20 04:00 97.5 105 15 87/58 (68) 96 09/15/20 00:00 97.2 98 14 90/50 (63) 93 09/14/20 21:00 Nasal Cannula 2.0 09/14/20 20:00 97.3 103 14 132/89 (103) 96 09/14/20 16:04 99 Nasal Cannula 2.0 28 09/14/20 16:00 97.5 100 20 93/58 (70) 98 09/14/20 12:00 97.9 109 20 88/50 (63) 97 Intake and Output 09/14/20 09/15/20 19:00 07:00 Intake Total 50 ml 550 ml Balance 50 ml 550 ml Intake IV Total 50 ml 550 ml # Voids 2 Laboratory Tests 09/15/20 07:15: White Blood Count 21.2H, Red Blood Count 3.04L, Hemoglobin 8.5L, Hematocrit 24.5L, Mean Corpuscular Volume 81, Mean Corpuscular Hemoglobin 27.9, Mean Corpuscular Hemoglobin Concent 34.5, Red Cell Distribution Width 21.5H, Platelet Count 185, Mean Platelet Volume 8.8, Neutrophils (%) (Auto) , Lymphocytes (%) (Auto) , Monocytes (%) (Auto) , Eosinophils (%) (Auto) , Basophils (%) (Auto) , Differential Total Cells Counted 100, Neutrophils % (Manual) 93H, Lymphocytes % (Manual) 1L, Monocytes % (Manual) 5, Eosinophils % (Manual) 1, Basophils % (Manual) 0, Band Neutrophils 0, Platelet Estimate Adequate, Platelet Morphology Normal, Hypochromasia 1+, Anisocytosis 2+, Target Cells Occasional, Schistocytes Occasional, Sodium Level 139, Potassium Level 3.6, Chloride Level 109H, Carbon D ioxide Level 16L, Anion Gap 14, Blood Urea Nitrogen 46H, Creatinine 3.9H, Es timat Glomerular Filtration Rate 11.5, Glucose Level 98, Calcium Level 8.2L, Total Bilirubin 18.3H, Direct Bilirubin 14.1H, Aspartate Amino Transf (AST/SGOT) 27, Alanine Aminotransferase (ALT/SGPT) < 6L, Alkaline Phosphatase 1437H, Total Protein 5.2L, Albumin 1.9L, Globulin 3.3, Albumin/Globulin Ratio 0.6L Height (Feet): 5 Height (Inches): 3.00 Weight (Pounds): 110 General Appearance: lethargic EENT: scleral icterus Neck: supple Cardiovascular: normal rate Respiratory/Chest: decreased breath sounds Abdomen: hypoactive bowel sounds Extremities: non-tender Assessment/Plan Status: unchanged Assessment/Plan: Assessment/Plan Status: unchanged Assessment/Plan: Assessment/Plan metastatic rectal CA - poor prognosis jaundice biliary obstruction with metallic stent sepsis - possible cholangitis anemia s/p blood transfusion ? cirrhosis DNR/DNI Moribund / terminal Recommendations NPO IVF repeat labs abx per ID lactulose poor prognosis possible ERCP if patient stabilized hospice recommended Naseem Nuñez MD Sep 15, 2020 10:34
--- NOTE | 2020-09-15 10:51 | General Progress Note ---
Subjective Date patient seen: Sep 15, 2020 Time patient seen: 10:00 ROS Limited/Unobtainable: Yes Allergies: Coded Allergies: No Known Allergies (Unverified , 09/09/20) Subjective Patient is able to open her eyes to voice and is more tired than yesterday , NGT in place. Jaundiced and frail, her breathing is labored and she denies pain. She drifts in and out of sleep. Objective Last 24 Hour Vital Signs Date Time Temp Pulse Resp B/P (MAP) Pulse Ox O2 Delivery O2 Flow Rate FiO2 09/15/20 09:00 Nasal Cannula 2.0 09/15/20 08:00 98.1 103 15 76/46 (56) 95 09/15/20 04:00 97.5 105 15 87/58 (68) 96 09/15/20 00:00 97.2 98 14 90/50 (63) 93 09/14/20 21:00 Nasal Cannula 2.0 09/14/20 20:00 97.3 103 14 132/89 (103) 96 09/14/20 16:04 99 Nasal Cannula 2.0 28 09/14/20 16:00 97.5 100 20 93/58 (70) 98 09/14/20 12:00 97.9 109 20 88/50 (63) 97 Intake and Output 09/14/20 09/15/20 19:00 07:00 Intake Total 50 ml 550 ml Balance 50 ml 550 ml Intake IV Total 50 ml 550 ml # Voids 2 Laboratory Tests 09/15/20 07:15: White Blood Count 21.2H, Red Blood Count 3.04L, Hemoglobin 8.5L, Hematocrit 24.5L, Mean Corpuscular Volume 81, Mean Corpuscular Hemoglobin 27.9, Mean Corpuscular Hemoglobin Concent 34.5, Red Cell Distribution Width 21.5H, Platelet Count 185, Mean Platelet Volume 8.8, Neutrophils (%) (Auto) , Lymphocytes (%) (Auto) , Monocytes (%) (Auto) , Eosinophils (%) (Auto) , Basophils (%) (Auto) , Differential Total Cells Counted 100, Neutrophils % (Manual) 93H, Lymphocytes % (Manual) 1L, Monocytes % (Manual) 5, Eosinophils % (Manual) 1, Basophils % (Manual) 0, Band Neutrophils 0, Platelet Estimate Adequate, Platelet Morphology Normal, Hypochromasia 1+, Anisocytosis 2+, Target Cells Occasional, Schistocytes Occasional, Sodium Level 139, Potassium Level 3.6, Chloride Level 109H, Carbon Dioxide Level 16L, Anion Gap 14, Blood Urea Nitrogen 46H, Creatinine 3.9H, Estimat Glomerular Filtration Rate 11.5, Glucose Level 98, Calcium Level 8.2L, Total Bilirubin 18.3H, Direct Bilirubin 14.1H, Aspartate Amino Transf (AST/SGOT) 27, Alanine Aminotransferase (ALT/SGPT) < 6L, Alkaline Phosphatase 1437H, Total Protein 5.2L, Albumin 1.9L, Globulin 3.3, Albumin/Globulin Ratio 0.6L Height (Feet): 5 Height (Inches): 3.00 Weight (Pounds): 110 General Appearance: WD/WN EENT: PERRL/EOMI Neck: non-tender Cardiovascular: normal rate Respiratory/Chest: normal breath sounds, decreased breath sounds Abdomen: non tender Extremities: normal range of motion Edema: moderate edema Neurologic: inside sales specialist II-XII grossly normal Skin: jaundice Assessment/Plan Status: unchanged Assessment/Plan: 70 y/o F with metastatic rectal cancer, recent history of obstructive jaundice - IR CBD exchange now admitted with: # Hypotension - septic shock - resolved. # Recurrent hypotension due to multisystem organ failure Underlying etiology include bacteremia, PICC related infection, PORT related, UTI due to Sydnee - ? colonized vs acute. Broad sp antibiotic. Monitor WBC - Persistently elevated in the 20 thousand range. ID weight loss sales consultant [employer] ( previously saw the patient at [facility] this month ) updated and antibiotic management per ID transferred out of ICU ( 09/12 ) for IVF and vasopressors OFF now and no indication for new admission to ICU due to poor terminal prognosis. Central line in place PICC hemodynamically stable and gradual hypotension developing in the last 12 hours. Due to high mortality, do not recommend ICU re admission and this was discussed with the family. Patient is actively dying and hospice is indicated. Per discussion with social service there [place] contract with [place] [facility] [place] I will start comfort measures today and MINIMIZE invasive procedures to support comfort and allow the patient to preserve her dignity at this time. RN updated and family updated by me today. # Probable cholangitis and liver failure with hepatic encephalopathy and c oagulopathy NH3 92 Trial of Lactulose and NGT started 09/12 with mild improvement in mental status. Now with NGT showing brown color fluid, can not rule out UGIB in the setting of liver failure and coagulopathy. Defer to GI team. No indication for invasive GI procedures due to multisystem organ failure and terminal cancer. INR 1.4 # Anemia of chronic disease vs acute blood loss anemia s/p 2 PRBC and 2 FFP 09/10 Hb from 6.8 to 9.7 and NOW starting to downtrend again. No benefit of prolonging survival by PRBC. Will support only and avoid PRBC # Acute renal failure with metabolic acidosis Renal consultation requested with Dr. Tolentino - defer IVF management and appreciate support. Bicitra started and unable to take PO, changed to NGT. Creatinine 3.4 CO2 17 Supportive care only. # Metastatic rectal cancer Primary oncologist Dr. Dana Herrera in [place]. Will try to obtain contact information and further discuss GOC Dr. Cutler consulted and appreciate input. High mortality and poor prognosis noted. Per prior dc summary, there is no more plan for medical treatment and GOC will need to be addressed. Follow up with MAXIMILIANO Cuello TODAY [phone] AND COMFORT CARE WAS DISCUSSED. HOSPICE/comfort support - RN UPDATED. # Abnormal CT abdomen and Pelvis 1. Right-sided spigelian hernia containing a loop of small bowel. The small bowel is dilated both within the hernia sac and upstream with fluid levels likely representing obstruction. 2. Metal stent within the common bile duct with severe intrahepatic biliary dilatation. Dr. Nuñez from GI consulted. Patient is not stable for possible MRCP - ? biliary stent migration since prior procedure. I do not advise MRCP due to high risk procedure in a patient terminally ill and dying, DNR DNI. Dr. Haas from Surgery consulted and non surgical approach recommended. 3. Bilateral nephroureteral stents in place. Moderate bilateral hydronephrosis. 4. Multiple pulmonary nodules and intra-abdominal adenopathy suspicious for metastatic disease. # Hematuria Dr. Dewtit from urology consulted and case discussed over the phone. no acute intervention planned Monitor CBC, and Tovar output # Chronic pain syndrome Opiate therapy as needed for comfort. # Diet meds approved to use ( discussed with surgery today ) Prior NPO due to SBO which was clinically improved as Dr. Haas reduced the hernia and her abdomen became much smaller and softer afterwards. Per prior admission at [facility], this is a chronic hernia. # IVF per nephrology # DNR DNI discussed with the patient and family updated in agreement since admission. # DVT ppx with SCD only # GI ppx wit PPI Guarded prognosis and high mortality risk this admission Family [phone] Jon Abarca MD Sep 15, 2020 10:51
[2020-09-15] MEDS ORDERED: PCA Morphine 1mg/ml 30 ML IV PRN (11:00)
[2020-09-15] MEDS ORDERED: Rate Change Narcotic Drip MISC PRN (11:30)
[2020-09-15] MEDS: PCA Morphine 1mg/ml 30 ML IV PRN ×2 (12:00→18:37)
[2020-09-15] MEDS: D5NS 1,000 ML IV SCH (16:00)
[2020-09-15] MEDS: Narcotic Shift Volume MISC SCH ×2 (16:19→23:00)
--- NOTE | 2020-09-15 16:19 | Surgery Progress Note ---
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 ill appearing Objective Last 24 Hour Vital Signs Date Time Temp Pulse Resp B/P (MAP) Pulse Ox O2 Delivery O2 Flow Rate FiO2 09/15/20 12:15 98 21 94 09/15/20 12:00 98.0 98 16 84/46 (59) 98 09/15/20 09:00 Nasal Cannula 2.0 09/15/20 08:00 98.1 103 15 76/46 (56) 95 09/15/20 04:00 97.5 105 15 87/58 (68) 96 09/15/20 00:00 97.2 98 14 90/50 (63) 93 09/14/20 21:00 Nasal Cannula 2.0 09/14/20 20:00 97.3 103 14 132/89 (103) 96 I&O Intake and Output 09/14/20 09/15/20 19:00 07:00 Intake Total 50 ml 550 ml Balance 50 ml 550 ml Intake IV Total 50 ml 550 ml # Voids 2 Dressing: other Wound: other Cardiovascular: RSR Respiratory: decreased breath sounds Abdomen: distended, non-tender, other, decreased bowel sounds Extremities: edema, no tenderness, no cyanosis Laboratory Tests Test 09/15/20 07:15 White Blood Count 21.2 K/UL (4.8-10.8) H Red Blood Count 3.04 M/UL (4.20-5.40) L Hemoglobin 8.5 G/DL (12.0-16.0) L Hematocrit 24.5 % (37.0-47.0) L Mean Corpuscular Volume 81 FL (80-99) Mean Corpuscular Hemoglobin 27.9 PG (27.0-31.0) Mean Corpuscular Hemoglobin Concent 34.5 G/DL (32.0-36.0) Red Cell Distribution Width 21.5 % (11.6-14.8) H Platelet Count 185 K/UL (150-450) Mean Platelet Volume 8.8 FL (6.5-10.1) Neutrophils (%) (Auto) % (45.0-75.0) Lymphocytes (%) (Auto) % (20.0-45.0) Monocytes (%) (Auto) % (1.0-10.0) Eosinophils (%) (Auto) % (0.0-3.0) Basophils (%) (Auto) % (0.0-2.0) Differential Total Cells Counted 100 Neutrophils % (Manual) 93 % (45-75) H Lymphocytes % (Manual) 1 % (20-45) L Monocytes % (Manual) 5 % (1-10) Eosinophils % (Manual) 1 % (0-3) Basophils % (Manual) 0 % (0-2) Band Neutrophils 0 % (0-8) Platelet Estimate Adequate Platelet Morphology Normal Hypochromasia 1+ Anisocytosis 2+ Target Cells Occasional Schistocytes Occasional Sodium Level 139 MMOL/L (136-145) Potassium Level 3.6 MMOL/L (3.5-5.1) Chloride Level 109 MMOL/L (98-107) H Carbon Dioxide Level 16 MMOL/L (21-32) L Anion Gap 14 mmol/L (5-15) Blood Urea Nitrogen 46 mg/dL (7-18) H Creatinine 3.9 MG/DL (0.55-1.30) H Estimat Glomerular Filtration Rate 11.5 mL/min (>60) Glucose Level 98 MG/DL (74-106) Calcium Level 8.2 MG/DL (8.5-10.1) L Total Bilirubin 18.3 MG/DL (0.2-1.0) H Direct Bilirubin 14.1 MG/DL (0.0-0.3) H Aspartate Amino Transf (AST/SGOT) 27 U/L (15-37) Alanine Aminotransferase (ALT/SGPT) < 6 U/L (12-78) L Alkaline Phosphatase 1437 U/L (46-116) H Total Protein 5.2 G/DL (6.4-8.2) L Albumin 1.9 G/DL (3.4-5.0) L Globulin 3.3 g/dL Albumin/Globulin Ratio 0.6 (1.0-2.7) L Plan Problems: (1) Hematuria (2) Renal failure (3) Severe sepsis Assessment & Plan: causing sbo seemingly reduced at bedside unfortunately patient is not a surgical candidate prognosis is poor and survival is low aggressive intervention would be medically futile and surgery would strongly not be recommended in her condition recommend hospice and end of life comfort care thank you will follow with exam and recs (4) Spigelian hernia Assessment & Plan: ABDOMEN: Liver: Unremarkable. Gallbladder and bile ducts: Metal stent within the common bile duct with severe intrahepatic biliary dilatation. The gallbladder is distended. Pancreas: Poorly visualized pancreatic parenchyma given the lack of contrast. Spleen: Unremarkable. Adrenals: Unremarkable. Kidneys and ureters: Bilateral nephroureteral stents in place. Moderate bilateral hydronephrosis. Hyperdense 1.9 cm structure in the left renal upper pole is contrast density potentially representing retained contrast in a calyceal cyst. Stomach and bowel: Right-sided spigelian hernia containing a loop of small bowel. The small bowel is dilated both within the hernia sac and upstream with fluid levels likely representing obstruction. Postsurgical changes within the rectum and right lower quadrant small bowel. No small bowel pneumatosis. PELVIS: Appendix: No findings to suggest acute appendicitis. Bladder: Tovar catheter within the bladder. No stones. Reproductive: Unremarkable as visualized. ABDOMEN and PELVIS: Intraperitoneal space: Unremarkable. No free air. No significant fluid collection. Bones/joints: No acute fracture. Soft tissues: Marked anasarca. Vasculature: IVC filter in place. Lymph nodes: Bulky calcified retroperitoneal and epigastric lymph nodes suspicious for metastatic disease. IMPRESSION: 1. Right-sided spigelian hernia containing a loop of small bowel. The small bowel is dilated both within the hernia sac and upstream with fluid levels likely representing obstruction. 2. Metal stent within the common bile duct with severe intrahepatic biliary dilatation. 3. Bilateral nephroureteral stents in place. Moderate bilateral hydronephrosis. 4. Multiple pulmonary nodules and intra-abdominal adenopathy suspicious for metastatic disease. 5. Fluid overload as evidenced by marked anasarca and small bilateral pleural effusions. (5) UTI (urinary tract infection) (6) Liver failure Nicholas Haas Sep 15, 2020 16:19
[2020-09-15] MEDS: Cefepime HCl 1 GM in D5W 55 ML IVPB SCH (18:33)
[2020-09-15] MEDS: Dyna-Hex 2% Top Sol 2oz TOPIC SCH (21:10)
[2020-09-16] VITALS: BP_SYST 83; BP_DIAS 49; BP_DIAS 59
[2020-09-16] MEDS: Sodium Citrate 30ml NG SCH ×3 (00:28→11:12)
[2020-09-16] MEDS: PCA Morphine 1mg/ml 30 ML IV PRN (00:30)
[2020-09-16 04:00] VITALS: BP_SYST 73; BP_SYST 76; BP_DIAS 44; BP_DIAS 49
[2020-09-16] MEDS: Narcotic Shift Volume MISC SCH ×3 (07:00→23:00)
--- NOTE | 2020-09-16 07:16 | Hematology/Onc Progress Note ---
Assessment/Plan Assessment/Plan Assessment/Recs # Metastatic rectal cancer, Primary oncologist Dr. Dana Herrera in [place]. Will try to obtain contact information and further discuss GOC --> Per prior dc summary, there is no more plan for medical treatment and GOC will need to be addressed. --> Patient is a candidate for hospice and will discuss with her and her brother Elfego --> CT with Multiple pulmonary nodules and intra-abdominal adenopathy suspicious for metastatic disease. 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 --> with central line, abx as per id as needed --> wbc 24-->25->18 # Acute renal failure with metabolic acidosis --> ivfs, as per renal # Right-sided spigelian hernia containing a loop of small bowel. The small bowel is dilated both within the hernia sac and upstream with fluid levels likely representing obstruction Metal stent within the common bile duct --> as per gi # Hematuria --> yates, per uro # DVT ppx with SCD only Appreciate consultation and maría RN Subjective HEENT: Denies: no symptoms, eye pain, blurred vision, tearing, double vision, ear pain, ear discharge, nose pain, nose congestion, throat pain, throat swelling, mouth pain, mouth swelling, other Cardiovascular: Denies: no symptoms, chest pain, edema, irregular heart rate, lightheadedness, palpitations, syncope, other Gastrointestinal/Abdominal: Denies: no symptoms, abdomen distended, abdominal pain, black stools, tarry stools, blood in stool, constipated, diarrhea, difficulty swallowing, nausea, poor appetite, poor fluid intake, rectal ble eding, vomiting, other Genitourinary: Denies: no symptoms, burning, discharge, frequency, flank pain, hematuria, incontinence, pain, urgency, other Neurologic/Psychiatric: Denies: no symptoms, anxiety, depressed, emotional problems, headache, numbness, paresthesia, pre-existing deficit, seizure, tingling, tremors, weakness, other Endocrine: Denies: no symptoms, excessive sweating, flushing, intolerance to cold, intolerance to heat, increased hunger, increased thirst, increased urine, unexplained weight gain, unexplained weight loss, other Hematologic/Lymphatic: Denies: no symptoms, anemia, easy bleeding, easy bruising, adenopathy, other Allergies: Coded Allergies: No Known Allergies (Unverified , 09/09/20) Subjective 09/11 labs reviewed, meds noted, no bleeding, dw rn, no major changes, wbc 24 09/13 wbc again elev, remains confused, on 2l, yates catheter and ngt 09/14 nc, ng with yates, no events, urine remains reddish in yates 09/15 labs are noted, with ngt, no major events, no bleeding, cbc is noted 09/16 bp is low overnight, holding morphine sheet rocker at this time Objective Objective Current Medications Medications (Trade) Dose Ordered Sig/Laisha Route PRN Reason Start Time Stop Time Status Last Admin Dose Admin Acetaminophen (Tylenol) 650 mg Q4H PRN ORAL Fever 09/09/20 19:58 10/09/20 19:57 Bisacodyl (Dulcolax) 10 mg DAILYPRN PRN RECTAL Constipation 09/09/20 19:15 12/08/20 19:14 Cefepime HCl 1 gm/ Dextrose 55 ml @ 110 mls/hr Q24H IVPB 09/10/20 18:00 09/17/20 17:59 09/15/20 18:33 Chlorhexidine Gluconate (Samia-Hex 2%) 1 applic DAILY@2000 TOPIC 09/10/20 20:00 12/09/20 19:59 09/15/20 21:10 Dextrose (Dextrose 50%) 25 ml Q30M PRN IV Hypoglycemia 09/09/20 19:59 12/08/20 19:58 Dextrose (Dextrose 50%) 50 ml Q30M PRN IV Hypoglycemia 09/09/20 19:59 12/08/20 19:58 Dextrose/Sodium Chloride 1,000 ml @ 50 mls/hr Q20H IV 09/11/20 11:15 10/11/20 11:14 09/15/20 16:00 Docusate Sodium (Colace) 100 mg EVERY 12 HOURS ORAL 09/09/20 21:00 10/09/20 20:59 09/15/20 09:00 Fluconazole/ Sodium Chloride 100 ml @ 100 mls/hr Q24H IV 09/11/20 15:00 09/18/20 14:59 09/15/20 17:05 Lorazepam (Ativan 2mg/ml 1ml) 0.5 mg Q4H PRN IV For Anxiety 09/09/20 20:00 09/16/20 19:59 09/11/20 01:46 Metronidazole 100 ml @ 100 mls/hr Q8H IVPB 09/10/20 00:00 09/17/20 00:00 09/16/20 00:28 Miscellaneous Medication (Narcotic Drip Rate Change) 1 ea DAILY PRN MISC . 09/15/20 11:30 10/15/20 11:29 Miscellaneous Medication (Narcotic Shift Volume) 1 ea Q8HR@07,15,23 MISC 09/15/20 15:00 10/15/20 14:59 09/15/20 23:00 Morphine Sulfate 30 ml @ 4 mls/hr REGIONAL RECRUITER PROTOCOL PRN IV To Patient Comfort 09/15/20 11:15 09/17/20 11:14 09/16/20 00:30 Pantoprazole (Protonix) 40 mg DAILY IV 09/10/20 09:00 10/10/20 08:59 09/15/20 09:00 Sodium Citrate (Bicitra) 30 ml EVERY 6 HOURS NG 09/12/20 11:00 10/11/20 11:59 09/16/20 06:29 Last 24 Hour Vital Signs Date Time Temp Pulse Resp B/P (MAP) Pulse Ox O2 Delivery O2 Flow Rate FiO2 09/16/20 04:00 97.6 118 16 76/44 (55) 97 09/16/20 04:00 121 15 96 09/16/20 01:00 99.0 09/16/20 00:00 115 16 95 09/16/20 00:00 99.0 115 16 83/49 (60) 95 09/15/20 21:00 Nasal Cannula 2.0 09/15/20 20:00 99.2 110 16 93/50 (64) 94 09/15/20 20:00 110 16 94 09/15/20 16:00 101 16 98 09/15/20 16:00 97.9 101 16 83/46 (58) 98 09/15/20 12:15 98 21 94 09/15/20 12:00 98.0 98 16 84/46 (59) 98 09/15/20 09:00 Nasal Cannula 2.0 09/15/20 08:00 98.1 103 15 76/46 (56) 95 09/15/20 04:00 97.5 105 15 87/58 (68) 96 09/15/20 00:00 97.2 98 14 90/50 (63) 93 09/14/20 21:00 Nasal Cannula 2.0 09/14/20 20:00 97.3 103 14 132/89 (103) 96 09/14/20 16:04 99 Nasal Cannula 2.0 28 09/14/20 16:00 97.5 100 20 93/58 (70) 98 09/14/20 12:00 97.9 109 20 88/50 (63) 97 09/14/20 09:00 Nasal Cannula 2.0 09/14/20 08:00 98.0 121 21 84/46 (59) 97 Intake and Output 09/15/20 09/16/20 19:00 07:00 # Bowel Movements 2 Labs Test 09/13/20 15:38 09/14/20 04:00 09/15/20 07:15 09/16/20 06:45 White Blood Count 23.5 K/UL (4.8-10.8) 18.1 K/UL (4.8-10.8) 21.2 K/UL (4.8-10.8) Red Blood Count 3.43 M/UL (4.20-5.40) 3.15 M/UL (4.20-5.40) 3.04 M/UL (4.20-5.40) Hemoglobin 9.5 G/DL (12.0-16.0) 8.8 G/DL (12.0-16.0) 8.5 G/DL (12.0-16.0) Hematocrit 28.6 % (37.0-47.0) 25.6 % (37.0-47.0) 24.5 % (37.0-47.0) Mean Corpuscular Volume 83 FL (80-99) 81 FL (80-99) 81 FL (80-99) Mean Corpuscular Hemoglobin 27.8 PG (27.0-31.0) 28.1 PG (27.0-31.0) 27.9 PG (27.0-31.0) Mean Corpuscular Hemoglobin Concent 33.4 G/DL (32.0-36.0) 34.6 G/DL (32.0-36.0) 34.5 G/DL (32.0-36.0) Red Cell Distribution Width 18.9 % (11.6-14.8) 19.6 % (11.6-14.8) 21.5 % (11.6-14.8) Platelet Count 201 K/UL (150-450) 181 K/UL (150-450) 185 K/UL (150-450) Mean Platelet Volume 8.3 FL (6.5-10.1) 8.8 FL (6.5-10.1) 8.8 FL (6.5-10.1) Neutrophils (%) (Auto) % (45.0-75.0) % (45.0-75.0) % (45.0-75.0) Lymphocytes (%) (Auto) % (20.0-45.0) % (20.0-45.0) % (20.0-45.0) Monocytes (%) (Auto) % (1.0-10.0) % (1.0-10.0) % (1.0-10.0) Eosinophils (%) (Auto) % (0.0-3.0) % (0.0-3.0) % (0.0-3.0) Basophils (%) (Auto) % (0.0-2.0) % (0.0-2.0) % (0.0-2.0) Differential Total Cells Counted 100 100 100 Neutrophils % (Manual) 94 % (45-75) 94 % (45-75) 93 % (45-75) Lymphocytes % (Manual) 2 % (20-45) 2 % (20-45) 1 % (20-45) Monocytes % (Manual) 3 % (1-10) 2 % (1-10) 5 % (1-10) Eosinophils % (Manual) 0 % (0-3) 0 % (0-3) 1 % (0-3) Basophils % (Manual) 0 % (0-2) 0 % (0-2) 0 % (0-2) Band Neutrophils 1 % (0-8) 2 % (0-8) 0 % (0-8) Platelet Estimate Adequate Adequate Adequate Platelet Morphology Normal Normal Giant Platelets Occasional Polychromasia 1+ Hypochromasia 1+ 1+ Anisocytosis 1+ 2+ 2+ Prothrombin Time 14.6 SEC (9.30-11.50) 14.7 SEC (9.30-11.50) Prothromb Time International Ratio 1.4 (0.9-1.1) 1.4 (0.9-1.1) Sodium Level 136 MMOL/L (136-145) 139 MMOL/L (136-145) Potassium Level 3.3 MMOL/L (3.5-5.1) 3.6 MMOL/L (3.5-5.1) Chloride Level 105 MMOL/L (98-107) 109 MMOL/L (98-107) Carbon Dioxide Level 17 MMOL/L (21-32) 16 MMOL/L (21-32) Anion Gap 14 mmol/L (5-15) 14 mmol/L (5-15) Blood Urea Nitrogen 42 mg/dL (7-18) 46 mg/dL (7-18) Creatinine 3.3 MG/DL (0.55-1.30) 3.9 MG/DL (0.55-1.30) Estimat Glomerular Filtration Rate 13.9 mL/min (>60) 11.5 mL/min (>60) Glucose Level 140 MG/DL (74-106) 98 MG/DL (74-106) Calcium Level 7.8 MG/DL (8.5-10.1) 8.2 MG/DL (8.5-10.1) Total Bilirubin 19.2 MG/DL (0.2-1.0) 18.3 MG/DL (0.2-1.0) Direct Bilirubin 17.1 MG/DL (0.0-0.3) 14.1 MG/DL (0.0-0.3) Aspartate Amino Transf (AST/SGOT) 19 U/L (15-37) 27 U/L (15-37) Alanine Aminotransferase (ALT/SGPT) < 6 U/L (12-78) < 6 U/L (12-78) Alkaline Phosphatase 1195 U/L (46-116) 1437 U/L (46-116) Total Protein 5.0 G/DL (6.4-8.2) 5.2 G/DL (6.4-8.2) Albumin 2.2 G/DL (3.4-5.0) 1.9 G/DL (3.4-5.0) Globulin 2.8 g/dL 3.3 g/dL Albumin/Globulin Ratio 0.8 (1.0-2.7) 0.6 (1.0-2.7) Target Cells Occasional Schistocytes Occasional Height (Feet): 5 Height (Inches): 3.00 Weight (Pounds): 110 Objective General Appearance: moderate distress Lines, tubes and drains: peripheral, PICC HEENT: normocephalic, atraumatic Cardiovascular/Chest: normal rate Pulm: nc++ Genitourinary/Rectal: yates, other - hematuria Extremities: non-tender Skin Exam: jaundice Neurologic: backroom associate II-XII grossly normal Yury Cutler MD Sep 16, 2020 07:16
[2020-09-16 07:17] LABS: HEMATOCRIT 23.4 % (37.0-47.0); MEAN CORPUSCULAR VOLUME 82 FL (80-99); PLATELET COUNT 111 K/UL (150-450); RED BLOOD COUNT 2.86 M/UL (4.20-5.40); RED CELL DISTRIBUTION WIDTH 20.5 % (11.6-14.8)
[2020-09-16 08:00] VITALS: BP 66/33
--- NOTE | 2020-09-16 08:35 | Infectious Diseases Prog Note ---
Assessment/Plan 70yo F with: Afebrile Septic shock Leukocytosis Liver failure, Tbili up to 18 Probably cholangitis ERIC, worsening Metastatic renal CA, no further tx options BL urethral stents Probable pneumonia Probable fungal UTI 09/09 BCx NTD UCx + C.albicans MRSA nares neg CT A/P: right-sided hernia, metal stent within common bile duct and severe intrahepatic biliary dictation, bilateral nephroureteral stent and moderate bilateral hydronephrosis. Multiple pulmonary nodules suggestive of metastasis. Chest x-ray, bilateral masslike opacities. Plan: Stop cefepime/flagyl #7 given sepsis, possible cholangitis Stop fluconazole #7 Pt now comfort care - stop all abx We will sign-off now 09/14 SP vanco IV #4 empiric Monitor CBC/CMP Monitor resp status Monitor temp curve, hemodynamics D/w RN Thank you for this consult. [facility] will continue to follow. Subjective Allergies: Coded Allergies: No Known Allergies (Unverified , 09/09/20) AF 2L NC NAD in bed WBC improving to 60 Progressively more hypotensive Now on morphine gtt, comfort care Objective Last 24 Hour Vital Signs Date Time Temp Pulse Resp B/P (MAP) Pulse Ox O2 Delivery O2 Flow Rate FiO2 09/16/20 04:00 97.6 118 16 76/44 (55) 97 09/16/20 04:00 121 15 96 09/16/20 01:00 99.0 09/16/20 00:00 115 16 95 09/16/20 00:00 99.0 115 16 83/49 (60) 95 09/15/20 21:00 Nasal Cannula 2.0 09/15/20 20:00 99.2 110 16 93/50 (64) 94 09/15/20 20:00 110 16 94 09/15/20 16:00 101 16 98 09/15/20 16:00 97.9 101 16 83/46 (58) 98 09/15/20 12:15 98 21 94 09/15/20 12:00 98.0 98 16 84/46 (59) 98 09/15/20 09:00 Nasal Cannula 2.0 Height (Feet): 5 Height (Inches): 3.00 Weight (Pounds): 110 Gen: NAD in bed, jaundiced appearing HEENT: NCAT, icteric sclera CV: RRR Pulm: CTAB Abd: Soft, NTND Ext: No c/c/e Neuro: Awake, not interactive Laboratory Tests Test 09/16/20 06:45 White Blood Count 16.0 K/UL (4.8-10.8) H Red Blood Count 2.86 M/UL (4.20-5.40) L Hemoglobin 8.0 G/DL (12.0-16.0) L Hematocrit 23.4 % (37.0-47.0) L Mean Corpuscular Volume 82 FL (80-99) Mean Corpuscular Hemoglobin 27.8 PG (27.0-31.0) Mean Corpuscular Hemoglobin Concent 34.0 G/DL (32.0-36.0) Red Cell Distribution Width 20.5 % (11.6-14.8) H Platelet Count 111 K/UL (150-450) L Mean Platelet Volume 7.6 FL (6.5-10.1) Neutrophils (%) (Auto) % (45.0-75.0) Lymphocytes (%) (Auto) % (20.0-45.0) Monocytes (%) (Auto) % (1.0-10.0) Eosinophils (%) (Auto) % (0.0-3.0) Basophils (%) (Auto) % (0.0-2.0) Neutrophils % (Manual) Pending Lymphocytes % (Manual) Pending Platelet Estimate Pending Platelet Morphology Pending Current Medications Medications (Trade) Dose Ordered Sig/Laisha Route PRN Reason Start Time Stop Time Status Last Admin Dose Admin Acetaminophen (Tylenol) 650 mg Q4H PRN ORAL Fever 09/09/20 19:58 10/09/20 19:57 Bisacodyl (Dulcolax) 10 mg DAILYPRN PRN RECTAL Constipation 09/09/20 19:15 12/08/20 19:14 Cefepime HCl 1 gm/ Dextrose 55 ml @ 110 mls/hr Q24H IVPB 09/10/20 18:00 09/17/20 17:59 09/15/20 18:33 Chlorhexidine Gluconate (Samia-Hex 2%) 1 applic DAILY@2000 TOPIC 09/10/20 20:00 12/09/20 19:59 09/15/20 21:10 Dextrose (Dextrose 50%) 25 ml Q30M PRN IV Hypoglycemia 09/09/20 19:59 12/08/20 19:58 Dextrose (Dextrose 50%) 50 ml Q30M PRN IV Hypoglycemia 09/09/20 19:59 12/08/20 19:58 Dextrose/Sodium Chloride 1,000 ml @ 50 mls/hr Q20H IV 09/11/20 11:15 10/11/20 11:14 09/15/20 16:00 Docusate Sodium (Colace) 100 mg EVERY 12 HOURS ORAL 09/09/20 21:00 10/09/20 20:59 09/15/20 09:00 Fluconazole/ Sodium Chloride 100 ml @ 100 mls/hr Q24H IV 09/11/20 15:00 09/18/20 14:59 09/15/20 17:05 Lorazepam (Ativan 2mg/ml 1ml) 0.5 mg Q4H PRN IV For Anxiety 09/09/20 20:00 09/16/20 19:59 09/11/20 01:46 Metronidazole 100 ml @ 100 mls/hr Q8H IVPB 09/10/20 00:00 09/17/20 00:00 09/16/20 00:28 Miscellaneous Medication (Narcotic Drip Rate Change) 1 ea DAILY PRN MISC . 09/15/20 11:30 10/15/20 11:29 Miscellaneous Medication (Narcotic Shift Volume) 1 ea Q8HR@, MISC 09/15/20 15:00 10/15/20 14:59 09/16/20 07:00 Morphine Sulfate 30 ml @ 4 mls/hr HAND INSPECTOR PROTOCOL PRN IV To Patient Comfort 09/15/20 11:15 09/17/20 11:14 09/16/20 00:30 Pantoprazole (Protonix) 40 mg DAILY IV 09/10/20 09:00 10/10/20 08:59 09/15/20 09:00 Sodium Citrate (Bicitra) 30 ml EVERY 6 HOURS NG 09/12/20 11:00 10/11/20 11:59 09/16/20 06:29 Merry Sue M.D. Sep 16, 2020 08:35
[2020-09-16] MEDS: Docusate 100mg cap ORAL SCH (08:36)
[2020-09-16] MEDS: Pantoprazole Inj IV SCH (08:36)
--- NOTE | 2020-09-16 09:41 | General Progress Note ---
Subjective ROS Limited/Unobtainable: No Allergies: Coded Allergies: No Known Allergies (Unverified , 09/09/20) Objective Last 24 Hour Vital Signs Date Time Temp Pulse Resp B/P (MAP) Pulse Ox O2 Delivery O2 Flow Rate FiO2 09/16/20 04:00 97.6 118 16 76/44 (55) 97 09/16/20 04:00 121 15 96 09/16/20 01:00 99.0 09/16/20 00:00 115 16 95 09/16/20 00:00 99.0 115 16 83/49 (60) 95 09/15/20 21:00 Nasal Cannula 2.0 09/15/20 20:00 99.2 110 16 93/50 (64) 94 09/15/20 20:00 110 16 94 09/15/20 16:00 101 16 98 09/15/20 16:00 97.9 101 16 83/46 (58) 98 09/15/20 12:15 98 21 94 09/15/20 12:00 98.0 98 16 84/46 (59) 98 Intake and Output 09/15/20 09/16/20 19:00 07:00 # Bowel Movements 2 Laboratory Tests 09/16/20 06:45: White Blood Count 16.0H, Red Blood Count 2.86L, Hemoglobin 8.0L, Hematocrit 23.4L, Mean Corpuscular Volume 82, Mean Corpuscular Hemoglobin 27.8, Mean Corpuscular Hemoglobin Concent 34.0, Red Cell Distribution Width 20.5H, Platelet Count 111L, Mean Platelet Volume 7.6, Neutrophils (%) (Auto) , Lymphocytes (%) (Auto) , Monocytes (%) (Auto) , Eosinophils (%) (Auto) , Basophils (%) (Auto) , Differential Total Cells Counted 100, Neutrophils % (Manual) 86H, Lymphocytes % (Manual) 4L, Monocytes % (Manual) 9, Eosinophils % (Manual) 0, Basophils % (Manual) 0, Band Neutrophils 1, Platelet Estimate DecreasedL, Platelet Morphology Normal, Hypochromasia 1+, Anisocytosis 2+, Target Cells Occasional Height (Feet): 5 Height (Inches): 3.00 Weight (Pounds): 110 General Appearance: lethargic EENT: scleral icterus Neck: limited range of motion Cardiovascular: bradycardia Respiratory/Chest: decreased breath sounds Abdomen: hypoactive bowel sounds Assessment/Plan Status: unchanged Assessment/Plan: Assessment/Plan Status: unchanged Assessment/Plan: Assessment/Plan metastatic rectal CA - poor prognosis jaundice biliary obstruction with metallic stent sepsis - possible cholangitis anemia s/p blood transfusion ? cirrhosis DNR/DNI Moribund / terminal Recommendations NPO IVF repeat labs abx per ID lactulose poor prognosis hospice recommended Naseem Nuñez MD Sep 16, 2020 09:41
--- NOTE | 2020-09-16 10:27 | Nephrology Progress Note ---
Assessment/Plan Problem List: (1) ERIC (acute kidney injury) (2) Metastasis from rectal cancer (3) Elevated lipase (4) Severe sepsis (5) UTI (urinary tract infection) (6) Septic shock Assessment Acute renal failure Possible underlying renal failure Shock status on Levophed Jaundice Small bowel obstruction Bilateral hydronephrosis metastatic rectal cancer with biliary obstruction Metastatic disease, multiple pulmonary nodules Severe hypoalbuminemia and anasarca DNR/DNI Plan September 16: Remains deeply jaundiced. No chemistry panel today. Has multiorgan failure and metastatic rectal cancer. Continue per current support. September 15: Labs reviewed. Discussed with Dr. Abarca. Renal failure gradually worsening. Patient continues to deteriorate gradually. Patient DNR and DNI and has metastatic cancer September 14: Yesterday's labs reviewed. Overall status unchanged. Continue current support. Last serum creatinine 3.2. September 13: Patient in [facility] now. Remains lethargic. Deteriorating. Renal parameters worsened. Patient DNR and DNI with metastatic rectal CA. Continue to favor comfort care only as no major intervention will be lifesaving for this patient under current medical conditions. September 12: Status quo. Deteriorating. Labs reviewed. Discussed with EVITA Ruiz. Not much to add from renal standpoint of view. Futile treatment. Favor comfort care. September 11: Labs reviewed. Abnormal electrolytes addressed. Discussed with EVITA Finley. Overall condition poor. Favor comfort care. Per orders. Hemoglobin higher posttransfusion. Plan: Hydrate Transfuse Poor prognosis Per consultants Support hospice and comfort care Discussed with Dr. Abarca Subjective ROS Limited/Unobtainable: Yes Objective Objective Last 24 Hour Vital Signs Date Time Temp Pulse Resp B/P (MAP) Pulse Ox O2 Delivery O2 Flow Rate FiO2 09/16/20 09:00 Nasal Cannula 2.0 09/16/20 04:00 97.6 118 16 76/44 (55) 97 09/16/20 04:00 121 15 96 09/16/20 01:00 99.0 09/16/20 00:00 115 16 95 09/16/20 00:00 99.0 115 16 83/49 (60) 95 09/15/20 21:00 Nasal Cannula 2.0 09/15/20 20:00 99.2 110 16 93/50 (64) 94 09/15/20 20:00 110 16 94 12/1/20 16:00 101 16 98 09/15/20 16:00 97.9 101 16 83/46 (58) 98 09/15/20 12:15 98 21 94 09/15/20 12:00 98.0 98 16 84/46 (59) 98 Intake and Output 09/15/20 09/16/20 19:00 07:00 # Bowel Movements 2 Current Medications Medications (Trade) Dose Ordered Sig/Laisha Route PRN Reason Start Time Stop Time Status Last Admin Dose Admin Acetaminophen (Tylenol) 650 mg Q4H PRN ORAL Fever 09/09/20 19:58 10/09/20 19:57 Bisacodyl (Dulcolax) 10 mg DAILYPRN PRN RECTAL Constipation 09/09/20 19:15 12/08/20 19:14 Cefepime HCl 1 gm/ Dextrose 55 ml @ 110 mls/hr Q24H IVPB 09/10/20 18:00 09/17/20 17:59 09/15/20 18:33 Chlorhexidine Gluconate (Samia-Hex 2%) 1 applic DAILY@2000 TOPIC 09/10/20 20:00 12/09/20 19:59 09/15/20 21:10 Dextrose (Dextrose 50%) 25 ml Q30M PRN IV Hypoglycemia 09/09/20 19:59 12/08/20 19:58 Dextrose (Dextrose 50%) 50 ml Q30M PRN IV Hypoglycemia 09/09/20 19:59 12/08/20 19:58 Dextrose/Sodium Chloride 1,000 ml @ 50 mls/hr Q20H IV 09/11/20 11:15 10/11/20 11:14 09/15/20 16:00 Docusate Sodium (Colace) 100 mg EVERY 12 HOURS ORAL 09/09/20 21:00 10/09/20 20:59 09/16/20 08:36 Fluconazole/ Sodium Chloride 100 ml @ 100 mls/hr Q24H IV 09/11/20 15:00 09/18/20 14:59 09/15/20 17:05 Lorazepam (Ativan 2mg/ml 1ml) 0.5 mg Q4H PRN IV For Anxiety 09/09/20 20:00 09/16/20 19:59 09/11/20 01:46 Metronidazole 100 ml @ 100 mls/hr Q8H IVPB 09/10/20 00:00 09/17/20 00:00 09/16/20 08:36 Miscellaneous Medication (Narcotic Drip Rate Change) 1 ea DAILY PRN MISC . 09/15/20 11:30 10/15/20 11:29 Miscellaneous Medication (Narcotic Shift Volume) 1 ea Q8HR@07,15,23 MISC 09/15/20 15:00 10/15/20 14:59 09/16/20 07:00 Morphine Sulfate 30 ml @ 4 mls/hr BASE[employer]ALL [employer]ER PROTOCOL PRN IV To Patient Comfort 09/15/20 11:15 09/17/20 11:14 09/16/20 00:30 Pantoprazole (Protonix) 40 mg DAILY IV 09/10/20 09:00 10/10/20 08:59 09/16/20 08:36 Sodium Citrate (Bicitra) 30 ml EVERY 6 HOURS NG 09/12/20 11:00 10/11/20 11:59 09/16/20 06:29 Laboratory Tests 09/16/20 06:45: White Blood Count 16.0H, Red Blood Count 2.86L, Hemoglobin 8.0L, Hematocrit 23.4L, Mean Corpuscular Volume 82, Mean Corpuscular Hemoglobin 27.8, Mean Corpuscular Hemoglobin Concent 34.0, Red Cell Distribution Width 20.5H, Platelet Count 111L, Mean Platelet Volume 7.6, Neutrophils (%) (Auto) , Lymphocytes (%) (Auto) , Monocytes (%) (Auto) , Eosinophils (%) (Auto) , Basophils (%) (Auto) , Differential Total Cells Counted 100, Neutrophils % (Manual) 86H, Lymphocytes % (Manual) 4L, Monocytes % (Manual) 9, Eosinophils % (Manual) 0, Basophils % (Manual) 0, Band Neutrophils 1, Platelet Estimate DecreasedL, Platelet Morphology Normal, Hypochromasia 1+, Anisocytosis 2+, Target Cells Occasional Height (Feet): 5 Height (Inches): 3.00 Weight (Pounds): 110 General Appearance: no apparent distress, lethargic, other Cardiovascular: tachycardia - Jaundiced Respiratory/Chest: decreased breath sounds Abdomen: distended Luis Turner MD Sep 16, 2020 10:27
[2020-09-16] MEDS: D5NS 1,000 ML IV SCH (11:12)
[2020-09-16 12:00] VITALS: BP_SYST 90; BP_SYST 99; BP_DIAS 66
[2020-09-16] MEDS ORDERED: MORPHINE 44 MG/1 ML IV (14:38)
--- NOTE | 2020-09-16 15:02 | Discharge Summary ---
Discharge Summary Hospital Course Date of Admission Sep 09, 2020 at 18:54 Date of Discharge 09/16/20 Admitting Diagnosis liver failure HPI Jeanna Bunn is a 70 year old female who was admitted on Sep 09, 2020 at 18:54 for Liver Failure Hospital Course 70 y/o F with metastatic rectal cancer, recent history of obstructive jaundice - IR CBD exchange now admitted with: # Hypotension - septic shock - Admitted to ICU and resolved after vasopressors were given in the ICU. # Recurrent hypotension due to multisystem organ failure 09/15/20 and no indication for new ICU admission for vasopressors and broad sp antibiotics. Underlying etiology include bacteremia, PICC related infection, PORT related, UTI due to Sydnee - ? colonized vs acute. Patient was transferred out of ICU ( 09/12 ) for IVF and vasopressors OFF now and no indication for new admission to ICU due to poor terminal prognosis. Central line in place PICC hemodynamically stable and gradual hypotension developing due to high mortality, do not recommend ICU re admission and this was discussed with the family. Patient is actively dying and hospice is indicated. Per discussion with social service there is no contract with hospice [facility] [place] [facility] I started comfort measures and MINIMIZED invasive procedures to support comfort and allow the patient to preserve her dignity at this time. RN updated and family updated by me. Per discussion with case preparer and liner 09/16, the Hospital does NOT have a in house hospice and transfer to SNF with hospice is needed. Family was updated and they agreed. [facility] updated and patient will transfer later today with Hospice care [facility] contracted with the Snf. SNF assured me that family can visit the patient due to terminal prognosis. # Probable cholangitis and liver failure with hepatic encephalopathy and coagulopathy NH3 92 Trial of Lactulose and NGT started 09/12 with mild improvement in mental status WAS NOTED. Now with NGT showing brown color fluid, can not rule out UGIB in the setting of liver failure and coagulopathy. Defer to GI team. No indication for invasive GI procedures due to multisystem organ failure and terminal cancer. INR 1.4 # Anemia of chronic disease vs acute blood loss anemia s/p 2 PRBC and 2 FFP 09/10 Hb from 6.8 to 9.7 and NOW starting to downtrend again TO 8 range. No benefit of prolonging survival by PRBC. Not indicated. # Acute renal failure with metabolic acidosis Renal consultation requested with Dr. Tolentino - defer IVF management and support. Bicitra started and unable to take PO, changed to NGT. Creatinine 3.4 CO2 17 Supportive care only. # Metastatic rectal cancer Primary oncologist Dr. Dana Herrera in [place]. No more treatment indicated and per family members she is retired now. Dr. Cutler consulted and appreciate input. High mortality and poor prognosis noted and agreed with comfort care. Per prior dc summary, there is no more plan for medical treatment and GOC was discussed with family. Follow up with MAXIMILIANO Cuello TODAY [phone] AND COMFORT CARE WAS DISCUSSED. HOSPICE/comfort support - RN UPDATED. # Abnormal CT abdomen and Pelvis 1. Right-sided spigelian hernia containing a loop of small bowel. The small bowel is dilated both within the hernia sac and upstream with fluid levels likely representing obstruction. 2. Metal stent within the common bile duct with severe intrahepatic biliary dilatation. Dr. Nuñez from GI consulted. Patient is not stable for surgical procedures and patient terminally ill and dying, DNR DNI. Dr. Haas from Surgery consulted and non surgical approach recommended. 3. Bilateral nephroureteral stents in place. Moderate bilateral hydronephrosis. 4. Multiple pulmonary nodules and intra-abdominal adenopathy suspicious for metastatic disease. # Hematuria Dr. Dewitt from urology consulted and case discussed over the phone. no acute intervention planned Monitor CBC, and Tovar output # Chronic pain syndrome Opiate therapy as needed for comfort support and prognosis is terminal. PIGMENT AND LACQUER MIXER in place Discharge Medications New Medications: Morphine Sulfate/Pf (Morphine 4 Mg/Ml Carpuject) 4 Mg/1 Ml Cartridge 4 MG IV hour for 10 Days, APPFUL Continued Medications: Bisacodyl* (Dulcolax*) 5 Mg Tablet. 5 MG ORAL DAILY for constipation, #10 TAB 0 Refills Discontinued Medications: Docusate Sodium* (Docusate Sodium*) 100 Mg Capsule 200 MG ORAL TWICE A DAY for constipation, CAP Losartan Potassium* (Losartan Potassium*) 50 Mg Tablet 50 MG ORAL DAILY for Hypertension, TAB Metoclopramide Hcl* (Reglan*) 5 Mg Tablet 5 MG ORAL EVERY 6 HOURS for heartburn, TAB Morphine HCl (Morphine Sulfate ER) 15 Mg Tablet.er 15 MG ORAL BID PRN for For Pain, TAB Omeprazole (Omeprazole) 20 Mg Tablet. 20 MG ORAL DAILY for GERD, TAB Ondansetron Odt* (Zofran Odt*) 8 Mg Tab.rapdis 8 MG ORAL Q6H PRN for Nausea & Vomiting, #30 TAB Oxycodone Hcl* (Oxycodone Hcl*) 5 Mg Capsule 5 MG ORAL Q4H PRN for For Pain, #10 CAP 0 Refills Discharge Condition Upon Discharge: critical Discharge Vital Signs Last Vital Signs Date Time Temp Pulse Resp B/P (MAP) Pulse Ox O2 Delivery O2 Flow Rate FiO2 09/16/20 12:00 97 16 100 09/16/20 12:00 98.1 90/66 (74) 09/16/20 09:00 Nasal Cannula 2.0 09/14/20 16:04 28 Discharge Disposition Patient was discharged to [facility] Discharge Diagnoses: (1) Septic shock (2) Spigelian hernia (3) Hematuria (4) Renal failure (5) Liver failure (6) UTI (urinary tract infection) (7) Severe sepsis (8) Elevated lipase (9) Metastasis from rectal cancer (10) Coagulopathy (11) ERIC (acute kidney injury) Jon Abarca MD Sep 16, 2020 15:02
[2020-09-16 16:00] VITALS: BP 83/51
[2020-09-16] MEDS ORDERED: NS 275ml ONE (18:30)
[2020-09-16] MEDS ORDERED: NS Irrig 1000ml ONE (18:30)
[2020-09-16] MEDS ORDERED: Tubing IV Secondary IV ONE (18:30)
[2020-09-16] MEDS ORDERED: D5 1/2NS 1000ml IV ONE (18:30)
[2020-09-16] MEDS ORDERED: D5NS 1000ml IV ONE (18:30)
[2020-09-16] MEDS ORDERED: Tubing Blood Filter IV ONE (18:30)
--- NOTE | 2020-09-16 19:13 | Surgery Progress Note ---
Surgery Progress Note Objective Last 24 Hour Vital Signs Date Time Temp Pulse Resp B/P (MAP) Pulse Ox O2 Delivery O2 Flow Rate FiO2 09/16/20 16:00 99.9 97 21 83/51 (62) 99 09/16/20 16:00 97 16 100 09/16/20 12:00 97 16 100 09/16/20 12:00 98.1 97 18 90/66 (74) 100 09/16/20 09:00 Nasal Cannula 2.0 09/16/20 08:00 99.3 100 16 66/33 (44) 98 09/16/20 08:00 100 16 98 09/16/20 04:00 97.6 118 16 76/44 (55) 97 09/16/20 04:00 121 15 96 09/16/20 01:00 99.0 09/16/20 00:00 115 16 95 09/16/20 00:00 99.0 115 16 83/49 (60) 95 09/15/20 21:00 Nasal Cannula 2.0 09/15/20 20:00 99.2 110 16 93/50 (64) 94 09/15/20 20:00 110 16 94 I&O Intake and Output 09/15/20 09/16/20 19:00 07:00 # Bowel Movements 2 Laboratory Tests Test 09/16/20 06:45 White Blood Count 16.0 K/UL (4.8-10.8) H Red Blood Count 2.86 M/UL (4.20-5.40) L Hemoglobin 8.0 G/DL (12.0-16.0) L Hematocrit 23.4 % (37.0-47.0) L Mean Corpuscular Volume 82 FL (80-99) Mean Corpuscular Hemoglobin 27.8 PG (27.0-31.0) Mean Corpuscular Hemoglobin Concent 34.0 G/DL (32.0-36.0) Red Cell Distribution Width 20.5 % (11.6-14.8) H Platelet Count 111 K/UL (150-450) L Mean Platelet Volume 7.6 FL (6.5-10.1) Neutrophils (%) (Auto) % (45.0-75.0) Lymphocytes (%) (Auto) % (20.0-45.0) Monocytes (%) (Auto) % (1.0-10.0) Eosinophils (%) (Auto) % (0.0-3.0) Basophils (%) (Auto) % (0.0-2.0) Differential Total Cells Counted 100 Neutrophils % (Manual) 86 % (45-75) H Lymphocytes % (Manual) 4 % (20-45) L Monocytes % (Manual) 9 % (1-10) Eosinophils % (Manual) 0 % (0-3) Basophils % (Manual) 0 % (0-2) Band Neutrophils 1 % (0-8) Platelet Estimate Decreased L Platelet Morphology Normal Hypochromasia 1+ Anisocytosis 2+ Target Cells Occasional Plan Problems: (1) Hematuria (2) Renal failure (3) Severe sepsis Assessment & Plan: causing sbo seemingly reduced at bedside unfortunately patient is not a surgical candidate prognosis is poor and survival is low aggressive intervention would be medically futile and surgery would strongly not be recommended in her condition recommend hospice and end of life comfort care thank you will follow with exam and recs (4) Spigelian hernia Assessment & Plan: ABDOMEN: Liver: Unremarkable. Gallbladder and bile ducts: Metal stent within the common bile duct with severe intrahepatic biliary dilatation. The gallbladder is distended. Pancreas: Poorly visualized pancreatic parenchyma given the lack of contrast. Spleen: Unremarkable. Adrenals: Unremarkable. Kidneys and ureters: Bilateral nephroureteral stents in place. Moderate bilateral hydronephrosis. Hyperdense 1.9 cm structure in the left renal upper pole is contrast density potentially representing retained contrast in a calyceal cyst. Stomach and bowel: Right-sided spigelian hernia containing a loop of small bowel. The small bowel is dilated both within the hernia sac and upstream with fluid levels likely representing obstruction. Postsurgical changes within the rectum and right lower quadrant small bowel. No small bowel pneumatosis. PELVIS: Appendix: No findings to suggest acute appendicitis. Bladder: Tovar catheter within the bladder. No stones. Reproductive: Unremarkable as visualized. ABDOMEN and PELVIS: Intraperitoneal space: Unremarkable. No free air. No significant fluid collection. Bones/joints: No acute fracture. Soft tissues: Marked anasarca. Vasculature: IVC filter in place. Lymph nodes: Bulky calcified retroperitoneal and epigastric lymph nodes suspicious for metastatic disease. IMPRESSION: 1. Right-sided spigelian hernia containing a loop of small bowel. The small bowel is dilated both within the hernia sac and upstream with fluid levels likely representing obstruction. 2. Metal stent within the common bile duct with severe intrahepatic biliary dilatation. 3. Bilateral nephroureteral stents in place. Moderate bilateral hydronephrosis. 4. Multiple pulmonary nodules and intra-abdominal adenopathy suspicious for metastatic disease. 5. Fluid overload as evidenced by marked anasarca and small bilateral pleural effusions. (5) UTI (urinary tract infection) (6) Liver failure Nicholas Haas Sep 16, 2020 19:12
[2020-09-16 20:00] VITALS: BP 89/53
[2020-09-16] MEDS: Dyna-Hex 2% Top Sol 2oz TOPIC SCH (20:49)
[2020-09-17] VITALS: BP_SYST 49; BP_SYST 82; BP_DIAS 49; BP_DIAS 53
[2020-09-17 04:00] VITALS: BP 81/49
[2020-09-17 06:52] LABS: HEMATOCRIT 23.6 % (37.0-47.0); HEMOGLOBIN 8.1 G/DL (12.0-16.0); MEAN CORPUSCULAR VOLUME 82 FL (80-99); PLATELET COUNT 132 K/UL (150-450); RED BLOOD COUNT 2.89 M/UL (4.20-5.40)
--- NOTE | 2020-09-17 06:55 | Hematology/Onc Progress Note ---
Assessment/Plan Assessment/Plan Assessment/Recs # Metastatic rectal cancer, Primary oncologist Dr. Dana Herrera in [place]. Will try to obtain contact information and further discuss GOC --> Per prior dc summary, there is no more plan for medical treatment and GOC will need to be addressed. --> Patient is a candidate for hospice and will discuss with her and her brother Elfego --> CT with Multiple pulmonary nodules and intra-abdominal adenopathy suspicious for metastatic disease. 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 The small bowel is dilated both within the hernia sac and upstream with fluid levels likely representing obstruction Metal stent within the common bile duct --> as per gi # Hematuria --> yates, per uro # DVT ppx with SCD only Appreciate consultation and maría RN Subjective Constitutional: Denies: no symptoms, chills, fever, malaise, weakness, other HEENT: Denies: no symptoms, eye pain, blurred vision, tearing, double vision, ear pain, ear discharge, nose pain, nose congestion, throat pain, throat swell ing, mouth pain, mouth swelling, other Cardiovascular: Denies: no symptoms, chest pain, edema, irregular heart rate, lightheadedness, palpitations, syncope, other Respiratory: Denies: no symptoms, cough, shortness of breath, SOB with excertion, SOB at rest, sputum, wheezing, other Neurologic/Psychiatric: Denies: no symptoms, anxiety, depressed, emotional problems, headache, numbness, paresthesia, pre-existing deficit, seizure, tingling, tremors, weakness, other Endocrine: Denies: no symptoms, excessive sweating, flushing, intolerance to cold, intolerance to heat, increased hunger, increased thirst, increased urine, unexplained weight gain, unexplained weight loss, other Hematologic/Lymphatic: Denies: no symptoms, anemia, easy bleeding, easy bruising, adenopathy, other Allergies: Coded Allergies: No Known Allergies (Unverified , 09/09/20) Subjective 09/11 labs reviewed, meds noted, no bleeding, dw rn, no major changes, wbc 24 09/13 wbc again elev, remains confused, on 2l, yates catheter and ngt 09/14 nc, ng with yates, no events, urine remains reddish in yates 09/15 labs are noted, with ngt, no major events, no bleeding, cbc is noted 09/16 bp is low overnight, holding morphine 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 at this time 09/17 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 morphine is on hold, most recent labs are lower, plt is 111 Objective Objective Current Medications Medications (Trade) Dose Ordered Sig/Laisha Route PRN Reason Start Time Stop Time Status Last Admin Dose Admin Acetaminophen (Tylenol) 650 mg Q4H PRN ORAL Fever 09/09/20 19:58 10/09/20 19:57 Bisacodyl (Dulcolax) 10 mg DAILYPRN PRN RECTAL Constipation 09/09/20 19:15 12/08/20 19:14 Chlorhexidine Gluconate (Samia-Hex 2%) 1 applic DAILY@1999 TOPIC 09/10/20 20:00 12/09/20 19:59 09/16/20 20:49 Dextrose (Dextrose 50%) 25 ml Q30M PRN IV Hypoglycemia 09/09/20 19:59 12/08/20 19:58 Dextrose (Dextrose 50%) 50 ml Q30M PRN IV Hypoglycemia 09/09/20 19:59 12/08/20 19:58 Dextrose/Sodium Chloride 1,000 ml @ 50 mls/hr Q20H IV 09/11/20 11:15 10/11/20 11:14 09/16/20 11:12 Miscellaneous Medication (Narcotic Drip Rate Change) 1 ea DAILY PRN MISC . 09/15/20 11:30 10/15/20 11:29 Miscellaneous Medication (Narcotic Shift Volume) 1 ea Q8HR@07,15,23 MISC 09/15/20 15:00 10/15/20 14:59 09/16/20 23:00 Morphine Sulfate 30 ml @ 4 mls/hr [employer] PROTOCOL PRN IV To Patient Comfort 09/15/20 11:15 09/17/20 11:14 09/16/20 00:30 Last 24 Hour Vital Signs Date Time Temp Pulse Resp B/P (MAP) Pulse Ox O2 Delivery O2 Flow Rate FiO2 09/17/20 04:00 90 19 97 09/17/20 04:00 96.9 90 18 81/49 (60) 97 09/17/20 00:00 96.9 91 19 82/49 (60) 100 09/17/20 00:00 91 19 100 09/16/20 21:00 Nasal Cannula 2.0 09/16/20 20:05 99 Nasal Cannula 2.0 28 09/16/20 20:00 101 20 99 09/16/20 20:00 97.5 101 20 89/53 (65) 99 09/16/20 16:00 99.9 97 21 83/51 (62) 99 09/16/20 16:00 97 16 100 09/16/20 12:00 97 16 100 09/16/20 12:00 98.1 97 18 90/66 (74) 100 09/16/20 09:00 Nasal Cannula 2.0 09/16/20 08:00 99.3 100 16 66/33 (44) 98 09/16/20 08:00 100 16 98 09/16/20 04:00 97.6 118 16 76/44 (55) 97 09/16/20 04:00 121 15 96 09/16/20 01:00 99.0 09/16/20 00:00 115 16 95 09/16/20 00:00 99.0 115 16 83/49 (60) 95 09/15/20 21:00 Nasal Cannula 2.0 09/15/20 20:00 99.2 110 16 93/50 (64) 94 09/15/20 20:00 110 16 94 09/15/20 16:00 101 16 98 09/15/20 16:00 97.9 101 16 83/46 (58) 98 09/15/20 12:15 98 21 94 09/15/20 12:00 98.0 98 16 84/46 (59) 98 09/15/20 09:00 Nasal Cannula 2.0 09/15/20 08:00 98.1 103 15 76/46 (56) 95 Labs Test 09/15/20 07:15 09/16/20 06:45 09/17/20 04:00 White Blood Count 21.2 K/UL (4.8-10.8) 16.0 K/UL (4.8-10.8) Red Blood Count 3.04 M/UL (4.20-5.40) 2.86 M/UL (4.20-5.40) Hemoglobin 8.5 G/DL (12.0-16.0) 8.0 G/DL (12.0-16.0) Hematocrit 24.5 % (37.0-47.0) 23.4 % (37.0-47.0) Mean Corpuscular Volume 81 FL (80-99) 82 FL (80-99) Mean Corpuscular Hemoglobin 27.9 PG (27.0-31.0) 27.8 PG (27.0-31.0) Mean Corpuscular Hemoglobin Concent 34.5 G/DL (32.0-36.0) 34.0 G/DL (32.0-36.0) Red Cell Distribution Width 21.5 % (11.6-14.8) 20.5 % (11.6-14.8) Platelet Count 185 K/UL (150-450) 111 K/UL (150-450) Mean Platelet Volume 8.8 FL (6.5-10.1) 7.6 FL (6.5-10.1) Neutrophils (%) (Auto) % (45.0-75.0) % (45.0-75.0) Lymphocytes (%) (Auto) % (20.0-45.0) % (20.0-45.0) Monocytes (%) (Auto) % (1.0-10.0) % (1.0-10.0) Eosinophils (%) (Auto) % (0.0-3.0) % (0.0-3.0) Basophils (%) (Auto) % (0.0-2.0) % (0.0-2.0) Differential Total Cells Counted 100 100 Neutrophils % (Manual) 93 % (45-75) 86 % (45-75) Lymphocytes % (Manual) 1 % (20-45) 4 % (20-45) Monocytes % (Manual) 5 % (1-10) 9 % (1-10) Eosinophils % (Manual) 1 % (0-3) 0 % (0-3) Basophils % (Manual) 0 % (0-2) 0 % (0-2) Band Neutrophils 0 % (0-8) 1 % (0-8) Platelet Estimate Adequate Decreased Platelet Morphology Normal Normal Hypochromasia 1+ 1+ Anisocytosis 2+ 2+ Target Cells Occasional Occasional Schistocytes Occasional Sodium Level 139 MMOL/L (136-145) Potassium Level 3.6 MMOL/L (3.5-5.1) Chloride Level 109 MMOL/L (98-107) Carbon Dioxide Level 16 MMOL/L (21-32) Anion Gap 14 mmol/L (5-15) Blood Urea Nitrogen 46 mg/dL (7-18) Creatinine 3.9 MG/DL (0.55-1.30) Estimat Glomerular Filtration Rate 11.5 mL/min (>60) Glucose Level 98 MG/DL (74-106) Calcium Level 8.2 MG/DL (8.5-10.1) Total Bilirubin 18.3 MG/DL (0.2-1.0) Direct Bilirubin 14.1 MG/DL (0.0-0.3) Aspartate Amino Transf (AST/SGOT) 27 U/L (15-37) Alanine Aminotransferase (ALT/SGPT) < 6 U/L (12-78) Alkaline Phosphatase 1437 U/L (46-116) Total Protein 5.2 G/DL (6.4-8.2) Albumin 1.9 G/DL (3.4-5.0) Globulin 3.3 g/dL Albumin/Globulin Ratio 0.6 (1.0-2.7) Micro Microbiology Date/Time Source Procedure Growth Status 09/16/20 16:00 Nasopharynx SARS-CoV-2 RdRp Gene Assay - Final Complete Height (Feet): 5 Height (Inches): 3.00 Weight (Pounds): 110 Objective General Appearance: moderate distress Lines, tubes and drains: peripheral, PICC HEENT: normocephalic, atraumatic Cardiovascular/Chest: normal rate Pulm: nc++ Genitourinary/Rectal: yates, other - hematuria Extremities: non-tender Skin Exam: jaundice Neurologic: search lead II-XII grossly normal Yury Cutler MD Sep 17, 2020 06:55
[2020-09-17] MEDS: Narcotic Shift Volume MISC SCH (07:13)
[2020-09-17 07:20] LABS: WHITE BLOOD COUNT 22.5 K/UL (4.8-10.8)
[2020-09-17 08:00] VITALS: BP 71/40
[2020-09-17] MEDS: D5NS 1,000 ML IV SCH (08:59)
[2020-09-17] MEDS ORDERED: NS 500ML ONE (10:53)
--- NOTE | 2020-09-17 12:10 | Nephrology Progress Note ---
Assessment/Plan Problem List: (1) ERIC (acute kidney injury) (2) Metastasis from rectal cancer (3) Elevated lipase (4) Severe sepsis (5) UTI (urinary tract infection) (6) Septic shock Assessment Acute renal failure Possible underlying renal failure Shock status on Levophed Jaundice Small bowel obstruction Bilateral hydronephrosis metastatic rectal cancer with biliary obstruction Metastatic disease, multiple pulmonary nodules Severe hypoalbuminemia and anasarca DNR/DNI Plan September 17: Late note entry. Patient seen 9 AM today. Lethargic. Gross hematuria. Jaundiced. Doing poorly. CBC noted. Leukocytosis worsened. Continue current support. September 16: Remains deeply jaundiced. No chemistry panel today. Has multiorgan failure and metastatic rectal cancer. Continue per current support. September 15: Labs reviewed. Discussed with Dr. Abarca. Renal failure gradually worsening. Patient continues to deteriorate gradually. Patient DNR and DNI and has metastatic cancer September 14: Yesterday's labs reviewed. Overall status unchanged. Continue current support. Last serum creatinine 3.2. September 13: Patient in [facility] now. Remains lethargic. Deteriorating. Renal parameters worsened. Patient DNR and DNI with metastatic rectal CA. Continue to favor comfort care only as no major intervention will be lifesaving for this patient under current medical conditions. September 12: Status quo. Deteriorating. Labs reviewed. Discussed with EVITA Ruiz. Not much to add from renal standpoint of view. Futile treatment. Favor comfort care. September 11: Labs reviewed. Abnormal electrolytes addressed. Discussed with EVITA Finley. Overall condition poor. Favor comfort care. Per orders. Hemoglobin higher posttransfusion. Plan: Hydrate Transfuse Poor prognosis Per consultants Support hospice and comfort care Discussed with Dr. Abarca Subjective ROS Limited/Unobtainable: Yes Interval Events/Complaints Late note entry patient seen at 8:55 AM Objective Objective Last 24 Hour Vital Signs Date Time Temp Pulse Resp B/P (MAP) Pulse Ox O2 Delivery O2 Flow Rate FiO2 09/17/20 09:00 Nasal Cannula 2.0 09/17/20 08:00 88 16 99 09/17/20 08:00 97.3 88 16 71/40 (50) 99 09/17/20 04:00 90 19 97 09/17/20 04:00 96.9 90 18 81/49 (60) 97 09/17/20 00:00 96.9 91 19 82/49 (60) 100 09/17/20 00:00 91 19 100 09/16/20 21:00 Nasal Cannula 2.0 09/16/20 20:05 99 Nasal Cannula 2.0 28 09/16/20 20:00 101 20 99 09/16/20 20:00 97.5 101 20 89/53 (65) 99 09/16/20 16:00 99.9 97 21 83/51 (62) 99 09/16/20 16:00 97 16 100 Laboratory Tests 09/17/20 04:00: White Blood Count 22.5*H, Red Blood Count 2.89L, Hemoglobin 8.1L, Hematocrit 23.6L, Mean Corpuscular Volume 82, Mean Corpuscular Hemoglobin 28.0, Mean Corpuscular Hemoglobin Concent 34.3, Red Cell Distribution Width 21.0H, Platelet Count 132L, Mean Platelet Volume 8.9, Neutrophils (%) (Auto) , Lymphocytes (%) (Auto) , Monocytes (%) (Auto) , Eosinophils (%) (Auto) , Basophils (%) (Auto) , Neutrophils % (Manual) [Pending], Lymphocytes % (Manual) [Pending], Platelet Estimate [Pending], Platelet Morphology [Pending], HIV (1&2) Antibody Rapid Negative Height (Feet): 5 Height (Inches): 3.00 Weight (Pounds): 110 General Appearance: no apparent distress, lethargic EENT: other - Jaundiced Cardiovascular: tachycardia Respiratory/Chest: decreased breath sounds Abdomen: distended Luis Turner MD Sep 17, 2020 12:10
== END 2020-09-17 10:54 | DRG 871 ==
LOC: EDBD 15:41 → EMR 16:00 → EDBEDREQSVC 16:28 → ICU 18:54 → EDBEDREQ 19:02 → 4E 09-12 16:43
DX: A41.9 Sepsis, unspecified organism (principal); R65.21 Severe sepsis with septic shock; K72.00 Acute and subacute hepatic failure without coma; J69.0 Pneumonitis due to inhalation of food and vomit; K85.90 Acute pancreatitis without necrosis or infection, unspecified; N17.9 Acute kidney failure, unspecified; K83.09 Other cholangitis; C78.00 Secondary malignant neoplasm of unspecified lung; C78.7 Secondary malignant neoplasm of liver and intrahepatic bile duct; K43.6 Other and unspecified ventral hernia with obstruction, without gangrene; B37.49 Other urogenital candidiasis; D68.9 Coagulation defect, unspecified; N13.30 Unspecified hydronephrosis; Z85.048 Personal history of other malignant neoplasm of rectum, rectosigmoid junction, and anus; Z66 Do not resuscitate; R31.9 Hematuria, unspecified; G89.4 Chronic pain syndrome; L89.152 Pressure ulcer of sacral region, stage 2; D64.9 Anemia, unspecified
CPT/HCPCS: 36415; 71045; 74018; 74176; 76700; 80053; 80061; 80076; 80202; 81003; 82140; 82150; 82248; 82378; 82550; 82607; 82728; 82746; 82803; 82962; 82977; 83036; 83540; 83550; 83605; 83615; 83690; 83735; 83880; 84100; 84443; 84484; 84550; 85007; 85025; 85379; 85610; 85651; 85730; 86140; 86703; 86705; 86709; 86803; 86850; 86900; 86901; 86920; 86927; 87040; 87081; 87086; 87340; 93005; 96361; 96365; 96367; 96375; 99291; 99292; J3430; J7030; U0002